=== PATIENT | male | born 1945 | race Caucasian/White ===

== ENCOUNTER 2020-04-17 07:05 | Outpatient (CLI) | payer MEDICARE, SELFPAY ==
--- NOTE | ~2020-04-17 | XR_ITS ---
XR knee RT 3V DATE: 04/17/2020 07:49 INDICATION: Right knee pain for one month. Twisted knee pudding of the facets. TECHNIQUE: 3 views including sunrise COMPARISON: None FINDINGS: There is tricompartment osteoarthritis, most prominent at the medial compartment. There is a large subchondral cyst of the medial aspect of the medial tibial plateau. There is chondrocalcinosis. No fracture or dislocation or significant joint effusion is evident. No periosteal reaction or bone d estruction. IMPRESSION: Tricompartment osteoarthritis Chondrocalcinosis Reviewed, dictated and finalized at location A.
[2020-04-17 07:36] LABS: Basophils Percent Auto 0.4 % (0.2-1.2); Eosinophils Absolute Auto 0.5 K/mm3 (0-0.3); Eosinophils Percent Auto 6.8 % (0-4.4); Hematocrit 39.9 % (42.0-52.0); Hemoglobin 13.5 g/dL (14.0-18.0); Immature Granulocyte Absolute 0.02 K/mm3 (0.00-0.031); Immature Granulocyte Percent A 0.3 % (0-0.5); Lymphocytes Percent Auto 27.4 % (18.3-44.2); Mean Corpuscular HGB Conc 33.8 g/dl (32-36); Mean Corpuscular Volume 97.6 fl (80-100); Mean Platelet Volume 10.7 fl (7.4-10.4); Monocytes Absolute Auto 0.6 K/mm3 (0.1-0.6); Monocytes Percent Auto 7.9 % (2.6-8.5); Neutrophils Percent Auto 57.2 % (45.5-73.1); Platelet Count Result 175 k/mm3 (150-375); Red Blood Count 4.09 M/mm3 (4.6-6.20); Red Cell Distribution Width 12.7 % (11.5-14.5); White Blood Count 6.9 K/mm3 (4.5-10.0)
[2020-04-17 07:50] LABS: Alanine Aminotransferase 27 U/L (4-50); Albumin Level 4.2 g/dL (3.5-5.1); Alkaline Phosphatase 79 U/L (38-126); Anion Gap 7 mmol/L (8-16); Aspartate Amino Transferase 30 U/L (17-59); Bilirubin,Total 0.2 mg/dL (0.2-1.3); Blood Urea Nitrogen 47 mg/dL (9-20); Calcium 9.2 mg/dL (8.4-10.2); Carbon Dioxide 29 mmol/L (22-30); Chloride 109 mmol/L (98-107); Cholesterol 160 mg/dL (0-200); Estimated Glomerular Filt Rate > 60; Glucose 98 mg/dL (75-110); HDL Direct 65 mg/dL; Potassium 4.7 mmol/L (3.4-5.0); Sodium 145 mmol/L (137-145); Triglycerides 62 mg/dL (<150)
[2020-04-17 08:01] LABS: LDL Cholesterol Direct 86 mg/dL
[2020-04-17 08:19] LABS: Prostate Specific Antigen 3.8 ng/mL (< OR = 4.0)
[2020-04-17 08:31] LABS: Free T4 Free Thyroxine 0.82 ng/mL (0.78-2.19)
[2020-04-20 02:07] LABS: Phenytoin Dilantin Free 0.9 mg/L (1.0-2.0)
== END 2020-04-17 07:06 | disposition home or self-care (01) ==
PROVIDERS: PCP Internal Medicine; Visit Provider Internal Medicine
DX: M25.561 Pain in right knee (principal); G89.29 Other chronic pain; I10 Essential (primary) hypertension; E03.9 Hypothyroidism, unspecified; E78.2 Mixed hyperlipidemia; G40.909 Epilepsy, unspecified, not intractable, without status epilepticus; Z12.5 Encounter for screening for malignant neoplasm of prostate
CPT/HCPCS: 36415; 73562; 80053; 80061; 80186; 84153; 84439; 84443; 85025; G0103

== ENCOUNTER 2020-10-02 07:23 | Outpatient (CLI) | payer MEDICARE, SELFPAY ==
[2020-10-02 08:07] LABS: Basophils Percent Auto 0.5 % (0.2-1.2); Eosinophils Absolute Auto 0.6 K/mm3 (0-0.3); Hematocrit 40.6 % (42.0-52.0); Hemoglobin 14.1 g/dL (14.0-18.0); Immature Granulocyte Absolute 0.01 K/mm3 (0.00-0.031); Immature Granulocyte Percent A 0.2 % (0-0.5); Lymphocytes Absolute Auto 1.63 K/mm3 (0.9-3.2); Lymphocytes Percent Auto 29.7 % (18.3-44.2); Mean Corpuscular HGB Conc 34.7 g/dl (32-36); Mean Corpuscular Hemoglobin 32.9 pg (26-34); Mean Corpuscular Volume 94.9 fl (80-100); Mean Platelet Volume 11.8 fl (7.4-10.4); Monocytes Absolute Auto 0.7 K/mm3 (0.1-0.6); Monocytes Percent Auto 12.8 % (2.6-8.5); Neutrophils Absolute Auto 2.6 K/mm3 (1.3-6.7); Neutrophils Percent Auto 46.8 % (45.5-73.1); Platelet Count Result 143 k/mm3 (150-375); Red Blood Count 4.28 M/mm3 (4.6-6.20); Red Cell Distribution Width 12.9 % (11.5-14.5); White Blood Count 5.5 K/mm3 (4.5-10.0)
[2020-10-02 08:22] LABS: Hemoglobin A1C 5.1 % (<5.7)
[2020-10-02 08:23] LABS: Alanine Aminotransferase 17 U/L (4-50); Albumin Level 4.1 g/dL (3.5-5.1); Alkaline Phosphatase 110 U/L (38-126); Anion Gap 10 mmol/L (8-16); Aspartate Amino Transferase 31 U/L (17-59); Bilirubin,Total 0.1 mg/dL (0.2-1.3); Blood Urea Nitrogen 30 mg/dL (9-20); Calcium 8.8 mg/dL (8.4-10.2); Carbon Dioxide 23 mmol/L (22-30); Chloride 108 mmol/L (98-107); Cholesterol 178 mg/dL (0-200); Estimated Glomerular Filt Rate 50; Glucose 114 mg/dL (75-110); HDL Direct 53 mg/dL; Phenytoin Dilantin 6 ug/mL (10-20); Potassium 3.6 mmol/L (3.4-5.0); Sodium 141 mmol/L (137-145); Triglycerides 226 mg/dL (<150)
[2020-10-02 08:32] LABS: LDL Cholesterol Direct 78 mg/dL
[2020-10-02 09:11] LABS: Valproic Acid 62.1 ug/mL (50-120)
[2020-10-02 09:26] LABS: Free T4 Free Thyroxine 1.27 ng/mL (0.78-2.19)
[2020-10-04 18:16] LABS: Homocysteine 13.8 umol/L (<11.4)
[2020-10-07 10:06] LABS: Primidone 2.6
== END 2020-10-02 07:24 | disposition home or self-care (01) ==
PROVIDERS: PCP Internal Medicine; Visit Provider Internal Medicine
DX: G40.909 Epilepsy, unspecified, not intractable, without status epilepticus (principal); Z51.81 Encounter for therapeutic drug level monitoring; Z79.899 Other long term (current) drug therapy; Z83.3 Family history of diabetes mellitus; R79.89 Other specified abnormal findings of blood chemistry; E03.9 Hypothyroidism, unspecified
CPT/HCPCS: 36415; 80048; 80061; 80076; 80164; 80184; 80185; 80188; 83036; 83090; 84439; 84443; 85025

== ENCOUNTER 2020-12-20 07:35 | Outpatient (CLI) | payer MEDICARE, SELFPAY ==
[2020-12-20 09:01] LABS: Free T4 Free Thyroxine 1.16 ng/mL (0.78-2.19)
== END 2020-12-20 07:36 | disposition home or self-care (01) ==
PROVIDERS: PCP Internal Medicine; Visit Provider Internal Medicine
DX: E03.9 Hypothyroidism, unspecified (principal); Z51.81 Encounter for therapeutic drug level monitoring; Z79.899 Other long term (current) drug therapy
CPT/HCPCS: 36415; 84439; 84443

== ENCOUNTER 2021-02-08 06:41 | Outpatient (CLI) | payer MEDICARE, SELFPAY ==
[2021-02-08 07:36] LABS: Basophils Percent Auto 0.5 % (0.2-1.2); Eosinophils Absolute Auto 0.5 K/mm3 (0-0.3); Eosinophils Percent Auto 7.5 % (0-4.4); Hematocrit 40.3 % (42.0-52.0); Hemoglobin 13.3 g/dL (14.0-18.0); Immature Granulocyte Absolute 0.02 K/mm3 (0.00-0.031); Immature Granulocyte Percent A 0.3 % (0-0.5); Immature Platelet Fraction Pct 5.5 % (0.9-11.2); Lymphocytes Percent Auto 36.8 % (18.3-44.2); Mean Corpuscular Hemoglobin 32.8 pg (26-34); Mean Corpuscular Volume 99.3 fl (80-100); Mean Platelet Volume 10.7 fl (7.4-10.4); Monocytes Absolute Auto 0.6 K/mm3 (0.1-0.6); Monocytes Percent Auto 8.7 % (2.6-8.5); Neutrophils Percent Auto 46.2 % (45.5-73.1); Platelet Count Result 152 k/mm3 (150-375); Red Blood Count 4.06 M/mm3 (4.6-6.20); White Blood Count 6.5 K/mm3 (4.5-10.0)
[2021-02-08 07:44] LABS: Hemoglobin A1C 5.2 % (<5.7)
[2021-02-08 08:19] LABS: Phenytoin Dilantin 9 ug/mL (10-20)
[2021-02-08 08:38] LABS: LDL Cholesterol Direct 66 mg/dL
[2021-02-08 08:50] LABS: Free T4 Free Thyroxine 0.92 ng/mL (0.78-2.19)
[2021-02-08 10:02] LABS: Alanine Aminotransferase 23 U/L (4-50); Albumin Level 4.1 g/dL (3.5-5.1); Alkaline Phosphatase 81 U/L (38-126); Anion Gap 8 mmol/L (8-16); Aspartate Amino Transferase 23 U/L (17-59); Bilirubin,Total 0.4 mg/dL (0.2-1.3); Blood Urea Nitrogen 19 mg/dL (9-20); Calcium 9.5 mg/dL (8.4-10.2); Carbon Dioxide 26 mmol/L (22-30); Chloride 105 mmol/L (98-107); Cholesterol 158 mg/dL (0-200); Estimated Glomerular Filt Rate > 60; Glucose 92 mg/dL (65-110); HDL Direct 58 mg/dL; Potassium 4.5 mmol/L (3.4-5.0); Sodium 139 mmol/L (137-145); Triglycerides 149 mg/dL (<150)
[2021-02-10 21:00] LABS: Homocysteine 9.6 umol/L (<11.4)
== END 2021-02-08 06:42 | disposition home or self-care (01) ==
LOC: ANHLAB 06:48
PROVIDERS: PCP Internal Medicine; Visit Provider Internal Medicine
DX: Z51.81 Encounter for therapeutic drug level monitoring (principal); Z79.899 Other long term (current) drug therapy; G40.909 Epilepsy, unspecified, not intractable, without status epilepticus; E03.9 Hypothyroidism, unspecified; I10 Essential (primary) hypertension; E78.2 Mixed hyperlipidemia; R79.89 Other specified abnormal findings of blood chemistry
CPT/HCPCS: 36415; 80053; 80061; 80184; 80185; 80188; 83036; 83090; 84439; 84443; 85025; 85055

== ENCOUNTER 2021-03-29 09:47 | Outpatient (CLI) | payer MEDICARE, SELFPAY ==
--- NOTE | 2021-03-29 11:30 | NEURO_ITS ---
Impression: # Complains of numbness of hands. # Bilateral Carpal Tunnel Syndrome. # Right ulnar neuropathy across the elbow. # Needle/EMG exam not requested. Nerve Conduction Studies Anti Sensory Summary Table Stim Site NR Peak (ms) P-T Amp (?V) Site1 Site2 Delta-P (ms) Dist (cm) Cipriano (m/s) Left Median Anti Sensory (2-3nd Digit) Wrist 5.6 14.9 Wrist 2-3nd Digit 5.6 14.0 25 Wrist 5.6 12.4 Wrist 2-3nd Digit 5.6 14.0 25 Right Median Anti Sensory (2-3nd Digit) Wrist 5.7 9.4 Wrist 2-3nd Digit 5.7 14.0 25 Wrist 5.3 16.0 Wrist 2-3nd Digit 5.7 14.0 25 Left Radial Anti Sensory (Base 1st Digit) Wrist 2.6 19.9 Wrist Base 1st Digit 2.6 0.0 Right Radial Anti Sensory (Base 1st Digit) Wrist 3.0 12.1 Wrist Base 1st Digit 3.0 0.0 Left Ulnar Anti Sensory (5th Digit) Wrist 3.0 16.8 Wrist 5th Digit 3.0 14.0 47 Right Ulnar Anti Sensory (5th Digit) Wrist 3.2 24.2 Wrist 5th Digit 3.2 14.0 44 Motor Summary Table Stim Site NR Onset (ms) O-P Amp (mV) Site1 Site2 Delta-0 (ms) Dist (cm) Cipriano (m/s) Left Median Motor (Abd Poll Brev) Wrist 5.7 1.4 Elbow Wrist 5.9 33.0 56 Elbow 11.6 0.8 Right Median Motor (Abd Poll Brev) Wrist 5.3 4.0 Elbow Wrist 6.3 33.0 52 Elbow 11.6 3.5 Left Ulnar Motor (Abd Dig Minimi) Wrist 2.8 3.0 A Elbow Wrist 5.9 33.0 56 A Elbow 8.7 1.4 Right Ulnar Motor (Abd Dig Minimi) Wrist 3.4 3.3 A Elbow Wrist 7.1 32.0 45 A Elbow 10.5 1.9 B Elbow Wrist 5.1 24.0 47 B Elbow 8.5 1.8 F Wave Studies NR F-Lat (ms) L-R F-Lat (ms) Left Median (Mrkrs) (Abd Poll Brev) 33.74 0.99 Right Median (Mrkrs) (Abd Poll Brev) 32.75 0.99 Left Ulnar (Mrkrs) (Abd Dig Min) 29.77 0.23 Right Ulnar (Mrkrs) (Abd Dig Min) 29.54 0.23 MTDD
== END 2021-03-29 09:48 | disposition home or self-care (01) ==
LOC: ANHNEURO 09:49
PROVIDERS: PCP Internal Medicine; Visit Provider Plastic Surgery
DX: G56.00 Carpal tunnel syndrome, unspecified upper limb (principal); G64 Other disorders of peripheral nervous system; G56.03 Carpal tunnel syndrome, bilateral upper limbs; G56.21 Lesion of ulnar nerve, right upper limb
CPT/HCPCS: 95911

== ENCOUNTER 2021-04-02 09:20 | Outpatient (CLI) | payer MEDICARE, SELFPAY ==
[2021-04-02 10:22] LABS: Basophils Percent Auto 0.4 % (0.2-1.2); Eosinophils Absolute Auto 0.5 K/mm3 (0-0.3); Eosinophils Percent Auto 10.5 % (0-4.4); Hematocrit 38.8 % (42.0-52.0); Hemoglobin 12.6 g/dL (14.0-18.0); Immature Granulocyte Absolute 0.01 K/mm3 (0.00-0.031); Immature Granulocyte Percent A 0.2 % (0-0.5); Lymphocytes Absolute Auto 1.88 K/mm3 (0.9-3.2); Lymphocytes Percent Auto 36.7 % (18.3-44.2); Mean Corpuscular HGB Conc 32.5 g/dl (32-36); Mean Corpuscular Hemoglobin 33.4 pg (26-34); Mean Corpuscular Volume 102.9 fl (80-100); Mean Platelet Volume 12.1 fl (7.4-10.4); Monocytes Absolute Auto 0.4 K/mm3 (0.1-0.6); Monocytes Percent Auto 8.6 % (2.6-8.5); Neutrophils Absolute Auto 2.2 K/mm3 (1.3-6.7); Neutrophils Percent Auto 43.6 % (45.5-73.1); Platelet Count Result 120 k/mm3 (150-375); Red Blood Count 3.77 M/mm3 (4.6-6.20); White Blood Count 5.1 K/mm3 (4.5-10.0)
[2021-04-02 10:37] LABS: Anion Gap 9 mmol/L (8-16); Blood Urea Nitrogen 38 mg/dL (9-20); Calcium 8.8 mg/dL (8.4-10.2); Carbon Dioxide 25 mmol/L (22-30); Chloride 108 mmol/L (98-107); Estimated Glomerular Filt Rate > 60; Glucose 95 mg/dL (65-110); Phenytoin Dilantin 10 ug/mL (10-20); Potassium 4.6 mmol/L (3.4-5.0); Sodium 142 mmol/L (137-145)
[2021-04-02 11:48] LABS: Valproic Acid 64.7 ug/mL (50-120)
[2021-04-05 08:49] LABS: Primidone 4.3
== END 2021-04-02 09:21 | disposition home or self-care (01) ==
PROVIDERS: PCP Internal Medicine; Visit Provider Internal Medicine
DX: R27.0 Ataxia, unspecified (principal); G40.909 Epilepsy, unspecified, not intractable, without status epilepticus
CPT/HCPCS: 36415; 80048; 80164; 80184; 80185; 80188; 85025

== ENCOUNTER 2021-04-26 00:29 | Day surgery (SDC) | payer MEDICARE, SELFPAY ==
[2021-04-11 09:23] VITALS: BMI 27.1
[2021-04-26 06:15] VITALS: BP 145/84; PULSE 76; RESP 16; TEMP 36.3; O2SAT 99
--- NOTE | 2021-04-26 06:38 | WPDHPUPDATE1 ---
History and Physical Update Update Date/Time: 04/26/21 06:38 History and Physical has been reviewed, including an updated exam of the patient. There are NO changes in the patient's condition. Risks, benefits, and alternatives have been discussed and questions answered. Patient agrees to proceed with procedure.
[2021-04-26] MEDS: LACTATED RINGERS 1,000 ML 30 ML IV CONT (06:46)
--- NOTE | 2021-04-26 07:04 | WPDANESEPPF ---
Anes - Initial Pre Proc Eval Procedure: Operation Date: 04/26/21 07:30 Proposed Procedures p Right Open Carpal Tunnel Release, Right Ulnar Neuroplasty at Elbow - Lisandro Conrad MD Date/Time: 04/26/21 07:04 Surgeon: Lisandro Conrad MD Pre Op Diagnosis: right carpal and cubital tunnel syndrome Patient Data Age: 76 Gender: M Height: 1.83 m Weight: 98.9 kg Last Vital Signs Temp 97.4 F L 04/26/21 06:15 Pulse 76 04/26/21 06:15 Resp 16 04/26/21 06:15 BP 145/84 H 04/26/21 06:15 Pulse Ox 99 04/26/21 06:15 Allergies Allergy/AdvReac Type Severity Reaction Status Date / Time No Known Allergies Allergy Unknown Verified 04/26/21 06:07 Home Medications Medication Instructions Recorded Confirmed Type folic acid 1 mg tablet 1 mg PO DAILY 04/13/20 04/26/21 History mecobalamin (vitamin B12) 1,000 1,000 mcg SUBLINGUAL DAILY 04/13/20 04/26/21 History mcg disintegrating tablet,sublingual lorazepam 0.5 mg tablet 0.5 mg PO TID PRN #30 tablet 08/02/20 04/26/21 Rx levothyroxine 200 mcg tablet 200 mcg PO DAILY #90 tablet 02/14/21 04/26/21 Rx atorvastatin 20 mg tablet 20 mg PO DAILY #90 tablet 02/26/21 04/26/21 Rx divalproex 500 mg tablet,delayed 500 mg PO QID #360 tablet 02/26/21 04/26/21 Rx release sucralfate 1 gram tablet 2 g PO BID #360 tablet 02/26/21 04/26/21 Rx candesartan-hydrochlorothiazid 1 tablet PO QAM 04/11/21 04/26/21 History gabapentin 300 mg PO DIRECTED 04/11/21 04/26/21 History naproxen sodium [Aleve] 220 mg PO BID PRN 04/11/21 04/11/21 History phenytoin sodium extended 200 mg PO HS 04/11/21 04/26/21 History phenytoin sodium extended 300 mg PO QAM 04/11/21 04/26/21 History primidone 250 mg PO BID 04/11/21 04/26/21 History Patient hx anesthesia problems: none Family hx anesthesia problems: none Results Review: All pre-operative results and documents have been reviewed as part of the pre-operative evaluation. [facility] Past Medical History Medical History (Updated 03/29/21 @ 16:47 by Diana Killian LPN) Benign essential hypertension BMI 30.0-30.9,adult Carpal tunnel syndrome Colon cancer screening Elevated homocysteine Elevated serum creatinine Encounter for routine adult health examination without abnormal findings FHx: type 2 diabetes mellitus GERD (gastroesophageal reflux disease) Hx of colonic polyps Hyperlipidemia Hypothyroidism (acquired) On intermediate drug therapy Prostate cancer screening Seizure disorder Vitamin B12 deficiency Social History Social History Smoking status: Never smoker Alcohol intake: never Substance use: never Living arrangements: alone Spiritual care concerns: No Anes - Eval Final PreProcedure Day of Procedure 04/26/21 07:04 Patient weight: overweight Heart: regular rate and rhythm Lungs: clear to auscultation Airway: Mallampati scale class II Neurological: alert and oriented Last oral intake: >/= 8 hours ASA classification: III Emergent: no Anesthetic plan: proceed Anesthesia type and monitoring: general GIVS and standard monitoring Results Review: All pre-operative results and documents have been reviewed as part of the pre-operative evaluation. Informed Consent: The patient's anesthetic plan and its attendant risks and benefits were discussed with the patient/family/POA. Questions were solicited and answers provided to the satisfaction of the patient/family/POA.
[2021-04-26] MEDS: LIDO 1%/EPINEPHRINE 1:100,000 50 ML VIAL 10 ML INFILTRATE (07:48)
[2021-04-26 08:47] VITALS: BP 131/80; PULSE 78; RESP 18; O2SAT 96
--- NOTE | 2021-04-26 08:49 | P.OP_ITS ---
Procedure Note - Detailed Date of Procedure 04/26/21 Pre-op Diagnosis right carpal and cubital tunnel syndrome Post-op Diagnosis same Procedure Performed RIGHT OPEN CARPAL TUNNEL RELEASE AND RIGHT ULNAR NEUROPLASTY AT THE ELBOW Surgeon Lisandro Conrad MD Project Manager/Team Coach [facility] Description of Procedure The 2 sites were marked on the patient in the holding area. The patient was taken to the operating room and placed supine on the operating table. A time- out was held and confirmed. He was given IV sedation and the right upper extremity was prepped and draped in usual fashion. The markings were remade and the sites locally infiltrated with 1% lidocaine with epinephrine. The tourniquet was inflated to 250 mmHg after exsanguination with an Geovanny wrap. The surgery was begun on the right hand where the incision was made as marked and dissection was carried bluntly through the subcutaneous tissue to the palmar aponeurosis. This and the transverse carpal ligament were incised a 15. Blade. Under 3 point retraction the ligament was divided distally and proximally for co mplete release. Site looks this so it might have been previously operated. No other unusual anatomy was noted. The skin was closed with interrupted 4-0 nylon suture. Attention was turned to the left elbow which was supported on folded towels the elbow was flexed and the arm was externally rotated. The incision was made as marked. This side had evidence of an old scar and the location of the nerve was not readily evident. We dissected through the subcutaneous tissue and it appeared that the nerve did not lie directly in front of the triceps. I explored distally and proximally and finally located the nerve coming past the intermuscular septum and entering the area of the canal behind the medial epicondyle. At that point it remained quite superficial traversing over the medial epicondyle through scar. It then curved ulnar word into the flexor muscle fascia which required opening. This area was scarred. The nerve was surrounded but not tightly encased in scar. The dissection went easily from that point. The entire 3 in or so of scar tissue was removed from the nerve. The nerve appeared to have adequate vascular supply it appeared to be compressed in a couple of areas. The decision was made not to transpose this for fear of devascularizing and. The did rise to the surface of the medial epicondyle with the elbow tighten flex. Of the that it laid tucked behind the medial epicondyle. The skin was closed with intradermal 3-0 Monocryl sutures various sites and then the skin was closed with a running 3-0 Monocryl. Both sites were bandaged the tourniquet was released prior that. Another before we exited the operating room the palmar bandage was noted to be soaked through and this was re-dressed. The wound compression for about 4 minutes. He is being discharged home with instructions in wound care and follow-up and a prescription for hydrocodone 10.
[2021-04-26 09:10] VITALS: BP 134/83; PULSE 64; RESP 16; O2SAT 95
[2021-04-26 09:30] VITALS: BP 134/83; PULSE 55; RESP 16
== END 2021-04-26 09:45 | disposition home or self-care (01) ==
PROVIDERS: PCP Internal Medicine; Visit Provider Plastic Surgery
PROC: (CPT 64721; principal; 2021-04-26 07:30)
DX: G56.01 Carpal tunnel syndrome, right upper limb (principal); G56.21 Lesion of ulnar nerve, right upper limb; I10 Essential (primary) hypertension; K21.9 Gastro-esophageal reflux disease without esophagitis; E78.5 Hyperlipidemia, unspecified; E03.9 Hypothyroidism, unspecified; G40.909 Epilepsy, unspecified, not intractable, without status epilepticus; E53.8 Deficiency of other specified B group vitamins
CPT/HCPCS: 64721; 64718; A9270; J2704; J3010; J7120

== ENCOUNTER 2021-05-09 19:45 | Inpatient (IN) | payer MEDICARE, MEDICAID, SELFPAY ==
[2021-05-09] VITALS (20 sets, daily range): BP systolic 150–205; BP diastolic 90–101; PULSE 67–75; RESP 7–18; TEMP 36.1; O2SAT 97–100
--- NOTE | ~2021-05-09 | CT_ITS ---
EXAMINATION: CT brain wo con DATE: 05/09/2021 20:16 INDICATION: CVA. TECHNIQUE: Computed tomography (CT) of the head was performed without intravenous contrast. The dose- length product was 605.33 mGy-cm. Automated exposure control and iterative reconstruction technique w ere employed. COMPARISON: CT dated 11/24/2015 FINDINGS: There are surgical changes of left sided craniectomy. There is encephalomalacia of the left temporal lobe. There is significant streak artifact limiting evaluation of the left hemisphere. No v entriculomegaly or midline shift. Basilar cisterns are patent. No acute intracranial hemorrhage, infa rction, mass or mass effect is identified. IMPRESSION: 1. No acute intracranial abnormality. No significant interval change. Reviewed, dictated and finalized at location A.
--- NOTE | ~2021-05-09 | XR_ITS ---
EXAMINATION: XR chest 1V 05/09/2021 20:21 INDICATION: Suspected CVA PROCEDURE: AP view of the chest COMPARISON: Comparison to multiple prior studies sequentially, with oldest reviewed study dated 11/23. FINDINGS: The lungs are clear. The cardiomediastinal silhouette is within normal limits. There are no pleural effusions. There is no pneumothorax suspected. IMPRESSION: 1: NO ACUTE CARDIOPULMONARY DISEASE. Reviewed, dictated and finalized at location A.
--- NOTE | 2021-05-09 20:02 | ECG_ITS ---
Measurements Intervals [place] Rate: 68 P: 19 VT: 228 QRS: -28 QRSD: 88 T: -3 QT: 373 QTc: 398 Interpretive Statements SINUS RHYTHM WITH FIRST DEGREE AV BLOCK DELAYED PRECORDIAL R/S TRANSITION INFERIOR INFARCT, AGE INDETERMINATE BASELINE ARTIFACT- I, II, III, AVR, AVL, AVF, V2-V6 ABNORMAL ECG Electronically Signed On 05-10-2021 5:34:12 CDT by Fausto Curran D.O.
[2021-05-09 20:26] LABS: INR 1.1; Prothrombin Time 13.9 Seconds (11.1-14.7)
[2021-05-09 20:27] LABS: Partial Thromboplastin Time 37.2 SECONDS (22.3-36.8)
[2021-05-09 20:40] LABS: Anion Gap 14 mmol/L (8-16); Blood Urea Nitrogen 20 mg/dL (9-20); Calcium 9.7 mg/dL (8.4-10.2); Carbon Dioxide 23 mmol/L (22-30); Chloride 106 mmol/L (98-107); Estimated CRCL calculation 62 ml/min; Estimated Glomerular Filt Rate > 60; Glucose 113 mg/dL (65-110); Sodium 143 mmol/L (137-145)
[2021-05-09 20:41] LABS: Basophils Percent Auto 0.5 % (0.2-1.2); Eosinophils Absolute Auto 0.4 K/mm3 (0-0.3); Eosinophils Percent Auto 6.4 % (0-4.4); Hematocrit 38.6 % (42.0-52.0); Immature Granulocyte Absolute 0.08 K/mm3 (0.00-0.031); Immature Granulocyte Percent A 1.3 % (0-0.5); Lymphocytes Absolute Auto 1.49 K/mm3 (0.9-3.2); Lymphocytes Percent Auto 23.3 % (18.3-44.2); Mean Corpuscular HGB Conc 33.7 g/dl (32-36); Mean Corpuscular Hemoglobin 33.5 pg (26-34); Mean Corpuscular Volume 99.5 fl (80-100); Mean Platelet Volume 10.1 fl (7.4-10.4); Monocytes Absolute Auto 0.5 K/mm3 (0.1-0.6); Monocytes Percent Auto 7.2 % (2.6-8.5); Neutrophils Absolute Auto 3.9 K/mm3 (1.3-6.7); Neutrophils Percent Auto 61.3 % (45.5-73.1); Platelet Count Result 271 k/mm3 (150-375); Red Blood Count 3.88 M/mm3 (4.6-6.20); Red Cell Distribution Width 12.7 % (11.5-14.5); White Blood Count 6.4 K/mm3 (4.5-10.0)
--- NOTE | 2021-05-09 20:42 | PC.NURSE ---
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 Lives independently. Recent carpal tunnel surgery to [facility] two weeks ago. Sister saw patient around 1300 today, states normal but just quieter than usual . Sister states pt's phone off the hook, she went over to his house at 18:30, and pt was still sitting in same spot and found to be altered, unsure what a remote was or how to change channel, had expressive aphasia and repetitive speech. Sister brought pt to ED. Pt currently having expressive aphasia, primarily difficult naming objects/recalling times. Equal strength bilaterally, no facial droop. Denies headache.
[2021-05-09 20:52] LABS: Troponin I < 0.012 ng/mL (0.000-0.034)
--- NOTE | 2021-05-09 21:50 | ED.NEUROSD ---
HPI - Neuro Symptoms/Deficit General Chief Complaint: Suspected CVA Stated Complaint: aphagia, confusion Time Seen by Provider: 05/09/21 20:06 Source: patient and family Mode of arrival: wheelchair Limitations: clinical condition History of Present Illness HPI Narrative: 76-year-old with a history of hypertension, hyperlipidemia, seizure disorder s/p left frontal craniotomy secondary to scar tissue was brought in by sister with complaints of unable to identify objects and confusion since this evening. Patient sister mentions that she was stated to visit him around 1:00 he was doing fine. Went to check on him this evening he was extremely confused was unable to identify a phone, remote control. Patient had recent carpal tunnel surgery on the right. Patient denies any headache or chest pain or seizure activity. Patient does have expressive aphasia which is ongoing. Onset (ago): hour(s) (6) Last Observed Normal: 13:00 Timing confirmed by: family member (sister is a Retired Nurse ) Location: dysarthria History of same: Yes Severity: moderate Context: sudden onset On Anticoagulants: No Associated symptoms: denies other symptoms Related Data Home Medications Medication Instructions Recorded Confirmed folic acid 1 mg tablet 1 mg PO DAILY 04/13/20 04/26/21 mecobalamin (vitamin B12) 1,000 1,000 mcg SUBLINGUAL DAILY 04/13/20 04/26/21 mcg disintegrating tablet,sublingual candesartan-hydrochlorothiazid 1 tablet PO QAM 04/11/21 04/26/21 gabapentin 300 mg PO DIRECTED 04/11/21 04/26/21 naproxen sodium [Aleve] 220 mg PO BID PRN 04/11/21 04/11/21 phenytoin sodium extended 200 mg PO HS 04/11/21 04/26/21 phenytoin sodium extended 300 mg PO QAM 04/11/21 04/26/21 primidone 250 mg PO BID 04/11/21 04/26/21 Allergies Allergy/AdvReac Type Severity Reaction Status Date / Time No Known Allergies Allergy Unknown Verified 04/26/21 09:20 Review of Systems Review of Systems: All systems reviewed & are unremarkable except as noted in HPI and below Constitutional: Constitutional: Reports no additional constitutional complaints Eyes: Eyes: Reports no additional eye complaints ENT: Reports system reviewed and no additional complaints, except as documented Cardiovascular: Cardiovascular: Reports no additional cardiovascular complaints Respiratory: Respiratory: Reports no additional respiratory complaints Gastrointestinal: Gastrointestinal: Reports no additional gastrointestinal complaints Musculoskeletal: Musculoskeletal: Reports no additional musculoskeletal complaints Neurologic: Reports as per [facility] Past Medical History Medical History Benign essential hypertension BMI 30.0-30.9,adult Carpal tunnel syndrome Colon cancer screening Elevated homocysteine Elevated serum creatinine Encounter for routine adult health examination without abnormal findings FHx: type 2 diabetes mellitus GERD (gastroesophageal reflux disease) Hx of colonic polyps Hyperlipidemia Hypothyroidism (acquired) On terminal clerk drug therapy Prostate cancer screening Right ankle pain Right foot pain Seizure disorder Vitamin B12 deficiency Social History Social History Smoking status: Never smoker Alcohol intake: never Substance use: never Spiritual care concerns: No Exam Narrative: GENERAL: Well-appearing, well-nourished, and in no acute distress. HEAD: Normocephalic, atraumatic. EYES: PERRLA and EOMI. ENT: Nares clear, no rhinorrhea or epistaxis. Mucous membranes moist.no facial droop NECK: Supple. CHEST: Clear to auscultation. No respiratory distress. HEART: Regular rate and rhythm. No murmur heard. Normal peripheral pulses. ABDOMEN: Soft, nontender, nondistended, normal active bowel sounds. EXTREMITIES: Normal range of motion. No edema. has surgical scar on the right palm SKIN: Warm, dry, no rash. NEURO: No focal deficits. A
--- NOTE | 2021-05-09 21:52 | PM.IMHP ---
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 Patient was brought to emergency room due to altered mental status sister is at bedside patient states that he does not remember why his in the emergency room he knows that he is in [facility] Emergency Room though, sister checks in with him every day according to sister he lives on his own and he is able to do all his ADLs however today when she went to visit she noticed in the afternoon on her 2nd visit that his gait was different and he was confused. Prior to today patient has been his usual state of health he has been his usual self he has good appetite, denies any pain at the time of my visit denied any discomfort, no nausea no vomiting no abdominal pain no diarrhea no headaches no changes of his vision no focal sensorimotor deficit no syncope or near syncope no speech disturbance. Preliminary workup was significant for a systolic blood pressure in the 200s a CBC and a BMP were unrevealing a chest x-ray was clear and CT of the head was with no acute intracranial abnormality patient has been placed in observation for further evaluation and treatment. Review of Systems Review of Systems: Altered mental status ROS unobtainable: Yes other (Patient can not tell why he is in the emergency room history taking from ) [facility] Past Medical History Medical History Benign essential hypertension BMI 30.0-30.9,adult Carpal tunnel syndrome Colon cancer screening Elevated homocysteine Elevated serum creatinine Encounter for routine adult health examination without abnormal findings FHx: type 2 diabetes mellitus GERD (gastroesophageal reflux disease) Hx of colonic polyps Hyperlipidemia Hypothyroidism (acquired) On lobsterman drug therapy Prostate cancer screening Right ankle pain Right foot pain Seizure disorder Vitamin B12 deficiency Social History Social History Smoking status: Never smoker Alcohol intake: never Substance use: never Spiritual care concerns: No Meds Home Medications and Allergies Home Medications Medication Instructions Recorded Confirmed Type folic acid 1 mg tablet 1 mg PO DAILY 04/13/20 05/10/21 History mecobalamin (vitamin B12) 1,000 1,000 mcg SUBLINGUAL DAILY 04/13/20 05/10/21 History mcg disintegrating tablet,sublingual lorazepam 0.5 mg tablet 0.5 mg PO TID PRN #30 tablet 08/02/20 05/10/21 Rx levothyroxine 200 mcg tablet 200 mcg PO DAILY #90 tablet 02/14/21 05/10/21 Rx atorvastatin 20 mg tablet 20 mg PO DAILY #90 tablet 02/26/21 05/10/21 Rx divalproex 500 mg tablet,delayed 500 mg PO QID #360 tablet 02/26/21 05/10/21 Rx release sucralfate 1 gram tablet 2 g PO BID #360 tablet 02/26/21 05/10/21 Rx candesartan-hydrochlorothiazid 1 tablet PO QAM 04/11/21 05/10/21 History gabapentin 300 mg PO DIRECTED 04/11/21 05/10/21 History naproxen sodium [Aleve] 220 mg PO BID PRN 04/11/21 05/10/21 History phenytoin sodium extended 200 mg PO HS 04/11/21 05/10/21 History phenytoin sodium extended 300 mg PO QAM 04/11/21 05/10/21 History primidone 250 mg PO BID 04/11/21 05/10/21 History hydrocodone-acetaminophen 1 tablet PO Q6H PRN #10 tablet MDD 04/26/21 05/10/21 Rx 6 Allergies Allergy/AdvReac Type Severity Reaction Status Date / Time No Known Allergies Allergy Unknown Verified 04/26/21 09:20 Vital Signs Vital Signs - 24 hr 05/09/21 19:49 05/09/21 19:59 05/09/21 20:54 Temperature 97.0 F L Pulse Rate 70 68 Respiratory Rate 18 13 Blood Pressure 205/92 H 180/90 H 164/101 H Pulse Oximetry 100 98 05/09/21 20:59 Temperature Pulse Rate Respiratory Rate Blood Pressure 167/101 H Pul
[2021-05-09 22:42] LABS: Phenytoin Dilantin 6 ug/mL (10-20)
[2021-05-10] VITALS (7 sets, daily range): BP systolic 122–163; BP diastolic 72–92; PULSE 54–68; RESP 16–18; TEMP 36.1–36.8; O2SAT 96–100; BMI 27.0
--- NOTE | 2021-05-10 01:59 | ADMGEN ---
This patient, Memo Tamez, was admitted to 3 [facility] Surg Room 305-01 at 0005. Patient/family oriented to hospital policies and general routines including ID bracelet, bed and alarms, visiting hours, pain management, procedures, bathroom and other care routines, personal items, smoking policy, room service/diet, and visiting hours. Information on how to activate the Rapid Response Team has been discussed. Patient/Family are encouraged to report perceived risks to care and to ask questions if they do not understand what they are told or what they should do.
[2021-05-10] MEDS: LEVOTHYROXINE SODIUM 100 MCG TABLET 200 MCG PO (06:16)
[2021-05-10] MEDS: GABAPENTIN 300 MG CAPSULE PO ×5 (06:16→21:15)
[2021-05-10 07:43] LABS: Glucose Point of Care 90 mg/dl (65-105)
[2021-05-10] MEDS: CANDESARTAN CILEXETIL 16 MG TABLET 32 MG PO (08:12)
[2021-05-10] MEDS: DIVALPROEX SODIUM DR 250 MG TABEC 500 MG PO ×4 (08:12→21:13)
[2021-05-10] MEDS: ATORVASTATIN 20 MG TABLET PO (08:12)
[2021-05-10] MEDS: SUCRALFATE 1 GM TABLET 2 GM PO ×2 (08:12→17:44)
[2021-05-10] MEDS: PHENYTOIN SODIUM 100 MG EXTENDED RELEASE CAP 300 MG PO (08:12)
[2021-05-10] MEDS: hydroCHLOROthiazide 12.5 MG CAPSULE PO (08:12)
[2021-05-10] MEDS: FOLIC ACID 1 MG TABLET PO (08:13)
[2021-05-10] MEDS: ASPIRIN 81 MG CHEWABLE TABLET PO (08:13)
[2021-05-10] MEDS: CYANOCOBALAMIN 1,000 MCG TABLET 1000 MCG PO (08:13)
[2021-05-10] MEDS: PRIMIDONE 250 MG TABLET PO ×2 (08:13→17:44)
[2021-05-10 11:50] LABS: Glucose Point of Care 115 mg/dl (65-105)
--- NOTE | 2021-05-10 12:07 | WPDNEURCNPN ---
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 Patient has had the history of significant uncontrolled epilepsy for which he has undergone left frontal craniectomy with history of underlying sent loose equine meningoencephalitic was brought to the ER this time for the complaint of change in the mental status though himself he did not know why he was in the hospital he lives on his own and is able to do all his ADLs however on the day of admission when she sister went to check on him he was noted leak confused and his gait was different he was noted to have hypertension in the emergency room chest x-ray was clear and the CT scan of the head revealed no acute change, for the sake of documentation they significant encephalomalacia of the left temporal lobe with significant streak artifact without evidence of ventriculomegaly or midline shift basilar cisterns are patent. As per the information available from the sister he has had temporal lobectomy by Dr. evgeny herman in [place] for the intractable epilepsy and his medications include divalproex 500 mg q.i.d. gabapentin 300 mg p.r.n. lorazepam 0.5 mg t.i.d. p.r.n. Dilantin 200 mg at night and 300 mg every morning, primidone 250 mg b.i.d. Review of Systems Review of Systems: All systems reviewed & are unremarkable except as noted in HPI and below PMFSH Past Medical History Medical History Benign essential hypertension BMI 30.0-30.9,adult Carpal tunnel syndrome Colon cancer screening Elevated homocysteine Elevated serum creatinine Encounter for routine adult health examination without abnormal findings FHx: type 2 diabetes mellitus GERD (gastroesophageal reflux disease) Hx of colonic polyps Hyperlipidemia Hypothyroidism (acquired) On superintendent terminal drug therapy Prostate cancer screening Right ankle pain Right foot pain Seizure disorder Vitamin B12 deficiency Social History Social History Smoking status: Never smoker Alcohol intake: never Substance use: never Spiritual care concerns: No Meds Home Medications and Allergies Home Medications Medication Instructions Recorded Confirmed Type folic acid 1 mg tablet 1 mg PO DAILY 04/13/20 05/10/21 History mecobalamin (vitamin B12) 1,000 1,000 mcg SUBLINGUAL DAILY 04/13/20 05/10/21 History mcg disintegrating tablet,sublingual lorazepam 0.5 mg tablet 0.5 mg PO TID PRN #30 tablet 08/02/20 05/10/21 Rx levothyroxine 200 mcg tablet 200 mcg PO DAILY #90 tablet 02/14/21 05/10/21 Rx atorvastatin 20 mg tablet 20 mg PO DAILY #90 tablet 02/26/21 05/10/21 Rx divalproex 500 mg tablet,delayed 500 mg PO QID #360 tablet 02/26/21 05/10/21 Rx release sucralfate 1 gram tablet 2 g PO BID #360 tablet 02/26/21 05/10/21 Rx candesartan-hydrochlorothiazid 1 tablet PO QAM 04/11/21 05/10/21 History gabapentin 300 mg PO DIRECTED 04/11/21 05/10/21 History naproxen sodium [Aleve] 220 mg PO BID PRN 04/11/21 05/10/21 History phenytoin sodium extended 200 mg PO HS 04/11/21 05/10/21 History phenytoin sodium extended 300 mg PO QAM 04/11/21 05/10/21 History primidone 250 mg PO BID 04/11/21 05/10/21 History hydrocodone-acetaminophen 1 tablet PO Q6H PRN #10 tablet MDD 04/26/21 05/10/21 Rx 6 Allergies Allergy/AdvReac Type Severity Reaction Status Date / Time No Known Allergies Allergy Unknown Verified 04/26/21 09:20 Vital Signs Vital Signs - 24 hr 05/09/21 19:49 05/09/21 19:59 05/09/21 20:33 Temperature 36.1 C L Pulse Rate
--- NOTE | 2021-05-10 14:59 | PM.IMPN ---
Progress Note: A&P Assessment and Plan (1) Hypertensive emergency: Code(s): I16.1 - Hypertensive emergency Status: Acute Assessment and Plan: Place in observation Cautious normalization of blood pressure Resume home meds Continue to monitor Supportive care (2) Altered mental status: Qualifiers: Altered mental status type: unspecified Qualified Code(s): R41.82 - Altered mental status, unspecified Code(s): R41.82 - Altered mental status, unspecified Status: Acute Assessment and Plan: Resolved 05/10/2021 interval history unfortunately patient is unable provide detail review of symptoms CT scan of the head is negative and patient cannot have MRI, patient seen by neurologist recommending EEG to further evaluate, and also he patient continue to have any seizure medication will be adjusted, will have a PT OT evaluate the and further recommendation to follow. (3) Brain TIA: Code(s): G45.9 - Transient cerebral ischemic attack, unspecified Status: Acute Assessment and Plan: Likely secondary to hypertension CT of the head reviewed (4) GERD (gastroesophageal reflux disease): Qualifiers: Esophagitis presence: esophagitis presence not specified Qualified Code(s): K21.9 - Gastro-esophageal reflux disease without esophagitis Code(s): K21.9 - Gastro-esophageal reflux disease without esophagitis Status: Acute Assessment and Plan: PPI as needed (5) Seizure disorder: Code(s): G40.909 - Epilepsy, unspecified, not intractable, without status epilepticus Status: Acute Assessment and Plan: Resume home meds Continue to monitor Subjective Date/time seen: 05/10/21 14:59 Chief Complaint: Altered mental status Narrative: This is a 76-year-old male with past medical history significant for epilepsy, 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 Patient was brought to emergency room due to altered mental status sister is at bedside patient states that he does not remember why his in the emergency room he knows that he is in [facility] though, sister checks in with him every day according to sister he lives on his own and he is able to do all his ADLs however today when she went to visit she noticed in the afternoon on her 2nd visit that his gait was different and he was confused. Prior to today patient has been his usual state of health he has been his usual self he has good appetite, denies any pain at the time of my visit denied any discomfort, no nausea no vomiting no abdominal pain no diarrhea no headaches no changes of his vision no focal sensorimotor deficit no syncope or near syncope no speech disturbance. Preliminary workup was significant for a systolic blood pressure in the 200s a CBC and a BMP were unrevealing a chest x-ray was clear and CT of the head was with no acute intracranial abnormality patient has been placed in observation for further evaluation and treatment. 05/10/2021 interval history unfortunately patient is unable provide detail review of symptoms CT scan of the head is negative and patient cannot have MRI, patient seen by neurologist recommending EEG to further evaluate, and also he patient continue to have any seizure medication will be adjusted, will have a PT OT evaluate the and further recommendation to follow. Review of Systems Review of Systems: ROS unobtainable: Yes unobtainable due to medical condition Exam Narrative: Patient is comfortable, NAD HEENT: eyes are clear and none icteric LUNGS:CTA HEART: RR S1S2 ABD: not distant Lower extremities: no edema SKIN: nonjaundiced Neuro: grossly intact somewhat confused. Objective Data Vital Signs Vital Signs: Vital Signs - 24 hr 05/09/21 19:49 05/09/21 19:59 05/09/21 20:33 Temperature 97.0 F L Pulse Rate 70 68 Respiratory Rate 18 13 Blood Pressure 205/92
[2021-05-10] MEDS: SODIUM CHLORIDE 0.9% IV 1,000 ML 75 ML IV CONT ×2 (17:48→21:12)
[2021-05-10] MEDS: PHENYTOIN SODIUM 100 MG EXTENDED RELEASE CAP 200 MG PO ×2 (21:14)
[2021-05-11] VITALS (11 sets, daily range): BP systolic 112–169; BP diastolic 62–96; PULSE 58–72; RESP 14–20; TEMP 36.1–36.8; O2SAT 94–98
[2021-05-11] MEDS: LEVOTHYROXINE SODIUM 100 MCG TABLET 200 MCG PO (06:31)
[2021-05-11] MEDS: GABAPENTIN 300 MG CAPSULE PO ×5 (06:31→22:08)
[2021-05-11 06:44] LABS: Anion Gap 9 mmol/L (8-16); Blood Urea Nitrogen 18 mg/dL (9-20); Carbon Dioxide 24 mmol/L (22-30); Chloride 108 mmol/L (98-107); Estimated CRCL calculation 76 ml/min; Estimated Glomerular Filt Rate > 60; Glucose 89 mg/dL (65-110); Magnesium 1.8 mg/dL (1.6-2.3); Potassium 3.7 mmol/L (3.4-5.0); Sodium 141 mmol/L (137-145)
[2021-05-11] MEDS: hydroCHLOROthiazide 12.5 MG CAPSULE PO (08:27)
[2021-05-11] MEDS: CANDESARTAN CILEXETIL 16 MG TABLET 32 MG PO (08:27)
[2021-05-11] MEDS: CYANOCOBALAMIN 1,000 MCG TABLET 1000 MCG PO (09:24)
[2021-05-11] MEDS: DIVALPROEX SODIUM DR 250 MG TABEC 500 MG PO ×4 (09:24→22:04)
[2021-05-11] MEDS: ATORVASTATIN 20 MG TABLET PO (09:24)
[2021-05-11] MEDS: FOLIC ACID 1 MG TABLET PO (09:24)
[2021-05-11] MEDS: ASPIRIN 81 MG CHEWABLE TABLET PO (09:24)
[2021-05-11] MEDS: PHENYTOIN SODIUM 100 MG EXTENDED RELEASE CAP 300 MG PO (09:25)
[2021-05-11] MEDS: PRIMIDONE 250 MG TABLET PO ×2 (09:25→17:16)
[2021-05-11] MEDS: SUCRALFATE 1 GM TABLET 2 GM PO ×2 (09:25→17:16)
--- NOTE | 2021-05-11 11:50 | WPDNEUROLOGY ---
Neurology EEG Report General Information Date of Study: 05/10/21 TEST eeg DIAGNOSIS dysphasia, TIA CONDITION OF RECORDING awake drowsy and sleep EEG NUMBER [id number] CLINICAL HISTORY patient unable to give any history EEG DESCRIPTION background rhythm consists of medium voltage 2 to 3 hertz per 2nd delta activity bilaterally super imposed by very low-voltage beta activity. Intermittent delta activity is more prominent over the left hemisphere. Hyperventilation not done. Photic stimulation not done. Non paroxysmal. Nonfocal. Nonlateralizing. IMPRESSION Abnormal record due to the presence of bihemispheric delta activity throughout the tracing with somewhat more prominent over the left hemispheric linkages. These abnormalities are consistent with the diagnosis of organic or metabolic encephalopathy or else focal structural lesion more likely over the left hemisphere
--- NOTE | 2021-05-11 12:41 | WPDNEUROPN ---
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 and ongoing anticonvulsant therapy, EEG was reviewed it revealed bilateral diffuse slow activity with no evidence of active seizures definitely the slow activity is more pronounced on the left as compared to the right, 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 Review of Systems Review of Systems: All systems reviewed & are unremarkable except as noted in HPI and below Exam Narrative: examination revealed him to be awake alert cooperative in no obvious acute distress continues to follow the verbal commands appropriately with good eye contact, and obvious craniotomy defect of the skull pupils round regular feels the vision were questionable on the right side extraocular movements were full face symmetrical tongue midline and motor examination revealed him to no obvious drift reflexes hyper on the right as compared to the left Objective Data Vital Signs Vital Signs: Vital Signs - 24 hr 05/10/21 16:00 05/10/21 20:00 05/11/21 00:00 Temperature 36.2 C L 36.8 C 36.8 C Pulse Rate 66 63 58 L Respiratory Rate 18 16 20 Blood Pressure 157/90 H 162/88 H 169/95 H Pulse Oximetry 100 96 98 05/11/21 04:00 05/11/21 08:00 05/11/21 09:39 Temperature 36.6 C 36.6 C Pulse Rate 59 L 59 L Respiratory Rate 18 16 Blood Pressure 166/88 H 160/96 H 158/88 H Pulse Oximetry 96 95 05/11/21 10:48 05/11/21 11:55 Temperature 36.6 C Pulse Rate 62 Respiratory Rate 16 Blood Pressure 135/75 Pulse Oximetry 96 97 Intake/Output Intake/Output: Intake & Output 05/08/21 05/09/21 05/10/21 05/11/21 23:59 23:59 23:59 23:59 Intake Total 1590 859 Output Total 750 700 Balance 840 159 Meds/Results Medications: Active Medications Generic Name Dose Route Start Last Admin Trade Name Freq PRN Reason Stop Dose Admin Acetaminophen 650 mg 05/09/21 22:01 Acetaminophen 325 Mg Tablet PO Q4H PRN Mild Pain (1-3) or Fever Hydrocodone Bitart/Acetaminophen 1 tab 05/10/21 02:25 Hydrocodone/Acetaminophen (*Crx) 5-325 Mg Tablet PO Q6H PRN Pain Rated 4-6 Aspirin 81 mg 05/10/21 08:00 05/11/21 09:24 Aspirin 81 Mg Chewable Tablet PO 81 mg DAILY@0800 LAMBERT Administration Atorvastatin Calcium 20 mg 05/10/21 09:00 05/11/21 09:24 Atorvastatin 20 Mg Tablet PO 20 mg DAILY LAMBERT Administration Candesartan Cilexetil 32 mg 05/10/21 09:00 05/11/21 08:27 Candesartan Cilexetil 16 Mg Tablet PO 32 mg QAM LAMBERT Administration Cyanocobalamin 1,000 mcg 05/10/21 09:00 05/11/21 09:24 Cyanocobalamin 1,000 Mcg Tablet PO 06/09/21 08:59 1,000 mcg DAILY LAMBERT Administration Divalproex Sodium 500 mg 05/10/21 08:00 05/11/21 09:[address] 250 Mg Tabec PO 500 mg WMHS LAMBERT Administration Folic Acid 1 mg 05/10/21 09:00 05/11/21 09:24 Folic Acid 1 Mg Tablet PO 1 mg DAILY LAMBERT Administration Gabapentin 300 mg 05/10/21 06:00 05/11/21 09:25 Gabapentin 300 Mg Capsule PO 300 mg 5 X DAILY LAMBERT Administration Hydrochlorothiazide 12.5 mg 05/10/21 09:00 05/11/21 08:27 Hydrochlorothiazide 12.5 Mg Capsule PO 12.5 mg QAM LAMBERT Administration Levothyroxine Sodium 200 mcg 05/10/21 06:30 05/11/21 06:31 Levothyroxine Sodium 100 Mcg Tablet PO 200 mcg DAILY@0630 LAMBERT Administration Lorazepam 0.5 mg 05/10/21 02:25 Lorazepam (*Crx) 0.5 Mg Tablet PO TID PRN anxiety Ondansetron HCl 4 mg 05/09/21 22:01 Ondansetron Inj 4 Mg/2 Ml Vial IV PUSH Q4H PRN Nausea Phenytoin Sodium 200 mg 05/10/21 21:00
--- NOTE | 2021-05-11 13:18 | PM.IMPN ---
Progress Note: A&P Assessment and Plan (1) Hypertensive emergency: Code(s): I16.1 - Hypertensive emergency Status: Acute Assessment and Plan: Place in observation Cautious normalization of blood pressure Resume home meds Continue to monitor Supportive care (2) Altered mental status: Qualifiers: Altered mental status type: unspecified Qualified Code(s): R41.82 - Altered mental status, unspecified Code(s): R41.82 - Altered mental status, unspecified Status: Acute Assessment and Plan: Resolved 05/11/21 13:18 05/10/2021 interval history unfortunately patient is unable provide detail review of symptoms CT scan of the head is negative and patient cannot have MRI, patient seen by neurologist recommending EEG to further evaluate, and also he patient continue to have any seizure medication will be adjusted, will have a PT OT evaluate the and further recommendation to follow. 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 (3) Brain TIA: Code(s): G45.9 - Transient cerebral ischemic attack, unspecified Status: Acute Assessment and Plan: Likely secondary to hypertension CT of the head reviewed (4) GERD (gastroesophageal reflux disease): Qualifiers: Esophagitis presence: esophagitis presence not specified Qualified Code(s): K21.9 - Gastro-esophageal reflux disease without esophagitis Code(s): K21.9 - Gastro-esophageal reflux disease without esophagitis Status: Acute Assessment and Plan: PPI as needed (5) Seizure disorder: Code(s): G40.909 - Epilepsy, unspecified, not intractable, without status epilepticus Status: Acute Assessment and Plan: Resume home meds Continue to monitor Subjective Date/time seen: 05/11/21 13:18 05/10/2021 interval history unfortunately patient is unable provide detail review of symptoms CT scan of the head is negative and patient cannot have MRI, patient seen by neurologist recommending EEG to further evaluate, and also he patient continue to have any seizure medication will be adjusted, will have a PT OT evaluate the and further recommendation to follow. 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 Review of Systems Review of Systems: ROS unobtainable: Yes unobtainable due to medical condition and other (Patient can not tell why he is in the emergency room history taking from si) Exam Narrative: Patient is comfortable, NAD HEENT: eyes are clear and none icteric LUNGS:CTA HEART: RR S1S2 ABD: not distant Lower extremities: no edema SKIN: nonjaundiced Neuro: grossly intact somewhat confused. Objective Data Vital Signs Vital Signs: Vital Signs - 24 hr 05/10/21 16:00 05/10/21 20:00 05/11/21 00:00 Temperature 97.2 F L 98.2 F 98.2 F Pulse Rate 66 63 58 L Respiratory Rate 18 16 20 Blood Pressure 157/90 H 162/88 H 169/95 H Pulse Oximetry 100 96 98 05/11/21 04:00 05/11/21 08:00 05/11/21 09:39 Temperature 97.9 F 97.8 F Pulse Rate 59 L 59 L Respiratory Rate 18 16 Blo
[2021-05-11] MEDS: PHENYTOIN SODIUM 100 MG EXTENDED RELEASE CAP 200 MG PO ×2 (22:05→22:08)
[2021-05-12 04:00] VITALS: BP 114/70; PULSE 57; RESP 18; TEMP 36.2; O2SAT 99
[2021-05-12] MEDS: GABAPENTIN 300 MG CAPSULE PO ×5 (06:22→21:09)
[2021-05-12] MEDS: LEVOTHYROXINE SODIUM 100 MCG TABLET 200 MCG PO (06:22)
[2021-05-12 07:30] LABS: Anion Gap 10 mmol/L (8-16); Blood Urea Nitrogen 23 mg/dL (9-20); Calcium 9.2 mg/dL (8.4-10.2); Carbon Dioxide 24 mmol/L (22-30); Chloride 106 mmol/L (98-107); Estimated CRCL calculation 62 ml/min; Estimated Glomerular Filt Rate > 60; Glucose 86 mg/dL (65-110); Magnesium 1.9 mg/dL (1.6-2.3); Potassium 3.9 mmol/L (3.4-5.0); Sodium 140 mmol/L (137-145)
[2021-05-12 08:00] VITALS: BP 118/72; PULSE 58; RESP 16; TEMP 35.8; O2SAT 97
[2021-05-12] MEDS: PRIMIDONE 250 MG TABLET PO ×2 (08:50→17:52)
[2021-05-12] MEDS: hydroCHLOROthiazide 12.5 MG CAPSULE PO (08:50)
[2021-05-12] MEDS: CANDESARTAN CILEXETIL 16 MG TABLET 32 MG PO (08:50)
[2021-05-12] MEDS: DIVALPROEX SODIUM DR 250 MG TABEC 500 MG PO ×4 (08:50→21:09)
[2021-05-12] MEDS: ATORVASTATIN 20 MG TABLET PO (08:50)
[2021-05-12] MEDS: CYANOCOBALAMIN 1,000 MCG TABLET 1000 MCG PO (08:50)
[2021-05-12] MEDS: FOLIC ACID 1 MG TABLET PO (08:50)
[2021-05-12] MEDS: ASPIRIN 81 MG CHEWABLE TABLET PO (08:51)
[2021-05-12] MEDS: SUCRALFATE 1 GM TABLET 2 GM PO ×2 (08:51→17:52)
[2021-05-12] MEDS: PHENYTOIN SODIUM 100 MG EXTENDED RELEASE CAP 300 MG PO (08:51)
--- NOTE | 2021-05-12 09:41 | PM.IMPN ---
Progress Note: A&P Assessment and Plan (1) Hypertensive emergency: Code(s): I16.1 - Hypertensive emergency Status: Acute Assessment and Plan: Place in observation Cautious normalization of blood pressure Resume home meds Continue to monitor Supportive care (2) Altered mental status: Qualifiers: Altered mental status type: unspecified Qualified Code(s): R41.82 - Altered mental status, unspecified Code(s): R41.82 - Altered mental status, unspecified Status: Acute Assessment and Plan: Resolved 05/12/21 09:41 05/10/2021 interval history unfortunately patient is unable provide detail review of symptoms CT scan of the head is negative and patient cannot have MRI, patient seen by neurologist recommending EEG to further evaluate, and also he patient continue to have any seizure medication will be adjusted, will have a PT OT evaluate the and further recommendation to follow. 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 05/12/2021 interval history today patient do remains more interactive eating his breakfast patient dropped his butter knife complaint is right hand has difficulty maneuvering, otherwise patient has no new complaint no seizure while in the hospital, patient remains clinically stable, will continue to monitor, plan is to discharge the patient to rehab on Friday. (3) Brain TIA: Code(s): G45.9 - Transient cerebral ischemic attack, unspecified Status: Acute Assessment and Plan: Likely secondary to hypertension CT of the head reviewed (4) GERD (gastroesophageal reflux disease): Qualifiers: Esophagitis presence: esophagitis presence not specified Qualified Code(s): K21.9 - Gastro-esophageal reflux disease without esophagitis Code(s): K21.9 - Gastro-esophageal reflux disease without esophagitis Status: Acute Assessment and Plan: PPI as needed (5) Seizure disorder: Code(s): G40.909 - Epilepsy, unspecified, not intractable, without status epilepticus Status: Acute Assessment and Plan: Resume home meds Continue to monitor Subjective Date/time seen: 05/12/21 09:41 05/10/2021 interval history unfortunately patient is unable provide detail review of symptoms CT scan of the head is negative and patient cannot have MRI, patient seen by neurologist recommending EEG to further evaluate, and also he patient continue to have any seizure medication will be adjusted, will have a PT OT evaluate the and further recommendation to follow. 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 05/12/2021 interval history today patient do remains more interactive eating his breakfast patient dropped his butter knife complaint is right hand has difficulty maneuvering, otherwise patient has no new complaint no seizure while in the hospital, patient remains clinically stable, will continue to monitor, plan is to discharge the patient to rehab on Friday. Review of Systems Review of Systems: All systems reviewed & are unremarkable e
[2021-05-12 12:00] VITALS: BP 132/78; PULSE 59; RESP 14; TEMP 36; O2SAT 99
[2021-05-12 13:41] LABS: Phenytoin Dilantin 7 ug/mL (10-20)
[2021-05-12 16:00] VITALS: BP 120/67; PULSE 66; RESP 18; TEMP 35.9; O2SAT 99
[2021-05-12 20:00] VITALS: BP 145/79; PULSE 68; RESP 16; TEMP 35.9; O2SAT 99
[2021-05-12] MEDS: DOCUSATE SODIUM 100 MG CAPSULE PO (21:09)
[2021-05-12] MEDS: PHENYTOIN SODIUM 100 MG EXTENDED RELEASE CAP 200 MG PO (21:09)
[2021-05-12 22:00] VITALS: BP 145/79; PULSE 68; RESP 16; TEMP 35.9; O2SAT 99
[2021-05-13 04:00] VITALS: BP 124/77; PULSE 61; RESP 16; TEMP 35.9; O2SAT 99
[2021-05-13] MEDS: LEVOTHYROXINE SODIUM 100 MCG TABLET 200 MCG PO (05:55)
[2021-05-13] MEDS: GABAPENTIN 300 MG CAPSULE PO ×5 (05:56→20:25)
[2021-05-13 06:52] LABS: Anion Gap 10 mmol/L (8-16); Blood Urea Nitrogen 26 mg/dL (9-20); Calcium 8.9 mg/dL (8.4-10.2); Carbon Dioxide 24 mmol/L (22-30); Chloride 104 mmol/L (98-107); Estimated CRCL calculation 62 ml/min; Estimated Glomerular Filt Rate > 60; Glucose 79 mg/dL (65-110); Magnesium 1.9 mg/dL (1.6-2.3); Potassium 4.5 mmol/L (3.4-5.0); Sodium 138 mmol/L (137-145)
[2021-05-13 08:00] VITALS: BP 139/69; PULSE 59; RESP 20; TEMP 35.7; O2SAT 98
[2021-05-13] MEDS: CANDESARTAN CILEXETIL 16 MG TABLET 32 MG PO (08:53)
[2021-05-13] MEDS: ATORVASTATIN 20 MG TABLET PO (08:53)
[2021-05-13] MEDS: CYANOCOBALAMIN 1,000 MCG TABLET 1000 MCG PO (08:53)
[2021-05-13] MEDS: DOCUSATE SODIUM 100 MG CAPSULE PO ×2 (08:53→20:25)
[2021-05-13] MEDS: ASPIRIN 81 MG CHEWABLE TABLET PO (08:53)
[2021-05-13] MEDS: DIVALPROEX SODIUM DR 250 MG TABEC 500 MG PO ×4 (08:53→20:25)
[2021-05-13] MEDS: PHENYTOIN SODIUM 100 MG EXTENDED RELEASE CAP 300 MG PO (08:54)
[2021-05-13] MEDS: hydroCHLOROthiazide 12.5 MG CAPSULE PO (08:54)
[2021-05-13] MEDS: SUCRALFATE 1 GM TABLET 2 GM PO ×2 (08:54→17:04)
[2021-05-13] MEDS: PRIMIDONE 250 MG TABLET PO ×2 (08:54→17:04)
[2021-05-13] MEDS: FOLIC ACID 1 MG TABLET PO (08:54)
--- NOTE | 2021-05-13 09:58 | PM.IMPN ---
Progress Note: A&P Assessment and Plan (1) Hypertensive emergency: Code(s): I16.1 - Hypertensive emergency Status: Acute Assessment and Plan: Place in observation Cautious normalization of blood pressure Resume home meds Continue to monitor Supportive care (2) Altered mental status: Qualifiers: Altered mental status type: unspecified Qualified Code(s): R41.82 - Altered mental status, unspecified Code(s): R41.82 - Altered mental status, unspecified Status: Acute Assessment and Plan: Resolved 05/13/21 09:58 05/10/2021 interval history unfortunately patient is unable provide detail review of symptoms CT scan of the head is negative and patient cannot have MRI, patient seen by neurologist recommending EEG to further evaluate, and also he patient continue to have any seizure medication will be adjusted, will have a PT OT evaluate the and further recommendation to follow. 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 05/12/2021 interval history today patient do remains more interactive eating his breakfast patient dropped his butter knife complaint is right hand has difficulty maneuvering, otherwise patient has no new complaint no seizure while in the hospital, patient remains clinically stable, will continue to monitor, plan is to discharge the patient to rehab on Friday. 05/13/2021 interval history: patient remains clinically stable and has no new complaints and no seizure while in the hospital, patient was receiving extra dose of phenytoin 200 mg at the bedtime, phenytoin levels are still low since patient has not had any seizures will continue to monitor and recheck phenytoin level tomorrow, will continue PT OT and patient will benefit going to acute rehab, further recommendation to follow (3) Brain TIA: Code(s): G45.9 - Transient cerebral ischemic attack, unspecified Status: Acute Assessment and Plan: Likely secondary to hypertension CT of the head reviewed (4) GERD (gastroesophageal reflux disease): Qualifiers: Esophagitis presence: esophagitis presence not specified Qualified Code(s): K21.9 - Gastro-esophageal reflux disease without esophagitis Code(s): K21.9 - Gastro-esophageal reflux disease without esophagitis Status: Acute Assessment and Plan: PPI as needed (5) Seizure disorder: Code(s): G40.909 - Epilepsy, unspecified, not intractable, without status epilepticus Status: Acute Assessment and Plan: Resume home meds Continue to monitor Subjective Date/time seen: 05/13/21 09:58 05/10/2021 interval history unfortunately patient is unable provide detail review of symptoms CT scan of the head is negative and patient cannot have MRI, patient seen by neurologist recommending EEG to further evaluate, and also he patient continue to have any seizure medication will be adjusted, will have a PT OT evaluate the and further recommendation to follow. 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 05/12/2021 interval
--- NOTE | 2021-05-13 11:24 | WPDPN ---
Progress Note: A&P Assessment and Plan (1) Carpal tunnel syndrome: Qualifiers: Laterality: unspecified laterality Qualified Code(s): G56.00 - Carpal tunnel syndrome, unspecified upper limb Code(s): G56.00 - Carpal tunnel syndrome, unspecified upper limb Status: Acute Assessment and Plan: The complete recent surgical history should include R cubital tunnel release. No acute problem with these surgical sites. Will ask RN to remove remaining suture form the right hand. He does not need to follow-up with Dr Conrad for these issues. Subjective Date/time seen: 05/13/21 11:24 I have come for a courtesy visit to check on the surgical sites of recent carpal tunnel and cubital tunnel release. Mr Tamez is 16 days status post right carpal tunnel and cubital release. He missed his scheduled follow up visit for wound check and suture removal. Had no immediate post operative problems. Says he was doing well early on. His sister who is present today confirms that the pt actually experienced marked improvement after the surgery with improved use of his right hand for ADLs. 4 days ago he was noted by his sister to have confusion and increased difficulty choosing words.. 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 He normally cares for himself with frequent look-ins by his sister. On this admission he seems to have some new symptoms including weakness of the right hand and he is finding it particularly hard to find words. He is in good spirits and tries to express himself. His right hand reveals a healing wound without significant tenderness. He has one remaining suture in the hand. The cubital tunnel wound is healing well. He has no pain or tenderness at that site. Says all fingers seem to have equal quality of sensation. Has strong superintendent colliery but has had some difficulty using utensils. Objective Data Vital Signs Vital Signs: Vital Signs - 24 hr 05/12/21 12:00 05/12/21 16:00 05/12/21 20:00 Temperature 96.8 F L 96.6 F L 96.7 F L Pulse Rate 59 L 66 68 Respiratory Rate 14 18 16 Blood Pressure 132/78 120/67 145/79 H Pulse Oximetry 99 99 99 05/12/21 22:00 05/13/21 04:00 05/13/21 08:00 Temperature 96.7 F L 96.7 F L 96.2 F L Pulse Rate 68 61 59 L Respiratory Rate 16 16 20 Blood Pressure 145/79 H 124/77 139/69 Pulse Oximetry 99 99 98 Intake/Output Intake/Output: Intake & Output 05/10/21 05/11/21 05/12/21 05/13/21 23:59 23:59 23:59 23:59 Intake Total 1590 1449 1570 790 Output Total 750 700 Balance 892 866 [id number] Meds/Results Medications: Active Medications Generic Name Dose Route Start Last Admin Trade Name Freq PRN Reason Stop Dose Admin Acetaminophen 650 mg 05/09/21 22:01 Acetaminophen 325 Mg Tablet PO Q4H PRN Mild Pain (1-3) or Fever Hydrocodone Bitart/Acetaminophen 1 tab 05/10/21 02:25 Hydrocodone/Acetaminophen (*Crx) 5-325 Mg Tablet PO Q6H PRN Pain Rated 4-6 Aspirin 81 mg 05/10/21 08:00 05/13/21 08:53 Aspirin 81 Mg Chewable Tablet PO 81 mg DAILY@0800 LAMBERT Administration Atorvastatin Calcium 20 mg 05/10/21 09:00 05/13/21 08:53 Atorvastatin 20 Mg Tablet PO 20 mg DAILY LAMBERT Administration Candesartan Cilexetil 32 mg 05/10/21 09:00 05/13/21 08:53 Candesartan Cilexetil 16 Mg Tablet PO 32 mg QAM LAMBERT Administration Cyanocobalamin 1,000 mcg 05/10/21 09:00 05/13/21 08:53 Cyanocobalamin 1,000 Mcg Tablet PO 06/09/21 08:59 1,000 mcg DAILY LAMBERT Administration Divalproex Sodium 500 mg 05/10/21 08:00 05/13/21 08:[address] 250 Mg Tabec PO 500 mg WMHS LAMBERT Administration Docusate Sodium 100 mg 05/12/21 21:00 05/13/21 08:53 Docusate Sodium 100 Mg Capsule PO 100 mg Q12HR LAMBERT Administration Folic Acid 1 mg 05/10/21 09:00 05/13/21 08:54 Folic Acid 1 Mg Tablet PO 1 mg DAILY LAMBERT Administration Miesha
[2021-05-13 12:00] VITALS: BP 108/61; PULSE 69; RESP 18; TEMP 35.8; O2SAT 95
--- NOTE | 2021-05-13 14:14 | PC.NURSE ---
unable to give 1400 gabapentin on time. waiting for pharmacy to send, pharmacy notified
[2021-05-13 16:00] VITALS: BP 146/73; PULSE 64; RESP 20; TEMP 35.7; O2SAT 94
[2021-05-13 20:00] VITALS: BP 122/74; PULSE 60; RESP 18; TEMP 36.1; O2SAT 96
[2021-05-13] MEDS: PHENYTOIN SODIUM 100 MG EXTENDED RELEASE CAP 200 MG PO (20:25)
[2021-05-13 20:32] VITALS: PULSE 64; RESP 20; O2SAT 94
[2021-05-14] VITALS: BP 120/69; PULSE 65; RESP 18; TEMP 36.1; O2SAT 96
[2021-05-14 04:00] VITALS: BP 140/80; PULSE 63; RESP 18; TEMP 36.1; O2SAT 98
[2021-05-14 06:08] LABS: Anion Gap 13 mmol/L (8-16); Blood Urea Nitrogen 24 mg/dL (9-20); Calcium 9.3 mg/dL (8.4-10.2); Carbon Dioxide 23 mmol/L (22-30); Chloride 103 mmol/L (98-107); Estimated CRCL calculation 68 ml/min; Estimated Glomerular Filt Rate > 60; Glucose 86 mg/dL (65-110); Potassium 4.1 mmol/L (3.4-5.0); Sodium 139 mmol/L (137-145)
[2021-05-14] MEDS: GABAPENTIN 300 MG CAPSULE PO ×2 (06:12→09:03)
[2021-05-14] MEDS: LEVOTHYROXINE SODIUM 100 MCG TABLET 200 MCG PO (06:12)
[2021-05-14 08:51] VITALS: BP 118/78; PULSE 66; RESP 18; TEMP 36.3; O2SAT 98
[2021-05-14] MEDS: PHENYTOIN SODIUM 100 MG EXTENDED RELEASE CAP 300 MG PO (09:02)
[2021-05-14] MEDS: SUCRALFATE 1 GM TABLET 2 GM PO (09:02)
[2021-05-14] MEDS: CANDESARTAN CILEXETIL 16 MG TABLET 32 MG PO (09:02)
[2021-05-14] MEDS: ATORVASTATIN 20 MG TABLET PO (09:03)
[2021-05-14] MEDS: FOLIC ACID 1 MG TABLET PO (09:03)
[2021-05-14] MEDS: hydroCHLOROthiazide 12.5 MG CAPSULE PO (09:03)
[2021-05-14] MEDS: ASPIRIN 81 MG CHEWABLE TABLET PO (09:03)
[2021-05-14] MEDS: DIVALPROEX SODIUM DR 250 MG TABEC 500 MG PO (09:03)
[2021-05-14] MEDS: PRIMIDONE 250 MG TABLET PO (09:03)
[2021-05-14] MEDS: DOCUSATE SODIUM 100 MG CAPSULE PO (09:03)
[2021-05-14] MEDS: CYANOCOBALAMIN 1,000 MCG TABLET 1000 MCG PO (09:03)
[2021-05-14 12:30] VITALS: BP 123/70; PULSE 71; RESP 18; TEMP 36.4; O2SAT 94
--- NOTE | 2021-05-14 12:54 | PC.NURSE ---
pt's sister/POA was present and asked for pt to be evaluated and receive OT particularly for feeding himself. pt's sister has concerns about pt's inability to effectively use his hands for ADL's, IADL'S, et al. After observing pt attempting to eat his lunch (turkey breast and green beans), it is my opinion that pt could benefit from additional OT particularly in areas of dexterity are required such as self feeding are concerned. Hospitalist, John Ordoñez, was contacted and made aware of pt's sister's concern.
--- NOTE | 2021-05-14 13:37 | PM.DS ---
DS: Admitting Diagnosis Discharge Date Date of Service 05/14/21 1300 Admitting Diagnosis TIA, AMS, HTN urgency DS: Discharge Diagnosis Discharge Diagnosis (1) Hypertensive emergency: Code(s): I16.1 - Hypertensive emergency Status: Acute Assessment and Plan: Place in observation Cautious normalization of blood pressure Resume home meds Continue to monitor Supportive care (2) Altered mental status: Qualifiers: Altered mental status type: unspecified Qualified Code(s): R41.82 - Altered mental status, unspecified Code(s): R41.82 - Altered mental status, unspecified Status: Acute Assessment and Plan: Resolved 05/13/21 09:58 05/10/2021 interval history unfortunately patient is unable provide detail review of symptoms CT scan of the head is negative and patient cannot have MRI, patient seen by neurologist recommending EEG to further evaluate, and also he patient continue to have any seizure medication will be adjusted, will have a PT OT evaluate the and further recommendation to follow. 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 05/12/2021 interval history today patient do remains more interactive eating his breakfast patient dropped his butter knife complaint is right hand has difficulty maneuvering, otherwise patient has no new complaint no seizure while in the hospital, patient remains clinically stable, will continue to monitor, plan is to discharge the patient to rehab on Friday. 05/13/2021 interval history: patient remains clinically stable and has no new complaints and no seizure while in the hospital, patient was receiving extra dose of phenytoin 200 mg at the bedtime, phenytoin levels are still low since patient has not had any seizures will continue to monitor and recheck phenytoin level tomorrow, will continue PT OT and patient will benefit going to acute rehab, further recommendation to follow (3) Brain TIA: Code(s): G45.9 - Transient cerebral ischemic attack, unspecified Status: Acute Assessment and Plan: Likely secondary to hypertension CT of the head reviewed (4) GERD (gastroesophageal reflux disease): Qualifiers: Esophagitis presence: esophagitis presence not specified Qualified Code(s): K21.9 - Gastro-esophageal reflux disease without esophagitis Code(s): K21.9 - Gastro-esophageal reflux disease without esophagitis Status: Acute Assessment and Plan: PPI as needed (5) Seizure disorder: Code(s): G40.909 - Epilepsy, unspecified, not intractable, without status epilepticus Status: Acute Assessment and Plan: Resume home meds Continue to monitor DS: Summary Hospital Course Hospital Course: Patient is a 76-year-old male with past medical history of epilepsy, left frontal craniotomy, hypertension who presented the ED for altered mental status. At admission patient was noted to be in hypertensive urgency with a BP of 205/92. Which has been trending down throughout the admission. Current BP is 123/70. He was also evaluated for altered mental status. Neurology was consulted and an EEG was performed. No seizures were found on the EEG. He has been very active throughout the admission walking up and down in the halls. Phenytoin levels have also been monitored and managed. Neurology was consulted and adjust medications appropriate. Patient does experience expressive aphasia which his sister stated is not a new finding. Patient has also been taking PT
[2021-05-14 16:04] VITALS: BP 117/62; PULSE 78; RESP 18; TEMP 37.2; O2SAT 100
== END 2021-05-14 17:17 | DRG 69 ==
LOC: ANHED 22:31 → ANH3MEDSUR 23:45
PROVIDERS: Family Medicine; Admitting Provider Internal Medicine; Emergency Provider Family Medicine; PCP Internal Medicine; Visit Provider Internal Medicine
DX: G45.9 Transient cerebral ischemic attack, unspecified (principal); I16.1 Hypertensive emergency; K21.9 Gastro-esophageal reflux disease without esophagitis; G40.909 Epilepsy, unspecified, not intractable, without status epilepticus; E78.5 Hyperlipidemia, unspecified; E53.8 Deficiency of other specified B group vitamins; Z98.890 Other specified postprocedural states
CPT/HCPCS: 36415; 70450; 71045; 80048; 80185; 82948; 83735; 84484; 85025; 85610; 85730; 92507; 92523; 93005; 95816; 96360; 96361; 97110; 97116; 97161; 97166; 97530; 97535; 99285; A9270; G0378; J7030

== ENCOUNTER 2021-05-28 12:12 | Outpatient (RCR) | payer MEDICARE, MEDICAID, SELFPAY ==
[2021-05-28] MEDS: ACETAMINOPHEN 325 MG TABLET 650 MG PO (13:08)
[2021-05-28] MEDS: FAMOTIDINE 20 MG TABLET PO (13:08)
[2021-05-28] MEDS: diphenhydrAMINE HCl CAP 25 MG CAPSULE PO (13:09)
[2021-05-28 13:16] VITALS: BP 132/78; PULSE 72; RESP 20; TEMP 35.9; O2SAT 98
[2021-05-28 14:37] VITALS: BP 120/70
--- NOTE | 2021-05-29 14:50 | PC.NURSE ---
Called patient to follow-up regarding COVID antibody infusion. I spoke with patient's who states he is feeling well today.
== END 2021-05-29 10:04 ==
LOC: AMCINF 12:12
PROVIDERS: Referring Provider Internal Medicine; Visit Provider Internal Medicine Hematology & Oncology
DX: Z23 Encounter for immunization (principal); U07.1 COVID-19; I10 Essential (primary) hypertension
CPT/HCPCS: A9270; M0245; Q0245

== ENCOUNTER 2021-06-15 21:07 | Inpatient (IN) | payer MEDICARE, MEDICAID, SELFPAY ==
[2021-06-15] VITALS (11 sets, daily range): BP systolic 143–160; BP diastolic 83–97; PULSE 71–87; RESP 13–18; TEMP 36.4; O2SAT 97–100
--- NOTE | ~2021-06-15 | XR_ITS ---
EXAMINATION: XR knee RT 3V EXAM DATE: 06/18/2021 17:36 INDICATION: Generalized bilateral knee pain. TECHNIQUE: Three projections of the right knee. Comparison is made to prior examination from 0. FINDINGS: No evidence osteochondral defect or joint body in the right knee joint. There is moderate medial tibiofemoral compartment, otherwise mild to moderate primary osteoarthritis. Meniscal calcifi cation, chondrocalcinosis. Chondrocalcinosis can be an age related finding, but with other possible e tiologies including CPPD, parathyroid disorders, hemochromatosis, gout. There is moderate to large amount of nonspecific joint fluid. This is most commonly sterile effusion . Possible underlying etiologies include reactive from arthritis, overuse, or trauma. Would be unusua l to have bilateral hip arthrosis or septic effusion. Compared to prior study, the effusion has developed. The arthritis is unchanged. IMPRESSION: 1. Moderate to large right knee joint effusion. 2. Moderate osteoarthritis. 3. Chondrocalcinosis. Reviewed, dictated and finalized at location A. TRICAL DESIGNER
--- NOTE | ~2021-06-15 | XR_ITS ---
EXAMINATION: XR knee LT 3V EXAM DATE: 06/18/2021 17:36 INDICATION: Generalized bilateral knee pain. TECHNIQUE: Three projections of the left knee. Correlation is made to contralateral knee same date. FINDINGS: No evidence osteochondral defect or joint body in the left knee joint. Meniscal calcific ation, chondrocalcinosis. Chondrocalcinosis can be an age related finding, but with other possible et iologies including CPPD, parathyroid disorders, hemochromatosis, gout. There is mild to moderate tric ompartmental primary osteoarthritis. There is moderate knee amount of nonspecific joint fluid, probably smaller than contralateral side ef fusion. This is most commonly sterile effusion. Possible underlying etiologies include reactive from arthritis, overuse, or trauma. Would be unusual to have bilateral hemarthrosis or septic effusion. Probably mild swelling in the subcutaneous fat surrounding the knee. IMPRESSION: 1. Moderate left knee joint effusion. 2. Mild to moderate osteoarthritis. 3. Chondrocalcinosis. Reviewed, dictated and finalized at location A. L SETTER
--- NOTE | ~2021-06-15 | XR_ITS ---
EXAMINATION: XR chest 1V portable EXAM DATE: 06/19/2021 21:20 INDICATION: Fever. TECHNIQUE: Portable AP frontal chest x-ray was obtained. Comparison is made to prior examination from 05/09/2021. FINDINGS: Small amount of linear left basilar atelectasis or pneumonia. The lungs are otherwise clear . There are no pleural effusions. The cardiomediastinal silhouette is within normal limits. There is no pneumothorax suspected. The bones and soft tissues are unremarkable. IMPRESSION: Small amount of left basilar atelectasis or pneumonia. Reviewed, dictated and finalized at location G. ENT LIFE COORDINATOR
--- NOTE | ~2021-06-15 | CT_ITS ---
EXAMINATION: CT brain wo con DATE: 06/15/2021 22:07 INDICATION: Confusion. TECHNIQUE: Computed tomography (CT) of the head was performed without intravenous contrast. The mA wa s adjusted according to patient size. Iterative reconstruction technique was employed. The dose-lengt h product was 605.33 mGy-cm. COMPARISON: Head CT 05/09/2021 FINDINGS: There are changes of left-sided craniectomy. There is chronic encephalomalacia in left fron totemporal region. There is no intracranial hemorrhage, acute infarction, or abnormal intracranial ma ss lesion. The ventricles are normal in size. There is mild mucosal thickening in the paranasal sinu ses. There are likely changes of ocular lens replacement surgeries. There is a trace left mastoid eff usion. IMPRESSION: 1. Chronic encephalomalacia in left frontotemporal region. Reviewed, dictated and finalized at location A. TAL MARKETING STRATEGIST
--- NOTE | ~2021-06-15 | CT_ITS ---
EXAMINATION: CTA BRAIN/CAROTID DATE: 06/16/2021 01:13 INDICATION: Mental status changes. TECHNIQUE: Computed tomographic angiography (CTA) of the head and neck was performed with 100 mL Omni paque-350 intravenous contrast. Multiplanar reconstructions and maximum intensity projection 3D-recon structions of the carotid arteries and of the intracranial arteries were created by the technologist on a separate workstation. Automated exposure control and iterative reconstruction technique were emp loyed.The dose-length product was 1268.31 mGy-cm. COMPARISON: None. FINDINGS: Carotid arteries: Atherosclerotic calcifications with 0% stenosis of the left and right carotid bulbs relative to itzel l distal artery lumen diameter (NASCET criteria). Normal caliber thoracic aorta and great vessels donovan sing from the arch with small amount of scattered atherosclerotic calcification without significant s tenosis. Visualized cervical soft tissues are unremarkable. Mosaic attenuation in the dependent aspec t of the visualized upper lungs likely related to expiratory phase of imaging with subsegmental air t rapping related to small airway disease. Moderate cervical spondylosis. Intracranial arteries Small amount of scattered atherosclerotic plaque without no abnormally enhancing brain lesions. Hemod ynamically significant stenosis in the vertebral, basilar and internal carotid arteries. Vertebral ar teries are codominant. There are no aneurysms identified. Both A1 and P1 segments are patent. Cereb ral arterial arborization appears symmetric. Postoperative change of left-sided craniectomy with softball umpire trini encephalomalacia in the left frontotemporal region. No abnormally enhancing brain lesions. Change s of bilateral intraocular lens replacement. IMPRESSION: 1. Atherosclerotic plaque with 0% stenosis of the left and right carotid bulbs relative to normal dis ekta artery lumen diameter (NASCET criteria). 2. Small amount of atherosclerotic plaque in the, basilar and bilateral vertebral and internal caroti d arteries without significant stenosis. Otherwise unremarkable cerebral CT angiogram. Reviewed, dictated and finalized at location A. RTING DEVELOPER IMPRESSION: 1. Atherosclerotic plaque with 0% stenosis of the left and right carotid bulbs relative to normal distal artery lumen diameter (NASCET criteria). 2. Small amount of atherosclerotic plaque in the, basilar and bilateral vertebr al and internal carotid arteries without significant stenosis. Otherwise unrema rkable cerebral CT angiogram.
--- NOTE | ~2021-06-15 | US_ITS ---
EXAMINATION: US venous doppler LE EXAM DATE: 06/18/2021 17:22 INDICATION: TECHNIQUE: Multiple grayscale, color flow and Doppler images of the lower extremity deep venous syste ms bilaterally were obtained and reviewed. There is no prior study for comparison. FINDINGS: Right side: The right common femoral, femoral and profunda veins demonstrate normal color flow, respi ratory variation, augmentation and compressibility. Compressibility, color flow confirmed within the right popliteal, posterior tibial, peroneal, and greater saphenous veins. Left side: The left common femoral, femoral and profunda veins demonstrate normal color flow, respira tory variation, augmentation and compressibility. Compressibility, color flow confirmed within the l eft popliteal, posterior tibial, peroneal, and greater saphenous veins. IMPRESSION: 1. No lower extremity deep venous thrombosis bilaterally. Reviewed, dictated and finalized at location A. ITALIST MEDICAL DIRECTOR
--- NOTE | 2021-06-15 21:45 | ECG_ITS ---
Measurements Intervals [place] Rate: 75 P: 24 CA: 227 QRS: -26 QRSD: 102 T: -6 QT: 369 QTc: 414 Interpretive Statements SINUS RHYTHM WITH FIRST DEGREE AV BLOCK BORDERLINE R WAVE PROGRESSION, ANTERIOR LEADS INFERIOR INFARCT, AGE INDETERMINATE BASELINE ARTIFACT- II, V1-V6 ABNORMAL ECG Electronically Signed On 06-16-2021 7:00:01 LAST PICKER by Fausto Curran D.O.
--- NOTE | 2021-06-15 21:49 | ED.AMS ---
HPI - Altered Mental Status General Chief Complaint: Altered Mental Status Stated Complaint: blood pressure Time Seen by Provider: 06/15/21 21:38 Source: patient and family History of Present Illness HPI narrative: Patient brought in for altered mental status. Patient was admitted possibly 2 months ago for TIA hypertensive emergency. Reports his symptoms recovered. Tonight his sister called him he seemed more confused and had difficulty with word finding again. She went over to evaluate him notice his blood pressure was 210 systolic him additional dose of his blood pressure medication doctor his primary care doctor and then was referred to the ER for evaluation. And reports his word finding difficulties resolved after his prior admission and now returned. Last time he seen normal was yesterday. Denies any trauma he was in his usual state of health yesterday denies any changes in p.o. intake denies any recent fevers, cough, congestion. Patient did get his Covid booster yesterday. Related Data Home Medications Medication Instructions Recorded Confirmed folic acid 1 mg tablet 1 mg PO DAILY 04/13/20 06/13/21 mecobalamin (vitamin B12) 1,000 1,000 mcg SUBLINGUAL DAILY 04/13/20 06/13/21 mcg disintegrating tablet,sublingual gabapentin 300 mg PO DIRECTED 04/11/21 06/13/21 naproxen sodium [Aleve] 220 mg PO BID PRN 04/11/21 06/13/21 primidone 250 mg PO BID 04/11/21 06/13/21 ascorbic acid (vitamin C) 1 g PO DAILY 05/28/21 06/13/21 candesartan-hydrochlorothiazid 1 tablet PO DAILY 05/28/21 06/13/21 cholecalciferol (vitamin D3) 25 mcg PO DAILY 05/28/21 06/13/21 [Vitamin D3] Allergies Allergy/AdvReac Type Severity Reaction Status Date / Time No Known Allergies Allergy Unknown Verified 06/12/21 11:42 Review of Systems Review of Systems: CONSTITUTIONAL: Denies fever, chills, or sweats. EYES: Denies visual changes, redness, or discharge. ENT: Denies rhinorrhea, congestion, sore throat, or otalgia. CARDIOVASCULAR: Denies chest pain, palpitations, or edema. RESPIRATORY: Denies cough or dyspnea. GASTROINTESTINAL: Denies abdominal pain, nausea, vomiting, or diarrhea. GENITOURINARY: Denies dysuria or hematuria. SKIN: Denies rash or itching. MUSCULOSKELETAL: Denies back pain, joint pain, or myalgia. NEUROLOGIC: Denies headache, numbness, dizziness, or weakness. PSYCHIATRIC: Denies anxiety or depression. All systems reviewed & are unremarkable except as noted in HPI and below PMFSH Past Medical History Medical History Benign essential hypertension BMI 30.0-30.9,adult BMI 31.0-31.9,adult Carpal tunnel syndrome Colon cancer screening Elevated homocysteine Elevated serum creatinine Encounter for routine adult health examination without abnormal findings FHx: type 2 diabetes mellitus GERD (gastroesophageal reflux disease) Hx of colonic polyps Hyperlipidemia Hypothyroidism (acquired) On long term care social worker drug therapy Prostate cancer screening Right ankle pain Right foot pain Seizure disorder Vitamin B12 deficiency Social History Social History Smoking status: Never smoker Alcohol intake: never Substance use: never Spiritual care concerns: No Exam Narrative: GENERAL: Well-appearing, well-nourished, and in no acute distress. HEAD: Normocephalic, atraumatic. EYES: PERRLA and EOMI. ENT: Nares clear, no rhinorrhea or epistaxis. Mucous membranes moist. NECK: Supple. No masses. No JVD CHEST: Clear to auscultation. No respiratory distress. No wheezes rales or rhonchi HEART: Regular rate and rhythm. No murmur heard. Normal peripheral pulses. ABDOMEN: Soft, nontender, nondistended, normal active bowel sounds. EXTREMITIES: Normal range of motion. No edema. SKIN: Warm, dry, no rash. NEURO: Cranial nerves II through XII are intact patient has 5 out of 5 strength in all extremities sensation intact to light touch in all
[2021-06-15] MEDS: SODIUM CHLORIDE 0.9% IV 500 ML 999 ML IV CONT (23:01)
[2021-06-15 23:05] LABS: Ammonia 54 umol/L (9-30)
[2021-06-15 23:22] LABS: Basophils Percent Auto 0.2 % (0.2-1.2); Eosinophils Absolute Auto 0.2 K/mm3 (0-0.3); Eosinophils Percent Auto 3.2 % (0-4.4); Hematocrit 37.4 % (42.0-52.0); Hemoglobin 12.7 g/dL (14.0-18.0); Immature Granulocyte Absolute 0.02 K/mm3 (0.00-0.031); Immature Granulocyte Percent A 0.3 % (0-0.5); Lymphocytes Absolute Auto 1.21 K/mm3 (0.9-3.2); Lymphocytes Percent Auto 19.5 % (18.3-44.2); Mean Corpuscular Hemoglobin 33.1 pg (26-34); Mean Corpuscular Volume 97.4 fl (80-100); Monocytes Absolute Auto 0.6 K/mm3 (0.1-0.6); Neutrophils Absolute Auto 4.2 K/mm3 (1.3-6.7); Neutrophils Percent Auto 66.8 % (45.5-73.1); Platelet Count Result 161 k/mm3 (150-375); Red Blood Count 3.84 M/mm3 (4.6-6.20); Red Cell Distribution Width 14.3 % (11.5-14.5); White Blood Count 6.2 K/mm3 (4.5-10.0)
[2021-06-15 23:46] LABS: Alanine Aminotransferase 20 U/L (4-50); Albumin Level 4.5 g/dL (3.5-5.1); Alkaline Phosphatase 131 U/L (38-126); Anion Gap 12 mmol/L (8-16); Aspartate Amino Transferase 28 U/L (17-59); Bilirubin,Total 0.7 mg/dL (0.2-1.3); Blood Urea Nitrogen 17 mg/dL (9-20); Calcium 9.5 mg/dL (8.4-10.2); Carbon Dioxide 22 mmol/L (22-30); Chloride 106 mmol/L (98-107); Estimated Glomerular Filt Rate > 60; Glucose 95 mg/dL (65-110); Phenytoin Dilantin 6 ug/mL (10-20); Potassium 3.6 mmol/L (3.4-5.0); Sodium 140 mmol/L (137-145)
[2021-06-15 23:52] LABS: Prothrombin Time 13.1 Seconds (11.1-14.7)
[2021-06-15 23:53] LABS: Partial Thromboplastin Time 37.4 SECONDS (22.3-36.8)
[2021-06-16] VITALS (19 sets, daily range): BP systolic 133–160; BP diastolic 78–94; PULSE 61–72; RESP 13–18; TEMP 35.9–36.5; O2SAT 95–100
[2021-06-16 01:03] LABS: Add Urine Microscopic? YES; Appearance Urine Clear (Clear); Bilirubin Urine Negative (Negative); Blood Urine 1+ (Negative); Color Urine Yellow (Yellow); Glucose Urine UA Negative (Negative); Ketones Urine Trace mg/dL (Negative); Leukocyte Esterase Ur Negative LEU/UL (Negative); Mucus Urine Rare /lpf; Nitrate Urine Negative (Negative); Protein Urine Negative (Negative); Specific Grav Ur 1.019 (1.001-1.035); Urobilinogen Urine Negative mg/dL (<2.0); WBC Urine 0-3 /hpf
[2021-06-16] MEDS: SODIUM CHLORIDE 0.9% IV 1,000 ML 125 ML IV CONT ×3 (04:08→16:59)
--- NOTE | 2021-06-16 04:54 | ADMGEN ---
This patient, Memo Tamez, was admitted to [facility] Surg Room 306-02. Patient/family oriented to hospital policies and general routines including ID bracelet, bed and alarms, visiting hours, pain management, procedures, bathroom and other care routines, personal items, smoking policy, room service/diet, and visiting hours. Information on how to activate the Rapid Response Team has been discussed. Patient/Family are encouraged to report perceived risks to care and to ask questions if they do not understand what they are told or what they should do.
--- NOTE | 2021-06-16 11:59 | WPDNEURCNPN ---
Assessment and Plan Additional Plan status post craniotomy on the left side with documented skull defect also language difficulties and intermittent focal seizures with speech dysfunction along with possibility of TIA, Dilantin levels are subtherapeutic he needs to be on anticonvulsants on a regular basis control the focal seizure with secondary generalization Consult date: 06/16/21 HPI: Memo Tamez is a 76 year old male admitted to the hospital for the complaints of increasing confusion and difficulties in finding the right word to communicate in addition he was found to have increased systolic blood pressure most recently he was hospitalized with diagnosis of TIA versus the focal seizure medications included primidone 250 mg b.i.d. as an outpatient in addition evaluation documented serum ammonia level of 54 and phenytoin levels only [address] scan of the head showing chronic encephalomalacia in the left fronto temporal region and CTA without any significant stenosis except in the neck is stenosis of the takeoff of the right vertebral artery 2nd to calcific atheromatous disease Review of Systems Review of Systems: All systems reviewed & are unremarkable except as noted in HPI and below PMFSH Past Medical History Medical History Benign essential hypertension BMI 30.0-30.9,adult BMI 31.0-31.9,adult Carpal tunnel syndrome Colon cancer screening Elevated homocysteine Elevated serum creatinine Encounter for routine adult health examination without abnormal findings FHx: type 2 diabetes mellitus GERD (gastroesophageal reflux disease) Hx of colonic polyps Hyperlipidemia Hypothyroidism (acquired) On jail drug therapy Prostate cancer screening Right ankle pain Right foot pain Seizure disorder Vitamin B12 deficiency Social History Social History Smoking status: Never smoker Alcohol intake: never Substance use: never Spiritual care concerns: No Meds Home Medications and Allergies Home Medications Medication Instructions Recorded Confirmed Type folic acid 1 mg tablet 1 mg PO DAILY 04/13/20 06/16/21 History mecobalamin (vitamin B12) 1,000 1,000 mcg SUBLINGUAL DAILY 04/13/20 06/16/21 History mcg disintegrating tablet,sublingual lorazepam 0.5 mg tablet 0.5 mg PO TID PRN #30 tablet 08/02/20 06/16/21 Rx levothyroxine 200 mcg tablet 200 mcg PO DAILY #90 tablet 02/14/21 06/16/21 Rx atorvastatin 20 mg tablet 20 mg PO DAILY #90 tablet 02/26/21 06/16/21 Rx divalproex 500 mg tablet,delayed 500 mg PO QID #360 tablet 02/26/21 06/16/21 Rx release sucralfate 1 gram tablet 2 g PO BID #360 tablet 02/26/21 06/16/21 Rx gabapentin 300 mg PO DIRECTED 04/11/21 06/16/21 History naproxen sodium [Aleve] 220 mg PO BID PRN 04/11/21 06/16/21 History primidone 250 mg PO BID 04/11/21 06/16/21 History hydrocodone-acetaminophen 1 tablet PO Q6H PRN #10 tablet MDD 04/26/21 06/16/21 Rx 6 ascorbic acid (vitamin C) 1 g PO DAILY 05/28/21 06/16/21 History candesartan-hydrochlorothiazid 1 tablet PO DAILY 05/28/21 06/16/21 History cholecalciferol (vitamin D3) 25 mcg PO DAILY 05/28/21 06/16/21 History [Vitamin D3] phenytoin sodium extended 100 mg See Rx Instructions .ROUTE 06/12/21 06/16/21 Rx capsule .COMPLEX #300 capsule Allergies Allergy/AdvReac Type Severity Reaction Status Date / Time No Known Allergies Allergy Unknown Verified 06/12/21 11:42 Vital Signs Vital Signs - 24 hr 06/15/21 21:20 06/15/21 22:35 06/15/21 22:45 Temperature 36.4 C L Pulse Rate 87 75 77 Respiratory Rate 18 15 15 Blood Pressure 143/83 H Pulse Oximetry 97 100 100 06/15/21 23:00 06/15/21 23:05 06/15/21 23:06 Temperature Pulse Rate 76 73 74 Respiratory Rate 17 16 18 Blood Pressure 156/97 H 160/87 H Pulse Oximetry 97 98 100 06/15/21 23:17 06/15/21 23:33 06/15/21 23:45 Temperature Pulse Rate 74 73 72 Respiratory
--- NOTE | 2021-06-16 12:13 | PM.IMHP ---
H&P: HPI History of Present Illness Date/Time: 06/16/21 12:13 Chief Complaint: Altered mental status Narrative: The patient is brought in to the ER last night with altered mental status and high blood pressure that he had noticed. Sister is at bedside who provided most of the history. 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 He had similar episode a month ago with hypertensive emergency and TIA. MRI has could not be done because of a mess from his craniotomy in the past. He is back to his normal self per his sister and doing well. He also takes his seizure medication religiously and has not missed any doses. His noted to have low phenytoin level here and also noted the same in the past as well. Review of Systems Review of Systems: - CONSTITUTIONAL: Denies weight loss, fever and chills. - HEENT: Denies changes in vision and hearing - RESPIRATORY: Denies SOB and cough. - CV: Denies palpitations and CP. - GI: Denies abdominal pain, nausea, vomiting and diarrhea. - : Denies dysuria and urinary frequency. - MSK: Denies myalgia and joint pain. - SKIN: Denies rash and pruritus. - NEUROLOGICAL: Denies headache and syncope. - PSYCHIATRIC: Denies recent changes in mood. Denies anxiety and depression. All systems reviewed & are unremarkable except as noted in HPI and below Constitutional: Constitutional: Reports fatigue and Reports weakness Neurologic: Reports weakness Endocrine: Endocrine: Reports fatigue [facility] Past Medical History Medical History Benign essential hypertension BMI 30.0-30.9,adult BMI 31.0-31.9,adult Carpal tunnel syndrome Colon cancer screening Elevated homocysteine Elevated serum creatinine Encounter for routine adult health examination without abnormal findings FHx: type 2 diabetes mellitus GERD (gastroesophageal reflux disease) Hx of colonic polyps Hyperlipidemia Hypothyroidism (acquired) 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 Prostate cancer screening Right ankle pain Right foot pain Seizure disorder Vitamin B12 deficiency Social History Social History Smoking status: Never smoker Alcohol intake: never Substance use: never Spiritual care concerns: No Meds Home Medications and Allergies Home Medications Medication Instructions Recorded Confirmed Type folic acid 1 mg tablet 1 mg PO DAILY 04/13/20 06/16/21 History mecobalamin (vitamin B12) 1,000 1,000 mcg SUBLINGUAL DAILY 04/13/20 06/16/21 History mcg disintegrating tablet,sublingual lorazepam 0.5 mg tablet 0.5 mg PO TID PRN #30 tablet 08/02/20 06/16/21 Rx levothyroxine 200 mcg tablet 200 mcg PO DAILY #90 tablet 02/14/21 06/16/21 Rx atorvastatin 20 mg tablet 20 mg PO DAILY #90 tablet 02/26/21 06/16/21 Rx divalproex 500 mg tablet,delayed 500 mg PO QID #360 tablet 02/26/21 06/16/21 Rx release sucralfate 1 gram tablet 2 g PO BID #360 tablet 02/26/21 06/16/21 Rx gabapentin 300 mg PO DIRECTED 04/11/21 06/16/21 History naproxen sodium [Aleve] 220 mg PO BID PRN 04/11/21 06/16/21 History primidone 250 mg PO BID 04/11/21 06/16/21 History hydrocodone-acetaminophen 1 tablet PO Q6H PRN #10 tablet MDD 04/26/21 06/16/21 Rx 6 ascorbic acid (vitamin C) 1 g PO DAILY 05/28/21 06/16/21 History candesartan-hydrochlorothiazid 1 tablet PO DAILY 05/28/21 06/16/21 History cholecalciferol (vitamin D3) 25 mcg PO DAILY 05/28/21 06/16/21 History [Vitamin D3] phenytoin sodium extended 100 mg See Rx Instructions .ROUTE 06/12/21 06/16/21 Rx capsule .COMPLEX #300 capsule Allergies Allergy/AdvReac Type Severity Reaction Status Date / Time No Known Allergies Allergy Unknown Verified 06/12/21 11:42 Vital Signs Vital Signs - 24 hr 06/15/21 21:20 06/15/21 22:35 06/15/21 22:45 Temperature 97.5 F L Pulse Rate 87 75 77 Respiratory Rate 18 15 15
[2021-06-16] MEDS: DIVALPROEX SODIUM DR 250 MG TABEC 500 MG PO ×3 (14:11→20:31)
[2021-06-16] MEDS: GABAPENTIN 300 MG CAPSULE PO ×3 (15:58→20:32)
[2021-06-16] MEDS: SUCRALFATE 1 GM TABLET 2 GM PO (17:01)
[2021-06-16] MEDS: PRIMIDONE 250 MG TABLET PO (17:01)
[2021-06-16] MEDS: PHENYTOIN SODIUM 100 MG EXTENDED RELEASE CAP 200 MG BY MOUTH (20:32)
[2021-06-17] VITALS (7 sets, daily range): BP systolic 141–150; BP diastolic 66–96; PULSE 7–76; RESP 16–20; TEMP 36.1–36.3; O2SAT 95–100
[2021-06-17] MEDS: SODIUM CHLORIDE 0.9% IV 1,000 ML 125 ML IV CONT ×2 (00:58→08:08)
[2021-06-17] MEDS: LEVOTHYROXINE SODIUM 100 MCG TABLET 200 MCG PO (05:59)
[2021-06-17] MEDS: SUCRALFATE 1 GM TABLET 2 GM PO ×2 (06:00→17:14)
[2021-06-17] MEDS: GABAPENTIN 300 MG CAPSULE PO ×5 (06:00→20:26)
[2021-06-17 06:23] LABS: Basophils Percent Auto 0.4 % (0.2-1.2); Eosinophils Absolute Auto 0.4 K/mm3 (0-0.3); Eosinophils Percent Auto 6.5 % (0-4.4); Hematocrit 34.7 % (42.0-52.0); Hemoglobin 11.9 g/dL (14.0-18.0); Immature Granulocyte Absolute 0.01 K/mm3 (0.00-0.031); Immature Granulocyte Percent A 0.2 % (0-0.5); Lymphocytes Absolute Auto 1.47 K/mm3 (0.9-3.2); Lymphocytes Percent Auto 26.7 % (18.3-44.2); Mean Corpuscular HGB Conc 34.3 g/dl (32-36); Mean Corpuscular Hemoglobin 33.5 pg (26-34); Mean Corpuscular Volume 97.7 fl (80-100); Mean Platelet Volume 10.9 fl (7.4-10.4); Monocytes Absolute Auto 0.8 K/mm3 (0.1-0.6); Monocytes Percent Auto 14.2 % (2.6-8.5); Neutrophils Absolute Auto 2.9 K/mm3 (1.3-6.7); Platelet Count Result 132 k/mm3 (150-375); Red Blood Count 3.55 M/mm3 (4.6-6.20); Red Cell Distribution Width 13.7 % (11.5-14.5); White Blood Count 5.5 K/mm3 (4.5-10.0)
[2021-06-17 06:29] LABS: Alanine Aminotransferase 16 U/L (4-50); Albumin Level 3.7 g/dL (3.5-5.1); Alkaline Phosphatase 111 U/L (38-126); Anion Gap 9 mmol/L (8-16); Aspartate Amino Transferase 24 U/L (17-59); Bilirubin,Total 0.4 mg/dL (0.2-1.3); Blood Urea Nitrogen 16 mg/dL (9-20); Calcium 8.6 mg/dL (8.4-10.2); Carbon Dioxide 23 mmol/L (22-30); Chloride 105 mmol/L (98-107); Estimated Glomerular Filt Rate > 60; Glucose 87 mg/dL (65-110); Potassium 3.5 mmol/L (3.4-5.0); Sodium 137 mmol/L (137-145)
[2021-06-17] MEDS: hydroCHLOROthiazide 12.5 MG CAPSULE PO (08:04)
[2021-06-17] MEDS: CYANOCOBALAMIN 1,000 MCG TABLET 1000 MCG PO (08:04)
[2021-06-17] MEDS: PHENYTOIN SODIUM 100 MG EXTENDED RELEASE CAP 300 MG BY MOUTH (08:04)
[2021-06-17] MEDS: ASCORBIC ACID 500 MG TABLET 1000 MG PO (08:04)
[2021-06-17] MEDS: FOLIC ACID 1 MG TABLET PO (08:04)
[2021-06-17] MEDS: PRIMIDONE 250 MG TABLET PO ×2 (08:04→17:14)
[2021-06-17] MEDS: CHOLECALCIFEROL 1,000 UNITS TABLET 1000 UNITS PO (08:05)
[2021-06-17] MEDS: CANDESARTAN CILEXETIL 16 MG TABLET PO (08:05)
[2021-06-17] MEDS: DIVALPROEX SODIUM DR 250 MG TABEC 500 MG PO ×4 (08:05→20:26)
[2021-06-17] MEDS: ATORVASTATIN 20 MG TABLET PO (08:05)
--- NOTE | 2021-06-17 12:50 | PM.IMPN ---
Progress Note: A&P Assessment and Plan (1) Altered mental status: Qualifiers: Altered mental status type: unspecified Qualified Code(s): R41.82 - Altered mental status, unspecified Code(s): R41.82 - Altered mental status, unspecified Status: Acute (2) Subtherapeutic phenytoin level: Code(s): Z51.81 - Encounter for therapeutic drug level monitoring Status: Acute (3) Hyperlipidemia: Qualifiers: Hyperlipidemia type: mixed hyperlipidemia Qualified Code(s): E78.2 - Mixed hyperlipidemia Code(s): E78.5 - Hyperlipidemia, unspecified Status: Acute (4) Hypothyroidism (acquired): Code(s): E03.9 - Hypothyroidism, unspecified Status: Acute (5) Benign essential hypertension: Code(s): I10 - Essential (primary) hypertension Status: Acute (6) GERD (gastroesophageal reflux disease): Qualifiers: Esophagitis presence: esophagitis presence not specified Qualified Code(s): K21.9 - Gastro-esophageal reflux disease without esophagitis Code(s): K21.9 - Gastro-esophageal reflux disease without esophagitis Status: Acute Additional Plan # acute encephalopathy started yesterday expressive aphasia with mild pronator drift on right. 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 CTA head and neck mild stenosis of the bilateral V4 segment secondary to calcific atheromatous disease. Calcified see Marcia atheromatous disease of the glenoid and supraclinoid ICAs without significant stenosis. No occlusion or aneurysm. CTA neck showed stenosis of the takeoff of the right vertebral artery secondary to calcific atheromatous disease calcific atheromatous disease of the carotid bulb and proximal ICAs without significant stenosis or occlusion. 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 # hyperammonemia: Likely from Depakote plan will be to, after adequate dosing of Keppra, to slowly taper off Depakote which will be done as an outpatient basis # status post craniotomy on the left side # Benign essential hypertension blood pressure mildly elevated today will resume his usual home medication and monitor # hypothyroidism # history of seizure disorder # left frontal craniotomy # hypertension # DVT prophylaxis # code status: Full code # disposition: PT OT see today will check off telemetry and IV fluid Likely discharge in the morning if remains seizure-free and tolerates Keppra Subjective Date/time seen: 06/17/21 12:50 Interval history: No overnight events. Has no work with therapy at. Sister at bedside. He has been back to normal self today. Review of Systems Review of Systems: All systems reviewed & are unremarkable except as noted in HPI and below Exam Narrative: GENERAL: Well-appearing, well-nourished, and in no acute distress. HEAD: Normocephalic, atraumatic. EYES: PERRLA and EOMI. ENT: Nares clear, no rhinorrhea or epistaxis. Mucous membranes moist. NECK: Supple. No masses. No JVD CHEST: Clear to auscultation. No respiratory distress. No wheezes rales or rhonchi HEART: Regular rate and rhythm. No murmur heard. Normal peripheral pulses. ABDOMEN: Soft, nontender, nondistended, normal active bowel sounds. EXTREMITIES: Normal range of motion. No edema. SKIN: Warm, dry, no rash. NEURO: Cranial nerves II through XII are intact patient has 5 out of 5 strength in all extremities sensation intact to light touch in all extremities. Alert and oriented x3. PSYCH: Normal mood and affect. Objective Data Vital Signs Vital Signs: Vital Signs - 24 hr 06/16/21 16:00 06/16/21 17:41 06/16/21 20:00 Temperature 96.7 F L 96.8 F L Pulse Rate 65 64 63 Respirator
[2021-06-17] MEDS: levETIRAcetam 500 MG TABLET PO (20:25)
[2021-06-17] MEDS: PHENYTOIN SODIUM 100 MG EXTENDED RELEASE CAP 200 MG BY MOUTH (20:25)
[2021-06-18] VITALS (9 sets, daily range): BP systolic 101–150; BP diastolic 53–83; PULSE 67–83; RESP 18; TEMP 35.9–37.7; O2SAT 93–98
[2021-06-18] MEDS: LORazepam (*CRX) 0.5 MG TABLET PO (00:46)
[2021-06-18] MEDS: SUCRALFATE 1 GM TABLET 2 GM PO ×2 (05:57→16:48)
[2021-06-18] MEDS: LEVOTHYROXINE SODIUM 100 MCG TABLET 200 MCG PO (05:58)
[2021-06-18] MEDS: GABAPENTIN 300 MG CAPSULE PO ×5 (05:58→21:08)
[2021-06-18] MEDS: hydroCHLOROthiazide 12.5 MG CAPSULE PO (08:27)
[2021-06-18] MEDS: PRIMIDONE 250 MG TABLET PO ×2 (08:27→16:48)
[2021-06-18] MEDS: levETIRAcetam 500 MG TABLET PO (08:27)
[2021-06-18] MEDS: DIVALPROEX SODIUM DR 250 MG TABEC 500 MG PO ×4 (08:27→20:34)
[2021-06-18] MEDS: CYANOCOBALAMIN 1,000 MCG TABLET 1000 MCG PO (08:27)
[2021-06-18] MEDS: FOLIC ACID 1 MG TABLET PO (08:28)
[2021-06-18] MEDS: CHOLECALCIFEROL 1,000 UNITS TABLET 1000 UNITS PO (08:28)
[2021-06-18] MEDS: CANDESARTAN CILEXETIL 16 MG TABLET PO (08:28)
[2021-06-18] MEDS: ASCORBIC ACID 500 MG TABLET 1000 MG PO (08:29)
[2021-06-18] MEDS: PHENYTOIN SODIUM 100 MG EXTENDED RELEASE CAP 300 MG BY MOUTH (08:29)
[2021-06-18] MEDS: ATORVASTATIN 20 MG TABLET PO (10:43)
--- NOTE | 2021-06-18 11:12 | WPDNEUROPN ---
Progress Note: A&P Additional Plan new anticonvulsant that is Keppra has been added with intention to follow up in the office and see if we can improve his intermittent left hemispheric related dysphagia with the intention of controlling focal seizures Time Spent With Patient Time with patient: less than 15 minutes Subjective Date/time seen: 06/18/21 11:12 is status post left-sided craniotomy with residual skull defect and intermittent focal and generalized seizures with speech dysfunction Review of Systems Review of Systems: All systems reviewed & are unremarkable except as noted in HPI and below Exam Const: General: cooperative, comfortable, no acute distress, alert and awake Nutritional Appearance: average body habitus Orientation/consciousness: oriented to person and oriented to place Limitations: language barrier and physical limitations HENMT: Head: normal to inspection and other ( left-sided skull defect) Ears: hearing grossly normal bilaterally General nose exam: Normal external nose present Face and sinus: normal facial exam Mouth: Yes Normal oral and palatal mucosa present Eyes: General: appearance normal, both eyes and all related structures Alignment and Position: alignment normal Periorbital: periorbital findings normal Eyelids: eyelids normal Conjunctivae: conjunctivae normal Sclera: sclerae normal Cornea: corneas normal Pupils: Equal, round and reactive pupils present EOM: EOMs intact bilaterally Neck: Neck: full ROM Resp: Effort & Inspection: normal respiratory effort and able to speak in complete sentences Auscultation: clear to auscultation bilaterally Neuro: General: oriented to person and oriented to place Cranial nerves: Yes CN's II-XII intact bilaterally Speech: Abnormal speech present ( slow with intermittent dysphagia) Gait exam (Neuro): Unable to assess gait Plantar Reflex Responses: downgoing: right and upgoing (positive Babinski): left Psych: Appearance: well kempt Mental Status: mental status grossly normal Speech and movement: Slowed speech present (Psych) Affect: normal affect Thought process: Impoverished thought process present Thought content: Yes other Insight: Fair insight present (Psych) Judgement: Fair judgement present (Psych) Objective Data Vital Signs Vital Signs: Vital Signs - 24 hr 06/17/21 12:00 06/17/21 16:00 06/17/21 20:00 Temperature 36.1 C L 36.3 C L 36.3 C L Pulse Rate 69 69 70 Respiratory Rate 20 20 18 Blood Pressure 150/96 H 145/87 H 146/84 H Pulse Oximetry 98 95 97 06/18/21 00:00 06/18/21 04:00 06/18/21 08:00 Temperature 36.6 C 36.2 C L 36.1 C L Pulse Rate 77 70 71 Respiratory Rate 18 18 18 Blood Pressure 150/80 H 134/82 147/83 H Pulse Oximetry 98 96 97 Intake/Output Intake/Output: Intake & Output 06/15/21 06/16/21 06/17/21 06/18/21 23:59 23:59 23:59 23:59 Intake Total 3765 3990 420 Output Total 350 3700 600 Balance 3415 290 -180 Meds/Results Medications: Active Medications Generic Name Dose Route Start Last Admin Trade Name Freq PRN Reason Stop Dose Admin Hydrocodone Bitart/Acetaminophen 1 tab 06/16/21 12:18 Hydrocodone/Acetaminophen (*Crx) 5-325 Mg Tablet PO Q6H PRN pain Ascorbic Acid 1,000 mg 06/17/21 09:00 06/18/21 08:29 Ascorbic Acid 500 Mg Tablet PO 1,000 mg DAILY LAMBERT Administration Atorvastatin Calcium 20 mg 06/17/21 09:00 06/18/21 10:43 Atorvastatin 20 Mg Tablet PO 20 mg DAILY LAMBERT Administration Candesartan Cilexetil 16 mg 06/17/21 09:00 06/18/21 08:28 Candesartan Cilexetil 16 Mg Tablet PO 16 mg QAM LAMBERT Administration Cyanocobalamin 1,000 mcg 06/17/21 09:00 06/18/21 08:27 Cyanocobalamin 1,000 Mcg Tablet PO 1,000 mcg DAILY LAMBERT Administration Divalproex Sodium 500 mg 06/16/21 13:00 06/18/21 08:[address] 250 Mg Tabec PO 500 mg QID LAMBERT Administration Folic Acid 1 mg 06/17/21 09:00 06/18/21 08:28 Folic Acid 1 Mg Tablet PO
--- NOTE | 2021-06-18 16:36 | PM.IMPN ---
Progress Note: A&P Assessment and Plan (1) Altered mental status: Qualifiers: Altered mental status type: unspecified Qualified Code(s): R41.82 - Altered mental status, unspecified Code(s): R41.82 - Altered mental status, unspecified Status: Acute (2) Subtherapeutic phenytoin level: Code(s): Z51.81 - Encounter for therapeutic drug level monitoring Status: Acute (3) Hyperlipidemia: Qualifiers: Hyperlipidemia type: mixed hyperlipidemia Qualified Code(s): E78.2 - Mixed hyperlipidemia Code(s): E78.5 - Hyperlipidemia, unspecified Status: Acute (4) Hypothyroidism (acquired): Code(s): E03.9 - Hypothyroidism, unspecified Status: Acute (5) Benign essential hypertension: Code(s): I10 - Essential (primary) hypertension Status: Acute (6) GERD (gastroesophageal reflux disease): Qualifiers: Esophagitis presence: esophagitis presence not specified Qualified Code(s): K21.9 - Gastro-esophageal reflux disease without esophagitis Code(s): K21.9 - Gastro-esophageal reflux disease without esophagitis Status: Acute Additional Plan # acute encephalopathy started yesterday expressive aphasia with mild pronator drift on right. 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 CTA head and neck mild stenosis of the bilateral V4 segment secondary to calcific atheromatous disease. Calcified see Marcia atheromatous disease of the glenoid and supraclinoid ICAs without significant stenosis. No occlusion or aneurysm. CTA neck showed stenosis of the takeoff of the right vertebral artery secondary to calcific atheromatous disease calcific atheromatous disease of the carotid bulb and proximal ICAs without significant stenosis or occlusion. 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 06/18/2021 Since the addition of Keppra up patient with increased confusion could be due to Keppra will hold the Keppra dose and re-evaluate in the morning # hyperammonemia: Likely from Depakote plan will be to, after adequate dosing of Keppra, to slowly taper off Depakote which will be done as an outpatient basis # status post craniotomy on the left side # Benign essential hypertension blood pressure mildly elevated today will resume his usual home medication and monitor # hypothyroidism # history of seizure disorder # left frontal craniotomy # hypertension # DVT prophylaxis # code status: Full code # disposition: PT OT saw difficulty ambulation due to his bilateral knee pains # bilateral knee pain will check x-ray knee give a dose of ibuprofen and order ibuprofen p.r.n. Will also check venous duplex duplex to rule out DVT Monitor for any new symptoms and re-evaluate in am Subjective Date/time seen: 06/18/21 16:36 Interval history: Patient not doing well today. More confused. He also complains of bilateral lower extremity pain points to his bilateral knees he has had intermittent similar pain in the past due to her is arthritis. Discussed with the sister who is at bedside. Suspected Keppra induced confusion Review of Systems Review of Systems: All systems reviewed & are unremarkable except as noted in HPI and below Exam Narrative: GENERAL: Well-appearing, well-nourished, and in [id number] distress due to pain HEAD: Normocephalic, atraumatic. EYES: PERRLA and EOMI. ENT: Nares clear, no rhinorrhea or epistaxis. Mucous membranes moist. NECK: Supple. No masses. No JVD CHEST: Clear to auscultation. No respiratory distress. No wheezes rales or rhonchi HEART: Regular rate and rhythm. No murmur heard. Normal peripheral pulses. ABDOMEN: Soft, nontender, nondistended, n
[2021-06-18] MEDS: IBUPROFEN 600 MG TABLET PO ×2 (16:52→20:45)
[2021-06-18 18:06] LABS: Basophils Percent Auto 0.1 % (0.2-1.2); Eosinophils Absolute Auto 0.1 K/mm3 (0-0.3); Hematocrit 36.4 % (42.0-52.0); Hemoglobin 12.6 g/dL (14.0-18.0); Immature Granulocyte Absolute 0.02 K/mm3 (0.00-0.031); Immature Granulocyte Percent A 0.3 % (0-0.5); Lymphocytes Percent Auto 16.9 % (18.3-44.2); Mean Corpuscular HGB Conc 34.6 g/dl (32-36); Mean Corpuscular Hemoglobin 33.6 pg (26-34); Mean Corpuscular Volume 97.1 fl (80-100); Mean Platelet Volume 10.4 fl (7.4-10.4); Monocytes Absolute Auto 1.5 K/mm3 (0.1-0.6); Neutrophils Absolute Auto 4.3 K/mm3 (1.3-6.7); Neutrophils Percent Auto 60.7 % (45.5-73.1); Platelet Count Result 135 k/mm3 (150-375); Red Blood Count 3.75 M/mm3 (4.6-6.20); Red Cell Distribution Width 13.9 % (11.5-14.5); White Blood Count 7.1 K/mm3 (4.5-10.0)
[2021-06-18 18:18] LABS: Alanine Aminotransferase 19 U/L (4-50); Albumin Level 3.8 g/dL (3.5-5.1); Alkaline Phosphatase 117 U/L (38-126); Anion Gap 9 mmol/L (8-16); Aspartate Amino Transferase 31 U/L (17-59); Bilirubin,Total 0.5 mg/dL (0.2-1.3); Blood Urea Nitrogen 14 mg/dL (9-20); CRP 7.7 mg/dL (<1.0); Calcium 8.7 mg/dL (8.4-10.2); Carbon Dioxide 25 mmol/L (22-30); Chloride 100 mmol/L (98-107); Estimated Glomerular Filt Rate > 60; Glucose 138 mg/dL (65-110); Magnesium 1.7 mg/dL (1.6-2.3); Potassium 3.4 mmol/L (3.4-5.0); Sodium 134 mmol/L (137-145); Uric Acid 5.7 mg/dL (3.5-8.5)
[2021-06-18 18:35] LABS: Erythrocyte Sedimentation Rate 24 mm/hr (0-20)
[2021-06-18] MEDS: PHENYTOIN SODIUM 100 MG EXTENDED RELEASE CAP 200 MG BY MOUTH (20:33)
[2021-06-19] VITALS (9 sets, daily range): BP systolic 94–152; BP diastolic 55–79; PULSE 60–80; RESP 17–18; TEMP 35.8–38.4; O2SAT 90–98
[2021-06-19] MEDS: GABAPENTIN 300 MG CAPSULE PO ×4 (05:09→22:30)
[2021-06-19] MEDS: SUCRALFATE 1 GM TABLET 2 GM PO ×2 (05:09→16:28)
[2021-06-19] MEDS: LEVOTHYROXINE SODIUM 100 MCG TABLET 200 MCG PO (05:10)
[2021-06-19] MEDS: CANDESARTAN CILEXETIL 16 MG TABLET PO (09:14)
[2021-06-19] MEDS: DIVALPROEX SODIUM DR 250 MG TABEC 500 MG PO ×4 (09:14→22:28)
[2021-06-19] MEDS: PRIMIDONE 250 MG TABLET PO ×2 (09:14→16:27)
[2021-06-19] MEDS: PHENYTOIN SODIUM 100 MG EXTENDED RELEASE CAP 300 MG BY MOUTH (09:14)
[2021-06-19] MEDS: FOLIC ACID 1 MG TABLET PO (09:14)
[2021-06-19] MEDS: ASCORBIC ACID 500 MG TABLET 1000 MG PO (09:15)
[2021-06-19] MEDS: CYANOCOBALAMIN 1,000 MCG TABLET 1000 MCG PO (09:15)
[2021-06-19] MEDS: CHOLECALCIFEROL 1,000 UNITS TABLET 1000 UNITS PO (09:15)
[2021-06-19] MEDS: ATORVASTATIN 20 MG TABLET PO (09:15)
[2021-06-19] MEDS: hydroCHLOROthiazide 12.5 MG CAPSULE PO (09:15)
--- NOTE | 2021-06-19 11:47 | PM.IMPN ---
Progress Note: A&P Assessment and Plan (1) Altered mental status: Qualifiers: Altered mental status type: unspecified Qualified Code(s): R41.82 - Altered mental status, unspecified Code(s): R41.82 - Altered mental status, unspecified Status: Acute Assessment and Plan: Acute encephalopathy started [employer] Presented with expressive aphasia with mild pronator drift on right UA is negative History of TIA 2 months ago Ammonia level mildly elevated at 54 phenytoin level a little low-->14.8 CT head with chronic in encephalomalacia in left frontoparietal region CTA head and neck--> mild stenosis of the bilateral V4 segment secondary to calcific atheromatous disease. Calcified see Marcia atheromatous disease of the glenoid and supraclinoid ICAs without significant stenosis. No occlusion or aneurysm. CTA neck showed stenosis of the takeoff of the right vertebral artery secondary to calcific atheromatous disease calcific atheromatous disease of the carotid bulb and proximal ICAs without significant stenosis or occlusion. 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 06/18/2021 Since the addition of Keppra up patient with increased confusion could be due to Keppra will hold the Keppra dose and re-evaluate in the morning MS back to baseline (2) Subtherapeutic phenytoin level: Code(s): Z51.81 - Encounter for therapeutic drug level monitoring Status: Acute Assessment and Plan: Mild (3) Hyperlipidemia: Qualifiers: Hyperlipidemia type: mixed hyperlipidemia Qualified Code(s): E78.2 - Mixed hyperlipidemia Code(s): E78.5 - Hyperlipidemia, unspecified Status: Acute Assessment and Plan: Continue statin (4) Hypothyroidism (acquired): Code(s): E03.9 - Hypothyroidism, unspecified Status: Acute Assessment and Plan: Continue levothyroxine (5) Benign essential hypertension: Code(s): I10 - Essential (primary) hypertension Status: Acute Assessment and Plan: Blood pressure mildly elevated yesterday, usual home medication resumed BP soft today Monitor closely and adjust if necessary (6) GERD (gastroesophageal reflux disease): Qualifiers: Esophagitis presence: esophagitis presence not specified Qualified Code(s): K21.9 - Gastro-esophageal reflux disease without esophagitis Code(s): K21.9 - Gastro-esophageal reflux disease without esophagitis Status: Acute Assessment and Plan: Continue Carafate (7) Bilateral knee effusions: Code(s): M25.461 - Effusion, right knee; M25.462 - Effusion, left knee Status: Acute Assessment and Plan: PT OT saw difficulty ambulation due to his bilateral knee pain x-ray knee of both knees showed-->1. Moderate to large right knee joint effusion. 2. Moderate osteoarthritis. 3. Chondrocalcinosis. Venous duplex duplex-->no DVT Continue with order ibuprofen p.r.n. Consult to ortho Additional Plan # hyperammonemia: Likely from Depakote plan will be to, after adequate dosing of Keppra, to slowly taper off Depakote which will be done as an outpatient basis # status post craniotomy on the left side # history of seizure disorder # left frontal craniotomy # DVT prophylaxis # code status: Full code # disposition: pending recovery Subjective Date/time seen: 06/19/21 11:47 Interval history: 06/18 Patient not doing well today. More confused. He also complains of bilateral lower extremity pain points to his bilateral knees he has had intermittent similar pain in the past due to her is arthritis. Discussed with the sister who is at bedside. Suspected Keppra induced confusion 06/19 Pt seen this a.m.; sister at
--- NOTE | 2021-06-19 12:29 | WPDNEUROPN ---
Progress Note: A&P Additional Plan 1 status post craniotomy 2. 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 Dysphasia 4. Focal seizure with secondary generalization and plan is to continue treatment as such Time Spent With Patient Time with patient: less than 15 minutes Subjective Date/time seen: 06/19/21 12:29 1. Focal seizure 2. Chronic encephalomalacia of left frontal temporal region 3. Initial admission with subtherapeutic Dilantin level. Patient received divalproex 5th 500 mg q.i.d., phenytoin 500 mg per day, primidone 250 mg b.i.d. considering the possibility of focal seizure Keppra has been added and further adjustment min the anticonvulsant will be made acc Review of Systems Review of Systems: All systems reviewed & are unremarkable except as noted in HPI and below Exam Const: General: cooperative, comfortable, no acute distress, alert and awake Nutritional Appearance: average body habitus and well nourished Orientation/consciousness: oriented to person and oriented to place Limitations: language barrier and physical limitations HENMT: Head: other Ears: hearing grossly normal bilaterally General nose exam: Normal external nose present Face and sinus: normal facial exam Mouth: Yes Normal oral and palatal mucosa present Eyes: General: appearance normal, both eyes and all related structures Neck: Neck: full ROM Resp: Effort & Inspection: normal respiratory effort and able to speak in complete sentences Auscultation: clear to auscultation bilaterally Cardio: Rhythm: regular rhythm Neuro: General: oriented to person and oriented to place Cranial nerves: Yes Equal, round and reactive pupils present, Yes Bilaterally intact EOM present, Yes Nystagmus not present, Yes Normal facial strength present, Yes facial symmetry and Yes Symmetric palate elevation present Cognition (Neuro): abnormal cognition Speech: Abnormal speech present Gait exam (Neuro): Unable to assess gait Sensory Exam: normal sensation Objective Data Vital Signs Vital Signs: Vital Signs - 24 hr 06/18/21 15:59 06/18/21 20:00 06/18/21 21:57 Temperature 35.9 C L 36.1 C L 37.4 C Pulse Rate 83 70 69 Respiratory Rate 18 18 18 Blood Pressure 120/60 108/53 L 108/53 L Pulse Oximetry 97 93 94 06/18/21 23:57 06/19/21 04:00 06/19/21 06:00 Temperature 37.7 C H 36.7 C 36.7 C Pulse Rate 70 65 65 Respiratory Rate 18 18 18 Blood Pressure 101/55 L 94/57 L 94/57 L Pulse Oximetry 93 90 92 06/19/21 08:00 06/19/21 11:37 Temperature 35.8 C L 36.2 C L Pulse Rate 60 77 Respiratory Rate 17 18 Blood Pressure 101/57 L 99/55 L Pulse Oximetry 96 98 Intake/Output Intake/Output: Intake & Output 06/16/21 06/17/21 06/18/21 06/19/21 23:59 23:59 23:59 23:59 Intake Total 3765 3990 520 868 Output Total 350 3700 1400 Balance 3415 290 -880 868 Meds/Results Medications: Active Medications Generic Name Dose Route Start Last Admin Trade Name Freq PRN Reason Stop Dose Admin Hydrocodone Bitart/Acetaminophen 1 tab 06/16/21 12:18 Hydrocodone/Acetaminophen (*Crx) 5-325 Mg Tablet PO Q6H PRN PAIN 6-10 Ascorbic Acid 1,000 mg 06/17/21 09:00 06/19/21 09:15 Ascorbic Acid 500 Mg Tablet PO 1,000 mg DAILY LAMBERT Administration Atorvastatin Calcium 20 mg 06/17/21 09:00 06/19/21 09:15 Atorvastatin 20 Mg Tablet PO 20 mg DAILY LAMBERT Administration Candesartan Cilexetil 16 mg 06/17/21 09:00 06/19/21 09:14 Candesartan Cilexetil 16 Mg Tablet PO 16 mg QAM LAMBERT Administration Cyanocobalamin 1,000 mcg 06/17/21 09:00 06/19/21 09:15 Cyanocobalamin 1,000 Mcg Tablet PO 1,000 mcg DAILY LAMBERT Administration Divalproex Sodium 500 mg 06/16/21 13:00 06/19/21 09:[address] 250 Mg Tabec PO 500 mg QID LAMEBRT Administration Folic Acid 1 mg 06/17/21 09:00 06/19/21 09:14 Folic Acid 1 Mg Tablet PO 1 mg DAILY LAMBERT Administration Gabapentin 300 mg 06/16/21 14:00 06/19/21 09:15 Ga
--- NOTE | 2021-06-19 13:06 | PC.NURSE ---
On 06/19/21, the student, [Russell Ventura ], provided care and completed [facility] documentation on this patient. I have reviewed the student's documentation and agree with the findings.
[2021-06-19] MEDS: PHENYTOIN SODIUM 100 MG EXTENDED RELEASE CAP 200 MG BY MOUTH (22:28)
[2021-06-19] MEDS: ACETAMINOPHEN 325 MG TABLET 650 MG PO (22:28)
[2021-06-20] VITALS (11 sets, daily range): BP systolic 115–154; BP diastolic 67–82; PULSE 73–85; RESP 16–18; TEMP 36.3–38.3; O2SAT 95–99; BMI 10.0
[2021-06-20] MEDS: GABAPENTIN 300 MG CAPSULE PO ×5 (06:02→22:00)
[2021-06-20] MEDS: LEVOTHYROXINE SODIUM 100 MCG TABLET 200 MCG PO (06:02)
[2021-06-20] MEDS: SUCRALFATE 1 GM TABLET 2 GM PO ×2 (06:03→17:34)
[2021-06-20] MEDS: HYDROcodone/acetaminophen (*CRX) 5-325 MG TABLET 1 TAB PO ×2 (06:11→21:18)
[2021-06-20 06:34] LABS: Phenytoin Dilantin Free 0.9 mg/L (1.0-2.0)
[2021-06-20] MEDS: PHENYTOIN SODIUM 100 MG EXTENDED RELEASE CAP 300 MG BY MOUTH (09:53)
[2021-06-20] MEDS: PRIMIDONE 250 MG TABLET PO ×2 (09:53→17:34)
[2021-06-20] MEDS: DIVALPROEX SODIUM DR 250 MG TABEC 500 MG PO ×4 (09:53→20:29)
[2021-06-20] MEDS: hydroCHLOROthiazide 12.5 MG CAPSULE PO (09:53)
[2021-06-20] MEDS: ATORVASTATIN 20 MG TABLET PO (09:54)
[2021-06-20] MEDS: CANDESARTAN CILEXETIL 16 MG TABLET PO (09:54)
[2021-06-20] MEDS: CYANOCOBALAMIN 1,000 MCG TABLET 1000 MCG PO (09:54)
[2021-06-20] MEDS: CHOLECALCIFEROL 1,000 UNITS TABLET 1000 UNITS PO (09:54)
[2021-06-20] MEDS: ASCORBIC ACID 500 MG TABLET 1000 MG PO (09:54)
[2021-06-20] MEDS: FOLIC ACID 1 MG TABLET PO (09:54)
--- NOTE | 2021-06-20 10:24 | PC.NURSE ---
On 06/20/21, the student, Janae Bravo, provided care and completed [facility] documentation on this patient. I have reviewed the student's documentation and agree with the findings.
[2021-06-20 11:49] LABS: Hematocrit 36.3 % (42.0-52.0); Hemoglobin 12.4 g/dL (14.0-18.0); Mean Corpuscular HGB Conc 34.2 g/dl (32-36); Mean Corpuscular Volume 96.5 fl (80-100); Mean Platelet Volume 10.7 fl (7.4-10.4); Platelet Count Result 145 k/mm3 (150-375); Red Blood Count 3.76 M/mm3 (4.6-6.20); Red Cell Distribution Width 13.7 % (11.5-14.5); White Blood Count 7.2 K/mm3 (4.5-10.0)
--- NOTE | 2021-06-20 11:52 | WPDNEUROPN ---
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 Arthritis regularly left knee ortho consultation requested Time Spent With Patient Time with patient: less than 15 minutes Subjective Date/time seen: 06/20/21 11:52 neurology follow-up for the left hemispheric dysfunction with intermittent dysphasia, complaining of severe pain and discomfort in the left knee which is warm and swollen Review of Systems Review of Systems: All systems reviewed & are unremarkable except as noted in HPI and below Exam HENMT: Head: other ( left craniotomy defect) Ears: hearing grossly normal bilaterally General nose exam: Normal external nose present Face and sinus: normal facial exam Mouth: Yes Normal oral and palatal mucosa present Eyes: General: appearance normal, both eyes and all related structures Visual Staton: normal visual staton by confrontation Alignment and Position: alignment normal Periorbital: periorbital findings normal Eyelids: eyelids normal Conjunctivae: conjunctivae normal Sclera: sclerae normal Cornea: corneas normal Pupils: Equal, round and reactive pupils present EOM: EOMs intact bilaterally Direct Ophthalmoscopy: normal light reflex Neck: Neck: normal visual inspection, full ROM and no lymphadenopathy Resp: Effort & Inspection: normal respiratory effort and able to speak in complete sentences Auscultation: clear to auscultation bilaterally Cardio: Rate: regular rate Rhythm: regular rhythm Extrem: Left lower extremity: knee ( swallow warm complaining of pain) Psych: Appearance: well kempt Speech and movement: Clear speech present and Slowed speech present (Psych) Affect: Labile affect present Attitude: cooperative Thought process: Circumstantial thought process present Thought content: Yes Normal thought content present Insight: Fair insight present (Psych) Judgement: Fair judgement present (Psych) Objective Data Vital Signs Vital Signs: Vital Signs - 24 hr 06/19/21 16:00 06/19/21 20:00 06/19/21 21:43 Temperature 36.8 C 38.4 C H 38.3 C H Pulse Rate 80 80 80 Respiratory Rate 18 18 18 Blood Pressure 152/79 H 132/74 132/74 Pulse Oximetry 95 98 98 06/19/21 22:28 06/19/21 23:28 06/20/21 00:00 Temperature 38.3 C H 38.3 C H 38.3 C H Pulse Rate 76 Respiratory Rate 18 Blood Pressure 130/70 Pulse Oximetry 95 06/20/21 00:06 06/20/21 04:00 06/20/21 08:00 Temperature 36.9 C 36.5 C Pulse Rate 85 74 Respiratory Rate 18 16 Blood Pressure 154/82 H 130/76 Pulse Oximetry 96 97 99 06/20/21 08:26 06/20/21 08:31 06/20/21 09:25 Temperature 36.5 C 36.3 C L Pulse Rate 74 74 73 Respiratory Rate 16 16 17 Blood Pressure 130/76 127/82 Pulse Oximetry 99 99 99 Intake/Output Intake/Output: Intake & Output 06/17/21 06/18/21 06/19/21 06/20/21 23:59 23:59 23:59 23:59 Intake Total 3990 520 1128 1070 Output Total 3700 1400 300 250 Balance 290 -880 828 820 Meds/Results Medications: Active Medications Generic Name Dose Route Start Last Admin Trade Name Freq PRN Reason Stop Dose Admin Acetaminophen 650 mg 06/19/21 20:49 06/19/21 22:28 Acetaminophen 325 Mg Tablet PO 650 mg Q4H PRN Administration Headache Hydrocodone Bitart/Acetaminophen 1 tab 06/16/21 12:18 06/20/21 06:11 Hydrocodone/Acetaminophen (*Crx) 5-325 Mg Tablet PO 1 tab Q6H PRN Administration PAIN 6-10 Ascorbic Acid 1,000 mg 06/17/21 09:00 06/20/21 09:54 Ascorbic Acid 500 Mg Tablet PO 1,000 mg DAILY LAMBERT Administration Atorvastatin Calcium 20 mg 06/17/21 09:00 06/20/21 09:54 Atorvastatin 20 Mg Tablet PO 20 mg DAILY LAMBERT Administration Candesartan Cilexetil 16 mg 06/17/21 09:00 06/20/21 09:54 Candesartan Cilexetil 16 Mg Tablet PO 16 mg QAM LAMBERT Administration Cyanocobalamin 1,000 mcg 06/17/21 09:00 06/20/21 09:54 Cyanocobalamin 1,000 Mcg Tablet PO 1,000 mcg DAILY
[2021-06-20 11:59] LABS: Anion Gap 15 mmol/L (8-16); Blood Urea Nitrogen 16 mg/dL (9-20); Calcium 8.9 mg/dL (8.4-10.2); Carbon Dioxide 24 mmol/L (22-30); Chloride 98 mmol/L (98-107); Estimated Glomerular Filt Rate > 60; Glucose 115 mg/dL (65-110); Potassium 3.4 mmol/L (3.4-5.0); Sodium 137 mmol/L (137-145)
--- NOTE | 2021-06-20 13:27 | PM.CNOR ---
Assessment and Plan Assessment and plan (1) Bilateral knee effusions: Code(s): M25.461 - Effusion, right knee; M25.462 - Effusion, left knee <PATRICIA Alexander - Last Filed: 06/21/21 11:49> Status: Acute <PATRICIA Alexander - Last Filed: 06/21/21 11:49> Assessment and Plan: Patient has bilateral knee large effusions. Likely gout or pseudogout. Moderate arthritis and chondrocalcinosis seen on xray. Drained both knees today and given bilateral Depo Medrol 80mg injections today. 60 cc inflammatory fluid drained on the left. 70 cc inflammatory fluid drained on the right. Fluid sent for cultures, crystals, and cbc. If no infection, patient is okay for discharge and can follow up as needed as an outpatient. <PATRICIA Alexander - Last Filed: 06/21/21 11:49> Additional Plan Patient seen and examined. Agree with above documentation. Large effusions consistent with inflammatory arthritis such as pseudogout or gout. Extensor chondrocalcinosis and arthritis noted radiographically. Aspiration performed bilateral. Inflammatory fluid without purulence. Will send for routine evaluation including crystals cell count and cultures. Will inject a steroid today as well. <Waqas Marrero MD - Last Filed: 06/20/21 18:43> History of Present Illness HPI Consult date: 06/21/21 <PATRICIA Alexander - Last Filed: 06/21/21 11:49> 06/20/21 <Waqas Marrero MD - Last Filed: 06/20/21 18:43> Consult reason: joint pain <PATRICIA Alexander - Last Filed: 06/21/21 11:49> Chief complaint: Confusion <PATRICIA Alexander - Last Filed: 06/21/21 11:49> Narrative: Patient presents with bilateral knee effusions in the last few days. He is a poor historian. States he has never had knee trouble prior. Complains of pain in both knees. <PATRICIA Alexander - Last Filed: 06/21/21 11:49> Review of Systems Review of Systems: All systems reviewed & are unremarkable except as noted in HPI and below <PATRICIA Alexander - Last Filed: 06/21/21 11:49> [facility] Past Medical History Medical History: Medical History Benign essential hypertension BMI 30.0-30.9,adult BMI 31.0-31.9,adult Carpal tunnel syndrome Colon cancer screening Elevated homocysteine Elevated serum creatinine Encounter for routine adult health examination without abnormal findings FHx: type 2 diabetes mellitus GERD (gastroesophageal reflux disease) Hx of colonic polyps Hyperlipidemia Hypothyroidism (acquired) On custodial drug therapy Prostate cancer screening Right ankle pain Right foot pain Seizure disorder Vitamin B12 deficiency <PATRICIA Alexander - Last Filed: 06/21/21 11:49> Social History Social History: Social History Smoking status: Never smoker Alcohol intake: never Substance use: never Spiritual care concerns: No <PATRICIA Alexander - Last Filed: 06/21/21 11:49> Meds Home Medications and Allergies Home medications: Home Medications Medication Instructions Recorded Confirmed Type folic acid 1 mg tablet 1 mg PO DAILY 04/13/20 06/16/21 History mecobalamin (vitamin B12) 1,000 1,000 mcg SUBLINGUAL DAILY 04/13/20 06/16/21 History mcg disintegrating tablet,sublingual lorazepam 0.5 mg tablet 0.5 mg PO TID PRN #30 tablet 08/02/20 06/16/21 Rx levothyroxine 200 mcg tablet 200 mcg PO DAILY #90 tablet 02/14/21 06/16/21 Rx atorvastatin 20 mg tablet 20 mg PO DAILY #90 tablet 02/26/21 06/16/21 Rx divalproex 500 mg tablet,delayed 500 mg PO QID #360 tablet 02/26/21 06/16/21 Rx release sucralfate 1 gram tablet 2 g PO BID #360 tablet 02/26/21 06/16/21 Rx gabapentin 300 mg PO DIRECTED 04/11/21 06/16/21 History naproxen sodium [Aleve] 220 mg PO BID PRN 04/11/21 06/16/21 History primidone 250 mg PO BID 04/11/21
--- NOTE | 2021-06-20 13:33 | PM.IMPN ---
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 Calcified see Marcia atheromatous disease of the glenoid and supraclinoid ICAs without significant stenosis. No occlusion or aneurysm. CTA neck showed stenosis of the takeoff of the right vertebral artery secondary to calcific atheromatous disease calcific atheromatous disease of the carotid bulb and proximal ICAs without significant stenosis or occlusion. 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 06/18/2021 Since the addition of Keppra up patient with increased confusion could be due to Keppra will hold the Keppra dose and re-evaluate in the morning MS back to baseline (2) Subtherapeutic phenytoin level: Code(s): Z51.81 - Encounter for therapeutic drug level monitoring Status: Acute Assessment and Plan: Mild (3) Hyperlipidemia: Qualifiers: Hyperlipidemia type: mixed hyperlipidemia Qualified Code(s): E78.2 - Mixed hyperlipidemia Code(s): E78.5 - Hyperlipidemia, unspecified Status: Acute Assessment and Plan: Continue statin (4) Hypothyroidism (acquired): Code(s): E03.9 - Hypothyroidism, unspecified Status: Acute Assessment and Plan: Continue levothyroxine (5) Benign essential hypertension: Code(s): I10 - Essential (primary) hypertension Status: Acute Assessment and Plan: Blood pressure mildly elevated yesterday, usual home medication resumed BP soft yesterday; stable today Monitor closely and adjust if necessary (6) GERD (gastroesophageal reflux disease): Qualifiers: Esophagitis presence: esophagitis presence not specified Qualified Code(s): K21.9 - Gastro-esophageal reflux disease without esophagitis Code(s): K21.9 - Gastro-esophageal reflux disease without esophagitis Status: Acute Assessment and Plan: Continue Carafate (7) Bilateral knee effusions: Code(s): M25.461 - Effusion, right knee; M25.462 - Effusion, left knee Status: Acute Assessment and Plan: PT OT saw difficulty ambulation due to his bilateral knee pain x-ray knee of both knees showed-->1. Moderate to large right knee joint effusion. 2. Moderate osteoarthritis. 3. Chondrocalcinosis. Venous duplex duplex-->no DVT Continue with order ibuprofen p.r.n. Consult to ortho Additional Plan # hyperammonemia: Likely from Depakote plan will be to, after adequate dosing of Keppra, to slowly taper off Depakote which will be done as an outpatient basis # status post craniotomy on the left side # history of seizure disorder # left frontal craniotomy # DVT prophylaxis # code status: Full code # disposition: [facility] when medially stable Subjective Date/time seen: 06/20/21 13:33 Interval history: 06/18 Patient not doing well today. More confused. He also complains of bilateral lower extremity pain points to his bilateral knees he has had intermittent similar pain in the past due to her is arthritis. Discussed with the sister who is at bedside. Suspected Keppra induced confusion 06/19 Pt seen
[2021-06-20 14:44] LABS: Appearance Synovial Fluid Cloudy (Clear); Color Synovial Fluid Yellow (Colorless); Source Synovial Fluid Synovial fluid
[2021-06-20 14:45] LABS: Color Synovial Fluid Other (Colorless); Source Synovial Fluid Synovial fluid
[2021-06-20 14:46] LABS: Appearance Synovial Fluid Cloudy (Clear)
--- NOTE | 2021-06-20 15:15 | PCOTNOTE ---
On 06/20/21, the student, Whitley Joseph, provided care and completed [facility] documentation on [facility] patient. I have reviewed the student's documentation and agree with the findings.
[2021-06-20 16:04] LABS: Crystals Synovial Fluid None Seen (None Seen)
[2021-06-20 16:04] LABS: Crystals Synovial Fluid None Seen (None Seen)
--- NOTE | 2021-06-20 16:50 | PM.OP ---
Procedure Note - Brief Procedure Note - Brief Date of procedure: 06/21/21 Pre-op diagnosis: Confusion Surgeon: PATRICIA Alexander Joint Aspiration/Injection Left: Pre-procedure care: Consent was obtained, Procedures/risks were explained, Questions were answered, Correct patient identified and Correct side and site confirmed Position: Laying Site Prepped: chlorhexidine and povidone-iodine Injection Details right arthrocentesis major joint Knee joint Manual palpation Fluid: Serous Fluid Withdrawn (mL): 60 Injection: Depo-Medrol 80 mg Sterile Dressing: [place] and Adhesive Post Procedure: Patient tolerated the procedure well Joint Aspiration/Injection Right: Pre-procedure care: Consent was obtained, Procedures/risks were explained, Questions were answered, Correct patient identified and Correct side and site confirmed Position: Laying Site Prepped: chlorhexidine and povidone-iodine Injection Details right arthrocentesis major joint Knee joint Manual palpation Fluid: Serous Fluid Withdrawn (mL): 70 Injection: Depo-Medrol 80 mg Sterile Dressing: Halima and Adhesive Post Procedure: Patient tolerated the procedure well
[2021-06-20 18:49] LABS: Monocytes Synovial Fluid 21 %; Neutrophils Synovial Fluid 73 % (0-25)
[2021-06-20 18:50] LABS: Lymphocytes Synovial Fluid 6 %
[2021-06-20 18:54] LABS: Lymphocytes Synovial Fluid 1 %; Macrophages Synovial Fluid 3 %; Monocytes Synovial Fluid 16 %; Neutrophils Synovial Fluid 80 % (0-25)
[2021-06-20] MEDS: PHENYTOIN SODIUM 100 MG EXTENDED RELEASE CAP 200 MG BY MOUTH (20:30)
[2021-06-20 23:14] LABS: Glucose Point of Care 117 mg/dl (65-105)
[2021-06-21] VITALS: BP 152/77; PULSE 73; RESP 18; TEMP 36.6; O2SAT 95
[2021-06-21 05:53] VITALS: BP 141/71; PULSE 65; RESP 18; TEMP 36.1; O2SAT 93
[2021-06-21] MEDS: GABAPENTIN 300 MG CAPSULE PO ×4 (06:15→21:25)
[2021-06-21] MEDS: SUCRALFATE 1 GM TABLET 2 GM PO ×2 (06:15→17:15)
[2021-06-21] MEDS: LEVOTHYROXINE SODIUM 100 MCG TABLET 200 MCG PO (06:15)
[2021-06-21] MEDS: DIVALPROEX SODIUM DR 250 MG TABEC 500 MG PO ×4 (09:07→21:25)
[2021-06-21] MEDS: ASCORBIC ACID 500 MG TABLET 1000 MG PO (09:07)
[2021-06-21] MEDS: FOLIC ACID 1 MG TABLET PO (09:07)
[2021-06-21] MEDS: hydroCHLOROthiazide 12.5 MG CAPSULE PO (09:07)
[2021-06-21] MEDS: CHOLECALCIFEROL 1,000 UNITS TABLET 1000 UNITS PO (09:07)
[2021-06-21] MEDS: ATORVASTATIN 20 MG TABLET PO (09:08)
[2021-06-21] MEDS: CYANOCOBALAMIN 1,000 MCG TABLET 1000 MCG PO (09:08)
[2021-06-21] MEDS: PRIMIDONE 250 MG TABLET PO ×2 (09:08→17:15)
[2021-06-21] MEDS: CANDESARTAN CILEXETIL 16 MG TABLET PO (09:08)
[2021-06-21] MEDS: HYDROcodone/acetaminophen (*CRX) 5-325 MG TABLET 1 TAB PO (09:09)
[2021-06-21 09:58] LABS: Hematocrit 35.4 % (42.0-52.0); Hemoglobin 12.3 g/dL (14.0-18.0); Mean Corpuscular HGB Conc 34.7 g/dl (32-36); Mean Corpuscular Hemoglobin 33.1 pg (26-34); Mean Corpuscular Volume 95.2 fl (80-100); Mean Platelet Volume 10.8 fl (7.4-10.4); Platelet Count Result 171 k/mm3 (150-375); Red Blood Count 3.72 M/mm3 (4.6-6.20); Red Cell Distribution Width 13.4 % (11.5-14.5); White Blood Count 7.1 K/mm3 (4.5-10.0)
[2021-06-21 10:06] LABS: Anion Gap 12 mmol/L (8-16); Blood Urea Nitrogen 22 mg/dL (9-20); Calcium 8.9 mg/dL (8.4-10.2); Carbon Dioxide 24 mmol/L (22-30); Chloride 98 mmol/L (98-107); Estimated Glomerular Filt Rate > 60; Glucose 137 mg/dL (65-110); Potassium 3.6 mmol/L (3.4-5.0); Sodium 134 mmol/L (137-145)
--- NOTE | 2021-06-21 11:50 | PM.PNORT ---
Progress Note: A&P Assessment and Plan (1) Bilateral knee effusions: Code(s): M25.461 - Effusion, right knee; M25.462 - Effusion, left knee Status: Acute Assessment and Plan: Patient doing much better today. No pain in his knee. Mild effusion today. No fever. Awaiting cultures. No crystals seen however still consistent with inflammatory arthritis such as pseudogout or gout. Extensor chondrocalcinosis and arthritis noted radiographically. Discharge planing in progress. Subjective Subjective Date/Time Seen: 06/21/21 11:50 Patient states his knees are feeling much better. No pain. No complaints. He is a poor historian. Spoke with patient's nurse who stated he did better with PT. No fever. Review of Systems Review of Systems: All systems reviewed & are unremarkable except as noted in HPI and below Exam Narrative: Confused 76 y/o male. No acute distress. No obvious pain. Bilateral knees with Mild effusion. No warmth. No erythema. No ecchymosis. ROM improved. Distal pulses palpable. Light touch sensation intact. Good capillary refill. Objective Data Vital Signs Vital Signs: Vital Signs - 24 hr 06/20/21 12:00 06/20/21 16:00 06/20/21 20:00 Temperature 97.8 F 98.5 F Pulse Rate 81 81 73 Respiratory Rate 17 18 18 Blood Pressure 135/79 115/67 Pulse Oximetry 99 97 95 06/20/21 21:12 06/21/21 00:00 06/21/21 05:53 Temperature 97.8 F 98 F 97 F L Pulse Rate 78 73 65 Respiratory Rate 18 18 18 Blood Pressure 132/70 152/77 H 141/71 H Pulse Oximetry 95 95 93 Intake/Output Intake/Output: Intake & Output 06/18/21 06/19/21 06/20/21 06/21/21 23:59 23:59 23:59 23:59 Intake Total 520 1128 1270 150 Output Total 1400 300 250 200 Balance -217 791 9347 -50 Meds/Results Medications: Active Medications Generic Name Dose Route Start Last Admin Trade Name Freq PRN Reason Stop Dose Admin Acetaminophen 650 mg 06/19/21 20:49 06/19/21 22:28 Acetaminophen 325 Mg Tablet PO 650 mg Q4H PRN Administration Headache Hydrocodone Bitart/Acetaminophen 1 tab 06/16/21 12:18 06/21/21 09:09 Hydrocodone/Acetaminophen (*Crx) 5-325 Mg Tablet PO 1 tab Q6H PRN Administration PAIN 6-10 Ascorbic Acid 1,000 mg 06/17/21 09:00 06/21/21 09:07 Ascorbic Acid 500 Mg Tablet PO 1,000 mg DAILY LAMBERT Administration Atorvastatin Calcium 20 mg 06/17/21 09:00 06/21/21 09:08 Atorvastatin 20 Mg Tablet PO 20 mg DAILY LAMBERT Administration Candesartan Cilexetil 16 mg 06/17/21 09:00 06/21/21 09:08 Candesartan Cilexetil 16 Mg Tablet PO 16 mg QAM LAMBERT Administration Cyanocobalamin 1,000 mcg 06/17/21 09:00 06/21/21 09:08 Cyanocobalamin 1,000 Mcg Tablet PO 1,000 mcg DAILY LAMBERT Administration Divalproex Sodium 500 mg 06/16/21 13:00 06/21/21 09:[address] 250 Mg Tabec PO 500 mg QID LAMBERT Administration Folic Acid 1 mg 06/17/21 09:00 06/21/21 09:07 Folic Acid 1 Mg Tablet PO 1 mg DAILY LAMBERT Administration Gabapentin 300 mg 06/16/21 14:00 06/21/21 09:07 Gabapentin 300 Mg Capsule PO 300 mg 5 X DAILY LAMBERT Administration Hydrochlorothiazide 12.5 mg 06/17/21 09:00 06/21/21 09:07 Hydrochlorothiazide 12.5 Mg Capsule PO 12.5 mg QAM LAMBERT Administration Ibuprofen 600 mg 06/18/21 16:35 06/18/21 20:45 Ibuprofen 600 Mg Tablet PO 600 mg Q6H PRN Administration Pain Rated 1-3 Levothyroxine Sodium 200 mcg 06/17/21 06:30 06/21/21 06:15 Levothyroxine Sodium 100 Mcg Tablet PO 200 mcg DAILY@0630 LAMBERT Administration Lorazepam 0.5 mg 06/16/21 12:18 06/18/21 00:46 Lorazepam (*Crx) 0.5 Mg Tablet PO 0.5 mg TID PRN Administration anxiety Naproxen 220 mg 06/16/21 12:18 Naproxen Sodium 220 Mg Tablet PO BID PRN PAIN 1-5 Phenytoin Sodium 300 mg 06/17/21 09:00 06/20/21 09:53 Phenytoin Sodium 100 Mg Extended Release Cap BY MOUTH 300 mg QAM LAMBERT Administration Phenytoin
[2021-06-21 12:00] VITALS: BP 133/71; PULSE 71; RESP 18; TEMP 35.9; O2SAT 94
--- NOTE | 2021-06-21 12:08 | WPDNEUROPN ---
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 and intermittent dysphagia, complained of severe pain in his left knee x-rays documented moderate osteoarthritis with chondrocalcinosis enlarged right knee joint effusion also moderate left knee joint effusion and mild to moderate osteoarthritis with chondrocalcinosis, patient had been started on Keppra and had been handling the medicine fairly well Review of Systems Review of Systems: All systems reviewed & are unremarkable except as noted in HPI and below Exam Const: General: cooperative, comfortable, no acute distress, alert and awake Nutritional Appearance: well nourished Orientation/consciousness: oriented to person and oriented to place Limitations: language barrier and physical limitations HENMT: Head: other ( abnormal with craniotomy defect) Ears: hearing grossly normal bilaterally General nose exam: Normal external nose present Face and sinus: normal facial exam Mouth: Yes Normal oral and palatal mucosa present Eyes: General: appearance normal, both eyes and all related structures Visual Staton: normal visual staton by confrontation Alignment and Position: alignment normal Periorbital: periorbital findings normal Eyelids: eyelids normal Conjunctivae: conjunctivae normal Sclera: sclerae normal Cornea: corneas normal Pupils: Equal, round and reactive pupils present EOM: EOMs intact bilaterally Neck: Neck: full ROM and no lymphadenopathy Carotids: normal carotid upstroke Resp: Effort & Inspection: normal respiratory effort and able to speak in complete sentences Auscultation: clear to auscultation bilaterally Cardio: Rate: regular rate Rhythm: regular rhythm Neuro: General: oriented to person and oriented to place Cranial nerves: Yes CN's II-XII intact bilaterally Speech: Abnormal speech present ( hesitancy with dysphagia) Gait exam (Neuro): Unable to assess gait Psych: Appearance: disheveled Speech and movement: Slowed speech present (Psych) Affect: Sad affect present Attitude: cooperative Thought content: Yes Normal thought content present Insight: Fair insight present (Psych) Judgement: Fair judgement present (Psych) Other: feeling better Objective Data Vital Signs Vital Signs: Vital Signs - 24 hr 06/20/21 16:00 06/20/21 20:00 06/20/21 21:12 Temperature 36.9 C 36.6 C Pulse Rate 81 73 78 Respiratory Rate 18 18 18 Blood Pressure 115/67 132/70 Pulse Oximetry 97 95 95 06/21/21 00:00 06/21/21 05:53 06/21/21 12:00 Temperature 36.6 C 36.1 C L 35.9 C L Pulse Rate 73 65 71 Respiratory Rate 18 18 18 Blood Pressure 152/77 H 141/71 H 133/71 Pulse Oximetry 95 93 94 Intake/Output Intake/Output: Intake & Output 06/18/21 06/19/21 06/20/21 06/21/21 23:59 23:59 23:59 23:59 Intake Total 520 1128 1270 150 Output Total 1400 300 250 200 Balance -275 572 8097 -50 Meds/Results Medications: Active Medications Generic Name Dose Route Start Last Admin Trade Name Freq PRN Reason Stop Dose Admin Acetaminophen 650 mg 06/19/21 20:49 06/19/21 22:28 Acetaminophen 325 Mg Tablet PO 650 mg Q4H PRN Administration Headache Hydrocodone Bitart/Acetaminophen 1 tab 06/16/21 12:18 06/21/21 09:09 Hydrocodone/Acetaminophen (*Crx) 5-325 Mg Tablet PO 1 tab Q6H PRN Administration PAIN 6-10 Ascorbic Acid 1,000 mg 06/17/21 09:00 06/21/21 09:07 Ascorbic Acid 500 Mg Tablet PO 1,000 mg DAILY LAMBERT Administration Atorvastatin Calcium 20 mg 06/17/21 09:00 06/21/21 09:08 Atorvastatin 20 Mg Tablet PO 20 mg DAILY LAMBERT Administration Candesartan Cilexetil 16 mg 06/17/21 09:00 06/21/21 09:08 Candesartan Cilexetil 16 Mg Tablet PO 16 mg QAM LAMBERT Administration Cyanocobalamin 1,000 mcg 12
[2021-06-21] MEDS: PHENYTOIN SODIUM 100 MG EXTENDED RELEASE CAP 300 MG BY MOUTH (12:36)
--- NOTE | 2021-06-21 13:25 | PM.IMPN ---
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 Calcified see Marcia atheromatous disease of the glenoid and supraclinoid ICAs without significant stenosis. No occlusion or aneurysm. CTA neck showed stenosis of the takeoff of the right vertebral artery secondary to calcific atheromatous disease calcific atheromatous disease of the carotid bulb and proximal ICAs without significant stenosis or occlusion. 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 06/18/2021 Since the addition of Keppra up patient with increased confusion could be due to Keppra will hold the Keppra dose and re-evaluate in the morning MS back to baseline PT/OT (2) Subtherapeutic phenytoin level: Code(s): Z51.81 - Encounter for therapeutic drug level monitoring Status: Acute Assessment and Plan: Mild (3) Hyperlipidemia: Qualifiers: Hyperlipidemia type: mixed hyperlipidemia Qualified Code(s): E78.2 - Mixed hyperlipidemia Code(s): E78.5 - Hyperlipidemia, unspecified Status: Acute Assessment and Plan: Continue statin (4) Hypothyroidism (acquired): Code(s): E03.9 - Hypothyroidism, unspecified Status: Acute Assessment and Plan: Continue levothyroxine (5) Benign essential hypertension: Code(s): I10 - Essential (primary) hypertension Status: Acute Assessment and Plan: Stable Monitor closely and adjust if necessary (6) GERD (gastroesophageal reflux disease): Qualifiers: Esophagitis presence: esophagitis presence not specified Qualified Code(s): K21.9 - Gastro-esophageal reflux disease without esophagitis Code(s): K21.9 - Gastro-esophageal reflux disease without esophagitis Status: Acute Assessment and Plan: Continue Carafate (7) Bilateral knee effusions: Code(s): M25.461 - Effusion, right knee; M25.462 - Effusion, left knee Status: Acute Assessment and Plan: PT OT saw difficulty ambulation due to his bilateral knee pain x-ray knee of both knees showed-->1. Moderate to large right knee joint effusion. 2. Moderate osteoarthritis. 3. Chondrocalcinosis. Venous duplex duplex-->no DVT Continue with order ibuprofen p.r.n. Ortho following, recommendations appreciated S/p bilateral joint aspiration and dep-medrol 80 mg PT/OT Additional Plan # hyperammonemia: likely from Depakote plan will be to, after adequate dosing of Keppra, to slowly taper off Depakote which will be done as an outpatient basis # status post craniotomy on the left side # history of seizure disorder # left frontal craniotomy # DVT prophylaxis # code status: Full code # disposition: Plan for acute rehab at d/c Subjective Date/time seen: 06/21/21 13:25 Interval history: 06/18 Patient not doing well today. More confused. He also complains of bilateral lower extremity pain points to his bilateral knees he has had intermittent similar pain in the past due to her is arthritis. Discussed with the sister who is at bedside. Suspected Keppra induced confusion 06/19 Pt seen thi
[2021-06-21 16:00] VITALS: BP 136/67; PULSE 80; RESP 16; TEMP 36.4; O2SAT 98
[2021-06-21] MEDS: PHENYTOIN SODIUM 100 MG EXTENDED RELEASE CAP 200 MG BY MOUTH (21:26)
[2021-06-21 22:00] VITALS: BP 125/70; PULSE 80; RESP 18; TEMP 37; O2SAT 95
[2021-06-22] VITALS (7 sets, daily range): BP systolic 98–148; BP diastolic 59–85; PULSE 65–81; RESP 18–22; TEMP 36.2–36.8; O2SAT 93–100
[2021-06-22] MEDS: LEVOTHYROXINE SODIUM 100 MCG TABLET 200 MCG PO (05:29)
[2021-06-22] MEDS: GABAPENTIN 300 MG CAPSULE PO ×5 (05:29→22:04)
[2021-06-22] MEDS: SUCRALFATE 1 GM TABLET 2 GM PO ×2 (05:29→18:01)
[2021-06-22] MEDS: IBUPROFEN 600 MG TABLET PO (08:39)
[2021-06-22] MEDS: HYDROcodone/acetaminophen (*CRX) 5-325 MG TABLET 1 TAB PO ×2 (08:39→22:05)
[2021-06-22] MEDS: hydroCHLOROthiazide 12.5 MG CAPSULE PO (08:40)
[2021-06-22] MEDS: FOLIC ACID 1 MG TABLET PO (08:40)
[2021-06-22] MEDS: ATORVASTATIN 20 MG TABLET PO (08:40)
[2021-06-22] MEDS: PRIMIDONE 250 MG TABLET PO ×2 (08:40→18:01)
[2021-06-22] MEDS: DIVALPROEX SODIUM DR 250 MG TABEC 500 MG PO ×4 (08:41→22:05)
[2021-06-22] MEDS: PHENYTOIN SODIUM 100 MG EXTENDED RELEASE CAP 300 MG BY MOUTH (08:41)
[2021-06-22] MEDS: CANDESARTAN CILEXETIL 16 MG TABLET PO (08:41)
[2021-06-22] MEDS: ASCORBIC ACID 500 MG TABLET 1000 MG PO (08:41)
[2021-06-22] MEDS: CHOLECALCIFEROL 1,000 UNITS TABLET 1000 UNITS PO (08:41)
[2021-06-22] MEDS: CYANOCOBALAMIN 1,000 MCG TABLET 1000 MCG PO (08:41)
[2021-06-22 11:32] LABS: Anion Gap 10 mmol/L (8-16); Blood Urea Nitrogen 32 mg/dL (9-20); Calcium 8.7 mg/dL (8.4-10.2); Carbon Dioxide 25 mmol/L (22-30); Chloride 96 mmol/L (98-107); Estimated Glomerular Filt Rate > 60; Glucose 122 mg/dL (65-110); Magnesium 2.3 mg/dL (1.6-2.3); Sodium 131 mmol/L (137-145)
[2021-06-22 11:33] LABS: Hematocrit 34.1 % (42.0-52.0); Hemoglobin 11.7 g/dL (14.0-18.0); Mean Corpuscular HGB Conc 34.3 g/dl (32-36); Mean Corpuscular Hemoglobin 33.2 pg (26-34); Mean Corpuscular Volume 96.9 fl (80-100); Mean Platelet Volume 10.6 fl (7.4-10.4); Platelet Count Result 187 k/mm3 (150-375); Red Blood Count 3.52 M/mm3 (4.6-6.20); Red Cell Distribution Width 13.7 % (11.5-14.5); White Blood Count 7.5 K/mm3 (4.5-10.0)
--- NOTE | 2021-06-22 16:22 | PCOTNOTE ---
On 06/22/21, Whitley CONROY, provided care and completed [employer] documentation on this patient. I have reviewed the student's documentation and agree with the findings.
--- NOTE | 2021-06-22 16:59 | PM.IMPN ---
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 Calcified see Marcia atheromatous disease of the glenoid and supraclinoid ICAs without significant stenosis. No occlusion or aneurysm. CTA neck showed stenosis of the takeoff of the right vertebral artery secondary to calcific atheromatous disease calcific atheromatous disease of the carotid bulb and proximal ICAs without significant stenosis or occlusion. 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 Rosales, neurologist. patient is sitting in the chair just finished his lunch with metal forger's assistant of his , he has no new complaints he has not had any seizure while in the hospital, will have a PT OT evaluate the patient, will continue to monitor (2) Subtherapeutic phenytoin level: Code(s): Z51.81 - Encounter for therapeutic drug level monitoring Status: Acute Assessment and Plan: Mild (3) Hyperlipidemia: Qualifiers: Hyperlipidemia type: mixed hyperlipidemia Qualified Code(s): E78.2 - Mixed hyperlipidemia Code(s): E78.5 - Hyperlipidemia, unspecified Status: Acute Assessment and Plan: Continue statin (4) Hypothyroidism (acquired): Code(s): E03.9 - Hypothyroidism, unspecified Status: Acute Assessment and Plan: Continue levothyroxine (5) Benign essential hypertension: Code(s): I10 - Essential (primary) hypertension Status: Acute Assessment and Plan: Stable Monitor closely and adjust if necessary (6) GERD (gastroesophageal reflux disease): Qualifiers: Esophagitis presence: esophagitis presence not specified Qualified Code(s): K21.9 - Gastro-esophageal reflux disease without esophagitis Code(s): K21.9 - Gastro-esophageal reflux disease without esophagitis Status: Acute Assessment and Plan: Continue Carafate (7) Bilateral knee effusions: Code(s): M25.461 - Effusion, right knee; M25.462 - Effusion, left knee Status: Acute Assessment and Plan: PT OT saw difficulty ambulation due to his bilateral knee pain x-ray knee of both knees showed-->1. Moderate to large right knee joint effusion. 2. Moderate osteoarthritis. 3. Chondrocalcinosis. Venous duplex duplex-->no DVT Continue with order ibuprofen p.r.n. Ortho following, recommendations appreciated S/p bilateral joint aspiration and dep-medrol 80 mg PT/OT Subjective Date/time seen: 06/22/21 16:59 Interval history: 06/18 Patient not doing well today. More confused. He also complains of bilateral lower extremity pain points to his bilateral knees he
[2021-06-22] MEDS: PHENYTOIN SODIUM 100 MG EXTENDED RELEASE CAP 200 MG BY MOUTH (22:05)
[2021-06-23 05:44] VITALS: BP 138/72; PULSE 65; RESP 18; TEMP 36.9; O2SAT 100
[2021-06-23] MEDS: SUCRALFATE 1 GM TABLET 2 GM PO ×2 (06:00→17:14)
[2021-06-23] MEDS: LEVOTHYROXINE SODIUM 100 MCG TABLET 200 MCG PO (06:00)
[2021-06-23] MEDS: GABAPENTIN 300 MG CAPSULE PO ×5 (06:01→21:04)
[2021-06-23 06:58] LABS: Hematocrit 35.8 % (42.0-52.0); Hemoglobin 12.1 g/dL (14.0-18.0); Mean Corpuscular HGB Conc 33.8 g/dl (32-36); Mean Corpuscular Hemoglobin 33.2 pg (26-34); Mean Corpuscular Volume 98.1 fl (80-100); Mean Platelet Volume 10.6 fl (7.4-10.4); Platelet Count Result 205 k/mm3 (150-375); Red Blood Count 3.65 M/mm3 (4.6-6.20); Red Cell Distribution Width 13.6 % (11.5-14.5); White Blood Count 6.5 K/mm3 (4.5-10.0)
[2021-06-23 07:20] LABS: Anion Gap 12 mmol/L (8-16); Blood Urea Nitrogen 43 mg/dL (9-20); Calcium 8.9 mg/dL (8.4-10.2); Carbon Dioxide 24 mmol/L (22-30); Chloride 99 mmol/L (98-107); Estimated Glomerular Filt Rate > 60; Glucose 98 mg/dL (65-110); Potassium 3.8 mmol/L (3.4-5.0); Sodium 135 mmol/L (137-145)
[2021-06-23] MEDS: CHOLECALCIFEROL 1,000 UNITS TABLET 1000 UNITS PO (09:18)
[2021-06-23] MEDS: PHENYTOIN SODIUM 100 MG EXTENDED RELEASE CAP 300 MG BY MOUTH (09:18)
[2021-06-23] MEDS: DIVALPROEX SODIUM DR 250 MG TABEC 500 MG PO ×4 (09:18→21:04)
[2021-06-23] MEDS: CYANOCOBALAMIN 1,000 MCG TABLET 1000 MCG PO (09:18)
[2021-06-23] MEDS: FOLIC ACID 1 MG TABLET PO (09:19)
[2021-06-23] MEDS: PRIMIDONE 250 MG TABLET PO ×2 (09:19→17:14)
[2021-06-23] MEDS: CANDESARTAN CILEXETIL 16 MG TABLET PO (09:19)
[2021-06-23] MEDS: ATORVASTATIN 20 MG TABLET PO (09:19)
[2021-06-23] MEDS: hydroCHLOROthiazide 12.5 MG CAPSULE PO (09:19)
[2021-06-23] MEDS: ASCORBIC ACID 500 MG TABLET 1000 MG PO (09:19)
--- NOTE | 2021-06-23 13:10 | PM.IMPN ---
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 Calcified see Marcia atheromatous disease of the glenoid and supraclinoid ICAs without significant stenosis. No occlusion or aneurysm. CTA neck showed stenosis of the takeoff of the right vertebral artery secondary to calcific atheromatous disease calcific atheromatous disease of the carotid bulb and proximal ICAs without significant stenosis or occlusion. 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 Rosales, neurologist. 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 Rosales, neurologist. patient is sitting in the chair, he has no new complaints he has not had any seizure while in the hospital, will have a PT OT evaluate the patient, will continue to monitor (2) Subtherapeutic phenytoin level: Code(s): Z51.81 - Encounter for therapeutic drug level monitoring Status: Acute Assessment and Plan: Mild (3) Hyperlipidemia: Qualifiers: Hyperlipidemia type: mixed hyperlipidemia Qualified Code(s): E78.2 - Mixed hyperlipidemia Code(s): E78.5 - Hyperlipidemia, unspecified Status: Acute Assessment and Plan: Continue statin (4) Hypothyroidism (acquired): Code(s): E03.9 - Hypothyroidism, unspecified Status: Acute Assessment and Plan: Continue levothyroxine (5) Benign essential hypertension: Code(s): I10 - Essential (primary) hypertension Status: Acute Assessment and Plan: Stable Monitor closely and adjust if necessary (6) GERD (gastroesophageal reflux disease): Qualifiers: Esophagitis presence: esophagitis presence not specified Qualified Code(s): K21.9 - Gastro-esophageal reflux disease without esophagitis Code(s): K21.9 - Gastro-esophageal reflux disease without esophagitis Status: Acute Assessment and Plan: Continue Carafate (7) Bilateral knee effusions: Code(s): M25.461 - Effusion, right knee; M25.462 - Effusion, left knee Status: Acute Assessment and Plan: PT OT saw difficulty ambulation due to his bilateral knee pain x-ray knee of both knees showed-->1. Moderate to large right knee joint effusion.
[2021-06-23 15:19] VITALS: BP 106/66; PULSE 79; RESP 18; TEMP 36.2; O2SAT 98
[2021-06-23] MEDS: PHENYTOIN SODIUM 100 MG EXTENDED RELEASE CAP 200 MG BY MOUTH (21:04)
[2021-06-23 22:00] VITALS: BP 113/67; PULSE 68; RESP 18; TEMP 37.1; O2SAT 98
[2021-06-24 05:45] VITALS: BP 119/61; PULSE 67; RESP 17; TEMP 36.9; O2SAT 94
[2021-06-24] MEDS: LEVOTHYROXINE SODIUM 100 MCG TABLET 200 MCG PO (06:08)
[2021-06-24] MEDS: GABAPENTIN 300 MG CAPSULE PO ×5 (06:08→21:16)
[2021-06-24] MEDS: SUCRALFATE 1 GM TABLET 2 GM PO ×2 (06:08→18:07)
[2021-06-24 06:17] LABS: Hematocrit 32.8 % (42.0-52.0); Hemoglobin 11.1 g/dL (14.0-18.0); Mean Corpuscular HGB Conc 33.8 g/dl (32-36); Mean Corpuscular Hemoglobin 32.5 pg (26-34); Mean Corpuscular Volume 95.9 fl (80-100); Mean Platelet Volume 10.3 fl (7.4-10.4); Platelet Count Result 225 k/mm3 (150-375); Red Blood Count 3.42 M/mm3 (4.6-6.20); Red Cell Distribution Width 13.8 % (11.5-14.5); White Blood Count 6.4 K/mm3 (4.5-10.0)
[2021-06-24 06:31] LABS: Anion Gap 10 mmol/L (8-16); Blood Urea Nitrogen 41 mg/dL (9-20); Calcium 8.5 mg/dL (8.4-10.2); Carbon Dioxide 26 mmol/L (22-30); Chloride 98 mmol/L (98-107); Estimated Glomerular Filt Rate > 60; Glucose 102 mg/dL (65-110); Potassium 3.9 mmol/L (3.4-5.0); Sodium 134 mmol/L (137-145)
[2021-06-24 08:00] VITALS: PULSE 67; RESP 17; O2SAT 94
[2021-06-24] MEDS: DIVALPROEX SODIUM DR 250 MG TABEC 500 MG PO ×4 (10:19→21:15)
[2021-06-24] MEDS: PRIMIDONE 250 MG TABLET PO ×2 (10:20→18:08)
[2021-06-24] MEDS: PHENYTOIN SODIUM 100 MG EXTENDED RELEASE CAP 300 MG BY MOUTH (10:20)
[2021-06-24] MEDS: ATORVASTATIN 20 MG TABLET PO (10:21)
[2021-06-24] MEDS: ASCORBIC ACID 500 MG TABLET 1000 MG PO (10:21)
[2021-06-24] MEDS: hydroCHLOROthiazide 12.5 MG CAPSULE PO (10:21)
[2021-06-24] MEDS: FOLIC ACID 1 MG TABLET PO (10:21)
[2021-06-24] MEDS: CANDESARTAN CILEXETIL 16 MG TABLET PO (10:21)
[2021-06-24] MEDS: CHOLECALCIFEROL 1,000 UNITS TABLET 1000 UNITS PO (10:22)
[2021-06-24] MEDS: CYANOCOBALAMIN 1,000 MCG TABLET 1000 MCG PO (10:22)
--- NOTE | 2021-06-24 10:28 | PM.IMPN ---
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 Calcified see Marcia atheromatous disease of the glenoid and supraclinoid ICAs without significant stenosis. No occlusion or aneurysm. CTA neck showed stenosis of the takeoff of the right vertebral artery secondary to calcific atheromatous disease calcific atheromatous disease of the carotid bulb and proximal ICAs without significant stenosis or occlusion. 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 Rosales, neurologist. 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 Rosales, neurologist. 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 Rosales, neurologist. patient is sitting in the chair, he has no new complaints he has not had any seizure while in the hospital, will have a PT OT evaluate the patient, will continue to monitor, tomorrow patient be seen by Neurology and possibly discharge. (2) Subtherapeutic phenytoin level: Code(s): Z51.81 - Encounter for therapeutic drug level monitoring Status: Acute Assessment and Plan: Mild (3) Hyperlipidemia: Qualifiers: Hyperlipidemia type: mixed hyperlipidemia Qualified Code(s): E78.2 - Mixed hyperlipidemia Code(s): E78.5 - Hyperlipidemia, unspecified Status: Acute Assessment and Plan: Continue statin (4) Hypothyroidism (acquired): Code(s): E03.9 - Hypothyroidism, unspecified Status: Acute Assessment and Plan: Continue levothyroxine (5) Benign essential hypertension: Code(s): I10 - Essential (primary) hypertension Status: Acute Assessment and Plan: Stable Monitor closely and adjust if necessary (6) GERD (gastroesophageal reflux disease): Qualifiers: Esophagitis presence: esophagitis pre
[2021-06-24 14:00] VITALS: BP 124/71; PULSE 73; RESP 12; TEMP 36.2; O2SAT 100
[2021-06-24] MEDS: PHENYTOIN SODIUM 100 MG EXTENDED RELEASE CAP 200 MG BY MOUTH (21:16)
[2021-06-24 22:00] VITALS: BP 112/66; PULSE 75; RESP 18; TEMP 36.7; O2SAT 95
[2021-06-25 06:00] VITALS: BP 121/73; PULSE 71; RESP 18; TEMP 36.7; O2SAT 95
[2021-06-25] MEDS: LEVOTHYROXINE SODIUM 100 MCG TABLET 200 MCG PO (06:10)
[2021-06-25] MEDS: SUCRALFATE 1 GM TABLET 2 GM PO (06:10)
[2021-06-25] MEDS: GABAPENTIN 300 MG CAPSULE PO ×3 (06:10→13:14)
[2021-06-25 07:51] LABS: Hematocrit 33.3 % (42.0-52.0); Hemoglobin 11.1 g/dL (14.0-18.0); Mean Corpuscular HGB Conc 33.3 g/dl (32-36); Mean Corpuscular Hemoglobin 32.2 pg (26-34); Mean Corpuscular Volume 96.5 fl (80-100); Mean Platelet Volume 10.2 fl (7.4-10.4); Platelet Count Result 275 k/mm3 (150-375); Red Blood Count 3.45 M/mm3 (4.6-6.20); Red Cell Distribution Width 13.7 % (11.5-14.5); White Blood Count 7.9 K/mm3 (4.5-10.0)
[2021-06-25 08:00] LABS: Anion Gap 8 mmol/L (8-16); Blood Urea Nitrogen 31 mg/dL (9-20); Carbon Dioxide 26 mmol/L (22-30); Chloride 98 mmol/L (98-107); Estimated Glomerular Filt Rate > 60; Glucose 103 mg/dL (65-110); Potassium 4.2 mmol/L (3.4-5.0); Sodium 132 mmol/L (137-145)
--- NOTE | 2021-06-25 09:05 | PCNWS ---
Weekly nutritional screen. Patient is tolerating current diet with adequate intake. No weight loss reported. No nutritional needs at this time.
[2021-06-25] MEDS: CANDESARTAN CILEXETIL 16 MG TABLET PO (09:55)
[2021-06-25] MEDS: CYANOCOBALAMIN 1,000 MCG TABLET 1000 MCG PO (09:55)
[2021-06-25] MEDS: PHENYTOIN SODIUM 100 MG EXTENDED RELEASE CAP 300 MG BY MOUTH (09:55)
[2021-06-25] MEDS: CHOLECALCIFEROL 1,000 UNITS TABLET 1000 UNITS PO (09:56)
[2021-06-25] MEDS: DIVALPROEX SODIUM DR 250 MG TABEC 500 MG PO ×2 (09:56→13:14)
[2021-06-25] MEDS: FOLIC ACID 1 MG TABLET PO (09:56)
[2021-06-25] MEDS: hydroCHLOROthiazide 12.5 MG CAPSULE PO (09:56)
[2021-06-25] MEDS: ASCORBIC ACID 500 MG TABLET 1000 MG PO (09:56)
[2021-06-25] MEDS: ATORVASTATIN 20 MG TABLET PO (09:56)
[2021-06-25] MEDS: PRIMIDONE 250 MG TABLET PO (09:57)
--- NOTE | 2021-06-25 11:09 | WPDNEUROPN ---
Progress Note: A&P Additional Plan intractable epilepsy at this stage seizures are under control his speech has significantly improved will benefit from the ongoing therapy Time Spent With Patient Time with patient: less than 15 minutes Subjective Date/time seen: 06/25/21 11:09 is status post left hemispheric dysfunction with dysphasia ever since the craniotomy for intractable epilepsy with the diagnosis of Eubanks encephalitis was recently started on other anticonvulsants and tolerating the medication very well Review of Systems Review of Systems: All systems reviewed & are unremarkable except as noted in HPI and below Exam Const: General: cooperative, healthy appearing, comfortable and no acute distress Nutritional Appearance: average body habitus and well nourished Orientation/consciousness: oriented to person and oriented to place Limitations: physical limitations HENMT: Head: other ( status post left-sided craniotomy with skull defect) Ears: hearing grossly normal bilaterally General nose exam: Normal external nose present Face and sinus: normal facial exam Mouth: Yes Normal oral and palatal mucosa present Eyes: General: appearance normal, both eyes and all related structures Visual Staton: normal visual staton by confrontation Alignment and Position: alignment normal Periorbital: periorbital findings normal Eyelids: eyelids normal Conjunctivae: conjunctivae normal Sclera: sclerae normal Cornea: corneas normal Pupils: Equal, round and reactive pupils present EOM: EOMs intact bilaterally Resp: Effort & Inspection: normal respiratory effort and able to speak in complete sentences Cardio: Jugular venous distension: no JVD Rate: regular rate Rhythm: regular rhythm Neuro: General: oriented to person and oriented to place Cranial nerves: Yes CN's II-XII intact bilaterally Cognition (Neuro): normal cognition Speech: normal speech Sensory Exam: normal sensation Deep tendon reflexes (DTR's): Right triceps reflex intensity grade: 1+, Left triceps reflex intensity grade: 2+, Rt Biceps (C5, C6): 1+, Left biceps reflex intensity grade: 2+, Right brachioradialis reflex intensity grade: 1+, Left brachioradialis reflex intensity grade: 2+, Right patellar reflex intensity grade: 1+, Left patellar reflex intensity grade: 2+, Right ankle reflex intensity grade: 1+ and Left ankle reflex intensity grade: 2+ Plantar Reflex Responses: downgoing: right and upgoing (positive Babinski): left Psych: Appearance: well kempt Speech and movement: Normal speech and movement present Affect: normal affect Attitude: cooperative Thought process: Impoverished thought process present Thought content: Yes Normal thought content present Insight: Fair insight present (Psych) Judgement: Fair judgement present (Psych) Objective Data Vital Signs Vital Signs: Vital Signs - 24 hr 06/24/21 14:00 06/24/21 22:00 06/25/21 06:00 Temperature 36.2 C L 36.7 C 36.7 C Pulse Rate 73 75 71 Respiratory Rate 12 18 18 Blood Pressure 124/71 112/66 121/73 Pulse Oximetry 100 95 95 Intake/Output Intake/Output: Intake & Output 06/22/21 06/23/21 06/24/21 06/25/21 23:59 23:59 23:59 23:59 Intake Total 820 1197 1200 300 Output Total 650 0 Balance 807 714 8222 300 Meds/Results Medications: Active Medications Generic Name Dose Route Start Last Admin Trade Name Freq PRN Reason Stop Dose Admin Acetaminophen 650 mg 06/19/21 20:49 06/19/21 22:28 Acetaminophen 325 Mg Tablet PO 650 mg Q4H PRN Administration Headache Hydrocodone Bitart/Acetaminophen 1 tab 06/16/21 12:18 06/22/21 22:05 Hydrocodone/Acetaminophen (*Crx) 5-325 Mg Tablet PO 1 tab Q6H PRN Administration PAIN 6-10 Ascorbic Acid 1,000 mg 06/17/21 09:00 06/25/21 09:56 Ascorbic Acid 500 Mg Tablet PO 1,000 mg DAILY LAMBERT Administration Atorvastatin Calcium 20 mg 06/17/21 09:00 06/25/21 09:56 Atorvastatin 20 Mg Tablet PO 20 mg DAILY LAMBERT Adm
--- NOTE | 2021-06-25 11:49 | PM.DS ---
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 Calcified see Marcia atheromatous disease of the glenoid and supraclinoid ICAs without significant stenosis. No occlusion or aneurysm. CTA neck showed stenosis of the takeoff of the right vertebral artery secondary to calcific atheromatous disease calcific atheromatous disease of the carotid bulb and proximal ICAs without significant stenosis or occlusion. 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 Rosales, neurologist. 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 Rosales, neurologist. 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 Rosales, neurologist. patient is sitting in the chair, he has no new complaints he has not had any seizure while in the hospital, will have a PT OT evaluate the patient, will continue to monitor, tomorrow patient be seen by Neurology and possibly discharge. (2) Subtherapeutic phenytoin level: Code(s): Z51.81 - Encounter for therapeutic drug level monitoring Status: Acute Assessment and Plan: Mild (3) Hyperlipidemia: Qualifiers: Hyperlipidemia type: mixed hyperlipidemia Qualified Code(s): E78.2 - Mixed hyperlipidemia Code(s): E78.5 - Hyperlipidemia, unspecified Status: Acute Assessment and Plan: Continue statin (4) Hypothyroidism (acquired): Code(s): E03.9 - Hypothyroidism, unspecified Status: Acute Assessment and Plan: Continue levothyroxine (5) Benign essential hypertension: Code(s): I10 - Essential (primary) hypertension Status: Acute Assessment and Plan: Stable Monitor closely and adjust if necessary (6) GERD (gastroesopha
[2021-06-25 12:11] LABS: EDCOVIDSCREEN Negative (Negative)
[2021-06-25 14:00] VITALS: BP 115/66; PULSE 79; RESP 16; TEMP 36.1; O2SAT 95
--- NOTE | 2021-06-25 14:13 | PCNSR ---
On 06/25/21, the student, Nora Degroot, provided care and completed [facility] documentation on this patient. I have reviewed the student's documentation and agree with the findings.
--- NOTE | 2021-06-25 15:39 | PCOTNOTE ---
On 06/25/21, the student, Whitley ELLIOTT, provided care and completed [facility] documentation on this patient. I have reviewed the student's documentation and agree with the findings.
== END 2021-06-25 16:15 | DRG 101 ==
LOC: ANHED 06-16 02:24 → ANH3MEDSUR 06-16 03:53
PROVIDERS: Internal Medicine; Nurse Practitioner Adult Health; Physician Assistant Surgical; Admitting Provider Internal Medicine; Emergency Provider Emergency Medicine; PCP Internal Medicine; Visit Provider Family Medicine
DX: G40.119 Localization-related (focal) (partial) symptomatic epilepsy and epileptic syndromes with simple partial seizures, intractable, without status epilepticus (principal); R47.01 Aphasia; E72.20 Disorder of urea cycle metabolism, unspecified; G93.89 Other specified disorders of brain; R13.10 Dysphagia, unspecified; Z20.822 Contact with and (suspected) exposure to COVID-19; I10 Essential (primary) hypertension; K21.9 Gastro-esophageal reflux disease without esophagitis; E78.5 Hyperlipidemia, unspecified; E03.9 Hypothyroidism, unspecified; E53.8 Deficiency of other specified B group vitamins; M17.0 Bilateral primary osteoarthritis of knee; Z86.73 Personal history of transient ischemic attack (TIA), and cerebral infarction without residual deficits
CPT/HCPCS: 36415; 70450; 70496; 70498; 71045; 73562; 80048; 80053; 80164; 80165; 80185; 80186; 81001; 82140; 82948; 83735; 84550; 85025; 85027; 85610; 85652; 85730; 86140; 87040; 87070; 87075; 87205; 87426; 89051; 89060; 93005; 93970; 96360; 96361; 97110; 97161; 97165; 97530; 97535; 99285; A9270; C9803; G0378; J7030; J7040; Q9967

== ENCOUNTER 2021-08-28 10:10 | Outpatient (CLI) | payer MEDICARE, MEDICAID, SELFPAY ==
[2021-08-28 10:50] LABS: Alanine Aminotransferase 25 U/L (4-50); Albumin Level 4.3 g/dL (3.5-5.1); Alkaline Phosphatase 99 U/L (38-126); Anion Gap 9 mmol/L (8-16); Aspartate Amino Transferase 28 U/L (17-59); Bilirubin,Total 0.2 mg/dL (0.2-1.3); Blood Urea Nitrogen 29 mg/dL (9-20); Calcium 9.2 mg/dL (8.4-10.2); Carbon Dioxide 22 mmol/L (22-30); Chloride 111 mmol/L (98-107); Cholesterol 162 mg/dL (0-200); Estimated Glomerular Filt Rate > 60; Glucose 96 mg/dL (65-110); HDL Direct 55 mg/dL; Potassium 4.4 mmol/L (3.4-5.0); Sodium 142 mmol/L (137-145); Triglycerides 72 mg/dL (<150)
[2021-08-28 11:01] LABS: LDL Cholesterol Direct 82 mg/dL
[2021-08-28 11:07] LABS: Free T4 Free Thyroxine 0.91 ng/mL (0.78-2.19)
[2021-08-30 11:49] LABS: Phenytoin Dilantin Free 1.1 mg/L (1.0-2.0)
== END 2021-08-28 10:11 | disposition home or self-care (01) ==
PROVIDERS: PCP Internal Medicine; Visit Provider Internal Medicine
DX: E78.2 Mixed hyperlipidemia (principal); I10 Essential (primary) hypertension; E03.9 Hypothyroidism, unspecified; G40.909 Epilepsy, unspecified, not intractable, without status epilepticus; Z79.899 Other long term (current) drug therapy; Z83.3 Family history of diabetes mellitus
CPT/HCPCS: 36415; 80053; 80061; 80186; 83036; 84439; 84443

== ENCOUNTER 2021-10-05 10:02 | Emergency (ER) | payer MEDICARE, SELFPAY ==
--- NOTE | ~2021-10-05 | XR_ITS ---
XR chest 2V DATE: 10/05/2021 11:02 INDICATION: Left arm pain and numbness since this morning TECHNIQUE: PA and lateral views COMPARISON: 06/19/2021 AP chest FINDINGS: There is minimal infiltrate and/atelectasis in the right mid and both lower lung zones. Heart size is within normal range. Is aortic calcification and unfolding. No hilar or mediastinal enlargement is evident. No pleural effusion or pulmonary vascular congestion or pneumothorax. Osteopenia. IMPRESSION: Minimal infiltrate or atelectasis in the right mid and both lower lung zones Reviewed, dictated and finalized at location A. IMPRESSION: Minimal infiltrate or atelectasis in the right mid and both lower l michael zones
--- NOTE | ~2021-10-05 | CT_ITS ---
EXAMINATION: CT cervical spine wo con DATE: 10/05/2021 10:54 INDICATION: Left arm tingling TECHNIQUE: Computed tomography (CT) of the cervical spine was performed without intravenous contrast. The dose-length product (DLP) was 498.89 mGy-cm. Automated exposure control and iterative reconstruc tion technique were employed. COMPARISON: None FINDINGS: There is no fracture. There is 1 mm of anterolisthesis of C5 on C6 and 1 mm of retrolisthes is of C6 on C7. The vertebral body heights are maintained. There is severe loss of intervertebral dis c space height from C4-5 through C6-7. The odontoid is intact. The prevertebral soft tissues are norm al. There is severe multilevel facet and uncovertebral joint osteoarthritis. There are changes of lef t temporoparietal craniotomy. IMPRESSION: 1. Severe cervical spondylosis without acute findings. Reviewed, dictated and finalized at location B.
[2021-10-05 10:08] VITALS: BP 172/111; PULSE 67; RESP 12; TEMP 36.6; O2SAT 97
--- NOTE | 2021-10-05 10:08 | ECG_ITS ---
Measurements Intervals [place] Rate: 69 P: 7 VT: 238 QRS: -26 QRSD: 106 T: 11 QT: 374 QTc: 402 Interpretive Statements SINUS RHYTHM WITH FIRST DEGREE AV BLOCK BORDERLINE LEFT AXIS DEVIATION [QRS AXIS < -20] POOR R-WAVE PROGRESSION CANNOT RULE OUT INFERIOR INFARCTION, AGE INDETERMINATE ABNORMAL ECG COMPARED TO ECG 06/15/2021 22:08:49 NO SIGNIFICANT CHANGES Electronically Signed On 10-05-2021 16:24:35 CDT by Gregory Dawn M.D.
[2021-10-05 10:32] VITALS: BP 161/95; PULSE 68; RESP 12; O2SAT 96
--- NOTE | 2021-10-05 10:34 | ED.UPPEXIN ---
HPI - Extremity Injury (Upper) General Chief Complaint: Extremity Problem,Nontraumatic Stated Complaint: left arm pain, htn Time Seen by Provider: 10/05/21 10:07 Source: patient Mode of arrival: ambulatory Limitations: no limitations History of Present Illness HPI narrative: 76-year-old male presents today with complaints of left arm tingling that occurred this morning. Patient currently without any complaints. Patient sister came and visited him and had concerned so they came here. Patient with history of high blood pressure, high cholestero, hypothyroidism, seizures, and encephalopathy. Patient denies any shortness of breath, chest pain, cough, fevers, sick contacts, neck injuries, or recent trauma. Patient history of multiple surgeries to the left arm/chest/shoulder. Related Data Home Medications Medication Instructions Recorded Confirmed folic acid 1 mg tablet 1 mg PO DAILY 04/13/20 08/28/21 mecobalamin (vitamin B12) 1,000 1,000 mcg SUBLINGUAL DAILY 04/13/20 08/28/21 mcg disintegrating tablet,sublingual gabapentin 300 mg PO DIRECTED 04/11/21 08/28/21 naproxen sodium [Aleve] 220 mg PO BID PRN 04/11/21 08/28/21 primidone 250 mg PO BID 04/11/21 08/28/21 ascorbic acid (vitamin C) 1 g PO DAILY 05/28/21 08/28/21 candesartan-hydrochlorothiazid 1 tablet PO DAILY 05/28/21 08/28/21 cholecalciferol (vitamin D3) 25 mcg PO DAILY 05/28/21 08/28/21 [Vitamin D3] Allergies Allergy/AdvReac Type Severity Reaction Status Date / Time No Known Allergies Allergy Unknown Verified 10/05/21 10:18 Review of Systems Review of Systems: CONSTITUTIONAL: Denies fever, chills, or sweats. EYES: Denies visual changes, redness, or discharge. ENT: Denies rhinorrhea, congestion, sore throat, or otalgia. CARDIOVASCULAR: Denies chest pain, palpitations, or edema. RESPIRATORY: Denies cough or dyspnea. GASTROINTESTINAL: Denies abdominal pain, nausea, vomiting, or diarrhea. GENITOURINARY: Denies dysuria or hematuria. SKIN: Denies rash or itching. MUSCULOSKELETAL: Denies back pain, joint pain, or myalgia. NEUROLOGIC: Left arm tingling feels like [id number] this morning. Denies headache, numbness, dizziness, or weakness. PSYCHIATRIC: Denies anxiety or depression. [facility] Past Medical History Medical History Benign essential hypertension BMI 30.0-30.9,adult BMI 31.0-31.9,adult Carpal tunnel syndrome Colon cancer screening DJD (degenerative joint disease), multiple sites Edema Elevated homocysteine Elevated serum creatinine Encephalopathy Encounter for routine adult health examination without abnormal findings FHx: type 2 diabetes mellitus GERD (gastroesophageal reflux disease) Hx of colonic polyps Hyperlipidemia Hypothyroidism (acquired) On retirement drug therapy Prostate cancer screening Right ankle pain Right foot pain Seizure disorder Vitamin B12 deficiency Social History Social History Smoking status: Never smoker Alcohol intake: never Substance use: never Spiritual care concerns: No Exam Narrative: GENERAL: Well-appearing, well-nourished, and in no acute distress. HEAD: Normocephalic, atraumatic. EYES: PERRLA and EOMI. ENT: Nares clear, no rhinorrhea or epistaxis. Mucous membranes moist. Oropharynx without tonsillar hypertrophy exudate or other lesions. Bilateral TMs pearly merritt nonbulging NECK: Supple. No adenopathy or masses. No carotid bruits or JVD CHEST: Clear to auscultation. No respiratory distress. No wheezes rales or rhonchi HEART: Regular rate and rhythm. No murmur heard. Normal peripheral pulses. ABDOMEN: Soft, nontender, nondistended, normal active bowel sounds. EXTREMITIES: Normal range of motion. No edema. SKIN: Warm, dry, no rash. NEURO: No focal deficits. Alert and oriented x3. PSYCH: Normal mood and affect. Course Course Emergency Course: Patient without pain during course of s
[2021-10-05 10:40] LABS: Basophils Percent Auto 0.5 % (0.2-1.2); Eosinophils Absolute Auto 0.6 K/mm3 (0-0.3); Eosinophils Percent Auto 8.3 % (0-4.4); Hematocrit 39.3 % (42.0-52.0); Hemoglobin 13.5 g/dL (14.0-18.0); Immature Granulocyte Absolute 0.02 K/mm3 (0.00-0.031); Immature Granulocyte Percent A 0.3 % (0-0.5); Lymphocytes Absolute Auto 2.13 K/mm3 (0.9-3.2); Lymphocytes Percent Auto 32.2 % (18.3-44.2); Mean Corpuscular HGB Conc 34.4 g/dl (32-36); Mean Corpuscular Hemoglobin 33.1 pg (26-34); Mean Corpuscular Volume 96.3 fl (80-100); Monocytes Absolute Auto 0.5 K/mm3 (0.1-0.6); Neutrophils Absolute Auto 3.4 K/mm3 (1.3-6.7); Neutrophils Percent Auto 50.7 % (45.5-73.1); Platelet Count Result 155 k/mm3 (150-375); Red Blood Count 4.08 M/mm3 (4.6-6.20); White Blood Count 6.6 K/mm3 (4.5-10.0)
[2021-10-05 10:49] LABS: INR 1.1; Lipase 79 U/L (23-300); Prothrombin Time 13.4 Seconds (11.1-14.7)
[2021-10-05 10:50] LABS: Partial Thromboplastin Time 31.1 SECONDS (22.3-36.8)
[2021-10-05] MEDS: ASPIRIN 81 MG CHEWABLE TABLET 324 MG PO (11:08)
[2021-10-05 11:10] LABS: Troponin I < 0.012 ng/mL (0.000-0.034)
[2021-10-05 11:20] LABS: Alanine Aminotransferase 30 U/L (4-50); Albumin Level 4.4 g/dL (3.5-5.1); Alkaline Phosphatase 89 U/L (38-126); Anion Gap 9 mmol/L (8-16); Aspartate Amino Transferase 38 U/L (17-59); Bilirubin,Total 0.3 mg/dL (0.2-1.3); Blood Urea Nitrogen 30 mg/dL (9-20); Carbon Dioxide 23 mmol/L (22-30); Chloride 108 mmol/L (98-107); Estimated CRCL calculation 62 ml/min; Estimated Glomerular Filt Rate > 60; Glucose 93 mg/dL (65-110); Potassium 3.9 mmol/L (3.4-5.0); Sodium 140 mmol/L (137-145)
[2021-10-05 12:47] VITALS: BP 156/91; PULSE 60; RESP 19; O2SAT 97
[2021-10-05 13:45] LABS: Troponin I < 0.012 ng/mL (0.000-0.034)
[2021-10-05 14:49] VITALS: BP 155/81; PULSE 60; RESP 17; O2SAT 98
[2021-10-05 16:12] VITALS: BP 150/91; PULSE 61; RESP 18; O2SAT 98
[2021-10-05 16:21] VITALS: BP 150/91; PULSE 62; RESP 13; O2SAT 96
== END 2021-10-05 16:24 | disposition home or self-care (01) ==
PROVIDERS: Emergency Provider Nurse Practitioner Family; PCP Internal Medicine
DX: M79.602 Pain in left arm (principal); I10 Essential (primary) hypertension; E78.5 Hyperlipidemia, unspecified; E03.9 Hypothyroidism, unspecified; G93.40 Encephalopathy, unspecified; K21.9 Gastro-esophageal reflux disease without esophagitis; G40.909 Epilepsy, unspecified, not intractable, without status epilepticus; E55.9 Vitamin D deficiency, unspecified; Z86.010 Personal history of colon polyps
CPT/HCPCS: 36415; 71046; 72125; 80053; 83690; 84484; 85025; 85610; 85730; 93005; 99284; A9270

== ENCOUNTER 2022-07-27 08:00 | Outpatient (CLI) | payer MEDICARE, MEDICAID, SELFPAY ==
[2022-07-27 09:28] LABS: Anion Gap 7 mmol/L (8-16); Blood Urea Nitrogen 36 mg/dL (9-20); Calcium 8.5 mg/dL (8.4-10.2); Carbon Dioxide 25 mmol/L (22-30); Chloride 109 mmol/L (98-107); Cholesterol 145 mg/dL (0-200); Estimated Glomerular Filt Rate > 60; Glucose 100 mg/dL (65-110); HDL Direct 53 mg/dL; Potassium 3.8 mmol/L (3.4-5.0); Sodium 141 mmol/L (137-145); Triglycerides 88 mg/dL (<150)
[2022-07-27 09:39] LABS: LDL Cholesterol Direct 61 mg/dL
[2022-07-27 09:41] LABS: Hemoglobin A1C 5.5 % (<5.7)
[2022-07-27 09:52] LABS: Valproic Acid 98.3 ug/mL (50-120)
[2022-07-27 10:05] LABS: Free T4 Free Thyroxine 1.08 ng/mL (0.78-2.19)
[2022-07-30 20:30] LABS: Phenytoin Dilantin Free 0.9 mg/L (1.0-2.0)
== END 2022-07-27 08:01 | disposition home or self-care (01) ==
PROVIDERS: PCP Internal Medicine; Visit Provider Internal Medicine
DX: Z13.1 Encounter for screening for diabetes mellitus (principal); Z79.899 Other long term (current) drug therapy; Z83.3 Family history of diabetes mellitus; E03.9 Hypothyroidism, unspecified; E78.2 Mixed hyperlipidemia; G40.909 Epilepsy, unspecified, not intractable, without status epilepticus; I10 Essential (primary) hypertension
CPT/HCPCS: 36415; 80048; 80061; 80164; 80186; 83036; 84439; 84443

== ENCOUNTER 2022-08-14 07:21 | Outpatient (CLI) | payer MEDICARE, MEDICAID, SELFPAY ==
--- NOTE | ~2022-08-14 | XR_ITS ---
EXAMINATION: XR ribs BI 3V w CXR 2V DATE: 08/14/2022 12:38 INDICATION: Right lower rib pain. Fall. TECHNIQUE: Frontal and lateral views of the chest, 2 views of the right ribs, and 2 views of the left ribs on a total of 10 radiographs were obtained. COMPARISON: Chest 2 views 10/05/2021, CT abdomen and pelvis 11/24/2015 FINDINGS: CHEST TWO VIEWS: There is mild atelectasis in the lower lung zones. No pleural effusion or pneumothor ax. The heart size is normal. There are suture anchors in left scapula. There are chronic compression fractures of L1 on L2. BILATERAL RIBS: There are acute fractures of right ninth and 10th ribs. IMPRESSION: 1. Acute fractures of right ninth and 10th ribs. Reviewed, dictated and finalized at location A. INER
--- NOTE | ~2022-08-14 | XR_ITS ---
EXAMINATION: XR thoracic spine 3V DATE: 08/14/2022 12:38 INDICATION: Falls. Lateral and posterior back pain. TECHNIQUE: 3 views of thoracic spine on 4 radiographs were obtained. COMPARISON: Chest 2 views 10/05/2021 FINDINGS: There is 3 degrees dextrocurvature of thoracic spine. There are chronic compression fractur es of L1 and L2 with 1/5 loss of height. There are endplate osteophytes at most levels. There is mild ly decreased disc height at multiple levels in thoracic and lumbar spine. IMPRESSION: 1. Mild thoracic spondylosis. Reviewed, dictated and finalized at location A. MEDIC
== END 2022-08-14 07:22 | disposition home or self-care (01) ==
PROVIDERS: PCP Internal Medicine; Visit Provider Internal Medicine
DX: S22.41XA Multiple fractures of ribs, right side, initial encounter for closed fracture (principal); R07.81 Pleurodynia; W19.XXXA Unspecified fall, initial encounter; R29.6 Repeated falls; M47.814 Spondylosis without myelopathy or radiculopathy, thoracic region
CPT/HCPCS: 71046; 71110; 72072

== ENCOUNTER 2022-09-18 08:11 | Outpatient (CLI) | payer MEDICARE, MEDICAID, SELFPAY ==
--- NOTE | 2022-10-14 11:33 | WPDSLEEPSTUD ---
Sleep Study Date of Study: 09/18/22 Ordering Provider: Monroe Jeffries MD Interpreting Physician: Yesy Peña MD Sleep Study Type: Split Polysomnogram Height: 1.83 m Weight: 95.254 kg Body Mass Index: 28.5 Neck Circumference (inches): 17.5 [place]: 15 Reason for Sleep Study Hypersomnolence Sleep History Memo Tamez is a 77-year-old man with complaints of being tired in the day and falling asleep easily. He does not awaken from sleep feeling short of breath. He rarely wakes at night with heartburn, belching or coughing. He is not sure if he snores. He occasionally has trouble sleeping with a cold. He does not wake up gasping for breath at night. He rarely sweats excessively at night. He rarely notices his heart pounding or beating irregularly at night. He constantly falls asleep during the day frequently involuntarily and for this reason, he does not drive. he does not have loss of muscle tone with strong emotion. He does not have daytime difficulties due to excessive sleepiness. He does not feel paralyzed on waking or falling asleep. Does not have vivid dreamlike scenes on waking or falling asleep. He does not feel afraid to go to sleep. He rarely has nightmares. He rarely remembers his dreams. He does not have racing thoughts. He occasionally feels sad, depressed and anxious. He rarely has muscular tension. He does not notice parts of his body jerking. He does not kick at night. He does not have crawling aching feelings in his legs or any kind of leg pain at night. He does not have morning jaw pain. He does not grind his teeth during sleep. He occasionally is bothered by pain during the day. He occasionally is awakened by pain at night he. He rarely wakes up feeling stiff in the morning with sore achy muscles or pain in the neck and spine. He has fatigue, memory problems and headaches. He has had no change in weight in the last year. Normal bedtime is about 1:00 a.m.. He is not sure how long it takes him to fall asleep. He wakes at least twice at night. While awake he may watch television. It may take him a while to return to sleep. He wakes the morning between 7 and 8:00 a.m.. He has the same schedule on weekends. He takes naps in the afternoon or evening. He does not indicate if naps are refreshing. Habits: No tobacco. No caffeine, alcohol or recreational substances. [facility] Past Medical History Medical History Benign essential hypertension BMI 30.0-30.9,adult BMI 31.0-31.9,adult Carpal tunnel syndrome Colon cancer screening Constipation DJD (degenerative joint disease), multiple sites Edema Elevated homocysteine Elevated serum creatinine Encephalopathy Encounter for routine adult health examination with abnormal findings Encounter for routine adult health examination without abnormal findings Fall Fatigue FHx: type 2 diabetes mellitus GERD (gastroesophageal reflux disease) Hx of colonic polyps Hyperlipidemia Hypersomnolence Hypersomnolence Hypothyroidism (acquired) Low back pain On [facility] drug therapy Prostate cancer screening Restless legs Right ankle pain Right foot pain Seizure disorder Stiff neck Vision changes Vitamin B12 deficiency Social History Social History Smoking status: Never smoker Alcohol intake: never Substance use: never Substance use type: does not use Lack of Transportation: No Lack of Food: Never True Current Housing: I Have Housing Concerned About Future Housing: No Difficulty Paying Gas/Electric Bills: No Difficulty Paying for Meds: No Currently Unemployed: No Education: High School Diploma/GED Difficulty w/ Childcare or Family Care: No Living arrangements: alone Gender identity (if verbalized by the patient): Male Spiritual care concerns: No Medications Home Medications Medication Instructions Rec
[2022-10-14 18:24] VITALS: BMI 28.5
== END 2022-09-19 09:09 | disposition home or self-care (01) ==
LOC: ANHCSM 08:12
PROVIDERS: PCP Internal Medicine; Visit Provider Internal Medicine
DX: G47.10 Hypersomnia, unspecified (principal); G47.33 Obstructive sleep apnea (adult) (pediatric); G47.39 Other sleep apnea; F45.8 Other somatoform disorders
CPT/HCPCS: 95811

== ENCOUNTER 2022-10-08 09:24 | Outpatient (CLI) | payer MEDICARE, MEDICAID, SELFPAY ==
--- NOTE | ~2022-10-08 | XR_ITS ---
XR knee RT min 4V DATE: 10/08/2022 10:04 INDICATION: Fall 2 weeks ago. Pain at knee and proximal tibia fibula TECHNIQUE: 4 views COMPARISON: None FINDINGS: There is tricompartment osteoarthritis, most prominent at the medial compartment. There is prominent chondrocalcinosis of the medial and lateral compartments. No fracture or dislocation or joint effusion is evident. No periosteal reaction or bone destruction. IMPRESSION: Tricompartment osteoarthritis and chondrocalcinosis No fracture or dislocation or joint effusion Reviewed, dictated and finalized at location L.
--- NOTE | ~2022-10-08 | XR_ITS ---
AP and lateral views of the right tibia/fibula Clinical History: pain Findings: No acute fracture or dislocation is seen. Osseous alignment is anatomic. Mild tricompartmen ekta degenerative change noted at the. Soft tissues are unremarkable. Impression: No fracture or dislocation. Mild degenerative change of the knee. Reviewed, dictated and finalized at location . Impression: No fracture or dislocation. Mild degenerative change of the knee.
== END 2022-10-08 09:25 | disposition home or self-care (01) ==
LOC: ANHIMG 09:32
PROVIDERS: PCP Internal Medicine; Visit Provider Internal Medicine
DX: M79.661 Pain in right lower leg (principal); M17.11 Unilateral primary osteoarthritis, right knee
CPT/HCPCS: 73564; 73590

== ENCOUNTER 2023-02-11 10:51 | Outpatient (RCR) | payer MEDICARE, MEDICAID, SELFPAY | END 2023-05-23 10:48 | disposition home or self-care (01) | LOC: ANHCPREHAB 10:51 | PROVIDERS: PCP Internal Medicine; Visit Provider Internal Medicine | DX: J44.9 Chronic obstructive pulmonary disease, unspecified (principal); R06.02 Shortness of breath; R06.00 Dyspnea, unspecified | CPT/HCPCS: 94625 ==

== ENCOUNTER 2023-02-18 09:26 | Outpatient (CLI) | payer MEDICARE, MEDICAID, SELFPAY ==
--- NOTE | ~2023-02-18 | XR_ITS ---
EXAMINATION: XR chest 2V DATE: 02/18/2023 09:55 INDICATION: Shortness of breath. TECHNIQUE: Frontal and lateral views of the chest were obtained. COMPARISON: Chest 2 views 08/14/2022 FINDINGS: A calcified right lung nodule is consistent with old granulomatous disease. No pleural effu alexsander or pneumothorax. The heart size is normal. There is chronic anterior wedging of multiple vertebr al bodies. There are old healed right rib fractures. IMPRESSION: 1. No acute cardiopulmonary disease. Reviewed, dictated and finalized at location A.
--- NOTE | ~2023-02-18 | XR_ITS ---
EXAMINATION: XR hand RT min 3V, XR wrist RT min 3V DATE: 02/18/2023 09:55 INDICATION: Right hand and wrist swelling post injury TECHNIQUE: 1. Posteroanterior, ulnar deviation, oblique, and lateral views of the right wrist were obtained. 2. Dorsal palmar, oblique and lateral views of the right hand were obtained. COMPARISON: None. FINDINGS: Comminuted and mildly impacted intra-articular fracture of the distal right radius. There is 4 mm ant erior displacement of a fragment comprising the volar half of the articular surface with correspondin g 3-4 mm lucent fracture gap best evident on the lateral projection. There is approximately 2-[address] ep-off along the fracture plane at the lunate fossa on the dorsal palmar view of the hand. Minimal di straction of an avulsion fracture of the ulnar styloid process. Chondrocalcinosis at the triangular fibrocartilage complex. Polyarticular osteoarthritis, severe at t he first carpal metacarpal joint, moderate severity at the midcarpal, triscaphe, third and fourth met acarpophalangeal and multiple interphalangeal joints with distal predominance. Additional mild osteoa rthritis at the distal radioulnar, radiocarpal and remaining metacarpophalangeal and interphalangeal joints. No fractures or traumatic malalignment in the right hand. Soft tissue swelling about the wris t and carpus. IMPRESSION: 1. Comminuted and impacted intra-articular fracture at the distal right radius with mild displacement is detailed above. 2. Minimal distraction of the ulnar styloid avulsion fracture. 3. Moderate to severe polyarticular osteoarthritis at the right hand and wrist. Reviewed, dictated and finalized at location L. IMPRESSION: 1. Comminuted and impacted intra-articular fracture at the distal right radius with mild displacement is detailed above. 2. Minimal distraction of the ulnar styloid avulsion fracture. 3. Moderate to severe polyarticular osteoarthritis at the right hand and wrist.
== END 2023-02-18 09:27 | disposition home or self-care (01) ==
PROVIDERS: PCP Internal Medicine; Visit Provider Internal Medicine
DX: R06.02 Shortness of breath (principal); S52.571A Other intraarticular fracture of lower end of right radius, initial encounter for closed fracture; X58.XXXA Exposure to other specified factors, initial encounter; M19.041 Primary osteoarthritis, right hand; M19.031 Primary osteoarthritis, right wrist
CPT/HCPCS: 71046; 73110; 73130

== ENCOUNTER 2023-02-26 08:23 | Outpatient (CLI) | payer MEDICARE, MEDICAID, SELFPAY ==
--- NOTE | ~2023-02-26 | CT_ITS ---
EXAMINATION: CT facial bones wo con DATE: 02/26/2023 08:49 INDICATION: Unspecified fall, initial encounter. TECHNIQUE: Computed tomography (CT) of the facial bones and maxillofacial region was performed withou t intravenous contrast. Automated exposure control and iterative reconstruction technique were employ ed. The dose-length product was 329.94 mGy-cm. COMPARISON: CTA head and neck 06/16/2021 FINDINGS: There are likely changes of ocular lens replacement surgeries. There are radiopaque foreign bodies in left frontotemporal region with chronic left temporal lobe encephalomalacia. There are tani nges of left-sided craniotomy. There is mild mucosal thickening in the paranasal sinuses. There is ri ghtward deviation of the nasal septum. The mastoid air cells are normal. There is severe cervical spo ndylosis. IMPRESSION: 1. No acute fracture. 2. Chronic radiopaque foreign bodies in left frontotemporal region with chronic left temporal lobe en cephalomalacia. Reviewed, dictated and finalized at location A. IMPRESSION: 1. No acute fracture. 2. Chronic radiopaque foreign bodies in left frontotemporal region with chronic left temporal lobe encephalomalacia.
== END 2023-02-26 08:24 | disposition home or self-care (01) ==
PROVIDERS: PCP Internal Medicine; Visit Provider Internal Medicine
DX: T14.90XA Injury, unspecified, initial encounter (principal); W19.XXXA Unspecified fall, initial encounter; R51.9 Headache, unspecified; G93.89 Other specified disorders of brain
CPT/HCPCS: 70486

== ENCOUNTER 2023-03-05 07:21 | Outpatient (CLI) | payer MEDICARE, MEDICAID, SELFPAY ==
--- NOTE | 2023-03-05 13:40 | WPDPFTINT ---
PFT Procedure Performed PFT Procedure Performed Spirometry with Pre/Post Bronchodilator Plethysmography (Lung Vol) Diffusing Cap (DLCO) Flow Vol Loop PFT Interpretation This is a pulmonary function test with pre and post-bronchodilator spirometry, plethysmography and diffusing capacity. The test was performed and results interpreted in accordance with the 2019 and 2005 ATS/ERS Task Force guidelines respectively using the Global Lung Function Initiative-2012 reference equations. Patient demonstrated good effort and cooperation. Reproducibility criteria were met. The quality of the pre bronchodilator spirometry maneuver was Grade A and post bronchodilator spirometry maneuver was Grade A. Of note, patient has struggle with comprehending requirements of testing. Findings: Spirometry: The contour the inspiratory and expiratory flow tracing are normal. The pre bronchodilator FVC is 3.60 L, 88% predicted. The pre bronchodilator FEV1 is 3.25 L, 107% predicted. The pre bronchodilator FEV1: FVC ratio is 90%. The post bronchodilator FVC is 4.14 L, representing a 15% increase. The post bronchodilator FEV1 is 3.37 L, representing a 4% increase. The post bronchodilator FEV1: FVC ratio is 81%. Plethysmography: The total lung capacity is 5.92 L, 82% predicted. The functional residual capacity is 2.15 L, 55% predicted. The residual volume is 2.04 L, 77% predicted. Diffusing capacity: The diffusing capacity unadjusted for hemoglobin and carboxyhemoglobin is 19.9, 80% predicted. The diffusing capacity adjusted for alveolar volume is 3.38, 92% predicted. Impression: The spirometry is normal without evidence of an obstructive abnormality. There is no significant improvement after inhaling a single dose of albuterol. The total lung capacity and residual volume are normal with a decreased functional residual capacity. This is an abnormal but nonspecific lung volume pattern. The diffusing capacity is normal. There are no prior studies for comparison
== END 2023-03-05 07:22 | disposition home or self-care (01) ==
LOC: ANHPFT 07:22
PROVIDERS: PCP Internal Medicine; Visit Provider Internal Medicine
DX: R06.02 Shortness of breath (principal)
CPT/HCPCS: 94060; 94726; 94729

== ENCOUNTER 2023-04-05 07:22 | Outpatient (CLI) | payer MEDICARE, MEDICAID, SELFPAY ==
[2023-04-05 08:47] LABS: Phenytoin Dilantin 10 ug/mL (10-20)
== END 2023-04-05 07:23 | disposition home or self-care (01) ==
PROVIDERS: PCP Internal Medicine; Visit Provider Internal Medicine
DX: G40.909 Epilepsy, unspecified, not intractable, without status epilepticus (principal)
CPT/HCPCS: 36415; 80185; 80186

== ENCOUNTER 2023-04-26 18:15 | Observation (INO) | payer MEDICARE, MEDICAID, SELFPAY ==
[2023-04-26] VITALS (10 sets, daily range): BP systolic 132–165; BP diastolic 80–93; PULSE 70–88; RESP 16–20; TEMP 36.2–37.3; O2SAT 95–100
--- NOTE | ~2023-04-26 | CT_ITS ---
EXAMINATION: CTA BRAIN/CAROTID DATE: 04/26/2023 20:28 INDICATION: Stroke with increased confusion and weakness TECHNIQUE: Computed tomographic angiography (CTA) of the head and neck was performed with 100 mL Omni paque-350 intravenous contrast. Multiplanar reconstructions and maximum intensity projection 3D-recon structions of the carotid arteries and of the intracranial arteries were created by the technologist on a separate workstation. Automated exposure control and iterative reconstruction technique were emp loyed.The dose-length product was 1190.01 mGy-cm. COMPARISON: None. FINDINGS: Carotid arteries: Visualized portion of the thoracic aorta and great vessels arising from the arch are normal in calibe r with small amount nonhemodynamically significant atherosclerotic plaque and no dissection. Atherosc lerotic calcific a cyst was 0% stenosis of the right and left carotid bulbs relative to normal distal artery lumen diameter (NASCET criteria). Likely benign subcentimeter nodules in the left and right t hyroid lobes. Cervical soft tissues are otherwise unremarkable. Visualized portions of the upper lung s are clear. Moderate cervical spondylosis. Intracranial arteries Small amount scattered atherosclerotic plaque without hemodynamically since and stenosis at the bilat eral carotid siphons, the bilateral intracranial portions of the vertebral arteries and the basilar a rtery. There is no hemodynamically significant stenosis in the vertebral, basilar and internal caroti d arteries. Vertebral arteries are codominant. There are no aneurysms identified. Both A1 and P1 seg ments are patent. Cerebral arterial arborization appears symmetric. Postoperative change of left-meng ed craniectomy with chronic encephalomalacia in the left frontotemporal region. No abnormally enhanci ng brain lesions. IMPRESSION: 1. Atherosclerotic plaque with 0% stenosis of the right and left carotid bulbs relative to normal dis ekta artery lumen diameter (NASCET criteria). 2. Small amount of atherosclerotic plaque in the basilar and bilateral vertebral arteries as well as at the bilateral carotid siphons without hemodynamically significant stenosis. Otherwise unremarkable cerebral CT angiogram. Reviewed, dictated and finalized at location A. IMPRESSION: 1. Atherosclerotic plaque with 0% stenosis of the right and left carotid bulbs relative to normal distal artery lumen diameter (NASCET criteria). 2. Small amount of atherosclerotic plaque in the basilar and bilateral vertebra l arteries as well as at the bilateral carotid siphons without hemodynamically significant stenosis. Otherwise unremarkable cerebral CT angiogram.
--- NOTE | ~2023-04-26 | CT_ITS ---
EXAMINATION: CT brain wo con DATE: 04/26/2023 20:27 INDICATION: Altered mental status TECHNIQUE: Computed tomography (CT) of the head was performed without intravenous contrast. Sagittal and coronal reconstructions were performed. Automated exposure control and iterative reconstruction t echnique were employed. The dose-length product was 681.00 mGy-cm. COMPARISON: head CT dated 06/15/2021 FINDINGS: And seen are changes of a prior left sided craniectomy with underlying chronic encephalomalacia in th e left frontotemporal region. No acute intracranial hemorrhage, acute infarction or abnormal intracra nial mass lesion. There is mild scattered white matter hypoattenuation consistent with chronic small vessel ischemic disease. Ventricles are normal and symmetric. Changes of bilateral intraocular lens replacement. The orbits and mastoid air cells are normal. Mild mucosal thickening in the left maxilla ry and bilateral ethmoid sinuses. IMPRESSION: 1. Stable appearance of chronic encephalomalacia in the left frontotemporal region with overlying aircraft refueller niectomy. No acute intracranial process. Reviewed, dictated and finalized at location A. IMPRESSION: 1. Stable appearance of chronic encephalomalacia in the left frontotemporal reg ion with overlying craniectomy. No acute intracranial process.
--- NOTE | ~2023-04-26 | XR_ITS ---
EXAMINATION: XR chest 1V portable DATE: 04/26/2023 19:38 INDICATION: Weakness TECHNIQUE: frontal view of the chest was obtained. COMPARISON: Chest radiograph dated 02/18/2023 FINDINGS: Persistent opacity at the lateral left lung base which partially obscures the apex of the heart and t he lateral left hemidiaphragm most likely related to a prominent left paracardial fat pad and sagitta l short lingular atelectasis. No other airspace opacities, pulmonary edema, pleural effusion or pneum othorax. Heart size is normal. Visualized bones and soft tissues are unremarkable. IMPRESSION: 1. Persistent opacity lateral left lung base and favor a prominent paracardial fat pad and/or lingula r atelectasis over pneumonia. Reviewed, dictated and finalized at location A. IMPRESSION: 1. Persistent opacity lateral left lung base and favor a prominent paracardial fat pad and/or lingular atelectasis over pneumonia.
--- NOTE | ~2023-04-26 | US_ITS ---
EXAMINATION: US abdomen limited DATE: 04/28/2023 23:07 INDICATION: Cirrhosis of the liver. TECHNIQUE: Multiple grayscale and Doppler ultrasound images of the abdomen were obtained. COMPARISON: CT abdomen and pelvis 11/24/2015 FINDINGS: The visualized portions of the head, body, and tail of the pancreas are normal. The liver i s normal without focal lesion. No liver surface nodularity. There is normal flow in main portal vein. The gallbladder is contracted. No gallstones or sonographic Ventura sign. The common duct is normal a nd measures 2 mm. IMPRESSION: 1. Normal right upper quadrant ultrasound. Reviewed, dictated and finalized at location E.
--- NOTE | 2023-04-26 18:20 | ECG_ITS ---
Measurements Intervals [place] Rate: 88 P: 0 UT: 204 QRS: -30 QRSD: 87 T: -24 QT: 260 QTc: 316 Interpretive Statements SINUS RHYTHM ANTEROSEPTAL MYOCARDIAL INFARCTION , OF INDETERMINATE AGE Electronically Signed On 04-27-2023 12:56:56 CDT by Paul Long M.D.
--- NOTE | 2023-04-26 19:16 | PC.NURSE ---
Assumed care of pt from GERTRUDIS uGpta at this time.
[2023-04-26 19:18] LABS: Basophils Percent Auto 0.2 % (0.2-1.2); Eosinophils Absolute Auto 0.1 K/mm3 (0-0.3); Eosinophils Percent Auto 1.2 % (0-4.4); Hematocrit 40.5 % (42.0-52.0); Hemoglobin 13.6 g/dL (14.0-18.0); Immature Granulocyte Absolute 0.02 K/mm3 (0.00-0.031); Immature Granulocyte Percent A 0.3 % (0-0.5); Lymphocytes Absolute Auto 1.06 K/mm3 (0.9-3.2); Lymphocytes Percent Auto 16.1 % (18.3-44.2); Mean Corpuscular HGB Conc 33.6 g/dl (32-36); Mean Corpuscular Hemoglobin 33.3 pg (26-34); Mean Platelet Volume 11.5 fl (7.4-10.4); Monocytes Absolute Auto 0.8 K/mm3 (0.1-0.6); Monocytes Percent Auto 11.4 % (2.6-8.5); Neutrophils Absolute Auto 4.7 K/mm3 (1.3-6.7); Neutrophils Percent Auto 70.8 % (45.5-73.1); Platelet Count Result 159 k/mm3 (150-375); Red Blood Count 4.09 M/mm3 (4.6-6.20); Red Cell Distribution Width 13.2 % (11.5-14.5); White Blood Count 6.6 K/mm3 (4.5-10.0)
[2023-04-26 19:27] LABS: INR 1.1; Prothrombin Time 14.2 Seconds (11.1-14.7)
[2023-04-26 19:54] LABS: Alanine Aminotransferase 18 U/L (6-50); Albumin Level 4.3 g/dL (3.5-5.1); Alkaline Phosphatase 95 U/L (38-126); Anion Gap 10 mmol/L (8-16); Aspartate Amino Transferase 25 U/L (17-59); Bilirubin,Total 0.7 mg/dL (0.2-1.3); Blood Urea Nitrogen 20 mg/dL (9-20); Calcium 9.1 mg/dL (8.4-10.2); Carbon Dioxide 22 mmol/L (22-30); Chloride 107 mmol/L (98-107); Estimated Glomerular Filt Rate > 60; Glucose 100 mg/dL (65-110); Potassium 3.9 mmol/L (3.4-5.0); Sodium 139 mmol/L (137-145)
[2023-04-26 19:55] LABS: Magnesium 1.7 mg/dL (1.6-2.3); Phenytoin Dilantin 6 ug/mL (10-20)
[2023-04-26 20:02] LABS: Troponin I < 0.012 ng/mL (0.000-0.034)
[2023-04-26 20:15] LABS: Lactic Acid Reflex 1.6 mmol/L (0.7-2.0)
[2023-04-26 20:32] LABS: Procalcitonin 0.1 ng/mL
[2023-04-26] MEDS: MAGNESIUM SULF 2 GM/WATER 50ML 2 GM/50 ML BAG IVPB (20:38)
--- NOTE | 2023-04-26 20:45 | ED.GENADULT ---
HPI - General Adult General Chief complaint: Altered Mental Status Stated complaint: confusion, unsteady gait Time Seen by Provider: 04/26/23 19:08 History of Present Illness HPI narrative: Patient 78-year-old gentleman who presents the emergency department with chief complaint of altered mental status. Per the patient's sister the patient has history of aphasia but has had increased confusion over the last 2 days noticed that he had difficulty finding specific words that he normally can find having difficulty answering some questions. Today the patient was unable to name the phone furnace checker back on the cradle correctly patient denies fever denies shortness of breath denies chest pain last known well was yesterday Related Data Home Medications Medication Instructions Recorded Confirmed folic acid 1 mg tablet 1 mg PO DAILY 04/13/20 03/14/23 mecobalamin (vitamin B12) 1,000 1,000 mcg sublingual DAILY 04/13/20 03/14/23 mcg disintegrating tablet,sublingual naproxen sodium 220 mg capsule 220 mg PO BID PRN Pain 04/11/21 03/14/23 (Aleve) ascorbic acid (vitamin C) 1,000 mg 1 g PO DAILY 05/28/21 03/14/23 tablet cholecalciferol (vitamin D3) 25 25 mcg PO DAILY 05/28/21 03/14/23 mcg (1,000 unit) capsule (Vitamin D3) fluticasone fur. 100 mcg-umeclid 1 inh inhalation DAILY 03/14/23 03/14/23 62.5 mcg-vilant 25 mcg inhalat.powder (Trelegy Ellipta) Allergies Allergy/AdvReac Type Severity Reaction Status Date / Time No Known Allergies Allergy Unknown Verified 03/14/23 07:37 Review of Systems Review of Systems: A 10 system review of systems was completed on the patient and is negative except for what is stated in the HPI. Nursing and ancillary documentation was reviewed. [facility] Past Medical History Medical History Benign essential hypertension BMI 29.0-29.9,adult BMI 30.0-30.9,adult BMI 31.0-31.9,adult Carpal tunnel syndrome Colon cancer screening Constipation DJD (degenerative joint disease), multiple sites Edema Elevated homocysteine Elevated serum creatinine Encephalopathy Encounter for routine adult health examination with abnormal findings Encounter for routine adult health examination without abnormal findings Fall Fatigue FHx: type 2 diabetes mellitus GERD (gastroesophageal reflux disease) Hx of colonic polyps Hyperlipidemia Hypersomnolence Hypersomnolence Hypothyroidism (acquired) Low back pain On [facility] drug therapy Prostate cancer screening Restless legs Right ankle pain Right foot pain Seizure disorder Stiff neck Vision changes Vitamin B12 deficiency Family History Family History Father HLD (hyperlipidemia) Chronic obstructive pulmonary disease Father No problems noted. Mother HLD (hyperlipidemia) Multiple myeloma Sibling Hypertension Social History Social History Smoking status: Never smoker Alcohol intake: never Substance use: never Substance use type: does not use Lack of Transportation: No Lack of Food: Never True Current Housing: I Have Housing Concerned About Future Housing: No Difficulty Paying Gas/Electric Bills: No Difficulty Paying for Meds: No Currently Unemployed: No Education: High School Diploma/GED Difficulty w/ Childcare or Family Care: No Living arrangements: alone Gender identity (if verbalized by the patient): Male Spiritual care concerns: No Exam Narrative: GENERAL: Well-appearing, well-nourished, and in no acute distress. HEAD: Normocephalic, atraumatic. EYES: PERRLA and EOMI. ENT: Nares clear, no rhinorrhea or epistaxis. Mucous membranes moist. NECK: Supple. CHEST: Clear to auscultation. No respiratory distress. HEART: Regular rate and rhythm. No murmur heard. Normal peripheral pulses. ABDOMEN: Soft, nonte
[2023-04-26 20:46] LABS: Appearance Urine Clear (Clear); Bilirubin Urine Negative (Negative); Blood Urine Negative (Negative); Color Urine Yellow (Yellow); Glucose Urine UA Negative (Negative); Ketones Urine Negative (Negative); Leukocyte Esterase Ur Negative LEU/UL (Negative); Nitrate Urine Negative (Negative); Protein Urine Negative (Negative)
[2023-04-26 20:52] LABS: Add Urine Microscopic? NO; Specific Grav Ur 1.057 (1.001-1.035)
--- NOTE | 2023-04-26 21:59 | PM.IMHP ---
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 His symptoms started 2 days ago he was more quiet than usual he has difficulty speaking. He was unable to place the form a assisted living administrator back on the cradle. When seen at bedside he denies chest pain shortness a breath nausea vomiting fever chills sweating urinary bowel symptoms. He also denies focal neurological weakness Review of Systems Review of Systems: All systems reviewed & are unremarkable except as noted in HPI and below Constitutional: Constitutional: Reports as per HPI PMFSH Past Medical History Medical History Benign essential hypertension BMI 29.0-29.9,adult BMI 30.0-30.9,adult BMI 31.0-31.9,adult Carpal tunnel syndrome Colon cancer screening Constipation DJD (degenerative joint disease), multiple sites Edema Elevated homocysteine Elevated serum creatinine Encephalopathy Encounter for routine adult health examination with abnormal findings Encounter for routine adult health examination without abnormal findings Fall Fatigue FHx: type 2 diabetes mellitus GERD (gastroesophageal reflux disease) Hx of colonic polyps Hyperlipidemia Hypersomnolence Hypersomnolence Hypothyroidism (acquired) Low back pain On [facility] drug therapy Prostate cancer screening Restless legs Right ankle pain Right foot pain Seizure disorder Stiff neck Vision changes Vitamin B12 deficiency Family History Family History Father HLD (hyperlipidemia) Chronic obstructive pulmonary disease Father No problems noted. Mother HLD (hyperlipidemia) Multiple myeloma Sibling Hypertension Social History Social History Smoking status: Never smoker Alcohol intake: never Substance use: never Substance use type: does not use Lack of Transportation: No Lack of Food: Never True Current Housing: I Have Housing Concerned About Future Housing: No Difficulty Paying Gas/Electric Bills: No Difficulty Paying for Meds: No Currently Unemployed: No Education: High School Diploma/GED Difficulty w/ Childcare or Family Care: No Living arrangements: alone Gender identity (if verbalized by the patient): Male Spiritual care concerns: No Meds Home Medications and Allergies Home Medications Medication Instructions Recorded Confirmed Type folic acid 1 mg tablet 1 mg PO DAILY 04/13/20 03/14/23 History mecobalamin (vitamin B12) 1,000 1,000 mcg sublingual DAILY 04/13/20 03/14/23 History mcg disintegrating tablet,sublingual naproxen sodium 220 mg capsule 220 mg PO BID PRN Pain 04/11/21 03/14/23 History (Aleve) ascorbic acid (vitamin C) 1,000 mg 1 g PO DAILY 05/28/21 03/14/23 History tablet cholecalciferol (vitamin D3) 25 25 mcg PO DAILY 05/28/21 03/14/23 History mcg (1,000 unit) capsule (Vitamin D3) ibuprofen 600 mg tablet 600 mg PO Q6H PRN Pain Rated 1-3 06/25/21 03/14/23 Rx #20 tabs lorazepam 0.5 mg tablet 0.5 mg PO TID PRN anxiety #12 tabs 06/25/21 03/14/23 Rx candesartan 16 1 tablet PO DAILY #90 tabs 05/22/22 03/14/23 Rx mg-hydrochlorothiazide 12.5 mg tablet sucralfate 1 gram tablet See Rx Instructions .Route 12/17/22 03/14/23 Rx .COMPLEX #360 tabs gabapentin 300 mg capsule See Rx Instructions .Route 12/26/22 03/14/23 Rx .COMPLEX #450 caps atorvastatin 20 mg tablet See Rx Instructions .Route 01/01/23 03/14/23 Rx .COMPLEX #90 tabs levothyroxine 200 mcg tablet See Rx Instructions .Route 01/01/23 03/14/23 Rx .COMPLEX #90 tabs pheny
[2023-04-27] VITALS (10 sets, daily range): BP systolic 116–164; BP diastolic 76–87; PULSE 60–73; RESP 16–18; TEMP 36.2–36.6; O2SAT 96–97; BMI 28.9
--- NOTE | 2023-04-27 00:01 | ADMGEN ---
This patient, Memo Tamez, was admitted to [facility] S[facility] Room 317-02. Patient/family oriented to hospital policies and general routines including ID bracelet, bed and alarms, visiting hours, pain management, procedures, bathroom and other care routines, personal items, smoking policy, room service/diet, and visiting hours. Information on how to activate the Rapid Response Team has been discussed. Patient/Family are encouraged to report perceived risks to care and to ask questions if they do not understand what they are told or what they should do.
--- NOTE | 2023-04-27 00:01 | PCDIET ---
Pt was unsure of what medications he takes at home. Permission from pt to call sister, Tamara Renteria. Tamara Renteria knows his medications but is unsure of the time on his last dose. Tamara Renteria states that all medications on our list should be accurate to the best of her knowledge. All medications entered as confirmed with last dose as unknown.
--- NOTE | 2023-04-27 10:36 | PM.IMPN ---
Progress Note: A&P Assessment and Plan (1) Acute alteration in mental status: Code(s): R41.82 - Altered mental status, unspecified Status: Acute (2) Seizure disorder: Code(s): G40.909 - Epilepsy, unspecified, not intractable, without status epilepticus Status: Acute Plan A 78M w/ PMH craniotomy, aphasia, CKD, HTN, DJD, RLS, seizure disorder, B12 deficiency. Admitted because family reports he was not acting himself. He had more difficulty speaking. on 04/27 patient is back to his baseline, he reports he simply has a hard time finding words sometimes, and that has waxed and waned over the past few months. 1) AMS - resolved. workup essentially unrevealing, aphasia at baseline. Pt is A&Ox3. neurology consulted. awaiting recs. pending MRI brain FEN: regular diet, saline lock IV GI prophylaxis: not indicated DVT prophylaxis: SCD's. consider starting HSC if here another day Lines: pIV Code Status: Full Code Dispo: stable. Subjective Date/time seen: 04/27/23 10:36 Interval history: NAOE. pt is at his baseline. conversing. he reports remembering he could not find words, but that has been happening on and off for the past few months. Review of Systems Review of Systems: All systems reviewed & are unremarkable except as noted in HPI and below Exam Const: General: comfortable Eyes: Pupils: Equal, round and reactive pupils present Resp: Effort & Inspection: normal respiratory effort Auscultation: clear to auscultation bilaterally Cardio: Rate: regular rate Rhythm: regular rhythm Neuro: Other: aphasia, difficulty word finding. A&Ox3 RUE 4/5 strength due to pain, otherwise rest of neuro exam intact Psych: Mental Status: mental status grossly normal Objective Data Vital Signs Vital Signs: Vital Signs - 24 hr 04/26/23 18:17 04/26/23 19:21 04/26/23 18:50 Temperature 97.2 F L Pulse Rate 88 75 79 Respiratory Rate 16 20 18 Blood Pressure 158/93 H 141/86 H 141/86 H Pulse Oximetry 99 97 95 Oxygen Delivery Room Air 04/26/23 19:26 04/26/23 20:01 04/26/23 21:01 Temperature 99.1 F Pulse Rate 78 80 Respiratory Rate 16 18 Blood Pressure 132/80 133/81 Pulse Oximetry 96 100 Oxygen Delivery 04/26/23 21:47 04/26/23 22:01 04/26/23 22:17 Temperature Pulse Rate 70 72 70 Respiratory Rate 18 16 17 Blood Pressure 141/84 H 149/84 H 147/92 H Pulse Oximetry 99 100 98 Oxygen Delivery 04/26/23 23:18 04/27/23 01:45 04/27/23 01:00 Temperature Pulse Rate 70 73 Respiratory Rate 16 Blood Pressure 165/91 H Pulse Oximetry 99 Oxygen Delivery Room Air 04/27/23 04:00 04/27/23 06:00 04/27/23 08:30 Temperature 97.4 F L Pulse Rate 67 60 73 Respiratory Rate 16 Blood Pressure 164/87 H Pulse Oximetry 97 Oxygen Delivery 04/27/23 08:30 04/27/23 10:08 Temperature Pulse Rate Respiratory Rate Blood Pressure Pulse Oximetry 96 Oxygen Delivery Room Air Room Air Intake/Output Intake/Output: Intake & Output 04/24/23 04/25/23 04/26/23 04/27/23 23:59 23:59 23:59 23:59 Intake Total 50 816 Output Total 100 Balance 50 716 Meds/Results Radiology Results: ITS Impressions Chest X-Ray 04/26/23 19:39 IMPRESSION: 1. Persistent opacity lateral left lung base and favor a prominent paracardial fat pad and/or lingular atelectasis over pneumonia. Head CT 04/26/23 20:33 IMPRESSION: 1. Stable appearance of chronic encephalomalacia in the left frontotemporal region with overlying craniectomy. No acute intracranial process. Head/Neck CTA 04/26/23 20:37 IMPRESSION: 1. Atherosclerotic plaque with 0% stenosis of the right and left carotid bulbs relative to normal distal artery lumen diameter (NASCET criteria). 2. Small amount of atherosclerotic plaque in the basilar and bilateral vertebral arteries as well as at the bilateral carotid siphons without hemodynamically significant stenosis. Otherwise unremarkable cerebral C
--- NOTE | 2023-04-27 10:49 | PC.NURSE ---
I spoke with Dr. Junior regarding his physician to nurse communication to complete the med rec. The admitting nurse did not complete the med rec with dosage/admin details. I agreed to attempt to correct the med rec or have pharmacy do so in the event I am unable.
--- NOTE | 2023-04-27 11:16 | WPDNEURCNPN ---
Assessment and Plan Assessment and plan (1) Acute alteration in mental status: Code(s): R41.82 - Altered mental status, unspecified Status: Acute (2) Seizure disorder: Code(s): G40.909 - Epilepsy, unspecified, not intractable, without status epilepticus Status: Acute (3) Vitamin B12 deficiency: Code(s): E53.8 - Deficiency of other specified B group vitamins Status: Acute Plan Memo Tamez is a 78 year old male with a history of HTN, DJD, HLD, vitamin B12 deficiency, epilepsy, RLS, hypothyroidism, DM presenting due to change in mental status. Etiology unclear. He is on a number of sedating medications. Does not seem to be related to breakthrough seizures. No evidence of infection at this point. He does have a history of hyperammonemia previously in 2020. - Check B12, folate, TSH, VPA level, and ammonia - Unfortunaley cannot do MRI due to surgical hardware Consult date: 04/27/23 Reason for consult: Altered mental status HPI: Memo Tamez is a 78 year old male with a history of HTN, DJD, HLD, vitamin B12 deficiency, epilepsy, RLS, hypothyroidism, DM presenting due to change in mental status. At baseline patient has some aphasia, but per family over the past few days, his speech has gotten worse than before. In the ED he had a CT head done which showed chronic encephalomalacia in the left frontotemporal region. CTA brain/carotid showed only a small amount of atherosclerotic plaque in the basilar and bilateral vertebral arteries as well as bilateral carotid siphons. UA was not concerning for infection. Phenytoin level obtained which is 6. I do not see a VPA level. Liver enzymes are normal. B12, folate, and TSH levels are not available for review. He takes a number of medications including VPA 500mg QID, gabapentin 300mg q5hrs, Ativan 0.5mg TID PRN, primidone 250mg BID, and phenytoin 300mg qAM and 200mg qhs. Review of Systems Review of Systems: ROS unobtainable: Yes unobtainable due to medical condition and other (aphasic) [facility] Past Medical History Medical History Benign essential hypertension BMI 29.0-29.9,adult BMI 30.0-30.9,adult BMI 31.0-31.9,adult Carpal tunnel syndrome Colon cancer screening Constipation DJD (degenerative joint disease), multiple sites Edema Elevated homocysteine Elevated serum creatinine Encephalopathy Encounter for routine adult health examination with abnormal findings Encounter for routine adult health examination without abnormal findings Fall Fatigue FHx: type 2 diabetes mellitus GERD (gastroesophageal reflux disease) Hx of colonic polyps Hyperlipidemia Hypersomnolence Hypersomnolence Hypothyroidism (acquired) Low back pain On intermediate drug therapy Prostate cancer screening Restless legs Right ankle pain Right foot pain Seizure disorder Stiff neck Vision changes Vitamin B12 deficiency Family History Family History Father HLD (hyperlipidemia) Chronic obstructive pulmonary disease Father No problems noted. Mother HLD (hyperlipidemia) Multiple myeloma Sibling Hypertension Social History Social History Smoking status: Never smoker Alcohol intake: never Substance use: never Substance use type: does not use Lack of Transportation: No Lack of Food: Never True Current Housing: I Have Housing Concerned About Future Housing: No Difficulty Paying Gas/Electric Bills: No Difficulty Paying for Meds: No Currently Unemployed: No Education: High School Diploma/GED Difficulty w/ Childcare or Family Care: No Living arrangements: alone Gender identity (if verbalized by the patient): Male Spiritual care concerns: Yes (anabaptism) Meds Home Medications and Allergies Home Medications Medication Instructions Recorded Confirmed Type folic acid 1 mg table
[2023-04-27 13:40] LABS: Ammonia 41 umol/L (9-30)
[2023-04-27] MEDS: GABAPENTIN 300 MG CAPSULE PO ×2 (14:01→18:36)
[2023-04-27] MEDS: DIVALPROEX SODIUM DR 250 MG TABEC 500 MG PO ×3 (14:01→20:18)
[2023-04-27 14:29] LABS: Valproic Acid 25.4 ug/mL (50-120)
[2023-04-27 14:39] LABS: Vitamin B12 > 1000.0 pg/mL (239-931)
[2023-04-27 16:09] LABS: Free T4 Free Thyroxine Reflex 0.65 ng/dL (0.78-2.19)
[2023-04-27] MEDS: SUCRALFATE 1 GM TABLET 2 GM PO (16:40)
--- NOTE | 2023-04-27 18:40 | PC.NURSE ---
I spoke with Dr. Junior regarding the two orders for hydrochlorothiazide 12.5mg to confirm that he wants pt to take a total of 25mg daily. Pt is to be administered a total of 25mg of hydrochlorothiazide.
[2023-04-27] MEDS: PRIMIDONE 250 MG TABLET PO (20:15)
[2023-04-27] MEDS: PHENYTOIN SODIUM 100 MG EXTENDED RELEASE CAP 200 MG PO (20:16)
[2023-04-28] VITALS (9 sets, daily range): BP systolic 132–151; BP diastolic 69–87; PULSE 59–75; RESP 13–18; TEMP 36.4–36.8; O2SAT 94–96
[2023-04-28] MEDS: SUCRALFATE 1 GM TABLET 2 GM PO ×2 (09:49→17:06)
[2023-04-28] MEDS: FOLIC ACID 1 MG TABLET PO (09:50)
[2023-04-28] MEDS: CYANOCOBALAMIN 1,000 MCG TABLET 1000 MCG PO (09:50)
[2023-04-28] MEDS: ATORVASTATIN 20 MG TABLET PO (09:50)
[2023-04-28] MEDS: CHOLECALCIFEROL 1,000 UNITS TABLET 1000 UNITS PO (09:50)
[2023-04-28] MEDS: PRIMIDONE 250 MG TABLET PO ×2 (09:50→20:35)
[2023-04-28] MEDS: PHENYTOIN SODIUM 100 MG EXTENDED RELEASE CAP 300 MG PO (09:50)
[2023-04-28] MEDS: DIVALPROEX SODIUM DR 250 MG TABEC 500 MG PO ×4 (09:51→20:35)
[2023-04-28] MEDS: ASCORBIC ACID 500 MG TABLET 1000 MG PO (09:52)
[2023-04-28] MEDS: hydroCHLOROthiazide 12.5 MG CAPSULE PO ×2 (09:52→09:53)
[2023-04-28] MEDS: CANDESARTAN CILEXETIL 16 MG TABLET PO (09:53)
[2023-04-28] MEDS: GABAPENTIN 300 MG CAPSULE PO ×3 (09:56→17:59)
[2023-04-28] MEDS: FLUTICASONE/UMECLIDIN/VILANTER 100-62.5-25 MCG ELLIPTA 1 PUFF INHALATION (10:11)
[2023-04-28] MEDS: LACTULOSE 20 GM/30 ML UDC PO (17:37)
--- NOTE | 2023-04-28 18:17 | PM.IMPN ---
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 - Other somatoform disorders Status: Acute (5) Mixed sleep apnea: Code(s): G47.39 - Other sleep apnea Status: Acute (6) Benign essential hypertension: Code(s): I10 - Essential (primary) hypertension Status: Acute (7) Hyperlipidemia: Qualifiers: Hyperlipidemia type: mixed hyperlipidemia Qualified Code(s): E78.2 - Mixed hyperlipidemia Code(s): E78.5 - Hyperlipidemia, unspecified Status: Acute (8) Hypothyroidism (acquired): Code(s): E03.9 - Hypothyroidism, unspecified Status: Acute (9) Seizure disorder: Code(s): G40.909 - Epilepsy, unspecified, not intractable, without status epilepticus Status: Acute (10) FHx: type 2 diabetes mellitus: Code(s): Z83.3 - Family history of diabetes mellitus Status: Acute (11) 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 Admitted because family reports he was not acting himself. He had more difficulty speaking. on 04/27 patient is back to his baseline, he reports he simply has a hard time finding words sometimes, and that has waxed and waned over the past few months. 1) AMS - resolved - phenytoin, vpa, and tsh all abnl- c/f pt not taking medications. discussed with pt and sister- they swear he is. unfortunately labs indicate otherwise - will let pt ct to assess this outpt with PCP 2. elevated ammonia started lactulose f/u ruq u/s tomorrow dc tomorrow f/u with pcp FEN: regular diet, saline lock IV GI prophylaxis: not indicated DVT prophylaxis: SCD's. consider starting HSC if here another day Lines: pIV Code Status: Full Code Dispo: stable. Subjective Date/time seen: 04/28/23 18:17 Interval history: pt is close to baseline per sister. pt denies any complaints. got up, walked around, felt no issues. Review of Systems Review of Systems: n/a Exam Narrative: Const:?? General: comfortab le Eyes:?? Pupils: Equal, rou nd and reactive pu pils present Resp:?? Effort & Inspectio n: normal respirat ory effort? Auscul tation: clear to a uscultation bilate rally Cardio:?? Rate: regular rate ? Rhythm: regular rhythm Neuro:?? Other: aphasia, d ifficulty word fin ding. A&Ox3 RUE 4 /5 strength due to pain, otherwise r est of neuro exam intact ? Psych:?? Mental Status: men ekta status grossly normal Objective Data Vital Signs Vital Signs: Vital Signs - 24 hr 04/27/23 19:51 04/27/23 20:00 04/28/23 05:53 Temperature 97.9 F 97.9 F Pulse Rate 66 63 Respiratory Rate 16 16 Blood Pressure 120/76 151/87 H Pulse Oximetry 96 96 Oxygen Delivery Room Air 04/27/23 20:00 04/28/23 00:00 04/28/23 04:00 Temperature Pulse Rate 66 65 59 L Respiratory Rate Blood Pressure Pulse Oximetry Oxygen D
[2023-04-28] MEDS: PHENYTOIN SODIUM 100 MG EXTENDED RELEASE CAP 200 MG PO (20:35)
[2023-04-29] MEDS: GABAPENTIN 300 MG CAPSULE PO ×3 (00:04→09:36)
[2023-04-29] MEDS: LEVOTHYROXINE SODIUM 100 MCG TABLET 200 MCG PO (04:58)
[2023-04-29 05:49] VITALS: BP 115/67; PULSE 65; RESP 13; TEMP 36.6; O2SAT 96
--- NOTE | 2023-04-29 08:11 | PM.DS ---
DS: Admitting Diagnosis Discharge Date 04/29/23 Admitting Diagnosis altered mental status DS: Discharge Diagnosis Discharge Diagnosis Plan A 78M w/ PMH craniotomy, aphasia, CKD, HTN, DJD, RLS, seizure disorder, B12 deficiency. Admitted because family reports he was not acting himself. He had more difficulty speaking. on 04/27 patient is back to his baseline, he reports he simply has a hard time finding words sometimes, and that has waxed and waned over the past few months. 1) AMS - resolved - phenytoin, vpa, and tsh all abnl- c/f pt not taking medications. discussed with pt and sister- they swear he is. unfortunately labs indicate otherwise - will let pt ct to assess this outpt with PCP 2. elevated ammonia started lactulose ruq u/s- normal dc tomorrow f/u with pcp FEN: regular diet, saline lock IV GI prophylaxis: not indicated DVT prophylaxis: SCD's. consider starting HSC if here another day Lines: pIV Code Status: Full Code Dispo: stable. CTA BRAiN IMPRESSION: 1. Atherosclerotic plaque with 0% stenosis of the right and left carotid bulbs relative to normal distal artery lumen diameter (NASCET criteria). 2. Small amount of atherosclerotic plaque in the basilar and bilateral vertebral arteries as well as at the bilateral carotid siphons without hemodynamically significant stenosis. Otherwise unremarkable cerebral CT angiogram. Abd u/s IMPRESSION: 1. Normal right upper quadrant ultrasound. CT head IMPRESSION: 1. Stable appearance of chronic encephalomalacia in the left frontotemporal region with overlying craniectomy. No acute intracranial process. DS: Summary Hospital Course Reason for hospitalization: altered mental status- concern pt not taking all of his medicines as well. elevated ammonia. Hospital Course: Memo Tamez is a 78 year old male with a history of HTN, DJD, HLD, vitamin B12 deficiency, epilepsy, RLS, hypothyroidism, DM presenting due to change in mental status. Etiology unclear. He is on a number of sedating medications. Does not seem to be related to breakthrough seizures. No evidence of infection at this point. He does have a history of hyperammonemia previously in 2020. - Check B12, folate, TSH, VPA level, and ammonia - Unfortunaley cannot do MRI due to surgical hardware Consult date: 04/27/23 Reason for consult: Altered mental status HPI: Memo Tamez is a 78 year old male with a history of HTN, DJD, HLD, vitamin B12 deficiency, epilepsy, RLS, hypothyroidism, DM presenting due to change in mental status. At baseline patient has some aphasia, but per family over the past few days, his speech has gotten worse than before. In the ED he had a CT head done which showed chronic encephalomalacia in the left frontotemporal region. CTA brain/carotid showed only a small amount of atherosclerotic plaque in the basilar and bilateral vertebral arteries as well as bilateral carotid siphons. UA was not concerning for infection. Phenytoin level obtained which is 6. I do not see a VPA level. Liver enzymes are normal. B12, folate, and TSH levels are not available for review. He takes a number of medications including VPA 500mg QID, gabapentin 300mg q5hrs, Ativan 0.5mg TID PRN, primidone 250mg BID, and phenytoin 300mg qAM and 200mg qhs. Status at Discharge Cognitive/behavioral status at discharge: baseline Time Spent with Patient Time attestation: Total time spent providing and/or coordinating discharge services: 30 min Exam Narrative: Const:?? General: comfortab le and no acute di stress HENMT:?? Mouth: Yes moist m ucous membranes Eyes:?? Pupils: Equal, rou nd and reactive pu pils present? EOM: EOMs intact bilat erally Resp:?? Effort & Inspectio n: normal respirat ory effort Skin:??
[2023-04-29] MEDS: FLUTICASONE/UMECLIDIN/VILANTER 100-62.5-25 MCG ELLIPTA 1 PUFF INHALATION (09:03)
[2023-04-29 09:04] VITALS: O2SAT 96
[2023-04-29] MEDS: FOLIC ACID 1 MG TABLET PO (09:23)
[2023-04-29] MEDS: CANDESARTAN CILEXETIL 16 MG TABLET PO (09:24)
[2023-04-29] MEDS: ATORVASTATIN 20 MG TABLET PO (09:24)
[2023-04-29] MEDS: DIVALPROEX SODIUM DR 250 MG TABEC 500 MG PO (09:24)
[2023-04-29] MEDS: hydroCHLOROthiazide 12.5 MG CAPSULE PO ×2 (09:25→09:28)
[2023-04-29] MEDS: CHOLECALCIFEROL 1,000 UNITS TABLET 1000 UNITS PO (09:25)
[2023-04-29] MEDS: ASCORBIC ACID 500 MG TABLET 1000 MG PO (09:25)
[2023-04-29] MEDS: PRIMIDONE 250 MG TABLET PO (09:25)
[2023-04-29] MEDS: LACTULOSE 20 GM/30 ML UDC PO (09:28)
[2023-04-29] MEDS: SUCRALFATE 1 GM TABLET 2 GM PO (09:30)
[2023-04-29] MEDS: CYANOCOBALAMIN 1,000 MCG TABLET 1000 MCG PO (09:32)
[2023-04-29] MEDS: PHENYTOIN SODIUM 100 MG EXTENDED RELEASE CAP 300 MG PO (09:36)
== END 2023-04-29 11:35 | disposition home or self-care (01) ==
LOC: ANHED 21:18 → ANH3MEDSUR 23:22
PROVIDERS: Emergency Medicine; General Practice; Admitting Provider Internal Medicine; Emergency Provider Emergency Medicine; PCP Internal Medicine; Visit Provider Internal Medicine
DX: R41.82 Altered mental status, unspecified (principal); R47.01 Aphasia; M15.9 Polyosteoarthritis, unspecified; I10 Essential (primary) hypertension; E72.11 Homocystinuria; K21.9 Gastro-esophageal reflux disease without esophagitis; G40.909 Epilepsy, unspecified, not intractable, without status epilepticus; E03.9 Hypothyroidism, unspecified; F41.9 Anxiety disorder, unspecified; E78.5 Hyperlipidemia, unspecified; E53.8 Deficiency of other specified B group vitamins; G25.81 Restless legs syndrome; M79.673 Pain in unspecified foot; R94.4 Abnormal results of kidney function studies; Z79.1 Long term (current) use of non-steroidal anti-inflammatories (NSAID); Z79.51 Long term (current) use of inhaled steroids; Z79.899 Other long term (current) drug therapy; Z83.42 Family history of familial hypercholesterolemia; Z82.49 Family history of ischemic heart disease and other diseases of the circulatory system
CPT/HCPCS: 36415; 70450; 70496; 70498; 71045; 76705; 80053; 80164; 80185; 81003; 82140; 82607; 82747; 83605; 83735; 84145; 84439; 84443; 84484; 85025; 85610; 85730; 93005; 94640; 96365; 99285; A9270; G0378; J3475; Q9967

== ENCOUNTER 2023-06-17 09:24 | Outpatient (CLI) | payer MEDICARE, MEDICAID, SELFPAY ==
[2023-06-17 10:05] LABS: Ammonia 33 umol/L (9-30)
[2023-06-17 10:26] LABS: Anion Gap 11 mmol/L (8-16); Blood Urea Nitrogen 35 mg/dL (9-20); Carbon Dioxide 28 mmol/L (22-30); Chloride 104 mmol/L (98-107); Estimated Glomerular Filt Rate 45; Glucose 88 mg/dL (65-110); Phenytoin Dilantin 10 ug/mL (10-20); Sodium 143 mmol/L (137-145)
[2023-06-17 10:28] LABS: Valproic Acid 76.2 ug/mL (50-120)
== END 2023-06-17 09:25 | disposition home or self-care (01) ==
LOC: ANHLAB 09:28
PROVIDERS: PCP Internal Medicine; Visit Provider Internal Medicine
DX: Z12.5 Encounter for screening for malignant neoplasm of prostate (principal); G40.909 Epilepsy, unspecified, not intractable, without status epilepticus; I10 Essential (primary) hypertension; E78.5 Hyperlipidemia, unspecified; E03.9 Hypothyroidism, unspecified; E72.20 Disorder of urea cycle metabolism, unspecified; Z79.899 Other long term (current) drug therapy; Z83.3 Family history of diabetes mellitus
CPT/HCPCS: 36415; 80048; 80164; 80185; 82140

== ENCOUNTER 2023-09-10 00:29 | Day surgery (SDC) | payer MEDICARE, SELFPAY ==
[2023-07-22 10:20] VITALS: BMI 29.2
[2023-08-21 12:04] VITALS: BMI 29.2
--- NOTE | 2023-08-26 15:16 | PC.NURSE ---
Previous interview completed. Pt's sister updated on new date/time of re-scheduled procedure.
--- NOTE | 2023-09-09 15:31 | PM.HPGS ---
History of Present Illness History of Present Illness Consent: Risks, benefits, and alternatives have been discussed and questions answered. Patient agrees to proceed with procedure. Chief complaint: History colon polyps Narrative: Memo Tamez is a 78 year old male With multiple chronic medical problems who is here today for colon cancer screening. In 2016 he had 4 polyps removed which were adenomatous. Review of Systems Review of Systems: All systems reviewed & are unremarkable except as noted in HPI and below PMFSH Past Medical History Medical History Benign essential hypertension BMI 29.0-29.9,adult BMI 30.0-30.9,adult BMI 31.0-31.9,adult Carpal tunnel syndrome Colon cancer screening Constipation DJD (degenerative joint disease), multiple sites Edema Elevated homocysteine Elevated serum creatinine Encephalopathy Encounter for routine adult health examination with abnormal findings Encounter for routine adult health examination without abnormal findings Fall Fatigue FHx: type 2 diabetes mellitus GERD (gastroesophageal reflux disease) Hx of colonic polyps Hyperammonemia Hyperlipidemia Hypersomnolence Hypersomnolence Hypothyroidism (acquired) Low back pain On correction drug therapy Prostate cancer screening Restless legs Right ankle pain Right foot pain Seizure disorder Stiff neck Vision changes Vitamin B12 deficiency Family History Family History Father HLD (hyperlipidemia) Chronic obstructive pulmonary disease Father No problems noted. Mother HLD (hyperlipidemia) Multiple myeloma Sibling Hypertension Social History Social History Smoking status: Never smoker Alcohol intake: never Substance use: never Substance use type: does not use Lack of Transportation: No Lack of Food: Never True Current Housing: I Have Housing Concerned About Future Housing: No Difficulty Paying Gas/Electric Bills: No Difficulty Paying for Meds: No Currently Unemployed: No Education: High School Diploma/GED Difficulty w/ Childcare or Family Care: No Living arrangements: alone Additional living arrangements comments: PT LIVES AT HOME ALONE, SISTER IS POA AND CAREGIVER Gender identity (if verbalized by the patient): Male Spiritual care concerns: No Meds Home Medications and Allergies Home Medications Medication Instructions Recorded Confirmed Type folic acid 1 mg tablet 1 mg PO DAILY 04/13/20 09/10/23 History mecobalamin (vitamin B12) 1,000 1,000 mcg sublingual DAILY 04/13/20 08/21/23 History mcg disintegrating tablet,sublingual ascorbic acid (vitamin C) 1,000 mg 1 g PO DAILY 05/28/21 09/10/23 History tablet cholecalciferol (vitamin D3) 25 25 mcg PO DAILY 05/28/21 09/10/23 History mcg (1,000 unit) capsule (Vitamin D3) ibuprofen 600 mg tablet 600 mg PO Q6H PRN Pain Rated 1-3 06/25/21 08/21/23 Rx #20 tabs lorazepam 0.5 mg tablet 0.5 mg PO TID PRN anxiety #12 tabs 06/25/21 08/21/23 Rx fluticasone fur. 100 mcg-umeclid 1 inh inhalation DAILY 03/14/23 09/10/23 History 62.5 mcg-vilant 25 mcg inhalat.powder (Trelegy Ellipta) sucralfate 1 gram tablet See Rx Instructions .Route 06/09/23 08/21/23 Rx .COMPLEX #360 tabs gabapentin 300 mg capsule See Rx Instructions .Route 07/04/23 09/10/23 Rx .COMPLEX #450 caps atorvastatin 20 mg tablet See Rx Instructions .Route 07/15/23 09/10/23 Rx .COMPLEX #90 tabs levothyroxine 200 mcg tablet See Rx Instructions .Route 07/15/23 09/10/23 Rx .COMPLEX #90 tabs primidone 250 mg tablet See Rx Instructions .Route 08/06/23 09/10/23 Rx .COMPLEX #60 tabs losartan 100 1 tablet PO DAILY #90 tabs 09/08/23 09/10/23 Rx mg-hydrochlorothiazide 25 mg tablet divalproex 500 mg tablet,delayed See Rx Instructions .Route 09/09/23 09/10/23 Rx release .CO
[2023-09-10 12:34] VITALS: BP 160/94; PULSE 66; RESP 18; TEMP 36.1; O2SAT 99
--- NOTE | 2023-09-10 12:39 | WPDANESEPPF ---
Anes - Initial Pre Proc Eval Procedure: Operation Date: 09/10/23 13:30 Proposed Procedures p Colonoscopy - Duane Ewing MD Date/Time: 09/10/23 12:39 Surgeon: Duane Ewing MD Pre Op Diagnosis: History colon polyps Patient Data Age: 78 Gender: M Height: 1.83 m Weight: 100 kg Last Vital Signs Temp 36.1 C L 09/10/23 12:34 Pulse 66 09/10/23 12:34 Resp 18 09/10/23 12:34 BP 160/94 H 09/10/23 12:34 Pulse Ox 99 09/10/23 12:34 O2 Del Method Room Air 09/10/23 12:34 Allergies Allergy/AdvReac Type Severity Reaction Status Date / Time No Known Allergies Allergy Unknown Verified 09/10/23 12:29 Home Medications Medication Instructions Recorded Confirmed Type folic acid 1 mg tablet 1 mg PO DAILY 04/13/20 09/10/23 History mecobalamin (vitamin B12) 1,000 1,000 mcg sublingual DAILY 04/13/20 08/21/23 History mcg disintegrating tablet,sublingual ascorbic acid (vitamin C) 1,000 mg 1 g PO DAILY 05/28/21 09/10/23 History tablet cholecalciferol (vitamin D3) 25 25 mcg PO DAILY 05/28/21 09/10/23 History mcg (1,000 unit) capsule (Vitamin D3) ibuprofen 600 mg tablet 600 mg PO Q6H PRN Pain Rated 1-3 06/25/21 08/21/23 Rx #20 tabs lorazepam 0.5 mg tablet 0.5 mg PO TID PRN anxiety #12 tabs 06/25/21 08/21/23 Rx fluticasone fur. 100 mcg-umeclid 1 inh inhalation DAILY 03/14/23 09/10/23 History 62.5 mcg-vilant 25 mcg inhalat.powder (Trelegy Ellipta) sucralfate 1 gram tablet See Rx Instructions .Route 06/09/23 08/21/23 Rx .COMPLEX #360 tabs gabapentin 300 mg capsule See Rx Instructions .Route 07/04/23 09/10/23 Rx .COMPLEX #450 caps atorvastatin 20 mg tablet See Rx Instructions .Route 07/15/23 09/10/23 Rx .COMPLEX #90 tabs levothyroxine 200 mcg tablet See Rx Instructions .Route 07/15/23 09/10/23 Rx .COMPLEX #90 tabs primidone 250 mg tablet See Rx Instructions .Route 08/06/23 09/10/23 Rx .COMPLEX #60 tabs losartan 100 1 tablet PO DAILY #90 tabs 09/08/23 09/10/23 Rx mg-hydrochlorothiazide 25 mg tablet divalproex 500 mg tablet,delayed See Rx Instructions .Route 09/09/23 09/10/23 Rx release .COMPLEX #120 tabs phenytoin sodium extended 100 mg See Rx Instructions .Route 09/09/23 09/10/23 Rx capsule .COMPLEX #150 caps Patient hx anesthesia problems: none Family hx anesthesia problems: none Results Review: All pre-operative results and documents have been reviewed as part of the pre-operative evaluation. [facility] Past Medical History Medical History Benign essential hypertension BMI 29.0-29.9,adult BMI 30.0-30.9,adult BMI 31.0-31.9,adult Carpal tunnel syndrome Colon cancer screening Constipation DJD (degenerative joint disease), multiple sites Edema Elevated homocysteine Elevated serum creatinine Encephalopathy Encounter for routine adult health examination with abnormal findings Encounter for routine adult health examination without abnormal findings Fall Fatigue FHx: type 2 diabetes mellitus GERD (gastroesophageal reflux disease) Hx of colonic polyps Hyperammonemia Hyperlipidemia Hypersomnolence Hypersomnolence Hypothyroidism (acquired) Low back pain On intermediate drug therapy Prostate cancer screening Restless legs Right ankle pain Right foot pain Seizure disorder Stiff neck Vision changes Vitamin B12 deficiency Family History Family History Father HLD (hyperlipidemia) Chronic obstructive pulmonary disease Father No problems noted. Mother HLD (hyperlipidemia) Multiple myeloma Sibling Hypertension Social History Social History Smoking status: Never smoker Alcohol intake: never Substance use: never Substance use type: does not use Lack of Transportation: No Lack of Food: Never True Current Housing: I Have Housing Concerned About Future Housing
[2023-09-10] MEDS: LACTATED RINGERS 1,000 ML 150 ML IV CONT (12:53)
[2023-09-10 13:25] VITALS: BP 108/60; BP 95/45; PULSE 65; PULSE 68; RESP 17; RESP 18; O2SAT 98
[2023-09-10 13:45] VITALS: BP 143/74; PULSE 65; RESP 16; O2SAT 98
== END 2023-09-10 13:54 | disposition home or self-care (01) ==
PROVIDERS: PCP Internal Medicine; Visit Provider Internal Medicine Gastroenterology
PROC: 0DJD8ZZ Inspection of Lower Intestinal Tract, Via Natural or Artificial Opening Endoscopic (ICD-10-PCS; CPT 45378; principal; 2023-09-10 13:30)
DX: Z12.11 Encounter for screening for malignant neoplasm of colon (principal); D12.3 Benign neoplasm of transverse colon; K57.30 Diverticulosis of large intestine without perforation or abscess without bleeding; I10 Essential (primary) hypertension; K21.9 Gastro-esophageal reflux disease without esophagitis; E78.5 Hyperlipidemia, unspecified; E03.9 Hypothyroidism, unspecified; G40.909 Epilepsy, unspecified, not intractable, without status epilepticus; E53.8 Deficiency of other specified B group vitamins; Z79.51 Long term (current) use of inhaled steroids
CPT/HCPCS: 45385; 88305; J2704; J7120

== ENCOUNTER 2023-11-04 08:44 | Outpatient (CLI) | payer MEDICARE, MEDICAID, SELFPAY ==
[2023-11-04 09:53] LABS: Basophils Percent Auto 0.4 % (0.2-1.2); Eosinophils Percent Auto 14.5 % (0-4.4); Hematocrit 42.9 % (42.0-52.0); Hemoglobin 14.5 g/dL (14.0-18.0); Immature Granulocyte Absolute 0.03 K/mm3 (0.00-0.031); Immature Granulocyte Percent A 0.4 % (0-0.5); Lymphocytes Absolute Auto 2.02 K/mm3 (0.9-3.2); Lymphocytes Percent Auto 28.8 % (18.3-44.2); Mean Corpuscular HGB Conc 33.8 g/dl (32-36); Mean Corpuscular Hemoglobin 34.4 pg (26-34); Mean Corpuscular Volume 101.9 fl (80-100); Mean Platelet Volume 11.1 fl (7.4-10.4); Monocytes Absolute Auto 0.6 K/mm3 (0.1-0.6); Neutrophils Absolute Auto 3.3 K/mm3 (1.3-6.7); Neutrophils Percent Auto 46.9 % (45.5-73.1); Platelet Count Result 159 k/mm3 (150-375); Red Blood Count 4.21 M/mm3 (4.6-6.20); Red Cell Distribution Width 13.8 % (11.5-14.5)
[2023-11-04 10:13] LABS: Alanine Aminotransferase 33 U/L (6-50); Albumin Level 4.5 g/dL (3.5-5.1); Alkaline Phosphatase 116 U/L (38-126); Anion Gap 8 mmol/L (4-12); Aspartate Amino Transferase 55 U/L (17-59); Bilirubin,Total 0.3 mg/dL (0.2-1.3); Blood Urea Nitrogen 29 mg/dL (9-20); Calcium 9.3 mg/dL (8.4-10.2); Carbon Dioxide 27 mmol/L (22-30); Chloride 106 mmol/L (98-107); Cholesterol 158 mg/dL (0-200); Estimated Glomerular Filt Rate > 60; Glucose 90 mg/dL (65-110); HDL Direct 67 mg/dL; Sodium 141 mmol/L (137-145); Triglycerides 122 mg/dL (<150)
[2023-11-04 10:24] LABS: LDL Cholesterol Direct 81 mg/dL
[2023-11-04 10:29] LABS: Valproic Acid 66.8 ug/mL (50-120)
[2023-11-04 10:41] LABS: Free T4 Free Thyroxine 0.87 ng/mL (0.78-2.19); Vitamin D 25 Hydroxy 49.2 ng/mL
[2023-11-04 18:19] LABS: Hemoglobin A1C 5.2 % (<5.7)
[2023-11-04 22:12] LABS: Prostate Specific Antigen 3.6 ng/mL (< OR = 4.0)
[2023-11-06 07:14] LABS: Thyroid Peroxidase Antibodies 1 IU/mL (<9)
[2023-11-07 10:27] LABS: Phenytoin Dilantin Free 1.8 mg/L (1.0-2.0)
== END 2023-11-04 08:45 | disposition home or self-care (01) ==
PROVIDERS: PCP Internal Medicine; Visit Provider Internal Medicine
DX: Z12.5 Encounter for screening for malignant neoplasm of prostate (principal); E03.9 Hypothyroidism, unspecified; E78.5 Hyperlipidemia, unspecified; G40.909 Epilepsy, unspecified, not intractable, without status epilepticus; I10 Essential (primary) hypertension; Z79.899 Other long term (current) drug therapy; Z83.3 Family history of diabetes mellitus
CPT/HCPCS: 36415; 80053; 80061; 80164; 80186; 82306; 83036; 84153; 84439; 85025; 86376; G0103

== ENCOUNTER 2023-12-01 11:31 | Inpatient (IN) | payer MEDICARE, MEDICAID, SELFPAY ==
--- NOTE | ~2023-12-01 | CT_ITS ---
EXAMINATION: CT brain wo con DATE: 12/01/2023 12:55 INDICATION: Patient fell 5 days ago. Head injury. TECHNIQUE: Computed tomography (CT) of the head was performed without intravenous contrast. The mA wa s adjusted according to patient size. Iterative reconstruction technique was employed. Exam dose: 68 1.00 mGy-cm total exam DLP. COMPARISON: 04/26/2023 CT brain FINDINGS: Prominent bilateral vertebral artery calcification. There is basilar artery and prominent b ilateral carotid siphon internal carotid artery calcification as well. There is nonspecific diminished attenuation of the cerebral white matter, likely due to chronic small vessel ischemic changes. There is postoperative change from left craniectomy, with underlying left temporal chronic encephalom alacia. There is cerebral and cerebellar atrophy. No intracranial mass lesion or hemorrhage, midline shift or mass effect. No subdural or epidural hematoma is evident. No skull fracture or bone destruction is detected. The paranasal sinuses and mastoid air cells are normally developed and aerated. IMPRESSION: Status post left craniectomy, with probable underlying left temporal encephalomalacia, s table since 04/26/2023 Cerebral atherosclerosis No acute intracranial finding Reviewed, dictated and finalized at [facility]. Reviewed, dictated and finalized at [facility]. IMPRESSION: Status post left craniectomy, with probable underlying left tempor al encephalomalacia, stable since 04/26/2023 Cerebral atherosclerosis No acute intracranial finding
--- NOTE | ~2023-12-01 | XR_ITS ---
XR lumbar spine 2-3V DATE: 12/01/2023 13:09 INDICATION: Fall. Back injury. TECHNIQUE: AP, lateral, cone-down lateral lumbosacral views COMPARISON: None FINDINGS: There is diffuse osteopenia. Mild lumbar levoscoliosis. There is mild loss of height and anterior wedging of L1 and L2 vertebral bodies, likely chronic, poss ibly developmental or due to old compression fractures. There is moderate degenerative disc disease at L1-2, L3-4 and L4-5 and moderately severe degenerative disease at L2-3 and L5-S1 interspaces well preserved. The lumbar pedicles are intact. The sacroiliac joints are intact. IMPRESSION: Multilevel degenerative disc disease Osteopenia Mild loss of height and anterior wedging of L1 and L2, possibly due to old compression fractures or d evelopmental Reviewed, dictated and finalized at [facility]. IMPRESSION: Multilevel degenerative disc disease Osteopenia Mild loss of height and anterior wedging of L1 and L2, possibly due to old comp ression fractures or developmental
[2023-12-01 11:33] VITALS: BP 128/74; PULSE 62; RESP 16; TEMP 36.4; O2SAT 99
[2023-12-01 12:38] LABS: Basophils Percent Auto 0.4 % (0.2-1.2); Eosinophils Absolute Auto 0.4 K/mm3 (0-0.3); Eosinophils Percent Auto 7.7 % (0-4.4); Hematocrit 39.9 % (42.0-52.0); Hemoglobin 13.1 g/dL (14.0-18.0); Immature Granulocyte Absolute 0.01 K/mm3 (0.00-0.031); Immature Granulocyte Percent A 0.2 % (0-0.5); Lymphocytes Absolute Auto 2.07 K/mm3 (0.9-3.2); Mean Corpuscular HGB Conc 32.8 g/dl (32-36); Mean Corpuscular Hemoglobin 33.4 pg (26-34); Mean Corpuscular Volume 101.8 fl (80-100); Mean Platelet Volume 10.5 fl (7.4-10.4); Monocytes Absolute Auto 0.4 K/mm3 (0.1-0.6); Monocytes Percent Auto 7.5 % (2.6-8.5); Neutrophils Absolute Auto 2.4 K/mm3 (1.3-6.7); Neutrophils Percent Auto 45.2 % (45.5-73.1); Platelet Count Result 153 k/mm3 (150-375); Red Blood Count 3.92 M/mm3 (4.6-6.20); Red Cell Distribution Width 13.4 % (11.5-14.5); White Blood Count 5.3 K/mm3 (4.5-10.0)
[2023-12-01 12:48] LABS: Alanine Aminotransferase 20 U/L (6-50); Albumin Level 4.1 g/dL (3.5-5.1); Alkaline Phosphatase 158 U/L (38-126); Anion Gap 10 mmol/L (4-12); Aspartate Amino Transferase 28 U/L (17-59); Bilirubin,Total 0.5 mg/dL (0.2-1.3); Blood Urea Nitrogen 32 mg/dL (9-20); Calcium 8.9 mg/dL (8.4-10.2); Carbon Dioxide 24 mmol/L (22-30); Chloride 107 mmol/L (98-107); Estimated CRCL calculation 68 ml/min; Estimated Glomerular Filt Rate > 60; Glucose 91 mg/dL (65-110); Potassium 3.6 mmol/L (3.4-5.0); Sodium 141 mmol/L (137-145)
[2023-12-01] MEDS: ACETAMINOPHEN 500 MG TABLET 1000 MG PO (13:25)
--- NOTE | 2023-12-01 14:59 | ED.GENADULT ---
HPI - General Adult General Chief complaint: Back Pain/Injury Stated complaint: frequent falls Time Seen by Provider: 12/01/23 12:00 Source: patient and family Mode of arrival: wheelchair Limitations: no limitations History of Present Illness HPI narrative: 78-year-old with a history of craniotomy on the left side at age 19, hypertension was brought in by sister with a complains of frequent falls. Patient states that he tries last fall was 2 days ago now complaining of lower back pain and headache. He denies any loss of consciousness he has states that is unable to manage at home because low back pain. He also states that he spoke to Dr. Jeffries recommended to come to the ER. Onset (ago): day(s) (2) Severity: moderate Quality: aching Pain Consistency: intermittent Relieving factors: none Exacerbating factors: movement Associated symptoms: denies other symptoms Related Data Home Medications Medication Instructions Recorded Confirmed folic acid 1 mg tablet 1 mg PO DAILY 04/13/20 11/04/23 mecobalamin (vitamin B12) 1,000 1,000 mcg sublingual DAILY 04/13/20 11/04/23 mcg disintegrating tablet,sublingual ascorbic acid (vitamin C) 1,000 mg 1 g PO DAILY 05/28/21 11/04/23 tablet cholecalciferol (vitamin D3) 25 25 mcg PO DAILY 05/28/21 11/04/23 mcg (1,000 unit) capsule (Vitamin D3) fluticasone fur. 100 mcg-umeclid 1 inh inhalation DAILY 03/14/23 11/04/23 62.5 mcg-vilant 25 mcg inhalat.powder (Trelegy Ellipta) Allergies Allergy/AdvReac Type Severity Reaction Status Date / Time No Known Allergies Allergy Unknown Verified 11/04/23 07:58 Review of Systems Review of Systems: All systems reviewed & are unremarkable except as noted in HPI and below Constitutional: Constitutional: Reports no additional constitutional complaints Eyes: Eyes: Reports no additional eye complaints ENT: Reports system reviewed and no additional complaints, except as documented Cardiovascular: Cardiovascular: Reports no additional cardiovascular complaints Respiratory: Respiratory: Reports no additional respiratory complaints Gastrointestinal: Gastrointestinal: Reports no additional gastrointestinal complaints Musculoskeletal: Musculoskeletal: Reports as per HPI Neurologic: Reports system reviewed and no additional complaints, except as documented [facility] Past Medical History Medical History Acute confusion Benign essential hypertension BMI 29.0-29.9,adult BMI 30.0-30.9,adult BMI 31.0-31.9,adult Carpal tunnel syndrome Chronic cough Colon cancer screening Constipation DJD (degenerative joint disease), multiple sites Edema Elevated homocysteine Elevated serum creatinine Encephalopathy Encounter for routine adult health examination with abnormal findings Encounter for routine adult health examination without abnormal findings Fall Fatigue FHx: type 2 diabetes mellitus GERD (gastroesophageal reflux disease) Hx of colonic polyps Hyperammonemia Hyperlipidemia Hypersomnolence Hypersomnolence Hypothyroidism (acquired) Low back pain 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 Mother HLD (hyperlipidemia) Multiple myeloma Sibling Hypertension Social History Social History Smoking status: Never smoker Alcohol intake: never Substance use: never Substance use type: does not use Lack of Transportation: No Lack of Food: Never True Current Housing: I Have Housing Concerned About Future Housing: No Difficulty Paying Gas/Electric Bills: No Difficulty Paying for
[2023-12-01 15:20] VITALS: BP 148/99; PULSE 54; RESP 18; O2SAT 100
[2023-12-01] MEDS: IBUPROFEN 600 MG TABLET PO (15:35)
--- NOTE | 2023-12-01 17:33 | ADMGEN ---
This patient, Memo Tamez, was admitted to [facility] Surg Room 305-01. Patient/family oriented to hospital policies and general routines including ID bracelet, bed and alarms, visiting hours, pain management, procedures, bathroom and other care routines, personal items, smoking policy, room service/diet, and visiting hours. Information on how to activate the Rapid Response Team has been discussed. Patient/Family are encouraged to report perceived risks to care and to ask questions if they do not understand what they are told or what they should do.
[2023-12-01 17:34] VITALS: BMI 29.9
--- NOTE | 2023-12-01 18:25 | PCCCNOTE ---
CC was called to the ED regarding placement of pt in a nursing facility/rehab from the ED. Call placed to [facility] for possible placement. [facility] denied due to having no medical reason. Pt lives at home alone and said he is unable to care for himself at this time. His sister was at the bedside, who is also his POA, Tamara Friend. She said there was no one to help him at home and he can't be sent home like he is. I explained to Dr. Peralta that pt was denied at [facility] and he doesn't meet inpatient criteria for the 3 midnight rule. He would need to be observation until placement can be made safely.
[2023-12-01 18:34] VITALS: BP 136/84; PULSE 58; RESP 20; TEMP 36.1; O2SAT 100
[2023-12-01 18:35] VITALS: BMI 30.2
--- NOTE | 2023-12-01 19:29 | PM.IMHP ---
H&P: HPI History of Present Illness Date/Time: 12/01/23 18:45 Chief Complaint: Falls. 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 The patient provides the following history and his sister provides additional information with the patient's permission. The patient lives in his own home and ambulates with a walker. Apparently he has had several falls in the last couple of weeks and with his most recent fall he reports getting tripped up in a rug causing him to fall forward and hit his forehead on the floor. Luckily he has not sustained any significant injuries and he does not think there was any loss of consciousness in these falls. He has complained of mild back pain to his sister and she that it would be best to bring him in for evaluation. At the time my evaluation the patient has no complaints and he is not having any back discomfort. He denies headache, vertigo, visual changes, facial droop, difficulties speaking and swallowing, paresthesias, focal weakness, saddle anesthesia, urinary retention, bowel incontinence, cold and flu symptoms, fever, chills, sweats, chest pain, pleuritic pain, palpitations, shortness of breath, syncope, near syncope, abdominal pain, nausea, vomiting, diarrhea, and dysuria. In the ED: He was afebrile on arrival with stable vital signs. Labs were significant for a WBC count of 5.3, hemoglobin 13.1, MCV 101.8, platelet 153, BUN 32, creatinine 0.90. Head CT showed no acute findings and other stable findings. Lumbar spine x-ray showed multilevel degenerative disc disease, osteopenia, and mild loss of height and anterior wedge of L1 and L2, possibly due to old compression fractures or developmental. He is being admitted in this setting for PT/OT evaluation and probable rehab as sister does not feel comfortable with him going home alone as she is afraid that he will continue to fall. Review of Systems Review of Systems: 12 systems were reviewed and are negative except for as per HPI. [facility] Past Medical History Medical History (Updated 12/01/23 @ 22:25 by Joselyn Kirby PA-C) Anxiety Benign essential hypertension Chronic anemia Chronic cough Colon polyps Constipation Degenerative joint disease Gastroesophageal reflux disease Hyperlipidemia Hypothyroidism Normal cardiac stress test (2022) Restless legs Sandra encephalitis (1963) Seizure disorder Small bowel obstruction (11/2015) Vitamin B12 deficiency Surgical History Surgical History (Updated 12/01/23 @ 22:17 by Joselyn Kirby PA-C) History of arthroscopy of shoulder History of cataract extraction with lens replacement History of colonoscopy with polypectomy History of craniotomy (1963) History of exploratory laparotomy (11/2015) 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 Family History Family History (Updated 12/01/23 @ 22:14 by Joselyn Kirby PA-C) Father HLD (hyperlipidemia) Chronic obstructive pulmonary disease Mother HLD (hyperlipidemia) Multiple myeloma Sibling Hypertension Other Diabetes mellitus Social History Social History (Updated 12/01/23 @ 22:17 by Joselyn Kirby PA-C) Social History: Surrogate medical decision maker: Tamara Friend, sister. Code status: Full code. Smoking status: Never smoker Alcohol intake: never Substance use: never Substance use type: does not use Do You Feel Safe in your Home?: Yes Lack of Transportation: No Lack of Food: Never True Current Housing: I Have Housing Concerned About Future Housing: No Difficulty Paying Gas/Electric Bills: No Difficulty Paying for Meds: No Currently Unemployed: No Education: High School Diploma/GED Difficulty w/ Childcare or Family Care:
[2023-12-01 20:28] VITALS: BP 107/64; PULSE 104; RESP 16; TEMP 36.2; O2SAT 99
[2023-12-01 23:16] LABS: Phenytoin Dilantin 9 ug/mL (10-20)
[2023-12-01] MEDS: DIVALPROEX SODIUM DR 250 MG TABEC 500 MG BY MOUTH (23:19)
[2023-12-01] MEDS: ATORVASTATIN 20 MG TABLET BY MOUTH (23:19)
[2023-12-01] MEDS: SUCRALFATE 1 GM TABLET 2 GM BY MOUTH (23:19)
[2023-12-01] MEDS: PRIMIDONE 250 MG TABLET BY MOUTH (23:19)
[2023-12-01] MEDS: GABAPENTIN 300 MG CAPSULE BY MOUTH (23:19)
[2023-12-01] MEDS: PHENYTOIN SODIUM 100 MG EXTENDED RELEASE CAP 200 MG BY MOUTH (23:20)
[2023-12-01 23:26] LABS: Valproic Acid 51.7 ug/mL (50-120)
[2023-12-02] VITALS (10 sets, daily range): BP systolic 112–152; BP diastolic 73–87; PULSE 52–64; RESP 16–20; TEMP 36–36.7; O2SAT 95–98
[2023-12-02] MEDS: HYDROcodone/acetaminophen (*CRX) 5-325 MG TABLET 1 TAB PO ×3 (05:12→15:03)
[2023-12-02 06:40] LABS: Hematocrit 39.4 % (42.0-52.0); Hemoglobin 12.9 g/dL (14.0-18.0); Mean Corpuscular HGB Conc 32.7 g/dl (32-36); Mean Corpuscular Hemoglobin 33.1 pg (26-34); Mean Platelet Volume 10.9 fl (7.4-10.4); Platelet Count Result 153 k/mm3 (150-375); Red Cell Distribution Width 13.4 % (11.5-14.5); White Blood Count 5.1 K/mm3 (4.5-10.0)
[2023-12-02 06:57] LABS: Anion Gap 5 mmol/L (4-12); Blood Urea Nitrogen 24 mg/dL (9-20); Calcium 8.6 mg/dL (8.4-10.2); Carbon Dioxide 26 mmol/L (22-30); Chloride 106 mmol/L (98-107); Estimated CRCL calculation 74 ml/min; Estimated Glomerular Filt Rate > 60; Glucose 78 mg/dL (65-110); Potassium 3.7 mmol/L (3.4-5.0); Sodium 137 mmol/L (137-145)
[2023-12-02] MEDS: LEVOTHYROXINE SODIUM 100 MCG TABLET 200 MCG BY MOUTH (07:09)
[2023-12-02] MEDS: ASCORBIC ACID 500 MG TABLET 1000 MG PO (08:09)
[2023-12-02] MEDS: hydroCHLOROthiazide 25 MG TABLET PO (08:09)
[2023-12-02] MEDS: SUCRALFATE 1 GM TABLET 2 GM BY MOUTH ×2 (08:09→20:39)
[2023-12-02] MEDS: LOSARTAN POTASSIUM 100 MG TABLET PO (08:10)
[2023-12-02] MEDS: ATORVASTATIN 20 MG TABLET BY MOUTH (08:10)
[2023-12-02] MEDS: CHOLECALCIFEROL 1,000 UNITS TABLET 1000 UNITS PO (08:10)
[2023-12-02] MEDS: PRIMIDONE 250 MG TABLET BY MOUTH ×2 (08:10→20:39)
[2023-12-02] MEDS: CYANOCOBALAMIN 1,000 MCG TABLET 1000 MCG PO (08:10)
[2023-12-02] MEDS: DIVALPROEX SODIUM DR 250 MG TABEC 500 MG BY MOUTH ×4 (08:10→20:39)
[2023-12-02] MEDS: FOLIC ACID 1 MG TABLET PO (08:10)
[2023-12-02] MEDS: GABAPENTIN 300 MG CAPSULE BY MOUTH ×5 (08:10→20:39)
--- NOTE | 2023-12-02 08:10 | PM.IMPN ---
Progress Note: A&P Assessment and Plan (1) Frequent falls: Code(s): R29.6 - Repeated falls Status: Acute Assessment and Plan: Patient lives home alone and has had several falls in the past few weeks. He states that his legs will just give out from under him. He denies hitting his head on the most recent fall, but states he did recently which caused the abrasions above his left brow. - Lumbar spine XR: Multilevel degenerative disc disease, Osteopenia, Mild loss of height and anterior wedging of L1 and L2, possibly due to old compression fractures or developmental - Head CT: Status post left craniectomy, with probable underlying left temporal encephalomalacia, stable since 04/26/2023, Cerebral atherosclerosis, No acute intracranial finding - Orthostatics normal - PT/OT recommending skilled PT/OT, continues to follow - Care coordination following for possible placement (2) Chronic anemia: Code(s): D64.9 - Anemia, unspecified Status: Acute Assessment and Plan: H/H appears to be at baseline. No signs of active bleeding. Continue home medications. - B12 1000 mcg daily - Folic acid 1 mg daily - Monitor with daily labs (3) Benign essential hypertension: Code(s): I10 - Essential (primary) hypertension Status: Acute Assessment and Plan: Chronic. Stable on home medications. - losartan/HCTZ daily (4) Hypothyroidism: Code(s): E03.9 - Hypothyroidism, unspecified Status: Acute Assessment and Plan: Continue home medications. - Levothyroxine 200 mcg daily - TSH 3.880 (5) Seizure disorder: Code(s): G40.909 - Epilepsy, unspecified, not intractable, without status epilepticus Status: Acute Assessment and Plan: Stable on home medications. 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 Patient is lying comfortably in bed with sister/POA at bedside. He states that he has been falling much more often, noting that it feels as though his lower legs give out on him. He denies hitting his head on the most recent fall, however he did hit his head in the past causing abrasions above his left brow. After his falls he is able to assist him self up with difficulties. He denies any pain, shortness of breath, nausea/vomiting, and changes in bowel/bladder. Patient and sister are wanting SNF placement. Care coordination following and PT/OT continue to work with him. Review of Systems Review of Systems: All systems reviewed & are unremarkable except as noted in HPI and below Exam Narrative: AF HR 55 RR 18 SpO2 96 BP 137/87 General: well nourished, well-developed male in no acute respiratory distress who is nontoxic appearing, lying semi recumbent in bed. HEENT: Normocephalic. Abrasion above left brow without tenderness. Craniotomy. Pupils equal round reactive to light. Extraocular movement intact. Sclera clear and anicteric. No facial asymmetry. Chest: Lungs are clear to auscultation bilaterally. No wheezes or crackles. CV: Heart was regular rate and rhythm. S1/S2. No murmurs, gallops, or rubs. Abd: Abdomen was soft. Nontender. Nondistended. Positive bowel sounds. No organomegaly or masses. Ext: No clubbing, cyanosis, or edema. 2+ DP pulses bilaterally. Neuro: Patient is alert and oriented x2 (person, place, thought year was 1973). Strength is 5/5 in both upper and lower extremities. Cranial nerves 2-12 are intact. Speech is clear but slow. Psych: Normal mood and affect. Patient is pleasant and cooperative. Skin: Warm and dry. No rashes n
[2023-12-02 08:48] LABS: Phenytoin Dilantin 11 ug/mL (10-20)
[2023-12-02 08:51] LABS: Valproic Acid 59.4 ug/mL (50-120)
[2023-12-02] MEDS: PHENYTOIN SODIUM 100 MG EXTENDED RELEASE CAP 300 MG BY MOUTH (09:17)
[2023-12-02] MEDS: FLUTICASONE/UMECLIDIN/VILANTER 100-62.5-25 MCG ELLIPTA 1 PUFF INHALATION (10:22)
[2023-12-02] MEDS: PHENYTOIN SODIUM 100 MG EXTENDED RELEASE CAP 200 MG BY MOUTH (20:39)
[2023-12-03] VITALS (7 sets, daily range): BP systolic 106–147; BP diastolic 67–84; PULSE 58–73; RESP 12–20; TEMP 36.1–37.1; O2SAT 96–98
[2023-12-03 06:05] LABS: Basophils Percent Auto 0.5 % (0.2-1.2); Eosinophils Absolute Auto 0.5 K/mm3 (0-0.3); Hemoglobin 13.3 g/dL (14.0-18.0); Immature Granulocyte Absolute 0.02 K/mm3 (0.00-0.031); Immature Granulocyte Percent A 0.3 % (0-0.5); Lymphocytes Absolute Auto 2.29 K/mm3 (0.9-3.2); Lymphocytes Percent Auto 38.2 % (18.3-44.2); Mean Corpuscular HGB Conc 33.3 g/dl (32-36); Mean Corpuscular Hemoglobin 33.5 pg (26-34); Mean Corpuscular Volume 100.8 fl (80-100); Mean Platelet Volume 10.9 fl (7.4-10.4); Monocytes Absolute Auto 0.6 K/mm3 (0.1-0.6); Monocytes Percent Auto 10.7 % (2.6-8.5); Neutrophils Absolute Auto 2.5 K/mm3 (1.3-6.7); Neutrophils Percent Auto 42.3 % (45.5-73.1); Platelet Count Result 156 k/mm3 (150-375); Red Blood Count 3.97 M/mm3 (4.6-6.20); Red Cell Distribution Width 13.3 % (11.5-14.5)
[2023-12-03 06:13] LABS: Alanine Aminotransferase 20 U/L (6-50); Albumin Level 3.7 g/dL (3.5-5.1); Alkaline Phosphatase 150 U/L (38-126); Anion Gap 5 mmol/L (4-12); Aspartate Amino Transferase 27 U/L (17-59); Bilirubin,Total 0.4 mg/dL (0.2-1.3); Blood Urea Nitrogen 25 mg/dL (9-20); Calcium 8.7 mg/dL (8.4-10.2); Carbon Dioxide 26 mmol/L (22-30); Chloride 107 mmol/L (98-107); Estimated CRCL calculation 66 ml/min; Estimated Glomerular Filt Rate > 60; Glucose 82 mg/dL (65-110); Potassium 4.1 mmol/L (3.4-5.0); Sodium 138 mmol/L (137-145)
[2023-12-03] MEDS: LEVOTHYROXINE SODIUM 100 MCG TABLET 200 MCG BY MOUTH (06:16)
[2023-12-03] MEDS: FLUTICASONE/UMECLIDIN/VILANTER 100-62.5-25 MCG ELLIPTA 1 PUFF INHALATION (08:28)
[2023-12-03] MEDS: LOSARTAN POTASSIUM 100 MG TABLET PO (09:27)
[2023-12-03] MEDS: GABAPENTIN 300 MG CAPSULE BY MOUTH ×4 (09:27→21:29)
[2023-12-03] MEDS: CYANOCOBALAMIN 1,000 MCG TABLET 1000 MCG PO (09:28)
[2023-12-03] MEDS: PHENYTOIN SODIUM 100 MG EXTENDED RELEASE CAP 300 MG BY MOUTH (09:28)
[2023-12-03] MEDS: FOLIC ACID 1 MG TABLET PO (09:28)
[2023-12-03] MEDS: DIVALPROEX SODIUM DR 250 MG TABEC 500 MG BY MOUTH ×4 (09:28→21:35)
[2023-12-03] MEDS: ASCORBIC ACID 500 MG TABLET 1000 MG PO (09:28)
[2023-12-03] MEDS: PRIMIDONE 250 MG TABLET BY MOUTH ×2 (09:28→21:29)
[2023-12-03] MEDS: CHOLECALCIFEROL 1,000 UNITS TABLET 1000 UNITS PO (09:28)
[2023-12-03] MEDS: hydroCHLOROthiazide 25 MG TABLET PO (09:28)
[2023-12-03] MEDS: SUCRALFATE 1 GM TABLET 2 GM BY MOUTH ×2 (09:28→21:29)
[2023-12-03] MEDS: ATORVASTATIN 20 MG TABLET BY MOUTH (09:28)
--- NOTE | 2023-12-03 12:33 | PM.IMPN ---
Progress Note: A&P Assessment and Plan (1) Frequent falls: Code(s): R29.6 - Repeated falls Status: Acute Assessment and Plan: Patient lives home alone and has had several falls in the past few weeks. He states that his legs will just give out from under him. He denies hitting his head on the most recent fall, but states he did recently which caused the abrasions above his left brow. 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 - Orthostatics normal - PT/OT recommending skilled PT/OT, continues to follow - Care coordination following for possible placement (2) Chronic anemia: Code(s): D64.9 - Anemia, unspecified Status: Acute Assessment and Plan: H/H appears to be at baseline. No signs of active bleeding. Continue home medications. - B12 1000 mcg daily - Folic acid 1 mg daily - Monitor with daily labs (3) Benign essential hypertension: Code(s): I10 - Essential (primary) hypertension Status: Acute Assessment and Plan: Chronic. Stable on home medications. - losartan/HCTZ daily (4) Hypothyroidism: Code(s): E03.9 - Hypothyroidism, unspecified Status: Acute Assessment and Plan: Continue home medications. - Levothyroxine 200 mcg daily - TSH 3.880 (5) Seizure disorder: Code(s): G40.909 - Epilepsy, unspecified, not intractable, without status epilepticus Status: Acute Assessment and Plan: Stable on home medications. - Phenytoin 100 mg daily - Divalproex 500 mg daily - Both levels WNL Subjective Date/time seen: 12/03/23 12:33 Interval history: Patient doing well today. He is working with PT and OT. He states that he does have some decreased sensation in the bottoms of the feet that has been present for years. Sounds like patient likely has some neuropathy going on causing some overall weakness. Plan for SNF placement. Can discharge once discharge plans are range. Exam Narrative: GENERAL: Comfortable, no acute distress HENMT: moist mucous membranes EYES: EOM intact b/l RESPIRATORY: clear to auscultation, no increased respiratory effort CARDIO: Regular rate and rhythm GI: soft, nontender, bowel sounds present SKIN/EXTREMITIES: no rashes, no edema, no redness or tenderness NEURO: PROM intact, answers questions appropriately, A&O x4 , decreased sensation in bilateral bottoms of the feet Objective Data Vital Signs Vital Signs: Vital Signs - 24 hr 12/02/23 14:00 12/02/23 21:31 12/02/23 20:00 Temperature 97.7 F 98.0 F Pulse Rate 64 60 Respiratory Rate 18 20 Blood Pressure 121/82 112/73 Pulse Oximetry 97 98 Oxygen Delivery Room Air 12/02/23 20:00 12/03/23 05:44 12/02/23 20:05 Temperature 98.0 F Pulse Rate 60 Respiratory Rate 18 Blood Pressure 125/74 125/74 116/86 Pulse Oximetry 96 Oxygen Delivery 12/02/23 20:10 12/03/23 08:29 12/03/23 08:29 Temperature Pulse Rate 60 Respiratory Rate 20 Blood Pressure 126/80 Pulse Oximetry 96 Oxygen Delivery Room Air 12/03/23 08:00 12/03/23 08:00 12/03/23 08:00 Temperature Pulse Rate 60 58 L 73 Respiratory Rate Blood Pressure 146/84 H 147/82 H 133/79 Pulse Oximetry Oxygen Delivery 12/03/23 08:00 Temperature Pulse Rate Respiratory Rate Blood Pressure Pulse Oximetry Oxygen Delivery Room Air Intake/Output Intake/Output: Intake & Output 11/30/23 12/01/23 12/02/23 12/03/23 23:59 23:59 23:59 23:59 Intake Total 598 530 Output Total 1540 Balance 598 -4414
[2023-12-03] MEDS: PHENYTOIN SODIUM 100 MG EXTENDED RELEASE CAP 200 MG BY MOUTH (21:29)
[2023-12-04 05:57] VITALS: BP 141/90; PULSE 60; RESP 12; TEMP 36.3; O2SAT 97
[2023-12-04 06:26] LABS: Alanine Aminotransferase 19 U/L (6-50); Alkaline Phosphatase 163 U/L (38-126); Anion Gap 10 mmol/L (4-12); Aspartate Amino Transferase 29 U/L (17-59); Bilirubin,Total 0.5 mg/dL (0.2-1.3); Blood Urea Nitrogen 25 mg/dL (9-20); Calcium 8.9 mg/dL (8.4-10.2); Carbon Dioxide 21 mmol/L (22-30); Chloride 106 mmol/L (98-107); Estimated CRCL calculation 66 ml/min; Estimated Glomerular Filt Rate > 60; Glucose 82 mg/dL (65-110); Potassium 4.2 mmol/L (3.4-5.0); Sodium 137 mmol/L (137-145)
[2023-12-04] MEDS: LEVOTHYROXINE SODIUM 100 MCG TABLET 200 MCG BY MOUTH (06:51)
[2023-12-04 07:25] VITALS: PULSE 60; RESP 18; O2SAT 95
[2023-12-04] MEDS: FLUTICASONE/UMECLIDIN/VILANTER 100-62.5-25 MCG ELLIPTA 1 PUFF INHALATION (07:25)
[2023-12-04 07:39] LABS: Basophils Percent Auto 0.4 % (0.2-1.2); Eosinophils Absolute Auto 0.6 K/mm3 (0-0.3); Eosinophils Percent Auto 8.1 % (0-4.4); Hematocrit 44.1 % (42.0-52.0); Hemoglobin 14.7 g/dL (14.0-18.0); Immature Granulocyte Absolute 0.01 K/mm3 (0.00-0.031); Immature Granulocyte Percent A 0.1 % (0-0.5); Lymphocytes Percent Auto 35.3 % (18.3-44.2); Mean Corpuscular HGB Conc 33.3 g/dl (32-36); Mean Corpuscular Hemoglobin 34.3 pg (26-34); Mean Corpuscular Volume 102.8 fl (80-100); Mean Platelet Volume 11.1 fl (7.4-10.4); Monocytes Absolute Auto 0.6 K/mm3 (0.1-0.6); Monocytes Percent Auto 9.4 % (2.6-8.5); Neutrophils Absolute Auto 3.2 K/mm3 (1.3-6.7); Neutrophils Percent Auto 46.7 % (45.5-73.1); Platelet Count Result 152 k/mm3 (150-375); Red Blood Count 4.29 M/mm3 (4.6-6.20); Red Cell Distribution Width 13.4 % (11.5-14.5); White Blood Count 6.8 K/mm3 (4.5-10.0)
[2023-12-04] MEDS: SUCRALFATE 1 GM TABLET 2 GM BY MOUTH (08:46)
[2023-12-04] MEDS: CYANOCOBALAMIN 1,000 MCG TABLET 1000 MCG PO (08:47)
[2023-12-04] MEDS: ATORVASTATIN 20 MG TABLET BY MOUTH (08:47)
[2023-12-04] MEDS: ASCORBIC ACID 500 MG TABLET 1000 MG PO (08:47)
[2023-12-04] MEDS: LOSARTAN POTASSIUM 100 MG TABLET PO (08:47)
[2023-12-04] MEDS: PRIMIDONE 250 MG TABLET BY MOUTH (08:47)
[2023-12-04] MEDS: CHOLECALCIFEROL 1,000 UNITS TABLET 1000 UNITS PO (08:47)
[2023-12-04] MEDS: GABAPENTIN 300 MG CAPSULE BY MOUTH ×2 (08:47→12:27)
[2023-12-04] MEDS: FOLIC ACID 1 MG TABLET PO (08:47)
[2023-12-04] MEDS: hydroCHLOROthiazide 25 MG TABLET PO (08:47)
[2023-12-04] MEDS: DIVALPROEX SODIUM DR 250 MG TABEC 500 MG BY MOUTH ×2 (08:56→12:26)
[2023-12-04] MEDS: PHENYTOIN SODIUM 100 MG EXTENDED RELEASE CAP 300 MG BY MOUTH (08:57)
--- NOTE | 2023-12-04 13:47 | PM.DS ---
DS: Admitting Diagnosis Discharge Date 12/04/23 Admitting Diagnosis progressive weakness DS: Discharge Diagnosis Discharge Diagnosis (1) Frequent falls: Code(s): R29.6 - Repeated falls Status: Acute (2) Chronic anemia: Code(s): D64.9 - Anemia, unspecified Status: Acute (3) Benign essential hypertension: Code(s): I10 - Essential (primary) hypertension Status: Acute (4) Hypothyroidism: Code(s): E03.9 - Hypothyroidism, unspecified Status: Acute (5) Seizure disorder: Code(s): G40.909 - Epilepsy, unspecified, not intractable, without status epilepticus Status: Acute DS: Summary Hospital Course Hospital Course: This is a very pleasant 78-year-old male with 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 The patient lives in his own home and ambulates with a walker. Apparently he has had several falls in the last couple of weeks and with his most recent fall he reports getting tripped up in a rug causing him to fall forward and hit his forehead on the floor. Luckily he has not sustained any significant injuries and he does not think there was any loss of consciousness in these falls. In the ED He was afebrile on arrival with stable vital signs. Labs were significant for a WBC count of 5.3, hemoglobin 13.1, MCV 101.8, platelet 153, BUN 32, creatinine 0.90. Head CT showed no acute findings and other stable findings.? Lumbar spine x-ray showed multilevel degenerative disc disease, osteopenia, and mild loss of height and anterior wedge of L1 and L2, possibly due to old compression fractures or developmental. PT and OT evaluation and possible placement. Patient worked with PT and OT and they recommended acute rehab. Patient was accepted. Time Spent with Patient Time attestation: Total time spent providing and/or coordinating discharge services: Exam Narrative: GENERAL: Comfortable, no acute distress HENMT: moist mucous membranes EYES: EOM intact b/l RESPIRATORY: clear to auscultation, no increased respiratory effort CARDIO: Regular rate and rhythm GI: soft, nontender, bowel sounds present SKIN/EXTREMITIES: no rashes, no edema, no redness or tenderness NEURO: PROM intact, answers questions appropriately, A&O x4 , decreased sensation in bilateral bottoms of the feet DS: Data Data Completed and Pending Labs on day of discharge: Labs from last 24 hours 12/04/23 12/04/23 07:33 05:25 WBC 6.8 RBC 4.29 L Hgb 14.7 Hct 44.1 MCV 102.8 H MCH 34.3 H MCHC 33.3 RDW 13.4 Plt Count 152 MPV 11.1 H Immature Gran % (Auto) 0.1 Neut % (Auto) 46.7 Lymph % (Auto) 35.3 [place] % (Auto) 9.4 H Eos % (Auto) 8.1 H Baso % (Auto) 0.4 Lymph # (Auto) 2.40 [place] # (Auto) 0.6 Eos # (Auto) 0.6 H Baso # (Auto) 0.0 Abs Immat Gran (auto) 0.01 Absolute Neuts (auto) 3.2 Absolute Nucleated RBC 0.000 Nucleated RBC % 0.0 Sodium 137 Potassium 4.2 Chloride 106 Carbon Dioxide 21 L Anion Gap 10 BUN 25 H Creatinine 0.90 Estim Creat Clear Calc 66 Estimated GFR > 60 Glucose 82 Calcium 8.9 Total Bilirubin 0.5 AST 29 ALT 19 Alkaline Phosphatase 163 H Total Protein 7.0 Albumin 4.0 Discharge Plan Discharge Discharging Clinician: Renetta Raymond Patient Disposition: Home, Self-Care Activity: no preference Diet: regular Discharge Instructions: Discharge disposition: Take medications as prescribed Monitor blood pressures Avoid social areas, you wear a mask when in social settings Encouraged to continue with yearly vaccinations Return to the emergency department if he developed sudden shortness of breath, chest pain, nausea, vomiting, upset stomach or intractable diarrhea Return to the emergency department if you develop
[2023-12-04 14:00] VITALS: BP 100/68; PULSE 72; RESP 18; TEMP 36.1; O2SAT 98
== END 2023-12-04 15:45 | DRG 93 ==
LOC: ANHED 15:08 → ANH3MEDSUR 18:39
PROVIDERS: Physician Assistant; Student in an Organized Health Care Education/Training Program; Admitting Provider Internal Medicine; Emergency Provider Family Medicine; PCP Internal Medicine; Visit Provider Internal Medicine
DX: R26.89 Other abnormalities of gait and mobility (principal); R29.6 Repeated falls; D64.9 Anemia, unspecified; I10 Essential (primary) hypertension; E03.9 Hypothyroidism, unspecified; G40.909 Epilepsy, unspecified, not intractable, without status epilepticus; M51.36 Other intervertebral disc degeneration, lumbar region
CPT/HCPCS: 36415; 70450; 72100; 80048; 80053; 80164; 80185; 83735; 84443; 85025; 85027; 94640; 97110; 97116; 97161; 97165; 97530; 97535; 99285; A9270; G0378

== ENCOUNTER 2024-03-29 08:59 | Outpatient (CLI) | payer MEDICARE, MEDICAID, SELFPAY ==
[2024-03-29 10:09] LABS: Alanine Aminotransferase 28 U/L (6-50); Albumin Level 4.1 g/dL (3.5-5.1); Alkaline Phosphatase 98 U/L (38-126); Anion Gap 6 mmol/L (4-12); Aspartate Amino Transferase 32 U/L (17-59); Bilirubin,Total 0.3 mg/dL (0.2-1.3); Blood Urea Nitrogen 29 mg/dL (9-20); Calcium 9.2 mg/dL (8.4-10.2); Carbon Dioxide 25 mmol/L (22-30); Chloride 106 mmol/L (98-107); Cholesterol 159 mg/dL (0-200); Estimated Glomerular Filt Rate > 60; Glucose 85 mg/dL (65-110); HDL Direct 66 mg/dL; Sodium 137 mmol/L (137-145); Triglycerides 83 mg/dL (<150)
[2024-03-29 10:20] LABS: LDL Cholesterol Direct 65 mg/dL
[2024-03-29 10:22] LABS: Valproic Acid 76.2 ug/mL (50-120)
[2024-03-29 10:34] LABS: Vitamin D 25 Hydroxy 50.1 ng/mL
[2024-03-29 10:48] LABS: Hemoglobin A1C 5.4 % (<5.7)
[2024-03-29 11:12] LABS: Folic Acid 18.2 ng/mL (2.76->20)
[2024-04-01 21:58] LABS: Phenytoin Dilantin Free 1.3 mg/L (1.0-2.0)
== END 2024-03-29 09:00 | disposition home or self-care (01) ==
LOC: ANHLAB 09:05
PROVIDERS: PCP Internal Medicine; Visit Provider Internal Medicine
DX: E03.9 Hypothyroidism, unspecified (principal); E78.5 Hyperlipidemia, unspecified; G40.909 Epilepsy, unspecified, not intractable, without status epilepticus; I10 Essential (primary) hypertension; R53.83 Other fatigue; R79.89 Other specified abnormal findings of blood chemistry; Z00.00 Encounter for general adult medical examination without abnormal findings; Z83.3 Family history of diabetes mellitus; Z79.899 Other long term (current) drug therapy; Z13.1 Encounter for screening for diabetes mellitus; E53.8 Deficiency of other specified B group vitamins; E78.2 Mixed hyperlipidemia
CPT/HCPCS: 36415; 80053; 80061; 80164; 80186; 82306; 82607; 82746; 83036; 84439

== ENCOUNTER 2024-05-06 02:52 | Inpatient (IN) | payer MEDICARE, MEDICAID, SELFPAY ==
[2024-05-06] VITALS (22 sets, daily range): BP systolic 107–142; BP diastolic 64–98; PULSE 50–71; RESP 8–18; TEMP 36–36.2; O2SAT 92–100
--- NOTE | ~2024-05-06 | CT_ITS ---
EXAMINATION: CT brain wo con DATE: 05/06/2024 05:12 INDICATION: Head injury. TECHNIQUE: Computed tomography (CT) of the head was performed without intravenous contrast. The mA wa s adjusted according to patient size. Iterative reconstruction technique was employed. The dose-lengt h product was 756.67 mGy-cm. COMPARISON: Head CT 12/01/2023 FINDINGS: There is chronic encephalomalacia in left temporal lobe and left frontoparietal region. The re are scattered areas of low attenuation in the cerebral white matter, which is within normal limits for the patient's age. There is no intracranial hemorrhage, acute infarction, or abnormal intracrani al mass lesion. There is ex vacuo dilatation of left lateral ventricle. There is mild mucosal thicken ing in the paranasal sinuses. There are likely changes of ocular lens replacement surgeries. The mast oid air cells are normal. There are changes of left-sided craniotomy. IMPRESSION: 1. 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 Reviewed, dictated and finalized at location A. IMPRESSION: 1. Chronic encephalomalacia in left temporal lobe and left frontoparietal regio n.
--- NOTE | ~2024-05-06 | XR_ITS ---
EXAMINATION: XR chest 1V portable DATE: 05/06/2024 04:09 INDICATION: Weakness. TECHNIQUE: A single frontal view of the chest was obtained. COMPARISON: Chest single view 04/26/2023 FINDINGS: There are airspace opacities at the lung bases, likely atelectasis. No pleural effusion or pneumothorax. The heart size is normal. There are suture anchors in left glenoid. IMPRESSION: 1. Airspace opacities at the lung bases, likely atelectasis. Reviewed, dictated and finalized at location A.
--- NOTE | 2024-05-06 04:53 | PC.NURSE ---
Addendum entered by Liya Peters RN 05/06/24 04:59: Pt states he did not fall today but has had an increased number of falls in the last week Original Note: Pt and pts sister came to ED tonight stating that for the last 2 weeks pt has been more unsteady on his feet than usual. Pts sister states the pts pcp was notified and pt was supposed to start coming to the pts house again next week, but the pt was so unsteady tonight that they brought him to the ED. Pt states he does not feel dizzy when he walks but says it is like I don't have control of my lower legs when I stand up and walk . Pt states he normally uses a walker or a cane at home, but this evening he was so unsteady he had to use a wheelchair
[2024-05-06 05:04] LABS: Basophils Percent Auto 0.3 % (0.2-1.2); Eosinophils Absolute Auto 0.6 K/mm3 (0-0.3); Eosinophils Percent Auto 9.1 % (0-4.4); Hematocrit 41.7 % (42.0-52.0); Hemoglobin 13.9 g/dL (14.0-18.0); Immature Granulocyte Absolute 0.02 K/mm3 (0.00-0.031); Immature Granulocyte Percent A 0.3 % (0-0.5); Lymphocytes Absolute Auto 2.39 K/mm3 (0.9-3.2); Lymphocytes Percent Auto 35.6 % (18.3-44.2); Mean Corpuscular HGB Conc 33.3 g/dl (32-36); Mean Corpuscular Hemoglobin 33.5 pg (26-34); Mean Corpuscular Volume 100.5 fl (80-100); Monocytes Absolute Auto 0.7 K/mm3 (0.1-0.6); Monocytes Percent Auto 10.6 % (2.6-8.5); Neutrophils Percent Auto 44.1 % (45.5-73.1); Platelet Count Result 174 k/mm3 (150-375); Red Blood Count 4.15 M/mm3 (4.6-6.20); White Blood Count 6.7 K/mm3 (4.5-10.0)
[2024-05-06 05:13] LABS: Magnesium 2.2 mg/dL (1.6-2.3)
[2024-05-06 05:22] LABS: Alanine Aminotransferase 29 U/L (6-50); Albumin Level 4.2 g/dL (3.5-5.1); Alkaline Phosphatase 102 U/L (38-126); Anion Gap 8 mmol/L (4-12); Aspartate Amino Transferase 32 U/L (17-59); Bilirubin,Total 0.2 mg/dL (0.2-1.3); Blood Urea Nitrogen 31 mg/dL (9-20); Calcium 9.4 mg/dL (8.4-10.2); Carbon Dioxide 29 mmol/L (22-30); Chloride 103 mmol/L (98-107); Estimated CRCL calculation 61 ml/min; Estimated Glomerular Filt Rate > 60; Glucose 89 mg/dL (65-110); Potassium 4.5 mmol/L (3.4-5.0); Sodium 140 mmol/L (137-145)
[2024-05-06] MEDS: SODIUM CHLORIDE 0.9% IV 1,000 ML 999 ML IV CONT (05:22)
[2024-05-06 05:31] LABS: Add Urine Microscopic? NO; Appearance Urine Clear (Clear); Bilirubin Urine Negative (Negative); Blood Urine Negative (Negative); Color Urine Yellow (Yellow); Glucose Urine UA Negative (Negative); Ketones Urine Trace mg/dL (Negative); Leukocyte Esterase Ur Negative LEU/UL (Negative); Nitrate Urine Negative (Negative); Protein Urine Negative (Negative); Specific Grav Ur 1.028 (1.001-1.035); Urobilinogen Urine 0.2 mg/dL (<2.0); pH Urine 5.5 (5.0-9.0)
--- NOTE | 2024-05-06 05:36 | ED.EXTPRO ---
HPI - Extremity Problem General Chief complaint: Extremity Problem,Nontraumatic Stated complaint: These legs don't work right Time Seen by Provider: 05/06/24 03:33 History of Present Illness HPI Narrative: Patient is a 79-year-old male who presents to the emergency department this morning due to generalized weakness. Patient's sister is with him at bedside and she states that earlier today he called her as he got so frustrated that he kept on falling as a his legs feel very weak. Sister states that patient was seen at our facility approximately around the same time last year for similar symptoms and at that time he was admitted for PT OT and then discharged into a rehab facility which patient greatly benefited from. Patient then continued doing physical therapy up until 3 weeks ago when physical therapy stopped as he was informed that he is doing really well. Sister states that throughout the past 3 weeks he has been gradually getting more weaker and patient has falling more frequently. Patient states he has fallen 4 times in the past 1-2 days. Patient is currently denying any symptoms and denies any pain anywhere his only complaint is that he feels generally weak and he keeps falling. Related Data Home Medications Medication Instructions Recorded Confirmed folic acid 1 mg tablet 1 mg PO DAILY 04/13/20 03/29/24 mecobalamin (vitamin B12) 1,000 1,000 mcg sublingual DAILY 04/13/20 03/29/24 mcg disintegrating tablet,sublingual ascorbic acid (vitamin C) 1,000 mg 1 g PO DAILY 05/28/21 03/29/24 tablet cholecalciferol (vitamin D3) 25 25 mcg PO DAILY 05/28/21 03/29/24 mcg (1,000 unit) capsule (Vitamin D3) Allergies Allergy/AdvReac Type Severity Reaction Status Date / Time No Known Allergies Allergy Unknown Verified 03/29/24 10:49 Review of Systems Review of Systems: All systems are reviewed and are negative unless stated otherwise in the HPI. [facility] Past Medical History Medical History Anxiety Benign essential hypertension Chronic anemia Chronic cough Colon polyps Constipation Degenerative joint disease Gastroesophageal reflux disease Hyperlipidemia Hypothyroidism Normal cardiac stress test (2022) Restless legs Sandra encephalitis (1963) Seizure disorder Small bowel obstruction (11/2015) Vitamin B12 deficiency Surgical History Surgical History History of arthroscopy of shoulder History of cataract extraction with lens replacement History of colonoscopy with polypectomy History of craniotomy (1963) History of exploratory laparotomy (11/2015) 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 Family History Family History Father HLD (hyperlipidemia) Chronic obstructive pulmonary disease Mother HLD (hyperlipidemia) Multiple myeloma Sibling Hypertension Other Diabetes mellitus Social History Social History Social History: Surrogate medical decision maker: Tamara Friend, sister. Code status: Full code. Smoking status: Never smoker Alcohol intake: never Substance use: never Substance use type: does not use Do You Feel Safe in your Home?: Yes Lack of Transportation: No Lack of Food: Never True Current Housing: I Have Housing Concerned About Future Housing: No Difficulty Paying Gas/Electric Bills: No Difficulty Paying for Meds: No Currently Unemployed: No Education: High School Diploma/GED Difficulty w/ Childcare or Family Care: No Living arrangements: alone Additional living arrangements comments: Patient lives alone. Sister Tamara Renteria is his [id number] and caregiver. Spiritual care concerns: No Exam Narrative: General: Alert, awake, afebrile, in no acute distress. HEENT: PERRL, no rhinorrhea, no post nasal drip, oropharynx clear. Cardiovascular: Regular rate and rhythm, no murmurs, rubs or gallops, no peripheral edema. Respiratory: Clear to auscultation bilaterally, no tachypnea, no wheezing, no rhonchi, no rubs, no respiratory distress. Abdomen: Soft, nontender, nondistended, no rebound, no guarding, no peritoneal signs. Musculoskeletal: No joint swelling or deformity, normal muscle tone, intact bilateral hip flexions any extensions. Skin: No rashes or petechia, no signs of infection. Neurological: Alert and oriented to person, place, and time. Follows all commands. No focal deficits, speech is clear and fluent. Course Vital Signs Vital signs: Vital Signs Temperature 97.2 F L 05/06/24 03:01 Pulse Rate 67 05/06/24 03:01 Respiratory Rate 14 05/06/24 03:01 Blood Pressure 126/73 05/06/24 03:01 Pulse Oximetry 100 05/06/24 03:01 Temperature 97.2 F L 05/06/24 03:01 Pulse Rate 57 L 05/06/24 04:31 Respiratory Rate 18 05/06/24 04:51 Blood Pressure 116/81 05/06/24 04:31 Pulse Oximetry 94 05/06/24 04:51 MDM - Extremity (Nontraumatic) MDM Narrative Medical decision making narrative: The patient was evaluated by myself in the emergency department. History is obtained from patient who is an independent historian and physical exam was performed. External medical records were reviewed at this time. IV was established and pertinent tests were ordered. Patient was administered 1 L IV fluid bolus with normal saline. Laboratory results obtained revealing no acute process. Urinalysis unremarkable. Imaging studies obtained included CT brain without IV contrast which was independently interpreted by me revealing no acute process, chronic encephalomalacia in left temporal lobe and left frontoparietal region, which is pending final radiology interpretation. CXR was also obtained and independently interpreted by me revealing no acute process, chest x-ray is currently pending official radiology read. Patient and his sister were updated regarding blood work and imaging results. Differential diagnosis considerations include dehydration, electrolyte derangements, infection such as UTI/pneumonia. Comorbidities impacting this visit include none. I have evaluated and discussed social determinants of health with the patient that could potentially impact subsequent diagnosis and treatment plans. On repeat assessment of the patient, reevaluation revealed that the patient is doing well and is in no acute distress. Patient symptoms have remained stable since he arrived to our emergency department. Repeat vital signs were all reviewed and noted to be stable. Differential diagnosis and treatment plan were discussed with the patient at bedside. Patient agrees with discussion and after shared medical decision making agrees with admission. All questions were answered to the patient's satisfaction. Case was discussed with the on-call hospitalist Dr. Barrientos at 0555 and she accepted admission. PT/OT consultations were placed. Lab Data 05/06/24 04:56 05/06/24 04:56 Labs: Lab Results 05/06/24 05/06/24 Range/Units 04:56 05:22 WBC 6.7 (4.5-10.0) K/mm3 RBC 4.15 L (4.6-6.20) M/mm3 Hgb 13.9 L (14.0-18.0) g/dL Hct 41.7 L (42.0-52.0) % MCV 100.5 H (80-100) fl MCH 33.5 (26-34) pg MCHC 33.3 (32-36) g/dl RDW 14.0 (11.5-14.5) % Plt Count 174 (150-375) k/mm3 MPV 11.0 H (7.4-10.4) fl Immature Gran % (Auto) 0.3 (0-0.5) % Neut % (Auto) 44.1 L (45.5-73.1) % Lymph % (Auto) 35.6 (18.3-44.2) % [place] % (Auto) 10.6 H (2.6-8.5) % Eos % (Auto) 9.1 H (0-4.4) % Baso % (Auto) 0.3 (0.2-1.2) % Lymph # (Auto) 2.39 (0.9-3.2) K/mm3 [place] # (Auto) 0.7 H (0.1-0.6) K/mm3 Eos # (Auto) 0.6 H (0-0.3) K/mm3 Baso # (Auto) 0.0 (0.0-0.1) K/mm3 Abs Immat Gran (auto) 0.02 (0.00-0.031) K/mm3 Absolute Neuts (auto) 3.0 (1.3-6.7) K/mm3 Absolute Nucleated RBC 0.000 (0.0-0.012) K/mm3 Nucleated RBC % 0.0 (0.0-0.2) % Sodium 140 (137-145) mmol/L Potassium 4.5 (3.4-5.0) mmol/L Chloride 103 (98-107) mmol/L Carbon Dioxide 29 (22-30) mmol/L Anion Gap 8 (4-12) mmol/L BUN 31 H (9-20) mg/dL Creatinine 1.00 (0.7-1.3) mg/dL Estim Creat Clear Calc 61 ml/min Estimated GFR > 60 (59 - ) Glucose 89 (65-110) mg/dL Calcium 9.4 (8.4-10.2) mg/dL Magnesium 2.2 (1.6-2.3) mg/dL Total Bilirubin 0.2 (0.2-1.3) mg/dL AST 32 (17-59) U/L ALT 29 (6-50) U/L Alkaline Phosphatase 102 (38-126) U/L Total Protein 7.0 (6.3-8.2) g/dL Albumin 4.2 (3.5-5.1) g/dL Urine Color Yellow (Yellow) Urine Appearance Clear (Clear) Urine pH 5.5 (5.0-9.0) Ur Specific Lilly 1.028 (1.001-1.035) Urine Protein Negative (Negative) mg/dL Urine Glucose (UA) Negative (Negative) mg/dL Urine Ketones Trace H (Negative) mg/dL Ur Blood (Man) Negative (Negative) Urine Nitrate Negative (Negative) Urine Bilirubin Negative (Negative) Urine Urobilinogen 0.2 (<2.0) mg/dL Leukocyte Esterase Rfl Negative (Negative) KELLE/UL Influenza A (RT-PCR) Negative (Negative) Influenza B (RT-PCR) Negative (Negative) SARS-CoV-2 RNA (RT-PCR) Negative (Negative) Discharge Plan Discharge Clinical Impression: Adult failure to thrive, Generalized weakness Patient Disposition: Still a Patient Condition: Stable Prescriptions: No Action ascorbic acid (vitamin C) 1,000 mg Tablet 1 g PO DAILY cholecalciferol (vitamin D3) [Vitamin D3] 25 mcg (1,000 unit) Capsule 25 mcg PO DAILY folic acid 1 mg tablet 1 mg PO DAILY mecobalamin (vitamin B12) 1,000 mcg tablet,disintegrating 1,000 mcg SUBLINGUAL DAILY Rx Instructions: place tablet under tongue and allow to dissolve for at least30 secs before swallowing lorazepam 0.5 mg Tablet 0.5 mg PO TID PRN (Reason: anxiety) Qty: 12 0RF ibuprofen 600 mg Tablet 600 mg PO Q6H PRN (Reason: Pain Rated 1-3) Qty: 20 0RF losartan-hydrochlorothiazide 100-25 mg tablet 1 tablet PO DAILY Qty: 90 0RF atorvastatin 20 mg tablet See Rx Instructions .ROUTE .COMPLEX Qty: 90 1RF Dose Instruction: Take 1 tablet by mouth once daily Rx Instructions: Take 1 tablet by mouth once daily Trelegy Ellipta 100-62.5-25 mcg blister with device 1 inh inhalation DAILY Qty: 60 1RF gabapentin 300 mg capsule See Rx Instructions .ROUTE .COMPLEX Qty: 450 1RF Rx Instructions: take one capsule po 5 times daily; divalproex 500 mg tablet,delayed release (DR/EC) See Rx Instructions .ROUTE .COMPLEX Qty: 120 0RF Dose Instruction: TAKE 1 TABLET BY MOUTH 4 TIMES DAILY. PT NEEDS BLOOD WORK DONE BEFORE NEXT FILL Rx Instructions: TAKE 1 TABLET BY MOUTH 4 TIMES DAILY. phenytoin sodium extended 100 mg capsule See Rx Instructions .ROUTE .COMPLEX Qty: 150 0RF Dose Instruction: TAKE 3 CAPSULES BY MOUTH IN THE MORNING AND 2 IN THE EVENING Rx Instructions: TAKE 3 CAPSULES BY MOUTH IN THE MORNING AND 2 IN THE EVENING primidone 250 mg tablet See Rx Instructions .ROUTE .COMPLEX Qty: 60 1RF Dose Instruction: Take 1 tablet by mouth twice daily Rx Instructions: Take 1 tablet by mouth twice daily sucralfate 1 gram tablet See Rx Instructions .ROUTE .COMPLEX Qty: 360 0RF Dose Instruction: Take 2 tablets by mouth twice daily Rx Instructions: Take 2 tablets by mouth twice daily levothyroxine 200 mcg tablet See Rx Instructions .ROUTE .COMPLEX Qty: 90 0RF Dose Instruction: Take 1 tablet by mouth once daily Rx Instructions: Take 1 tablet by mouth once daily Follow-up/Referrals: Monroe Jeffries MD [Primary Care Provider] - Time of Disposition: 06:04
[2024-05-06 05:40] LABS: Influenza A QL RT-PCR Negative (Negative); Influenza B QL RT-PCR Negative (Negative); SARS-CoV-2 RNA PCR Negative (Negative)
--- NOTE | 2024-05-06 09:29 | P.HP_ITS ---
H&P: HPI History of Present Illness Date/Time: 05/06/24 09:29 Chief Complaint: Weakness Narrative: Patient is a 79 year old male that presented to the ER with generalized weakness. Patient sister reported to the ER that patient was seen at our facility approximately around the same time last year for similar symptoms and at that time he was admitted for PT OT and then discharged into a rehab facility which patient greatly benefited from. Patient then continued doing physical therapy up until 3 weeks ago when physical therapy stopped as he was informed that he is doing really well. Sister states that throughout the past 3 weeks he has been gradually getting more weaker and patient has falling more frequently. Patient states he has fallen 4 times in the past 1-2 days. Patient denies any pain anywhere his only complaint is that he feels generally weak and he keeps falling. Patient reports that his sister is a nurse and does his medications for him. Patient reports double vision at times, denies at present. Chest X-ray showed- FINDINGS: There are airspace opacities at the lung bases, likely atelectasis. No pleural effusion or pneumothorax. The heart size is normal. There are suture anchors in left glenoid. IMPRESSION: 1. Airspace opacities at the lung bases, likely atelectasis. Head CT showed: FINDINGS: There is chronic encephalomalacia in left temporal lobe and left frontoparietal region. There are scattered areas of low attenuation in the cerebral white matter, which is within normal limits for the patient's age. There is no intracranial hemorrhage, acute infarction, or abnormal intracranial mass lesion. There is ex vacuo dilatation of left lateral ventricle. There is mild mucosal thickening in the paranasal sinuses. There are likely changes of ocular lens replacement surgeries. The mastoid air cells are normal. There are changes of left-sided craniotomy. IMPRESSION: 1. 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 Review of Systems Review of Systems: All systems reviewed & are unremarkable except as noted in HPI and below PMFSH Past Medical History Medical History Anxiety Benign essential hypertension Chronic anemia Chronic cough Colon polyps Constipation Degenerative joint disease Gastroesophageal reflux disease Hyperlipidemia Hypothyroidism Normal cardiac stress test (2022) Restless legs Sandra encephalitis (1963) Seizure disorder Small bowel obstruction (11/2015) Vitamin B12 deficiency Surgical History Surgical History History of arthroscopy of shoulder History of cataract extraction with lens replacement History of colonoscopy with polypectomy History of craniotomy (1963) History of exploratory laparotomy (11/2015) 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 Family History Family History Father HLD (hyperlipidemia) Chronic obstructive pulmonary disease Mother HLD (hyperlipidemia) Multiple myeloma Sibling Hypertension Other Diabetes mellitus Social History Social History Social History: Surrogate medical decision maker: Tamara Friend, sister. Code status: Full code. Smoking status: Never smoker Alcohol intake: never Substance use: never Substance use type: does not use Do You Feel Safe in your Home?: Yes Lack of Transportation: No Lack of Food: Never True Current Housing: I Have Housing Concerned About Future Housing: No Difficulty Paying Gas/Electric Bills: No Difficulty Paying for Meds: No Currently Unemployed: No Education: High School Diploma/GED Difficulty w/ Childcare or Family Care: No Living arrangements: alone Additional living arrangements comments: Patient lives alone. Sister Tamara Renteria is his [id number] and caregiver. Spiritual care concerns: No Meds Home Medications and Allergies Home Medications Medication Instructions Recorded Confirmed Type folic acid 1 mg tablet 1 mg PO DAILY 04/13/20 05/06/24 History mecobalamin (vitamin B12) 1,000 1,000 mcg sublingual DAILY 04/13/20 05/06/24 History mcg disintegrating tablet,sublingual ascorbic acid (vitamin C) 1,000 mg 1 g PO DAILY 05/28/21 05/06/24 History tablet cholecalciferol (vitamin D3) 25 25 mcg PO DAILY 05/28/21 05/06/24 History mcg (1,000 unit) capsule (Vitamin D3) ibuprofen 600 mg tablet 600 mg PO Q6H PRN Pain Rated 1-3 06/25/21 05/06/24 Rx #20 tabs lorazepam 0.5 mg tablet 0.5 mg PO TID PRN anxiety #12 tabs 06/25/21 05/06/24 Rx losartan 100 1 tablet PO DAILY #90 tabs 02/19/24 05/06/24 Rx mg-hydrochlorothiazide 25 mg tablet fluticasone fur. 100 mcg-umeclid 1 inh inhalation DAILY #60 ea 03/12/24 05/06/24 Rx 62.5 mcg-vilant 25 mcg inhalat.powder (Trelegy Ellipta) atorvastatin 20 mg tablet 20 mg PO DAILY 05/06/24 05/06/24 History divalproex 500 mg tablet,delayed 500 mg PO QID 05/06/24 05/06/24 History release gabapentin 300 mg capsule See Rx Instructions .Route .COMPLEX 05/06/24 05/06/24 History levothyroxine 200 mcg tablet 200 mcg PO DAILY 05/06/24 05/06/24 History phenytoin sodium extended 100 mg 200 mg PO QPM 05/06/24 05/06/24 History capsule phenytoin sodium extended 100 mg See Rx Instructions .Route .COMPLEX 05/06/24 05/06/24 History capsule primidone 250 mg tablet 250 mg PO DAILY 05/06/24 05/06/24 History sucralfate 1 gram tablet 2 g PO BID 05/06/24 05/06/24 History Allergies Allergy/AdvReac Type Severity Reaction Status Date / Time No Known Allergies Allergy Unknown Verified 05/06/24 10:19 Vital Signs Vital Signs - 24 hr 05/06/24 03:01 05/06/24 04:51 05/06/24 03:32 Temperature 97.2 F L Pulse Rate 67 58 L Respiratory Rate 14 18 Blood Pressure 126/73 142/82 H Pulse Oximetry 100 94 98 Oxygen Delivery 05/06/24 04:31 05/06/24 06:49 05/06/24 05:01 Temperature Pulse Rate 57 L 56 L 70 Respiratory Rate 9 L 12 12 Blood Pressure 116/81 132/74 137/98 H Pulse Oximetry 98 Oxygen Delivery 05/06/24 05:31 05/06/24 05:46 05/06/24 06:00 Temperature Pulse Rate 55 L 55 L 52 L Respiratory Rate 10 L 12 8 L Blood Pressure 138/78 123/73 Pulse Oximetry 100 100 100 Oxygen Delivery 05/06/24 06:01 05/06/24 06:15 05/06/24 06:16 Temperature Pulse Rate 50 L 55 L 56 L Respiratory Rate 11 L 11 L 11 L Blood Pressure 142/82 H Pulse Oximetry 100 97 96 Oxygen Delivery 05/06/24 06:30 05/06/24 06:31 05/06/24 06:45 Temperature Pulse Rate 58 L 58 L 58 L Respiratory Rate 11 L 10 L 10 L Blood Pressure 131/84 132/74 Pulse Oximetry 98 98 98 Oxygen Delivery 05/06/24 06:46 05/06/24 07:46 Temperature Pulse Rate 54 L Respiratory Rate 10 L Blood Pressure Pulse Oximetry 98 92 Oxygen Delivery Room Air Exam Const: General: comfortable and no acute distress Eyes: Sclera: sclerae normal Pupils: Equal, round and reactive pupils present Neck: Neck: supple Resp: Effort & Inspection: normal respiratory effort Auscultation: clear to auscultation bilaterally Cardio: Rate: bradycardic Other: EKG sinus isabel 56 with first degree AV block. GI: GI Palp: Yes Soft to palpation Auscultation: normal bowel sounds Skin: Other: Scab area about inch on right side of scalp, 2 small bruises right forearm. Scab to left hand. Extrem: General: pedal edema bilaterally (Trace edema. ) Psych: Affect: normal affect Other: Alert and oriented to person, place, and month. H&P: Results Labs Labs: Short CBC 05/06/24 Range/Units 04:56 WBC 6.7 (4.5-10.0) K/mm3 Hgb 13.9 L (14.0-18.0) g/dL Hct 41.7 L (42.0-52.0) % Plt Count 174 (150-375) k/mm3 BMP 05/06/24 04:56 Sodium 140 Potassium 4.5 Chloride 103 Carbon Dioxide 29 BUN 31 H Creatinine 1.00 Glucose 89 Calcium 9.4 Liver Function 05/06/24 Range/Units 04:56 Total Bilirubin 0.2 (0.2-1.3) mg/dL AST 32 (17-59) U/L ALT 29 (6-50) U/L Alkaline Phosphatase 102 (38-126) U/L Albumin 4.2 (3.5-5.1) g/dL Urine 05/06/24 Range/Units 05:22 Urine Color Yellow (Yellow) Urine Appearance Clear (Clear) Urine pH 5.5 (5.0-9.0) Ur Specific [place] 1.028 (1.001-1.035) Urine Protein Negative (Negative) mg/dL Urine Glucose (UA) Negative (Negative) mg/dL Assessment and Plan Assessment and plan (1) Generalized weakness: Code(s): R53.1 - Weakness Status: Acute Assessment and Plan: * PT/OT * Up with assistance. * Monitor labs. * EKG showed Sinus bradycardia 56 with 1st degree AV block. * Encourage PO intake. * Orthostatic vital signs every shift. (2) Frequent falls: Code(s): R29.6 - Repeated falls Status: Acute Assessment and Plan: * PT/OT * Up with assistance. (3) Bradycardia: Code(s): R00.1 - Bradycardia, unspecified Status: Acute Assessment and Plan: * EKG showed Sinus bradycardia 56 with 1st degree AV block. (4) Seizure disorder: Code(s): G40.909 - Epilepsy, unspecified, not intractable, without status epilepticus Status: Acute Assessment and Plan: * Continue Divalproex Sodium 500 mg PO qid, Phenytoin 300 mg qam, and Phenytoin 200 mg PO qpm. (5) Benign essential hypertension: Code(s): I10 - Essential (primary) hypertension Status: Acute Assessment and Plan: * HCTZ 25 mg PO daily. * Losartan 100 mg PO daily. (6) Hypothyroidism (acquired): Code(s): E03.9 - Hypothyroidism, unspecified Status: Acute Assessment and Plan: * Levothyroxine 200 mcg PO daily. Quality VTE Prophylaxis VTE prophylaxis: mechanical ordered Hospitalist MIPS Advance Care Plan I have confirmed that the patient's Advanced Care Plan is present, code status is documented, or surrogate decision maker is listed in patient medical record.: Yes Medication Reconciliation I have utilized all available resources to obtain, update and review the patients current medications (includes all prescriptions, OTC, herbals, cannabis, and nutritional supplements).: Yes
--- NOTE | 2024-05-06 09:31 | ECG_ITS ---
Test Date: 2024-05-06 10:11:30 Measurements Intervals [place] Rate: 56 P: 15 LA: 265 QRS: -35 QRSD: 109 T: 6 QT: 417 QTc: 405 Interpretive Statements SINUS BRADYCARDIA WITH FIRST DEGREE AV BLOCK LEFT AXIS DEVIATION [QRS AXIS < -30] POSSIBLE ANTERIOR MYOCARDIAL INFARCTION , PROBABLY OLD [30 ms Q WAVE IN V3/V4, OR R < 0.2 mV IN V4] NONSPECIFC ST AND T WAVE ABNORMALITY No previous ECG available for comparison Electronically Signed On 05-06-2024 15:25:23 CDT by Mary Paul M.D.
--- NOTE | 2024-05-06 10:07 | ADMGEN ---
This patient, Memo Tamez, was admitted to [facility] Surg Room 305-02. Patient/family oriented to hospital policies and general routines including ID bracelet, bed and alarms, visiting hours, pain management, procedures, bathroom and other care routines, personal items, smoking policy, room service/diet, and visiting hours. Information on how to activate the Rapid Response Team has been discussed. Patient/Family are encouraged to report perceived risks to care and to ask questions if they do not understand what they are told or what they should do.
[2024-05-06] MEDS: ATORVASTATIN 20 MG TABLET PO (11:30)
[2024-05-06] MEDS: LOSARTAN POTASSIUM 100 MG TABLET PO (11:30)
[2024-05-06] MEDS: DIVALPROEX SODIUM DR 250 MG TABEC 500 MG PO ×4 (11:30→20:47)
[2024-05-06] MEDS: FOLIC ACID 1 MG TABLET PO (11:30)
[2024-05-06] MEDS: CYANOCOBALAMIN 1,000 MCG TABLET 1000 MCG PO (11:30)
[2024-05-06] MEDS: hydroCHLOROthiazide 25 MG TABLET PO (11:30)
[2024-05-06] MEDS: GABAPENTIN 300 MG CAPSULE PO ×5 (11:30→20:47)
[2024-05-06] MEDS: CHOLECALCIFEROL 1,000 UNITS TABLET 1000 UNITS PO (11:30)
[2024-05-06] MEDS: SUCRALFATE 1 GM TABLET 2 GM PO ×2 (11:30→17:14)
[2024-05-06] MEDS: PHENYTOIN SODIUM 100 MG EXTENDED RELEASE CAP 300 MG BY MOUTH (11:31)
[2024-05-06] MEDS: PRIMIDONE 250 MG TABLET PO (11:31)
[2024-05-06] MEDS: ASCORBIC ACID 500 MG TABLET 1000 MG PO (11:31)
[2024-05-06] MEDS: PHENYTOIN SODIUM 100 MG EXTENDED RELEASE CAP 200 MG PO (17:14)
[2024-05-07] VITALS (9 sets, daily range): BP systolic 111–137; BP diastolic 65–86; PULSE 57–68; RESP 16–20; TEMP 36.2–36.5; O2SAT 95–98
[2024-05-07] MEDS: LEVOTHYROXINE SODIUM 100 MCG TABLET 200 MCG PO (05:39)
[2024-05-07] MEDS: FLUTICASONE/UMECLIDIN/VILANTER 100-62.5-25 MCG ELLIPTA 1 PUFF INHALATION (07:16)
[2024-05-07] MEDS: SUCRALFATE 1 GM TABLET 2 GM PO ×2 (08:42→17:17)
[2024-05-07] MEDS: ATORVASTATIN 20 MG TABLET PO (08:43)
[2024-05-07] MEDS: GABAPENTIN 300 MG CAPSULE PO ×5 (08:43→20:21)
[2024-05-07] MEDS: PHENYTOIN SODIUM 100 MG EXTENDED RELEASE CAP 300 MG BY MOUTH (08:43)
[2024-05-07] MEDS: PRIMIDONE 250 MG TABLET PO (08:44)
[2024-05-07] MEDS: LOSARTAN POTASSIUM 100 MG TABLET PO (08:44)
[2024-05-07] MEDS: CHOLECALCIFEROL 1,000 UNITS TABLET 1000 UNITS PO (08:44)
[2024-05-07] MEDS: ASCORBIC ACID 500 MG TABLET 1000 MG PO (08:44)
[2024-05-07] MEDS: hydroCHLOROthiazide 25 MG TABLET PO (08:44)
[2024-05-07] MEDS: CYANOCOBALAMIN 1,000 MCG TABLET 1000 MCG PO (08:44)
[2024-05-07] MEDS: FOLIC ACID 1 MG TABLET PO (08:44)
[2024-05-07] MEDS: DIVALPROEX SODIUM DR 250 MG TABEC 500 MG PO ×4 (08:47→20:21)
[2024-05-07 08:52] LABS: Basophils Percent Auto 0.3 % (0.2-1.2); Eosinophils Absolute Auto 0.5 K/mm3 (0-0.3); Eosinophils Percent Auto 7.4 % (0-4.4); Hematocrit 38.4 % (42.0-52.0); Hemoglobin 12.8 g/dL (14.0-18.0); Immature Granulocyte Absolute 0.01 K/mm3 (0.00-0.031); Immature Granulocyte Percent A 0.2 % (0-0.5); Lymphocytes Absolute Auto 2.37 K/mm3 (0.9-3.2); Lymphocytes Percent Auto 38.2 % (18.3-44.2); Mean Corpuscular HGB Conc 33.3 g/dl (32-36); Mean Corpuscular Hemoglobin 33.6 pg (26-34); Mean Corpuscular Volume 100.8 fl (80-100); Monocytes Absolute Auto 0.6 K/mm3 (0.1-0.6); Neutrophils Absolute Auto 2.8 K/mm3 (1.3-6.7); Neutrophils Percent Auto 44.9 % (45.5-73.1); Platelet Count Result 150 k/mm3 (150-375); Red Blood Count 3.81 M/mm3 (4.6-6.20); White Blood Count 6.2 K/mm3 (4.5-10.0)
[2024-05-07 09:03] LABS: Alanine Aminotransferase 24 U/L (6-50); Albumin Level 3.7 g/dL (3.5-5.1); Alkaline Phosphatase 85 U/L (38-126); Anion Gap 8 mmol/L (4-12); Aspartate Amino Transferase 30 U/L (17-59); Bilirubin,Total 0.3 mg/dL (0.2-1.3); Blood Urea Nitrogen 29 mg/dL (9-20); Calcium 8.6 mg/dL (8.4-10.2); Carbon Dioxide 26 mmol/L (22-30); Chloride 103 mmol/L (98-107); Estimated CRCL calculation 67 ml/min; Estimated Glomerular Filt Rate > 60; Glucose 86 mg/dL (65-110); Potassium 4.2 mmol/L (3.4-5.0); Sodium 137 mmol/L (137-145)
--- NOTE | 2024-05-07 09:03 | PCPTNOTE ---
Attempted to see patient for PT, however patient was eating breakfast.
--- NOTE | 2024-05-07 10:19 | P.PNIM_ITS ---
Progress Note: A&P Assessment and Plan (1) Generalized weakness: Code(s): R53.1 - Weakness Status: Acute Assessment and Plan: * PT/OT * Up with assistance. * Monitor labs. * EKG 05/06/24 showed Sinus bradycardia 56 with 1st degree AV block. * Encourage PO intake. * Orthostatic vital signs every shift: supine BP 119/66 HR 59, sitting BP 122/78 HR 65, and standing BP 122/77 HR 68. (2) Frequent falls: Code(s): R29.6 - Repeated falls Status: Acute Assessment and Plan: * PT/OT * Up with assistance. (3) Bradycardia: Code(s): R00.1 - Bradycardia, unspecified Status: Acute Assessment and Plan: * EKG 05/06/24 showed Sinus bradycardia 56 with 1st degree AV block. * HR improved today to 68. (4) Seizure disorder: Code(s): G40.909 - Epilepsy, unspecified, not intractable, without status epilepticus Status: Acute Assessment and Plan: * Continue Divalproex Sodium 500 mg PO qid, Phenytoin 300 mg qam, and Phenytoin 200 mg PO qpm. (5) Benign essential hypertension: Code(s): I10 - Essential (primary) hypertension Status: Acute Assessment and Plan: * HCTZ 25 mg PO daily. * Losartan 100 mg PO daily. (6) Hypothyroidism (acquired): Code(s): E03.9 - Hypothyroidism, unspecified Status: Acute Assessment and Plan: * Levothyroxine 200 mcg PO daily. Subjective Date/time seen: 05/07/24 10:19 Interval history: Patient denies chest pain, palpitations, shortness of breath, headache, or dizziness. Sister at bedside. She would like patient to go to [facility] for rehab to get stronger before returning home. Patient lives alone at home and sister lives 20 minutes away. Review of Systems Review of Systems: All systems reviewed & are unremarkable except as noted in HPI and below Exam Const: General: comfortable and no acute distress Eyes: Sclera: sclerae normal Resp: Effort & Inspection: normal respiratory effort Auscultation: clear to auscultation bilaterally GI: GI Palp: Yes Soft to palpation Auscultation: normal bowel sounds Other: Last BM 05/06/24. : Other: Voiding without difficulty. Skin: Other: Scab area about 1/2 inch on right side of scalp, 2 small bruises right forearm. Scab to left hand. Extrem: General: no pedal edema Psych: Affect: normal affect Objective Data Vital Signs Vital Signs: Vital Signs - 24 hr 05/06/24 11:48 05/06/24 12:48 05/06/24 14:00 Temperature 97.2 F L Pulse Rate 64 Respiratory Rate 18 Blood Pressure 127/71 Pulse Oximetry 98 Oxygen Delivery Room Air Room Air 05/06/24 16:30 05/06/24 16:32 05/06/24 16:34 Temperature 97.0 F L 97.0 F L 97.0 F L Pulse Rate 58 L 63 71 Respiratory Rate 16 16 16 Blood Pressure 127/72 136/79 131/85 Pulse Oximetry 99 99 99 Oxygen Delivery 05/06/24 20:00 05/06/24 20:15 05/07/24 04:55 Temperature 96.8 F L 97.4 F L Pulse Rate 62 57 L Respiratory Rate 18 16 Blood Pressure 107/64 133/80 Pulse Oximetry 95 95 Oxygen Delivery Room Air 05/07/24 07:15 05/07/24 07:15 05/07/24 08:00 Temperature 97.1 F L Pulse Rate 62 62 59 L Respiratory Rate 18 18 18 Blood Pressure 119/66 Pulse Oximetry 95 96 Oxygen Delivery Room Air 05/07/24 08:30 05/07/24 08:31 Temperature 97.1 F L 97.1 F L Pulse Rate 65 68 Respiratory Rate 16 16 Blood Pressure 122/78 122/77 Pulse Oximetry 96 95 Oxygen Delivery Intake/Output Intake/Output: Intake & Output 05/04/24 05/05/24 05/06/24 05/07/24 23:59 23:59 23:59 23:59 Intake Total 2350 900 Output Total 1000 Balance 2350 -100 Meds/Results Medications: Active Medications Generic Name Dose Route Start Last Admin Trade Name Freq PRN Reason Stop Dose Admin Ascorbic Acid 1,000 mg 05/06/24 10:40 05/07/24 08:44 Ascorbic Acid 500 Mg Tablet PO 1,000 mg DAILY LAMBERT Administration Atorvastatin Calcium 20 mg 05/06/24 10:40 05/07/24 08:43 Atorvastatin 20 Mg Tablet PO 20 mg DAILY LAMBERT Administration Cyanocobalamin 1,000 mcg 05/06/24 10:35 05/07/24 08:44 Cyanocobalamin 1,000 Mcg Tablet PO 1,000 mcg QAM LAMBERT Administration Divalproex Sodium 500 mg 05/06/24 10:35 05/07/24 08:[address] 250 Mg Tabec PO 500 mg QID LAMBERT Administration Fluticasone/Umeclidinium/Vilanterol 1 puff 05/06/24 10:35 05/07/24 07:16 Fluticasone/Umeclidin/Vilanter 100-62.5-25 Mcg Ellipta INHALATION 1 puff DAILYRT LAMBERT Administration Folic Acid 1 mg 05/06/24 10:35 05/07/24 08:44 Folic Acid 1 Mg Tablet PO 1 mg DAILY LAMBERT Administration Gabapentin 300 mg 05/06/24 10:30 05/07/24 08:43 Gabapentin 300 Mg Capsule PO 300 mg 5 TIMES DAILY LAMBERT Administration Hydrochlorothiazide 25 mg 05/06/24 10:45 05/07/24 08:44 Hydrochlorothiazide 25 Mg Tablet PO 25 mg DAILY LAMBERT Administration Ibuprofen 600 mg 05/06/24 10:27 Ibuprofen 600 Mg Tablet PO Q6H PRN Pain Rated 1-3 Levothyroxine Sodium 200 mcg 05/06/24 10:35 05/07/24 05:39 Levothyroxine Sodium 100 Mcg Tablet PO 200 mcg DAILY@0630 LAMBERT Administration Losartan Potassium 100 mg 05/06/24 10:40 05/07/24 08:44 Losartan Potassium 100 Mg Tablet PO 100 mg DAILY LAMBERT Administration Phenytoin Sodium 200 mg 05/06/24 18:00 05/06/24 17:14 Phenytoin Sodium 100 Mg Extended Release Cap PO 200 mg QPM LAMBERT Administration Phenytoin Sodium 300 mg 05/06/24 10:45 05/07/24 08:43 Phenytoin Sodium 100 Mg Extended Release Cap BY MOUTH 300 mg QAM LAMBERT Administration Primidone 250 mg 05/06/24 10:40 05/07/24 08:44 Primidone 250 Mg Tablet PO 250 mg DAILY LAMBERT Administration Sucralfate 2 gm 05/06/24 10:40 05/07/24 08:42 Sucralfate 1 Gm Tablet PO 2 gm BID LAMBERT Administration Vitamin D 1,000 units 05/06/24 10:40 05/07/24 08:44 Cholecalciferol 1,000 Units Tablet PO 1,000 units DAILY LAMBERT Administration Radiology Results: ITS Impressions Head CT 05/06/24 05:54 IMPRESSION: 1. 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 Chest X-Ray 05/06/24 06:06 IMPRESSION: 1. Airspace opacities at the lung bases, likely atelectasis. Labs Labs: Laboratory Results - last 24 hr 05/07/24 08:47 WBC 6.2 RBC 3.81 L Hgb 12.8 L Hct 38.4 L MCV 100.8 H MCH 33.6 MCHC 33.3 RDW 14.0 Plt Count 150 MPV 11.0 H Immature Gran % (Auto) 0.2 Neut % (Auto) 44.9 L Lymph % (Auto) 38.2 [place] % (Auto) 9.0 H Eos % (Auto) 7.4 H Baso % (Auto) 0.3 Lymph # (Auto) 2.37 [place] # (Auto) 0.6 Eos # (Auto) 0.5 H Baso # (Auto) 0.0 Abs Immat Gran (auto) 0.01 Absolute Neuts (auto) 2.8 Absolute Nucleated RBC 0.000 Nucleated RBC % 0.0 Sodium 137 Potassium 4.2 Chloride 103 Carbon Dioxide 26 Anion Gap 8 BUN 29 H Creatinine 0.90 Estim Creat Clear Calc 67 Estimated GFR > 60 Glucose 86 Calcium 8.6 Total Bilirubin 0.3 AST 30 ALT 24 Alkaline Phosphatase 85 Total Protein 7.0 Albumin 3.7 Quality VTE Prophylaxis VTE prophylaxis: mechanical ordered
[2024-05-07] MEDS: PHENYTOIN SODIUM 100 MG EXTENDED RELEASE CAP 200 MG PO (17:17)
[2024-05-08] VITALS (10 sets, daily range): BP systolic 106–135; BP diastolic 60–82; PULSE 58–79; RESP 16–20; TEMP 36.2–36.4; O2SAT 94–99
[2024-05-08] MEDS: LEVOTHYROXINE SODIUM 100 MCG TABLET 200 MCG PO (05:53)
[2024-05-08 06:26] LABS: Basophils Percent Auto 0.5 % (0.2-1.2); Eosinophils Absolute Auto 0.4 K/mm3 (0-0.3); Eosinophils Percent Auto 7.4 % (0-4.4); Hematocrit 38.3 % (42.0-52.0); Hemoglobin 12.8 g/dL (14.0-18.0); Immature Granulocyte Absolute 0.03 K/mm3 (0.00-0.031); Immature Granulocyte Percent A 0.5 % (0-0.5); Lymphocytes Absolute Auto 2.18 K/mm3 (0.9-3.2); Lymphocytes Percent Auto 37.7 % (18.3-44.2); Mean Corpuscular HGB Conc 33.4 g/dl (32-36); Mean Corpuscular Hemoglobin 33.9 pg (26-34); Mean Corpuscular Volume 101.3 fl (80-100); Mean Platelet Volume 11.4 fl (7.4-10.4); Monocytes Absolute Auto 0.6 K/mm3 (0.1-0.6); Monocytes Percent Auto 9.9 % (2.6-8.5); Neutrophils Absolute Auto 2.5 K/mm3 (1.3-6.7); Platelet Count Result 148 k/mm3 (150-375); Red Blood Count 3.78 M/mm3 (4.6-6.20); Red Cell Distribution Width 14.1 % (11.5-14.5); White Blood Count 5.8 K/mm3 (4.5-10.0)
[2024-05-08 06:28] LABS: Alanine Aminotransferase 24 U/L (6-50); Albumin Level 3.6 g/dL (3.5-5.1); Alkaline Phosphatase 88 U/L (38-126); Anion Gap 6 mmol/L (4-12); Aspartate Amino Transferase 26 U/L (17-59); Bilirubin,Total 0.4 mg/dL (0.2-1.3); Blood Urea Nitrogen 29 mg/dL (9-20); Calcium 8.7 mg/dL (8.4-10.2); Carbon Dioxide 28 mmol/L (22-30); Chloride 101 mmol/L (98-107); Estimated CRCL calculation 67 ml/min; Estimated Glomerular Filt Rate > 60; Glucose 84 mg/dL (65-110); Potassium 4.2 mmol/L (3.4-5.0); Sodium 135 mmol/L (137-145)
[2024-05-08] MEDS: FLUTICASONE/UMECLIDIN/VILANTER 100-62.5-25 MCG ELLIPTA 1 PUFF INHALATION (07:37)
[2024-05-08] MEDS: LOSARTAN POTASSIUM 100 MG TABLET PO (07:58)
[2024-05-08] MEDS: ASCORBIC ACID 500 MG TABLET 1000 MG PO (07:58)
[2024-05-08] MEDS: GABAPENTIN 300 MG CAPSULE PO ×4 (07:58→20:36)
[2024-05-08] MEDS: SUCRALFATE 1 GM TABLET 2 GM PO ×2 (07:58→17:24)
[2024-05-08] MEDS: PHENYTOIN SODIUM 100 MG EXTENDED RELEASE CAP 300 MG BY MOUTH (07:59)
[2024-05-08] MEDS: hydroCHLOROthiazide 25 MG TABLET PO (08:00)
[2024-05-08] MEDS: ATORVASTATIN 20 MG TABLET PO (08:00)
[2024-05-08] MEDS: PRIMIDONE 250 MG TABLET PO (08:01)
[2024-05-08] MEDS: CYANOCOBALAMIN 1,000 MCG TABLET 1000 MCG PO (08:01)
[2024-05-08] MEDS: FOLIC ACID 1 MG TABLET PO (08:01)
[2024-05-08] MEDS: DIVALPROEX SODIUM DR 250 MG TABEC 500 MG PO ×4 (08:01→20:36)
[2024-05-08] MEDS: CHOLECALCIFEROL 1,000 UNITS TABLET 1000 UNITS PO (08:01)
--- NOTE | 2024-05-08 10:37 | P.PNIM_ITS ---
Progress Note: A&P Assessment and Plan (1) Generalized weakness: Code(s): R53.1 - Weakness Status: Acute Assessment and Plan: * PT/OT. Plan to send to [facility] for rehab tomorrow. * Up with assistance. * Monitor labs. * EKG 05/06/24 showed Sinus bradycardia 56 with 1st degree AV block. * Encourage PO intake. * Orthostatic vital signs every shift: supine BP 121/60 HR 58, sitting BP 109/66 HR 69, and standing BP 122/78 HR 66. (2) Frequent falls: Code(s): R29.6 - Repeated falls Status: Acute Assessment and Plan: * PT/OT * Up with assistance. (3) Bradycardia: Code(s): R00.1 - Bradycardia, unspecified Status: Acute Assessment and Plan: * EKG 05/06/24 showed Sinus bradycardia 56 with 1st degree AV block. * HR 66 today. (4) Seizure disorder: Code(s): G40.909 - Epilepsy, unspecified, not intractable, without status epilepticus Status: Acute Assessment and Plan: * Continue Divalproex Sodium 500 mg PO qid, Phenytoin 300 mg qam, and Phenytoin 200 mg PO qpm. (5) Benign essential hypertension: Code(s): I10 - Essential (primary) hypertension Status: Acute Assessment and Plan: * HCTZ 25 mg PO daily. * Losartan 100 mg PO daily. (6) Hypothyroidism (acquired): Code(s): E03.9 - Hypothyroidism, unspecified Status: Acute Assessment and Plan: * Levothyroxine 200 mcg PO daily. Subjective Date/time seen: 05/08/24 10:37 Interval history: Patient denies chest pain, palpitations, headache, nausea, or vomiting. Patient reports occasional double vision that is chronic. Patient sitting up in the chair. Review of Systems Review of Systems: All systems reviewed & are unremarkable except as noted in HPI and below Exam Const: General: comfortable and no acute distress Eyes: Sclera: sclerae normal Neck: Neck: supple Resp: Effort & Inspection: normal respiratory effort Auscultation: clear to auscultation bilaterally Cardio: Rate: regular rate Rhythm: regular rhythm GI: GI Palp: Yes Soft to palpation Auscultation: normal bowel sounds Skin: Other: Scab area about 1/2 inch on right side of scalp, 2 small bruises right forearm. Scab to left hand. Extrem: General: no pedal edema Psych: Affect: normal affect Objective Data Vital Signs Vital Signs: Vital Signs - 24 hr 05/07/24 13:56 05/07/24 20:00 05/07/24 20:48 Temperature 97.7 F 97.6 F Pulse Rate 64 67 Respiratory Rate 16 20 Blood Pressure 111/65 117/78 Pulse Oximetry 98 95 Oxygen Delivery Room Air Fraction of Inspired Oxygen 05/07/24 20:53 05/07/24 20:54 05/08/24 05:28 Temperature 97.1 F L Pulse Rate 59 L Respiratory Rate 16 Blood Pressure 127/65 137/86 129/73 Pulse Oximetry 98 Oxygen Delivery Fraction of Inspired Oxygen 05/08/24 07:37 05/08/24 07:37 05/08/24 08:00 Temperature Pulse Rate 58 L 64 Respiratory Rate 20 17 Blood Pressure 135/73 Pulse Oximetry 98 99 Oxygen Delivery Room Air Fraction of Inspired Oxygen 21 05/08/24 08:30 05/08/24 08:30 05/08/24 08:00 Temperature Pulse Rate 66 58 L Respiratory Rate 17 17 Blood Pressure 127/78 121/60 Pulse Oximetry 99 99 Oxygen Delivery Room Air Fraction of Inspired Oxygen Intake/Output Intake/Output: Intake & Output 05/05/24 05/06/24 05/07/24 05/08/24 23:59 23:59 23:59 23:59 Intake Total 2350 1600 340 Output Total 1000 Balance 2350 600 340 Meds/Results Medications: Active Medications Generic Name Dose Route Start Last Admin Trade Name Freq PRN Reason Stop Dose Admin Ascorbic Acid 1,000 mg 05/06/24 10:40 05/08/24 07:58 Ascorbic Acid 500 Mg Tablet PO 1,000 mg DAILY LAMBERT Administration Atorvastatin Calcium 20 mg 05/06/24 10:40 05/08/24 08:00 Atorvastatin 20 Mg Tablet PO 20 mg DAILY LAMBERT Administration Cyanocobalamin 1,000 mcg 05/06/24 10:35 05/08/24 08:01 Cyanocobalamin 1,000 Mcg Tablet PO 1,000 mcg QAM LAMBERT Administration Divalproex Sodium 500 mg 05/06/24 10:35 05/08/24 08:[address] 250 Mg Tabec PO 500 mg QID LAMBERT Administration Fluticasone/Umeclidinium/Vilanterol 1 puff 05/06/24 10:35 05/08/24 07:37 Fluticasone/Umeclidin/Vilanter 100-62.5-25 Mcg Ellipta INHALATION 1 puff DAILYRT LAMBERT Administration Folic Acid 1 mg 05/06/24 10:35 05/08/24 08:01 Folic Acid 1 Mg Tablet PO 1 mg DAILY LAMBERT Administration Gabapentin 300 mg 05/06/24 10:30 05/08/24 07:58 Gabapentin 300 Mg Capsule PO 300 mg 5 TIMES DAILY LAMBERT Administration Hydrochlorothiazide 25 mg 05/06/24 10:45 05/08/24 08:00 Hydrochlorothiazide 25 Mg Tablet PO 25 mg DAILY LAMBERT Administration Ibuprofen 600 mg 05/06/24 10:27 Ibuprofen 600 Mg Tablet PO Q6H PRN Pain Rated 1-3 Levothyroxine Sodium 200 mcg 05/06/24 10:35 05/08/24 05:53 Levothyroxine Sodium 100 Mcg Tablet PO 200 mcg DAILY@0630 LAMBERT Administration Losartan Potassium 100 mg 05/06/24 10:40 05/08/24 07:58 Losartan Potassium 100 Mg Tablet PO 100 mg DAILY LAMBERT Administration Phenytoin Sodium 200 mg 05/06/24 18:00 05/07/24 17:17 Phenytoin Sodium 100 Mg Extended Release Cap PO 200 mg QPM LAMBERT Administration Phenytoin Sodium 300 mg 05/06/24 10:45 05/08/24 07:59 Phenytoin Sodium 100 Mg Extended Release Cap BY MOUTH 300 mg QAM LAMBERT Administration Primidone 250 mg 05/06/24 10:40 05/08/24 08:01 Primidone 250 Mg Tablet PO 250 mg DAILY LAMBERT Administration Sucralfate 2 gm 05/06/24 10:40 05/08/24 07:58 Sucralfate 1 Gm Tablet PO 2 gm BID LAMBERT Administration Vitamin D 1,000 units 05/06/24 10:40 05/08/24 08:01 Cholecalciferol 1,000 Units Tablet PO 1,000 units DAILY LAMBERT Administration Radiology Results: ITS Impressions Head CT 05/06/24 05:54 IMPRESSION: 1. 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 Chest X-Ray 05/06/24 06:06 IMPRESSION: 1. Airspace opacities at the lung bases, likely atelectasis. Labs Labs: Laboratory Results - last 24 hr 05/08/24 05:33 WBC 5.8 RBC 3.78 L Hgb 12.8 L Hct 38.3 L MCV 101.3 H MCH 33.9 MCHC 33.4 RDW 14.1 Plt Count 148 L MPV 11.4 H Immature Gran % (Auto) 0.5 Neut % (Auto) 44.0 L Lymph % (Auto) 37.7 [place] % (Auto) 9.9 H Eos % (Auto) 7.4 H Baso % (Auto) 0.5 Lymph # (Auto) 2.18 [place] # (Auto) 0.6 Eos # (Auto) 0.4 H Baso # (Auto) 0.0 Abs Immat Gran (auto) 0.03 Absolute Neuts (auto) 2.5 Absolute Nucleated RBC 0.000 Nucleated RBC % 0.0 Sodium 135 L Potassium 4.2 Chloride 101 Carbon Dioxide 28 Anion Gap 6 BUN 29 H Creatinine 0.90 Estim Creat Clear Calc 67 Estimated GFR > 60 Glucose 84 Calcium 8.7 Total Bilirubin 0.4 AST 26 ALT 24 Alkaline Phosphatase 88 Total Protein 6.0 L Albumin 3.6 Quality VTE Prophylaxis VTE prophylaxis: mechanical ordered
[2024-05-08] MEDS: PHENYTOIN SODIUM 100 MG EXTENDED RELEASE CAP 200 MG PO (17:25)
[2024-05-09] MEDS: LEVOTHYROXINE SODIUM 100 MCG TABLET 200 MCG PO (05:20)
[2024-05-09 06:00] VITALS: BP 120/71; PULSE 61; RESP 20; TEMP 36.4; O2SAT 99
[2024-05-09 06:46] LABS: Basophils Percent Auto 0.3 % (0.2-1.2); Eosinophils Absolute Auto 0.4 K/mm3 (0-0.3); Eosinophils Percent Auto 5.2 % (0-4.4); Hematocrit 36.6 % (42.0-52.0); Hemoglobin 12.4 g/dL (14.0-18.0); Immature Granulocyte Absolute 0.02 K/mm3 (0.00-0.031); Immature Granulocyte Percent A 0.3 % (0-0.5); Lymphocytes Absolute Auto 2.12 K/mm3 (0.9-3.2); Lymphocytes Percent Auto 31.3 % (18.3-44.2); Mean Corpuscular HGB Conc 33.9 g/dl (32-36); Mean Corpuscular Hemoglobin 34.1 pg (26-34); Mean Corpuscular Volume 100.5 fl (80-100); Mean Platelet Volume 11.2 fl (7.4-10.4); Monocytes Absolute Auto 0.7 K/mm3 (0.1-0.6); Monocytes Percent Auto 10.9 % (2.6-8.5); Neutrophils Absolute Auto 3.5 K/mm3 (1.3-6.7); Platelet Count Result 143 k/mm3 (150-375); Red Blood Count 3.64 M/mm3 (4.6-6.20); White Blood Count 6.8 K/mm3 (4.5-10.0)
[2024-05-09 06:59] LABS: Alanine Aminotransferase 32 U/L (6-50); Albumin Level 3.4 g/dL (3.5-5.1); Alkaline Phosphatase 86 U/L (38-126); Anion Gap 7 mmol/L (4-12); Aspartate Amino Transferase 37 U/L (17-59); Bilirubin,Total 0.3 mg/dL (0.2-1.3); Blood Urea Nitrogen 33 mg/dL (9-20); Calcium 8.4 mg/dL (8.4-10.2); Carbon Dioxide 27 mmol/L (22-30); Chloride 102 mmol/L (98-107); Estimated CRCL calculation 67 ml/min; Estimated Glomerular Filt Rate > 60; Glucose 85 mg/dL (65-110); Sodium 136 mmol/L (137-145)
[2024-05-09] MEDS: FLUTICASONE/UMECLIDIN/VILANTER 100-62.5-25 MCG ELLIPTA 1 PUFF INHALATION (07:05)
[2024-05-09 07:09] VITALS: PULSE 64; RESP 20; O2SAT 93
[2024-05-09] MEDS: CYANOCOBALAMIN 1,000 MCG TABLET 1000 MCG PO (08:12)
[2024-05-09] MEDS: hydroCHLOROthiazide 25 MG TABLET PO (08:12)
[2024-05-09] MEDS: PHENYTOIN SODIUM 100 MG EXTENDED RELEASE CAP 300 MG BY MOUTH (08:12)
[2024-05-09] MEDS: DIVALPROEX SODIUM DR 250 MG TABEC 500 MG PO ×2 (08:12→12:02)
[2024-05-09] MEDS: ATORVASTATIN 20 MG TABLET PO (08:13)
[2024-05-09] MEDS: GABAPENTIN 300 MG CAPSULE PO ×2 (08:13→12:03)
[2024-05-09] MEDS: CHOLECALCIFEROL 1,000 UNITS TABLET 1000 UNITS PO (08:13)
[2024-05-09] MEDS: SUCRALFATE 1 GM TABLET 2 GM PO (08:14)
[2024-05-09] MEDS: PRIMIDONE 250 MG TABLET PO (08:14)
[2024-05-09] MEDS: LOSARTAN POTASSIUM 100 MG TABLET PO (08:14)
[2024-05-09] MEDS: FOLIC ACID 1 MG TABLET PO (08:14)
[2024-05-09] MEDS: ASCORBIC ACID 500 MG TABLET 1000 MG PO (08:17)
--- NOTE | 2024-05-09 10:06 | P.DS_ITS ---
DS: Admitting Diagnosis Discharge Date 05/09/2024 Admitting Diagnosis Weakness DS: Discharge Diagnosis Discharge Diagnosis (1) Generalized weakness: Code(s): R53.1 - Weakness Status: Acute (2) Frequent falls: Code(s): R29.6 - Repeated falls Status: Acute DS: Summary Hospital Course Hospital Course: Patient is a 79-year-old male who presents to the emergency department with generalized weakness. Patient's sister was with him at bedside and she states that earlier on day of admission he called her as he got so frustrated that he kept on falling as a his legs feel very weak. Sister states that patient was seen at our facility approximately around the same time last year for similar symptoms and at that time he was admitted for PT OT and then discharged into a rehab facility which patient greatly benefited from. Patient then continued doing physical therapy up until 3 weeks ago when physical therapy stopped as he was informed that he is doing really well. Sister states that throughout the past 3 weeks he has been gradually getting more weaker and patient has falling more frequently. Patient states he has fallen 4 times in the past 1-2 days prior to admission. 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 Patient improving with PT/OT and will benefit from inpatient rehab prior to going back home. Patient is going to [facility] today. Status at Discharge Functional status at discharge: uses cane/walker Overall status at discharge: patient is not back to baseline Time Spent with Patient Time attestation: Total time spent providing and/or coordinating discharge services: Exam Const: General: comfortable Eyes: Sclera: sclerae normal Neck: Neck: supple Resp: Effort & Inspection: normal respiratory effort Auscultation: clear to auscultation bilaterally Cardio: Rate: regular rate Rhythm: regular rhythm GI: GI Palp: Yes Soft to palpation Auscultation: normal bowel sounds Other: Last BM 05/08/24 Skin: Other: Scab area about 1/2 inch on right side of scalp, 2 small bruises right forearm. Scab to left hand. Extrem: General: no pedal edema Psych: Affect: normal affect DS: Data Data Completed and Pending Labs on day of discharge: Labs from last 24 hours 05/09/24 06:22 WBC 6.8 RBC 3.64 L Hgb 12.4 L Hct 36.6 L MCV 100.5 H MCH 34.1 H MCHC 33.9 RDW 14.0 Plt Count 143 L MPV 11.2 H Immature Gran % (Auto) 0.3 Neut % (Auto) 52.0 Lymph % (Auto) 31.3 [place] % (Auto) 10.9 H Eos % (Auto) 5.2 H Baso % (Auto) 0.3 Lymph # (Auto) 2.12 [place] # (Auto) 0.7 H Eos # (Auto) 0.4 H Baso # (Auto) 0.0 Abs Immat Gran (auto) 0.02 Absolute Neuts (auto) 3.5 Absolute Nucleated RBC 0.000 Nucleated RBC % 0.0 Sodium 136 L Potassium 4.0 Chloride 102 Carbon Dioxide 27 Anion Gap 7 BUN 33 H Creatinine 0.90 Estim Creat Clear Calc 67 Estimated GFR > 60 Glucose 85 Calcium 8.4 Total Bilirubin 0.3 AST 37 ALT 32 Alkaline Phosphatase 86 Total Protein 6.0 L Albumin 3.4 L Discharge Plan Discharge Attending physician on discharge: Tigre Box Discharging Clinician: Nina Dale Anticipated Discharge Date/Time: 05/09/24 11:00 Patient Disposition: SNF Activity: november shower Diet: regular Discharge Instructions: * Ensure compact BID * PT/OT Patient Instructions: Fall Prevention for Older Adults (DC) Stand Alone Forms: General Discharge Information, Alf Discharge Follow-up/Referrals: Monroe Jeffries MD [Primary Care Provider] - 2 Weeks Discharge Medications: Continued ascorbic acid (vitamin C) 1,000 mg Tablet 1 g PO DAILY cholecalciferol (vitamin D3) [Vitamin D3] 25 mcg (1,000 unit) Capsule 25 mcg PO DAILY folic acid 1 mg tablet 1 mg PO DAILY mecobalamin (vitamin B12) 1,000 mcg tablet,disintegrating 1,000 mcg SUBLINGUAL DAILY Rx Instructions: place tablet under tongue and allow to dissolve for at least 30 seconds before swallowing phenytoin sodium extended 100 mg capsule 200 mg PO QPM Rx Instructions: in the evening atorvastatin 20 mg tablet 20 mg PO DAILY sucralfate 1 gram tablet 2 g PO BID phenytoin sodium extended 100 mg capsule See Rx Instructions .ROUTE .COMPLEX Rx Instructions: 300 mg po in the morning divalproex 500 mg tablet,delayed release (DR/EC) 500 mg PO QID primidone 250 mg tablet 250 mg PO DAILY gabapentin 300 mg capsule See Rx Instructions .ROUTE .COMPLEX Rx Instructions: 300 mg po five times per day levothyroxine 200 mcg tablet 200 mcg PO DAILY ibuprofen 600 mg Tablet 600 mg PO Q6H PRN (Reason: Pain Rated 1-3) Qty: 20 0RF losartan-hydrochlorothiazide 100-25 mg tablet 1 tablet PO DAILY Qty: 90 0RF Trelegy Ellipta 100-62.5-25 mcg blister with device 1 inh inhalation DAILY Qty: 60 1RF Discontinued lorazepam 0.5 mg Tablet 0.5 mg PO TID PRN (Reason: anxiety) Qty: 12 0RF Date of admission: 05/06/24 06:00 Primary Care Provider: Monroe Jeffries Admitting Provider: Edith Barrientos V. Attending physician on admission: Edith Barrientos V. Condition: Stable Hospitalist MIPS Heart Failure (Exclusion) Patient has history of Heart Transplant or Left Ventricular Assistive Device?: No IF YES, STOP HERE Heart Failure (Qualifier) Patient has current or prior documentation of LVEF less than or equal to 40%, or mod/servere depressed LVSF?: No IF NO, STOP HERE
== END 2024-05-09 12:45 | DRG 948 ==
LOC: ANHED 06:08 → ANH3MEDSUR 06:52
PROVIDERS: Admitting Provider Internal Medicine; Emergency Provider Emergency Medicine; PCP Internal Medicine; Visit Provider Nurse Practitioner Family
DX: R53.1 Weakness (principal); R62.7 Adult failure to thrive; R00.1 Bradycardia, unspecified; I44.0 Atrioventricular block, first degree; R29.6 Repeated falls; Z20.822 Contact with and (suspected) exposure to COVID-19; I10 Essential (primary) hypertension; F41.9 Anxiety disorder, unspecified; D64.9 Anemia, unspecified; K21.9 Gastro-esophageal reflux disease without esophagitis; E78.5 Hyperlipidemia, unspecified; G25.81 Restless legs syndrome; G40.909 Epilepsy, unspecified, not intractable, without status epilepticus; E03.9 Hypothyroidism, unspecified; Z96.1 Presence of intraocular lens; Z98.49 Cataract extraction status, unspecified eye; Z68.29 Body mass index [BMI] 29.0-29.9, adult
CPT/HCPCS: 36415; 70450; 71045; 80053; 81003; 83735; 85025; 87636; 93005; 94640; 96360; 97110; 97116; 97161; 97165; 97530; 97535; 99285; A9270; J7030

== ENCOUNTER 2024-10-02 08:05 | Outpatient (CLI) | payer MEDICARE, MEDICAID, SELFPAY ==
--- NOTE | ~2024-10-02 | XR_ITS ---
[XR ribs LT 2V ] INDICATION: [Pain TECHNIQUE: Frontal projection of the upper left ribs, frontal projection of the lower left ribs, obli que projection of all the left ribs, frontal inspiratory chest x-ray for interpretation. FINDINGS: There is a mildly displaced left 10th rib fracture.There are surgical anchors in the glenoi d process and left shoulder. There is basilar atelectasis. IMPRESSION: 1: Mildly displaced left 10th rib fracture. Reviewed, dictated and finalized at location B.
--- OUTSIDE RECORDS SUMMARY | 2024-10-02 08:10 | XMS_ITS | Continuity of Care Document ---
Author Name Auto Generated, Auto Generated Organization [facility] Support Name Relationship Address Phone Friend, Tamara Renteria Emergency Contact 1 Unknown Unav ailable Friend, Tamara Renteria Sister Unknown Unavailable Memo Tamez Financial Responsible Republican [address] [place] [address] Memo Tamez Self [address] [facility] [place] [address] Friend, Hao Umaña law Unknown Unavailable Friend, Hao Emergency Contact 2 Unknown Unavaila ble Friend, Marci Niece Unknown Unavailable Friend, Ryan Nephew Unknown Unavailable Friend, Moises Nephew Unknown Unavailable Summary Purpose Consult/Referral Allergies, Adverse Reactions, Alerts Type Description/Agent Code Date Allergy Active Date Allergy Inactivated Date of Last Reaction Adverse Reactions Severity Status Comments Source of Information FDB Speci fic [employer]er gen Group No Known Allergies Active Patient History Medications No Known Medications Conditions/Problems Problem/Diagnosis Awareness of Diagnosis Code (ICD-10) Onset Date (Start Date) Resolution Date (End Date) Status Source Comments PERSONAL HISTORY OF COVID-19 Z86.16 Active MD Braulio Mayer 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 SLIDER 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 (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) DRUG THERAPY Z79.899 Active MD Braulio Mayer OTHER SPECIFIED POSTPROCEDURAL STATES Z98.890 Active MD Braulio Mayer DYSPHAGIA, UNSPECIFIED R13.10 Active MD Braulio Mayer 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, INTRACTABLE, WITHOUT STATUS EPILEPTICUS G40.219 Active MD Braulio Mayer EFFUSION, RIGHT KNEE M25.461 021 Active MD Braulio Mayer EFFUSION, LEFT KNEE M25.462 12/13/2 021 Active MD Braulio Mayer OTHER SPECIFIED DISORDERS OF BRAIN G93.89 Active MD Braulio Mayer UNDERDOSING OF OTHER ANTIEPILEPTIC AND SEDATIVE-HYPNOTIC DRUGS, SUBSEQUENT ENCOUNTER T42.6X6D Active MD Braulio Mayer VITAMIN D DEFICIENCY, UNSPECIFIED E55.9 Active MD Braulio Mayer ENCEPHALOPATHY, UNSPECIFIED G93.40 Active MD Braulio Mayer PERSONAL HISTORY OF COLONIC POLYPS Z86.010 MD Braulio Foote HYPOTHYROIDISM, UNSPECIFIED E03.9 MD Braulio Foote HYPERLIPIDEMIA, UNSPECIFIED E78.5 Active MD Braulio Mayer DEFICIENCY OF OTHER SPECIFIED B GROUP VITAMINS E53.8 MD Braulio Foote 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 K21.9 Active MD Braulio Mayer EPILEPSY, UNSPECIFIED, NOT INTRACTABLE, WITHOUT STATUS EPILEPTICUS G40.909 06/27/2021 Resolved MD Braulio Mayer ESSENTIAL (PRIMARY) HYPERTENSION I10 Active MD Braulio Mayer APHASIA R47.01 Active MD Braulio Mayer PERSONAL HISTORY OF INFECTIONS OF THE CENTRAL NERVOUS SYSTEM Z86.61 Active MD Braulio Mayer 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
--- OUTSIDE RECORDS SUMMARY | 2024-10-02 08:10 | XMS_ITS | Referral Summary ---
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 Gender Identity Not on file Sexual Orientation Not on file Last Filed Vital Signs Vital Sign Reading Time Taken Comments Blood Pressure 170/101 12/26/2022 8:52 AM CDT Pulse 69 11/22/2015 3:31 AM CDT Temperature 36.3 C (97.4 F) 11/22/2015 3:31 AM CDT Respiratory Rate - - Oxygen Saturation 94% 11/22/2015 3:31 AM CDT Inhaled Oxygen Concentration - - Weight 97.1 kg (214 lb) 11/22/2015 3:31 AM CDT Height 185.4 cm (6' 1 ) 11/22/2015 3:31 AM CDT Body Mass Index 28.23 11/22/2015 3:31 AM CDT Plan of Treatment Not on file Insurance MEDICARE [facility] Address: [address] [address] [place] [address] IDPA Care Teams Medical Interpreter Relationship Specialty Start Date End Date Monroe Jeffries MD [address] [facility] [address] [place], [place] [id number] PCP - General Internal Medicine 09/10/22
--- OUTSIDE RECORDS SUMMARY | 2024-10-02 08:10 | XMS_ITS | CONTINUITY OF CARE DOCUMENT ---
Author Name danielito esteves Address Unknown Organization [facility] Address [address] [place] [address] [address] [place] [address] Phone [phone] Care Team Providers Care Facilities Flight Check Pilot Name Role Phone danielito esteves Unavailable Unavailable
--- OUTSIDE RECORDS SUMMARY | 2024-10-02 08:10 | XMS_ITS | Clinical Summary ---
Author Organization 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 Gender Identity Not on file Sexual Orientation Not on file Plan of Treatment Health Maintenance Due Date Last Done Comments Hepatitis C 02[birth year]07/1963 DTaP, Tdap and Td Vaccines ( 1 - Tdap) 1965 Zoster Vaccines (1 of 2) 02/07/1996 Pneumococcal Vaccine: 65+ Years (1 of 1 - PCV) 2011 RSV Immunization or 60+ Years (1 - 1-dose 75+ series) 2021 COVID-19 Vaccine (3 - 2023-2 5 season) 2024 09/29/2020, 09/01/2020 Influenza Adult (#1) 2024 Meningococcal B Vaccine Aged Out No l onger eligible based on patient's age to complete this topic Meningococcal Vaccine Aged Out No missy marita eligible based on patient's age to complete this topic RSV Immunizations Under 20 Months Aged Out No longer eligible b ased on patient's age to complete this topic
--- OUTSIDE RECORDS SUMMARY | 2024-10-02 08:10 | XMS_ITS | Data Portability ---
Author Organization [place] [facility], Main Office Address [address] [place] [address] Care Team Providers Care Chipper Machine Operator Name Role Phone YOANA HOLDEN Primary Care Provider YOANA HOLDEN Referring Provider [phone] Assessment Encounter Date Assessment Date Assessment LastModified by Organization Details LastModified Time 04/02/2023 04/02/2023 HPI: Patient returns. He is here for follow-up of his right distal radius fracture. He is now 42 days out. Regional injury happened on 02/18. He has been in a cast for the last 5 weeks. He has gotten quite swollen in his fingers. They are having home health coming out to the house and doing some exercising with him. He has been keeping the arm in the sling and not moving the hand at all. Physical exam: Patient is absolutely no tenderness over the distal radius to palpation. I questioned him multiple times palpating around the entire distal radius to make sure that he was not trying to hide any of the symptoms in this area. His fingers have moderate swelling and moderate stiffness in all 5 fingers. No numbness tingling in the fingers . Impression: Patient is now 6 weeks out from right distal radius fracture. He does have good callus and has no tenderness to palpation today. I have written orders for physical therapy to start working on his fingers. I have given him a 6 pack exercise as well as the wrist range of motion exercises. We will provide him with a cock-up wrist splint. He is to use it full-time, he may remove it for showers as well as for therapy exercises. He should not weightbear on the arm at this point. We will see him back in approximately 4 weeks with new x-rays the wrist at that time. 20 minutes was spent in treatment of the patient with more than half of this in [id number] conversation Not available 04/02/2023 11:11:51 04/21/2023 04/21/2023 This note is dictated and transcribed by [email or web address]. Slackline Operator variances may occur. Despite proofreading, typographical errors may occur. Not available 05/07/2023 13:38:35 05/16/2023 05/16/2023 HPI: Patient returns. He is here for follow-up of his right distal radius fracture. Original injury happened on 02/18. He missed his last appointment he was in the hospital. He has been using the brace for last several weeks. He has been working on his range of motion of his fingers and wrists. He has been doing outpatient therapy as well. Physical exam: Patient has no tenderness over the distal radius. He has full pronation supination. He has about 60 of volar and dorsiflexion wrist. Fingers are still very stiff especially with extension. He has [id number] swelling in the fingers as well. Impression: Patient's right distal radius fracture looks to be well united on the x-rays. He has good range of motion of the wrist he just needs to continue to work fingers to get full motion and function back in the. He will stop using the brace envelope stuffer. May use the hand for all activities at this point. He will continue with therapy as long as he feels he needs it. We will see him back as needed. 20 minutes was spent in treatment patient more than half of this in [id number] conversation Not available 05/16/2023 10:46:19 02/09/2024 02/09/2024 This note is dictated and transcribed by [email or web address]. Slackline Operator variances may occur. Despite proofreading, typographical errors may occur. Occasional wrong-word or 'sxqec-u-yono' substitutions may have occurred due to the inherent limitations of voice recording. Read the chart carefully and recognize, using context, where substitutions have occurred. Not available 02/09/2024 11:38:55 Plan of Treatment Reminders Order Date Submit Date Provider Last Modified By Organization Details Last Modified Time Details Appointments None recorded. Lab None recorded. Referral None recorded. Procedures None recorded. Surgeries None recorded. Imaging XR, wrist 023 023 [email or web address] [facility] [place], [address], [place], [address], 3 10:50:06 XR, wrist 023 023 [email or web address] [facility] [place], [address], [place], [address], 3 11:28:56 Medication Orders urea 40 % topical cream [address] [facility], [address], [place], [address], 4 11:08:59 Patient TargetsNo targets recorded. Patient InstructionsNo instructions recorded. Reason for Referral None Reported. Results Created Date Observation Date Name Description Value Unit Range Abnormal Flag Note LastModifiedBy Organization Detail LastModifiedTime 04/02/20 23 XR, wrist No observ ation record ed. [facility] [place] [address], [place], [address], 04/02/2023 11:09:29 05/16/20 23 XR, wrist No observ ation record ed. [facility] [place] [address], [place], [address], 05/16/2023 10:44:55 Result Notes None recorded. 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 Active Not Available [facility] 3 13:13:45 Hypertensi ve disorder 12137646 Active Not Available [facility] 3 13:13:45 Ingrowing toenail 400922116 Active 2021 Not Available [facility] 3 13:13:45 Carpal tunnel syndrome 27258913 Active Not Available [facility] 3 13:13:45 Dystrophia unguium 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 Active 2022 Skip Dinh DPM [address], [address], [place], [address] , [facility] [employer] [facility] 3 14:39:01 Unable to cut own toenails 354878425 Active 2022 Skip Dinh DPM [address], [address], [place], [address] , [facility] [employer] [facility] 3 10:09:32 Pain in right hand 6928878381928 09 Active 2022 ASHLEY Lopez, [facility] [employer] [facility] 3 10:27:54 Osteopenia 648601660 Active 2022 Cadence oden, [facility] [employer] [facility] 3 11:29:50 Closed fracture of distal end of radius 06258822 Active 2022 ASHLEY Lopez, [facility] [employer] [facility] 3 10:31:27 Callus of heel 502820285 Active 2023 Skip Dinh DPM [address], [address], [place], [address] , [facility] [employer] [facility] 4 11:06:55 Pain in both feet 2097799059905 9102 Active 2023 Skip Dinh DPM [address], [address], [place], [address] , [facility] [employer] [facility] 4 11:08:00 Problem Notes None recorded. Procedures Surgical History Date Name Laterality Status Provider Name and Address Organization Details Recorded Time 4 Nail Debridement completed Skip Dinh DPM [address], [address], [place], [address], [facility] [employer] [facility] 02/09/2024 11:09:07 4 Nail Debridement completed Skip Dinh DPM [address], [address], [place], [address], [facility] [employer] [facility] 09/01/2023 14:31:58 3 Nail Debridement completed Skip Dinh DPM [address], [address], [place], [address], [facility] [employer] [facility] 04/21/2023 11:55:25 3 Nail Debridement completed Skip Dinh DPM [address], [address], [place], [address], [facility] [employer] [facility] 01/20/2023 10:09:11 3 Nail Debridement completed Skip Dinh DPM [address], [address], [place], [address], [facility] [employer] [facility] 10/14/2022 14:38:45 Carpal tunnel surgery completed Priyanka De Souza [facility] [employer] [facility] 02/20/2023 10:26:45 procedure on brain completed Priyanka De Souza [facility] [employer] [facility] 02/20/2023 10:26:56 Hand completed Priyanka De Souza [facility] [employer] [facility] 02/20/2023 10:27:04 Imaging Results Imaging Date Name Status LastModified by Organiz ation Details LastModified Time 04/02/2023 XR, wrist completed [facility] [place] [address], [place], [address], 04/02/2023 11:09:29 05/16/2023 XR, wrist completed [facility] [place] [address], [place], [address], 05/16/2023 10:44:55 Procedure Notes None recorded. Medical Equipment None Reported. Allergies No known drug allergies Medications Name Sig Start Date Stop Date Status Note LastModified by Organization Details LastModified Time cyclobenzap rine 10 mg tablet TK 1 T PO TID PRN 04/20 completed Not Available Not Available Not Available levothyroxi ne 137 mcg tablet 10/14 completed Not Available Not Available Not Available candesartan 32 mg-hydrochl orothiazide 12.5 mg tablet TAKE 1 TABLET BY MOUTH ONCE DAILY (PANDA BERNAL LOSARTAN) 02/20 completed Not Available Not Available Not Available atorvastati n 20 mg tablet TAKE 1 TABLET BY MOUTH ONCE DAILY active Not Available Not Available No t Available tizanidine 2 mg tablet TAKE 1 TABLET BY MOUTH THREE TIMES DAILY NEEDED FOR MUSCLE SPASM 02/20 completed Not Available Not Available Not Available azithromyci n 250 mg tablet TAKE 2 TABLETS BY MOUTH ON DAY 1, AND THEN TAKE 1 TABLET BY MOUTH ONCE A DAY ON DAY 2 THROUGH DAY 5 10/14 completed Not Available Not Available Not Available hydrocodone 5 mg-acetamin ophen 325 mg tablet TAKE 1 TABLET BY MOUTH EVERY DAY AT BEDTIME NEEDED FOR PAIN active Not Available Not Available No t Available urea 40 % topical cream APPLY TO THE AFFECTED AREA(S) heels BY TOPICAL ROUTE 2 TIMES PER DAY 2023 active Not Available Not Available Not Avai lable sucralfate 1 gram tablet TAKE 2 TABLETS BY MOUTH TWICE DAILY active Not Available Not Available No t Available gabapentin 400 mg capsule TAKE 1 CAPSULE BY MOUTH TWICE A DAY active Not Available Not Available No t Available phenytoin sodium extended 100 mg capsule TAKE 3 CAPSULES BY MOUTH IN THE MORNING AND 2 IN THE EVENING active Not Available Not Available No t Available phenytoin 50 mg chewable tablet 04/20 completed Not Available Not Available Not Available divalproex 500 mg tablet,yosi yed release TAKE 1 TABLET BY MOUTH 4 TIMES DAILY active Not Available Not Available No t Available losartan 100 mg-hydrochl orothiazide 25 mg tablet TAKE 1 TABLET BY MOUTH ONCE DAILY active Not Available Not Available No t Available primidone 250 mg tablet TAKE 1 TABLET BY MOUTH TWICE DAILY active Not Available Not Available No t Available lorazepam 0.5 mg tablet 02/20 completed Not Available Not Available Not Available candesartan 16 mg-hydrochl orothiazide 12.5 mg tablet TAKE 1 TABLET BY MOUTH ONCE DAILY active Not Available Not Available No t Available cephalexin 500 mg capsule TK 1 C PO Q 6 H FOR 4 DOSES 04/20 completed Not Available Not Available Not Available simvastatin 20 mg tablet TK 1 T PO QPM 04/20 completed Not Available Not Available Not Available levothyroxi ne 150 mcg tablet 05/03 completed Not Available Not Available Not Available gabapentin 300 mg capsule TAKE 1 CAPSULE BY MOUTH FIVE TIMES DAILY active Not Available Not Available No t Available levothyroxi ne 200 mcg tablet TAKE 1 TABLET BY MOUTH ONCE DAILY active Not Available Not Available No t Available methylpredn isolone 4 mg tablets in a dose pack TAKE BY MOUTH DIRECTED ON INSIDE OF PACKAGE 10/14 completed Not Available Not Available Not Available levothyroxi ne 112 mcg tablet TK 1 T PO QD 04/20 completed Not Available Not Available Not Available lactulose 10 gram/15 mL oral solution 02/08 completed Not Available Not Available Not Available hydrochloro thiazide 12.5 mg tablet TAKE 1 TABLET BY MOUTH ONCE DAILY active Not Available Not Available No t Available Trelegy Ellipta 100 mcg-62.5 mcg-25 mcg powder for inhalation INHALE 1 PUFF BY MOUTH ONCE DAILY active Not Available Not Available No t Available Vitals Date Recorded Body height Provider Name an d Address Organization Details Last Updated DateTime 04/02/2023 172.72 cm Priyanka Ap Sarath [facility] [employer] [facility] 04/02/2023 09:44:40 Date Recorded Body height Body mass index (BMI) Body weight Heart rate Respiratory rate Oxygen saturation Oxygen saturation in Arterial blood by Pulse oximetry Provider Name and Address Organization Details Last Updated DateTime 3 172.72 cm 32.5 kg/m2 18567.7 7 g 86 /min 16 /min 98 % 98 % Claudia Corbett [facility] [employer] By Search [facility] 3 11:12:24 Date Recorded Body height Provider Name an d Address Organization Details Last Updated DateTime 05/16/2023 172.72 cm Priyanka Ap [facility] Rank By Search [facility] 05/16/2023 09:37:31 Date Recorded Body height Body mass index (BMI) Body weight Heart rate Respiratory rate Oxygen saturation Oxygen saturation in Arterial blood by Pulse oximetry Provider Name and Address Organization Details Last Updated DateTime 4 172.72 cm 32.5 kg/m2 20504.7 7 g 89 /min 14 /min 98 % 98 % Claudia Corbett [address] Rank By Search [facility] 4 14:10:55 Date Recorded Body height Body mass index (BMI) Body weight Heart rate Respiratory rate Body temperature Provider Name and Address Organization Details Last Updated DateTime 4 172.72 cm 32.5 kg/m2 21697.7 7 g 72 /min 16 /min 98.6 [degF] Val Boswell MA [place] [facility] 4 10:32:02 Social History None recorded. Functional Status None recorded. Mental Status None recorded. Family History Relationship Description Onset Age of this Age Resolved Age Notes LastModified by Organization Details LastModified Time Sister Heart disease Not available 2022 10:26:03 Brother Heart disease [email or web address] Not available 2022 10:26:03 Father Family history of malignant neoplasm [email or web address] Not available 2022 10:26:24 Medical History Condition Response ARTHRITIS Y HEADACHES/MIGRAINES Y SEIZURES/EPILEPSY Y USE OF NSAIDS Y GOUT Y BOWEL PROBLEMS Y BACK / NECK PROBLEMS Y HYPERTENSION Y STROKE/TIA Y HIGH CHOLESTEROL / HYPERLIPIDEMIA Y Past Encounters Encounter ID Performer Location Encounter Start Date Encounter Closed Date Diagnosis/Indication Diagnosis SNOMED-CT Code Diagnosis ICD10 Code Diagnosis Note [id number] [facility] [place] [address] [place] [address] 08/06/2021 00:00:00 08/06/2021 10:55:00 [id number] [facility] [place] [address] [place] [address] 11/26/2021 00:00:00 11/27/2021 14:25:22 [id number] [facility] [place] [address] [place] [address] 04/04/2022 00:00:00 04/06/2022 20:13:08 [id number] Skip Dinh DPM [facility] [place] [address] [place] [address] 10/14/2022 12:10:46 10/15/2022 13:16:11 Dystrophia unguium 23861632 L60.3 Nails 1 through 10 were debrided with sharp mechanical debridemen t without incident. Nails were debrided and greater than 50% length and thickness where needed. Unable to cut own toenails 611430237 Z74.1 [id number] Skip Dinh DPM [facility] [place] [address] [place] [address] 01/20/2023 09:53:12 01/20/2023 10:11:21 Dystrophia unguium 33532055 L60.3 Nails 1 through 10 were debrided with sharp mechanical debridemen t without incident. Nails were debrided and greater than 50% length and thickness where needed. Unable to cut own toenails 888670809 Z74.1 [id number] Jonny Rainey MD [facility] [place] [address] [place] [address] 02/20/2023 10:05:11 02/24/2023 08:38:38 Pain in right hand 6940963045 14124 M79.641 Osteopenia 179450454 M85 .80 [id number] Jonny Rainey MD [facility] [place] [address] [place] [address] 02/28/2023 10:20:05 03/03/2023 14:27:59 Closed fracture of distal end of radius 43402766 S52.501D [id number] PATRICIA Plaza [facility] [place] [address] [place] [address] 04/02/2023 09:41:38 04/02/2023 11:28:56 Closed fracture of distal end of radius 78189275 S52.501D [id number] Skip Dinh DPM [facility] [place] [address] [place] [address] 04/21/2023 10:02:32 05/07/2023 14:06:15 Dystrophia unguium 40346506 L60.3 Nails 1 through 10 were debrided with sharp mechanical debridemen t without incident. Nails were debrided and greater than 50% length and thickness where needed.Fol low-up 3 months as needed Unable to cut own toenails 368256382 Z74.1 [id number] PATRICIA Plaza [facility] [place] [address] [place] [address] 05/16/2023 09:34:13 05/16/2023 10:50:05 Closed fracture of distal end of radius 79717829 S52.501D [id number] Skip Dinh DPM [facility] [place] [address] [place] [address] 09/01/2023 13:59:18 09/01/2023 14:33:04 Dystrophia unguium 27349103 L60.3 Nails 1 through 10 were debrided with sharp mechanical debridemen t without incident. Nails were debrided and greater than 50% length and thickness where needed.Fol low-up 3 months as needed Unable to cut own toenails 695067539 Z74.1 [id number] Skip Dinh DPM [facility] [place] [address] [place] [address] 02/09/2024 10:23:21 02/09/2024 11:58:19 Callus of heel 667441103 L84 recommend use of a pumice stone dailyRx urea new lineRx custom orthotics with deep heel cupcontinu e supportive shoe gearfollow -up 3 months Pain in both feet 814614 0929 4771784 M79.671 M79.672 as above Dystrophia unguium 43756 009 L60.3 Nails 1 through 10 were debrided with sharp mechanical debridemen t without incident. Nails were debrided and greater than 50% length and thickness where needed.Fol low-up 3 months as needed Health Concerns Section Related Observation LastModified by Organization Detai ls LastModified Time None Recorded Concern Status LastModified by Organization Details LastModified Time None Recorded Advance Directives Directive None Recorded Payers Encounter Date Sequence Insurance Name Policy Number Policy Pittman Covered Member ID Pittman Member ID Guarantor Name 04/02/2023 1 [place] Memo Tamez [id number] Memo Tamez 04/02/2023 2 [place] [facility] Memo Tamez [id number] Memo Tamez 04/21/2023 1 [place] Memo Tamez [id number] Memo Tamez 04/21/2023 2 [place] [facility] Memo Tamez [id number] Memo Tamez 05/16/2023 1 [place] Memo Tamez [id number] Memo Tamez 05/16/2023 2 [place] [facility] Memo Tamez [id number] Memo Tamez 09/01/2023 1 [place] Memo Tamez [id number] Memo T[employer]z 09/01/2023 2 [place] [facility] Memo Tamez [id number] Memo Tamez 02/09/2024 1 [place] Memo T[employer]z [id number] Memo [employer] 02/09/2024 2 [place] [facility] Memo Tamez [id number] [employer] Notes Date Note Type Note Provider Name and Address Organization Details Recorded Time 04/21/2023 text/html . Patient is a 78-year-old male who returns the office for routine foot care. Patient states overall he is doing well. Patient denies any wounds or infection of the foot. Patient denies any pain with weight-bearing. Patient states he needs his nails cut as he is unable to cut them. Patient has recently injured his right wrist to which he sustained a fracture in his in a splint and following up with orthopedic surgery. Patient denies any other complaints. Skip Dinh DPM [address] [place] [address], [address], [facility] [employer] 05/07/2023 13:38:49 09/01/2023 text/html . Patient is a 78-year-old male who returns the office for follow-up on routine foot care. Patient states he has no wounds or pain of the foot. Patient states his nails have become long he is unable to cut them. Patient denies any other complaints. Skip Dinh DPM [address], [address], [place], [address], [employer] Rank By Search [facility] 09/01/2023 14:32:17 02/09/2024 text/html . Patient is a 79-year-old male who returns the office for routine foot care. Patient states he continues have significant callusing of the heels he states that with walking and causes him mild pain he denies any open wounds or infection. Patient was recently discharged from a group home facility due to falls. Patient is currently using a walker with walking. Patient states his nails are also long like to have them cut. Patient denies any other complaints. Skip Dinh DPM [address], [address], [place], [address], [employer] 02/09/2024 11:39:38
--- OUTSIDE RECORDS SUMMARY | 2024-10-02 08:10 | XMS_ITS | Clinical Summary ---
Author Organization [facility] Address [address] [place] [address] Care Team Providers Care Electrical Maintenance Man Name Role Phone Monroe Jeffries MD Primary Care Provider [phone] Allergies No known active allergies Social History Tobacco Use Types Packs/Day Years Used Date Smoking Tobacco: Never Assessed Personal Safety Answer Date Recorded Getting School Help Needed Not on file 09/06 Sex and Gender Information Value Date Recorded Sex Assigned at Not on file Legal Sex Male 12:29 AM [employer] Gender Identity Not on file Sexual Orientation [...] 11/22/2015 3:31 AM CDT Plan of Treatment Health Maintenance Due Date Last Done Comments Depression Screening 1945 Fall Risk Assessment 1945 Hepatitis C Screening 1945 DTaP/Tdap/Td Vaccine (1 - Tdap) 1957 Hepatitis B Screening 02/07/1964 Pneumococcal vaccine 65+ (1 of 1 - PCV) 02/07/1996 Zoster Vaccine (1 of 2) 02/07/1996 Well Visit 65+ 2011 Covid-19 Vaccine (5 - 2023-2 5 season) 2024 05/07/2022, 11/14/2021, 09/29/2020, Additional history exists Influenza Vaccine (#1) 2024 05/07/2022 Insurance MEDICARE [facility] Care Teams Electrical Maintenance Man Relationship Specialty Start Date End Date Monroe Jfefries MD [address] [place] [address] PCP - General Internal Medicine 09/10/22
== END 2024-10-02 08:06 | disposition home or self-care (01) ==
PROVIDERS: PCP Internal Medicine; Visit Provider Internal Medicine
DX: S22.32XA Fracture of one rib, left side, initial encounter for closed fracture (principal)
CPT/HCPCS: 71100

== ENCOUNTER 2024-10-19 09:34 | Inpatient (IN) | payer MEDICARE, MEDICAID, SELFPAY ==
--- NOTE | ~2024-10-19 | US_ITS ---
EXAMINATION: US venous doppler [facility] DATE: 10/19/2024 21:17 INDICATION: Bilateral lower extremity edema TECHNIQUE: Grayscale ultrasound images without and with compression and Doppler ultrasound images of the bilateral lower extremity veins were obtained. COMPARISON: 06/18/2021. FINDINGS: The visualized portions of right common femoral vein, profunda (deep) femoral vein, femoral vein, pop liteal vein, peroneal veins, posterior tibial veins, and greater saphenous vein outflow are patent. The visualized portions of left common femoral vein, profunda femoral vein, femoral vein, popliteal v ein, peroneal veins, posterior tibial veins, and greater saphenous vein outflow are patent. IMPRESSION: 1. No deep venous thrombosis within the bilateral lower extremities, as detailed above. Reviewed, dictated and finalized at location A. IMPRESSION: 1. No deep venous thrombosis within the bilateral lower extremities, as detail ed above.
--- NOTE | ~2024-10-19 | XR_ITS ---
XR chest 2V 10/19/2024 13:09 Indication: Status post fall. Dyspnea. Procedure: 2 view chest Comparison: Comparison to multiple prior studies sequentially, with oldest reviewed study dated 04/13. Findings: Bibasilar airspace disease, compatible with pneumonia. Shallow inspiration. No significant effusion. No pneumothorax. Impression: 1: Bibasilar airspace disease, compatible with pneumonia. Reviewed, dictated and finalized at location A. Impression: 1: Bibasilar airspace disease, compatible with pneumonia.
--- NOTE | ~2024-10-19 | CT_ITS ---
Non-contrast Head CT History: Status post fall COMPARISON: 07/22/2024 Technique: Axial non-contrast imaging of the brain was performed. Dose reduction technique was used on this scan by utilizing automated exposure control and iterative reconstruction technique. The dose -length product (DLP) was 681.00 mGy-cm. Findings: There is no evidence of intracranial hemorrhage, mass lesion, or acute infarct. Stable per ipheral left cerebral hemisphere and cephalization with overlying craniectomy defect. The ventricles and subarachnoid spaces are mildly dilated diffusely. The visualized paranasal sinuses and mastoid a ir cells are clear. Impression: No acute abnormality seen. Chronic changes in the left cerebral hemisphere, as above. Reviewed, dictated and finalized at location . Impression: No acute abnormality seen. Chronic changes in the left cerebral hemisphere, as above.
--- NOTE | ~2024-10-19 | XR_ITS ---
XR ribs LT 2V Ordering provider: Cj Cardenas MD History: . fall . Comparison: None. FINDINGS: BONES: Fracture of the anterior and of the left ninth and 10th rib is noted. Clinical correlation adv ised. Possible fracture of the left fifth rib. LEFT LUNG: No effusions or infiltrates. No pneumothorax. SOFT TISSUES: Normal. IMPRESSION: Fracture of the left ninth and 10th ribs. Clinical correlation advised. Reviewed, dictated and finalized at location A.
[2024-10-19 09:36] VITALS: BP 150/79; PULSE 65; RESP 16; TEMP 36.4; O2SAT 99
--- OUTSIDE RECORDS SUMMARY | 2024-10-19 10:27 | XMS_ITS | CONTINUITY OF CARE DOCUMENT ---
Author Name danielito esteves Address Unknown Organization [facility] Address [address] [place] [address] [address] [place] [address] Phone [phone] Care Team Providers Care Police Commissioner Name Role Phone danielito esteves Unavailable Unavailable
--- OUTSIDE RECORDS SUMMARY | 2024-10-19 10:27 | XMS_ITS ---
Author Name Braulio Mayer Address [address] [place] [address] Phone [phone] Organization [facility] ice Address [address] [place] [address] Phone [phone] Care Team Providers Care Bench Scientist Name Role Phone Braulio Mayer Unavailable Jaime Cat Unavailable [phone] Functional Status Mental Status Allergies and Intolerances Medications Problems Reason for Referral Past Medical History
--- OUTSIDE RECORDS SUMMARY | 2024-10-19 10:27 | XMS_ITS | Clinical Summary ---
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
--- OUTSIDE RECORDS SUMMARY | 2024-10-19 10:27 | XMS_ITS | Data Portability ---
Author Organization [place] [facility], Main Office Address [address] [place] [address] Care Team Providers Care Center Medical Specialist Name Role Phone YOANA HOLDEN Primary Care Provider [phone] YOANA HOLDEN Referring Provider [phone] Assessment Encounter Date Assessment Date Assessment LastModified [...] with more than half of this in rqin-cs-zlnj conversation Not available 04/02/2023 11:11:51 04/21/2023 04/21/2023 This note is dictated and transcribed by [employer]. Clinical Nursing Coordinator variances may occur. Despite proofreading, typographical errors [...] very stiff especially with extension. He has nezo-uo-erxgshqi swelling in the fingers as well. Impression: Patient's right distal radius fracture looks to be well united on the x-rays. He has good range of motion of the wrist he just needs to continue to work fingers to get full motion and function back in the. He will stop using the brace coat padder. May use the hand for all activities at this point. He will continue with therapy as long as he feels he needs it. We will see him back as needed. 20 minutes was spent in treatment patient more than half of this in yllm-iq-zktp conversation Not available 05/16/2023 10:46:19 02/09/2024 02/09/2024 This note is dictated and transcribed by [employer]. Clinical Nursing Coordinator variances may occur. Despite proofreading, typographical errors may occur. Occasional wrong-word or 'iiiis-w-qngg' substitutions may have occurred due to the [...] XR, wrist 023 023 [email or web address] [facility] [place], [address], [place], [address], 3 10:50:06 XR, wrist 023 023 [email or web address] [facility] [place], [address], [place], [address], 3 11:28:56 Medication Orders urea 40 % topical cream 024 024 [facility] [address], [address], [place], [address], 4 11:08:59 Patient TargetsNo targets recorded. Patient InstructionsNo instructions recorded. Reason for Referral None Reported. Results Created Date Observation Date Name Description Value Unit Range Abnormal Flag Note LastModifiedBy Organization Detail LastModifiedTime 04/02/20 23 XR, wrist No observ ation record ed. [facility] [place] [address], [place], [address], 04/02/2023 11:09:29 05/16/20 23 XR, wrist No observ ation record ed. [facility] [place] [address], [place], [address], 05/16/2023 10:44:55 Result Notes None recorded. Problems Name Problem SNOMED Code Status Onset Date Resolution Date Notes Provider Name and Address Organization Details Recorded Time Hyperchole sterolemia 28551838 Active Not Available [facility] 3 13:13:45 Lesion of ulnar nerve 942488101 Active Not Available [facility] 3 13:13:45 Hypertensi ve disorder 83607933 Active Not Available [facility] 3 13:13:45 Ingrowing toenail 781971354 Active 2021 Not Available [facility] 3 13:13:45 Carpal tunnel syndrome 11854723 Active Not Available [facility] 3 13:13:45 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 2022 Skip Dinh DPM [address], [place], [address] , [facility] [employer] [facility] 3 14:39:01 Unable to cut own toenails 311445270 Active 2022 Skip Dinh DPM [address], [place], [address] , [facility] [employer] [facility] 3 10:09:32 Pain in right hand 8857606308242 09 Active 2022 ASHLEY Lopez, [facility] [employer] [facility] 3 10:27:54 Osteopenia 303936006 Active 2022 Cadence oden, [facility] [employer] [facility] 3 11:29:50 Closed fracture of distal end of radius 37923725 Active 2022 ASHLEY Lopez, [facility] [employer] [facility] 3 10:31:27 Callus of heel 217255255 Active 2023 Skip Dinh DPM [address], [place], [address] , [facility] [employer] [facility] 4 11:06:55 Pain in both feet 6702317772645 9102 Active 2023 Skip Dinh DPM [address], [address], [place], [address] , [facility] [employer] [facility] 4 11:08:00 Problem Notes None recorded. Procedures Surgical History Date Name Laterality Status Provider Name and Address Organization Details Recorded Time 4 Nail Debridement completed Skip Dinh DPM [address], [place], [address], [facility] [employer] [facility] 02/09/2024 11:09:07 4 Nail Debridement completed Skip Dinh DPM [address], [address], [place], [address], [facility] [employer] [facility] 09/01/2023 14:31:58 3 Nail Debridement completed Skip Dinh DPM [address], [address], [place], [address], [facility] [employer] [facility] 04/21/2023 11:55:25 3 Nail Debridement completed Skip Dinh DPM [address], [place], [address], [facility] [employer] [facility] 01/20/2023 10:09:11 3 Nail Debridement completed Skip Dinh DPM [address], [place], [address], [facility] [employer] [facility] 10/14/2022 14:38:45 Carpal tunnel surgery completed Priyanka De Souza [facility] [employer] [facility] 02/20/2023 10:26:45 procedure on brain completed Priyanka De Souza [facility] [employer] [facility] 02/20/2023 10:26:56 Hand completed Priyanka De Souza [facility] [employer] [facility] 02/20/2023 10:27:04 Imaging Results Imaging Date Name Status LastModified by Organiz ation Details LastModified Time 04/02/2023 XR, wrist completed [facility] [place] [address], [place], [address], 04/02/2023 11:09:29 05/16/2023 XR, wrist completed [facility] [place] [address], [place], [address], 05/16/2023 10:44:55 Procedure Notes None recorded. Medical [...] DateTime 04/02/2023 172.72 cm Priyanka Ap Sarath [facility] [employer] [facility] 04/02/2023 09:44:40 Date Recorded Body height Body mass index (BMI) Body weight Heart rate Respiratory rate Oxygen saturation Oxygen saturation in Arterial blood by Pulse oximetry Provider Name and Address Organization Details Last Updated DateTime 3 172.72 cm 32.5 kg/m2 43882.7 7 g 86 /min 16 /min 98 % 98 % Claudia Corbett [facility] [employer] [facility] 3 11:12:24 Date Recorded Body height Provider Name an d Address Organization Details Last Updated DateTime 05/16/2023 172.72 cm Priyanka Ap [facility] [employer] [facility] 05/16/2023 09:37:31 Date Recorded Body height Body mass index (BMI) Body weight Heart rate Respiratory rate Oxygen saturation Oxygen saturation in Arterial blood by Pulse oximetry Provider Name and Address Organization Details Last Updated DateTime 4 172.72 cm 32.5 kg/m2 91867.7 7 g 89 /min 14 /min 98 % 98 % Claudia Corbett [employer] [facility] [employer] [facility] 4 14:10:55 Date Recorded Body height Body mass index (BMI) Body weight Heart rate Respiratory rate Body temperature Provider Name and Address Organization Details Last Updated DateTime 4 172.72 cm 32.5 kg/m2 82276.7 7 g 72 /min 16 /min 98.6 [degF] Val Boswell MA [place] [facility] 4 10:32:02 Social History None recorded. Functional Status None recorded. Mental Status None recorded. Family History Relationship Description Onset Age of this Age Resolved Age Notes LastModified by Organization Details LastModified Time Sister Heart disease [email or web address] Not available 2022 10:26:03 Brother Heart disease [email or web address] Not available 2022 10:26:03 Father Family history of malignant neoplasm [email or web address] Not available 2022 10:26:24 Medical History Condition Response ARTHRITIS Y HEADACHES/MIGRAINES Y SEIZURES/EPILEPSY Y USE OF NSAIDS Y GOUT Y BOWEL PROBLEMS Y BACK / NECK PROBLEMS Y HYPERTENSION Y STROKE/TIA Y HIGH CHOLESTEROL / HYPERLIPIDEMIA Y Past Encounters Encounter ID Performer Location Encounter Start Date Encounter Closed Date Diagnosis/Indication Diagnosis SNOMED-CT Code Diagnosis ICD10 Code Diagnosis Note [id number] [facility] [place] [address] [place] [address] 08/06/2021 00:00:00 08/06/2021 10:55:00 [id number] [facility] [place] [address] [place] [address] 11/26/2021 00:00:00 11/27/2021 14:25:22 [id number] [facility] [place] [address] [place] [address] 04/04/2022 00:00:00 04/06/2022 20:13:08 [id number] Skip Dinh DPM [facility] [place] [address] [place] [address] 10/14/2022 12:10:46 10/15/2022 13:16:11 Dystrophia unguium 06707176 L60.3 Nails 1 through 10 were debrided with sharp mechanical debridemen t without incident. Nails were debrided and greater than 50% length and thickness where needed. Unable to cut own toenails 608698524 Z74.1 [id number] Skip Dinh DPM [facility] [place] [address] [place] [address] 01/20/2023 09:53:12 01/20/2023 10:11:21 Dystrophia unguium 95507814 L60.3 Nails 1 through 10 were debrided with sharp mechanical debridemen t without incident. Nails were debrided and greater than 50% length and thickness where needed. Unable to cut own toenails 263737102 Z74.1 [id number] Jonny Rainey MD [facility] [place] [address] [place] [address] 02/20/2023 10:05:11 02/24/2023 08:38:38 Pain in right hand 0322397497 37045 M79.641 Osteopenia 006136928 M85 .80 [id number] Jonny Rainey MD [facility] [place] [address] [place] [address] 02/28/2023 10:20:05 03/03/2023 14:27:59 Closed fracture of distal end of radius 74006671 S52.501D [id number] PATRICIA Plaza [facility] [place] [address] [place] [address] 04/02/2023 09:41:38 04/02/2023 11:28:56 Closed fracture of distal end of radius 78514136 S52.501D [id number] Skip Dinh DPM [facility] [place] [address] [place] [address] 04/21/2023 10:02:32 05/07/2023 14:06:15 Dystrophia unguium 71483861 L60.3 Nails 1 through 10 were debrided with sharp mechanical debridemen t without incident. Nails were debrided and greater than 50% length and thickness where needed.Fol low-up 3 months as needed Unable to cut own toenails 182393374 Z74.1 [id number] PATRICIA Plaza [facility] [place] [address] [place] [address] 05/16/2023 09:34:13 05/16/2023 10:50:05 Closed fracture of distal end of radius 58702517 S52.501D [id number] Skip Dinh DPM [facility] [place] [address] [place] [address] 09/01/2023 13:59:18 09/01/2023 14:33:04 Dystrophia unguium 14691241 L60.3 Nails 1 through 10 were debrided with sharp mechanical debridemen t without incident. Nails were debrided and greater than 50% length and thickness where needed.Fol low-up 3 months as needed Unable to cut own toenails 970623350 Z74.1 [id number] Skip Dinh DPM [facility] [place] [address] [place] [address] 02/09/2024 10:23:21 02/09/2024 11:58:19 Callus of heel 838221445 L84 recommend use of a pumice stone dailyRx urea new lineRx custom orthotics with deep heel cupcontinu e supportive shoe gearfollow -up 3 months Pain in both feet 538025 2909 8986553 M79.671 M79.672 as above Dystrophia unguium 25056 009 L60.3 Nails 1 through 10 were [...] [place] Member ID Guarantor Name 04/02/2023 1 [place] [employer] [id number] [employer] 04/02/2023 2 [place]ID-[place] [facility] [employer] [id number] [employer] 04/21/2023 1 [place] [employer] [id number] [employer] 04/21/2023 2 [place] [facility] [employer] [id number] [employer] 05/16/2023 1 [place] [employer] [id number] [employer] 05/16/2023 2 [place] [facility] [employer] [id number] [employer] 09/01/2023 1 [place] [employer] [id number] [employer] 09/01/2023 2 [place] [facility] [employer] [id number] [employer] 02/09/2024 1 [place] [employer] [id number] [employer] 02/09/2024 2 [place] [facility] [employer] [id number] [employer] Notes Date Note Type Note [...] denies any other complaints. Skip Dinh DPM [address] [place] [address], [address], [facility] [employer] 05/07/2023 13:38:49 09/01/2023 text/html . Patient is a 78-year-old male who returns the office for follow-up on routine foot care. Patient states he has no wounds or pain of the foot. Patient states his nails have become long he is unable to cut them. Patient denies any other complaints. Skip Dinh DPM [address], [place], [address], [employer] [facility] [employer] [facility] 09/01/2023 14:32:17 02/09/2024 text/html . Patient is a 79-year-old male who returns the office for routine foot care. Patient states he continues have significant callusing of the heels he states that with walking and causes him mild pain he denies any open wounds or infection. Patient was recently discharged from a fpc facility due to falls. Patient is currently using a walker with walking. Patient states his nails are also long like to have them cut. Patient denies any other complaints. Skip Dinh DPM [address], [place], [address], [employer] 02/09/2024 11:39:38
--- OUTSIDE RECORDS SUMMARY | 2024-10-19 10:27 | XMS_ITS | Clinical Summary ---
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
--- OUTSIDE RECORDS SUMMARY | 2024-10-19 10:27 | XMS_ITS | Referral Summary ---
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 [address] [place], [place] [address] PCP - General Internal Medicine 09/10/22
[2024-10-19 12:05] VITALS: BP 123/83; PULSE 57; RESP 15; O2SAT 98
[2024-10-19 12:51] LABS: Basophils Percent Auto 0.3 % (0.2-1.2); Eosinophils Absolute Auto 0.3 K/mm3 (0-0.3); Eosinophils Percent Auto 4.4 % (0-4.4); Immature Granulocyte Absolute 0.03 K/mm3 (0.00-0.031); Immature Granulocyte Percent A 0.4 % (0-0.5); Lymphocytes Absolute Auto 1.75 K/mm3 (0.9-3.2); Mean Corpuscular HGB Conc 32.5 g/dl (32-36); Mean Corpuscular Hemoglobin 33.2 pg (26-34); Mean Corpuscular Volume 102.3 fl (80-100); Monocytes Absolute Auto 0.9 K/mm3 (0.1-0.6); Monocytes Percent Auto 12.3 % (2.6-8.5); Neutrophils Percent Auto 57.6 % (45.5-73.1); Platelet Count Result 149 k/mm3 (150-375); Red Blood Count 3.91 M/mm3 (4.6-6.20); Red Cell Distribution Width 13.8 % (11.5-14.5)
[2024-10-19 13:14] LABS: Alanine Aminotransferase 20 U/L (6-50); Albumin Level 4.1 g/dL (3.5-5.1); Alkaline Phosphatase 155 U/L (38-126); Anion Gap 10 mmol/L (4-12); Aspartate Amino Transferase 28 U/L (17-59); Bilirubin,Total 0.3 mg/dL (0.2-1.3); Blood Urea Nitrogen 29 mg/dL (9-20); Calcium 8.9 mg/dL (8.4-10.2); Carbon Dioxide 26 mmol/L (22-30); Chloride 105 mmol/L (98-107); Estimated Glomerular Filt Rate > 60; Glucose 97 mg/dL (65-110); Potassium 3.6 mmol/L (3.4-5.0); Sodium 141 mmol/L (137-145)
[2024-10-19 13:18] LABS: Phenytoin Dilantin 12 ug/mL (10-20)
--- OUTSIDE RECORDS SUMMARY | 2024-10-19 13:25 | XMS_ITS | Clinical Summary ---
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
--- OUTSIDE RECORDS SUMMARY | 2024-10-19 13:25 | XMS_ITS | CONTINUITY OF CARE DOCUMENT ---
Author Name danielito esteves Address Unknown Organization [facility] Address [address] [place] [address] [address] [place] [address] Phone [phone] Care Team Providers Care Lock Tender Chief Operator Name Role Phone daneilito esteves Unavailable Unavailable
--- OUTSIDE RECORDS SUMMARY | 2024-10-19 13:25 | XMS_ITS | Clinical Summary ---
Author Organization 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
--- OUTSIDE RECORDS SUMMARY | 2024-10-19 13:25 | XMS_ITS | Referral Summary ---
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
--- OUTSIDE RECORDS SUMMARY | 2024-10-19 13:25 | XMS_ITS ---
Author Name Braulio [place] Address [address] [facility] [facility] [facility] [address] [place] [address] Phone [phone] Organization [facility] ice Address [address] [place] [address] Phone [phone] Care Team Providers Care Outside Sales Account Representative Name Role Phone Braulio [place] Unavailable [phone] Jaime Cat Unavailable Functional Status Mental Status Allergies and Intolerances Medications Problems Reason for Referral Past Medical History
[2024-10-19 13:55] LABS: Add Urine Microscopic? YES; Appearance Urine Clear (Clear); Bacteria Urine None Seen /hpf; Bilirubin Urine Negative (Negative); Blood Urine Negative (Negative); Color Urine Yellow (Yellow); Glucose Urine UA Negative (Negative); Ketones Urine Trace mg/dL (Negative); Leukocyte Esterase Ur 2+ LEU/UL (Negative); Nitrate Urine Negative (Negative); Non Pathogenic Casts 0-2; Protein Urine Negative (Negative); RBC Urine 0-2 /hpf (0-2); Specific Grav Ur 1.023 (1.001-1.035); Squamous Epithelial Cell Urine Occasional /hpf (Few); WBC Urine 21-50 /hpf (0-3)
[2024-10-19 15:10] VITALS: BP 101/65; PULSE 61; RESP 14
[2024-10-19 15:11] VITALS: BP 148/83; BP 151/72; PULSE 77; PULSE 83
--- NOTE | 2024-10-19 15:19 | ED_ITS ---
HPI - General Adult General Chief complaint: Fall Stated complaint: multiple falls, balance problems Time Seen by Provider: 10/19/24 12:05 History of Present Illness HPI narrative: Patient is a 79-year-old male who presents ER with multiple falls. Specially over last 2 nights. Has expressive aphasia. Has been having pain to left side of his chest due to the falls. History provided by his sister due to his expressive aphasia. He does report pain to his left side. Related Data Home Medications ?Medication ?Instructions ?Recorded ?Confirmed ?Last Taken ?Type folic acid 1 mg tablet 1 mg PO DAILY 04/13/20 10/19/24 10/19/24 History mecobalamin (vitamin B12) 1,000 1,000 mcg sublingual DAILY 04/13/20 10/19/24 10/19/24 History mcg disintegrating tablet,sublingual cholecalciferol (vitamin D3) 25 25 mcg PO DAILY 05/28/21 10/19/24 10/19/24 History mcg (1,000 unit) capsule (Vitamin D3) atorvastatin 20 mg tablet 20 mg PO DAILY 05/06/24 10/19/24 10/19/24 History gabapentin 300 mg capsule See Rx Instructions .Route .COMPLEX 05/06/24 10/19/24 10/19/24 History levothyroxine 200 mcg tablet 200 mcg PO DAILY 05/06/24 10/19/24 10/19/24 History sucralfate 1 gram tablet 2 g PO BID 05/06/24 10/19/24 10/19/24 History primidone 250 mg tablet 250 mg PO DAILY 07/22/24 10/19/24 10/19/24 History Allergies Allergy/AdvReac Type Severity Reaction Status Date / Time No Known Allergies Allergy Unknown Verified 10/19/24 12:01 Review of Systems 2 Review of Systems: ROS unobtainable: Yes unobtainable due to medical condition PMFSH Past Medical History Medical History (Updated 10/19/24 @ 22:53 by Cj Cardenas MD) Obstructive sleep apnea intolerant to CPAP Chronic anemia Normal cardiac stress test (2022) Colon polyps Gastroesophageal reflux disease Hypothyroidism Sandra encephalitis (1963) Degenerative joint disease Chronic cough Constipation Small bowel obstruction (11/2015) Restless legs Vitamin B12 deficiency Anxiety Seizure disorder Hyperlipidemia Benign essential hypertension Surgical History Surgical History History of exploratory laparotomy (11/2015) 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 History of cataract extraction with lens replacement History of arthroscopy of shoulder History of craniotomy (1963) History of colonoscopy with polypectomy Family History Family History Father HLD (hyperlipidemia) Chronic obstructive pulmonary disease Mother HLD (hyperlipidemia) Multiple myeloma Sibling Hypertension Other Diabetes mellitus Social History Social History Social History: Surrogate medical decision maker: Tamara Friend, sister. Code status: Full code. Smoking status: Never smoker Second hand tobacco smoke exposure: No Alcohol intake: never Substance use: never Substance use type: does not use Do You Feel Safe in your Home?: Yes Lack of Transportation: No Lack of Food: Never True Current Housing: I Have Housing Concerned About Future Housing: No Difficulty Paying Gas/Electric Bills: No Difficulty Paying for Meds: No Currently Unemployed: No Education: High School Diploma/GED Difficulty w/ Childcare or Family Care: No Living arrangements: alone Additional living arrangements comments: Patient lives alone. Sister Tamara Renteria is his [id number] and caregiver. Spiritual care concerns: No Exam 2 Narrative: GENERAL: Well-appearing, well-nourished, and in no acute distress. HEAD: Abnormal shape due to previous surgery., atraumatic. ENT: Mucous membranes moist. NECK: Supple. CHEST: Clear to auscultation. No respiratory distress. HEART: Regular rate and rhythm. Normal peripheral pulses. ABDOMEN: Soft, nontender, nondistended. EXTREMITIES: Normal range of motion. No edema. SKIN: Warm, dry, no rash. NEURO: Awake alert and at neurologic baseline. PSYCH: Normal mood and affect. Course Course Emergency Course: Admit to hospitalist service for IV antibiotics and further evaluation and pain control. Vital Signs Vital signs: Vital Signs Temperature 97.6 F 10/19/24 09:36 Pulse Rate 65 10/19/24 09:36 Respiratory Rate 16 10/19/24 09:36 Blood Pressure 150/79 H 10/19/24 09:36 Pulse Oximetry 99 10/19/24 09:36 Oxygen Delivery Room Air 10/19/24 09:36 Temperature 97 F L 10/19/24 21:32 Pulse Rate 60 10/19/24 21:32 Respiratory Rate 18 10/19/24 21:32 Blood Pressure 112/64 10/19/24 21:32 Pulse Oximetry 98 10/19/24 21:32 Oxygen Delivery Room Air 10/19/24 09:36 Medical Decision Making Vital Signs Vital Signs: Vital Signs Temperature 97.6 F 10/19/24 09:36 Pulse Rate 65 10/19/24 09:36 Respiratory Rate 16 10/19/24 09:36 Blood Pressure 150/79 H 10/19/24 09:36 Pulse Oximetry 99 10/19/24 09:36 Oxygen Delivery Room Air 10/19/24 09:36 Temperature 97 F L 10/19/24 21:32 Pulse Rate 60 10/19/24 21:32 Respiratory Rate 18 10/19/24 21:32 Blood Pressure 112/64 10/19/24 21:32 Pulse Oximetry 98 10/19/24 21:32 Oxygen Delivery Room Air 10/19/24 09:36 Lab Data 10/19/24 12:30 10/19/24 12:30 Labs: Lab Results 10/19/24 10/19/24 Range/Units 12:30 13:45 WBC 7.0 (4.5-10.0) K/mm3 RBC 3.91 L (4.6-6.20) M/mm3 Hgb 13.0 L (14.0-18.0) g/dL Hct 40.0 L (42.0-52.0) % MCV 102.3 H (80-100) fl MCH 33.2 (26-34) pg MCHC 32.5 (32-36) g/dl RDW 13.8 (11.5-14.5) % Plt Count 149 L (150-375) k/mm3 MPV 11.0 H (7.4-10.4) fl Immature Gran % (Auto) 0.4 (0-0.5) % Neut % (Auto) 57.6 (45.5-73.1) % Lymph % (Auto) 25.0 (18.3-44.2) % [place] % (Auto) 12.3 H (2.6-8.5) % Eos % (Auto) 4.4 (0-4.4) % Baso % (Auto) 0.3 (0.2-1.2) % Lymph # (Auto) 1.75 (0.9-3.2) K/mm3 [place] # (Auto) 0.9 H (0.1-0.6) K/mm3 Eos # (Auto) 0.3 (0-0.3) K/mm3 Baso # (Auto) 0.0 (0.0-0.1) K/mm3 Abs Immat Gran (auto) 0.03 (0.00-0.031) K/mm3 Absolute Neuts (auto) 4.0 (1.3-6.7) K/mm3 Absolute Nucleated RBC 0.000 (0.0-0.012) K/mm3 Nucleated RBC % 0.0 (0.0-0.2) % Sodium 141 (137-145) mmol/L Potassium 3.6 (3.4-5.0) mmol/L Chloride 105 (98-107) mmol/L Carbon Dioxide 26 (22-30) mmol/L Anion Gap 10 (4-12) mmol/L BUN 29 H (9-20) mg/dL Creatinine 0.84 (0.7-1.3) mg/dL Estim Creat Clear Calc Not Reportable Estimated GFR > 60 (59 - ) Glucose 97 (65-110) mg/dL Calcium 8.9 (8.4-10.2) mg/dL Total Bilirubin 0.3 (0.2-1.3) mg/dL AST 28 (17-59) U/L ALT 20 (6-50) U/L Alkaline Phosphatase 155 H (38-126) U/L Total Protein 7.0 (6.3-8.2) g/dL Albumin 4.1 (3.5-5.1) g/dL Urine Color Yellow (Yellow) Urine Appearance Clear (Clear) Urine pH 6.0 (5.0-9.0) Ur Specific [place] 1.023 (1.001-1.035) Urine Protein Negative (Negative) mg/dL Urine Glucose (UA) Negative (Negative) mg/dL Urine Ketones Trace H (Negative) mg/dL Ur Blood (Man) Negative (Negative) Urine Nitrate Negative (Negative) Urine Bilirubin Negative (Negative) Urine Urobilinogen 1.0 (<2.0) mg/dL Leukocyte Esterase Rfl 2+ H (Negative) KELLE/UL Urine RBC 0-2 (0-2) /hpf Urine WBC 21-50 H (0-3) /hpf Ur Squamous Epith Cells Occasional (Few) /hpf Urine Bacteria None seen /hpf Urine Casts 0-2 Phenytoin 12 (10-20) ug/mL Imaging Data Radiologist's impression: ITS Impressions Head CT 10/19/24 12:53 Impression: No acute abnormality seen. Chronic changes in the left cerebral hemisphere, as above. Chest X-Ray 10/19/24 13:15 Impression: 1: Bibasilar airspace disease, compatible with pneumonia. Ribs X-Ray 10/19/24 13:17 IMPRESSION: Fracture of the left ninth and 10th ribs. Clinical correlation advised. Discharge Plan Discharge Clinical Impression: Pneumonia Fracture, ribs Qualifiers: Encounter type: initial encounter Fracture type: closed Laterality: left Q ualified Code(s): S22.42XA - Multiple fractures of ribs, left side, initial encounter for closed fracture Patient Disposition: Still a Patient Condition: Stable
--- NOTE | 2024-10-19 15:35 | P.HP_ITS ---
H&P: HPI History of Present Illness Date/Time: 10/19/24 15:35 Chief Complaint: Weakness and a fall. 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 The patient lives in his own home and uses a cane, walker, or wheelchair depending how he is doing each day and it is my understanding that he has done rehab before for chronic balance problem. He admits that he is becoming progressively more weak and deconditioned over the past several months and it is to the point where he now has some difficulty going from a seated to standing position. Sometime yesterday evening he was ambulating with a walker when he felt that his legs gave out and he fell down to the ground. Since that time he has had pain over the left side of his rib. It took him an extended period of time to get himself up and his sister, Tamara Renteria, insisted that he come in today for evaluation (she sees the patient daily and helps him out as needed). He denies syncope, near syncope, head trauma, fever, recent cold and flu symptoms, chest pain, pleuritic pain, shortness of breath, cough, abdominal pain, nausea, vomiting, diarrhea, and dysuria. He also denies vertigo, visual changes, facial droop, difficulty spe aking and swallowing, focal weakness, and paresthesias. He has chronic lower extremity edema which he states is unchanged. In the ED: Vital signs were stable on arrival. Labs were significant for WBC count of 7.0, hemoglobin 13.0, platelet 149, BUN 29, creatinine 0.84. Urinalysis was positive for trace ketones, 2+ leukocyte esterase, and 21 to 50 WBC. Occasional squamous cells and no bacteria were seen on microscopy. Phenytoin level was within normal limits. Head CT showed no acute abnormality and chronic changes in the left cerebral hemisphere. Chest x-ray showed basilar airspace disease compatible with pneumonia. Rib x-ray showed fracture of the left 9th and 10th ribs. He was started on azithromycin and ceftriaxone for findings of pneumonia and he is being admitted in this setting for further treatment and PT/OT consultation. Review of Systems Review of Systems: 12 systems were reviewed and are negativ e except for as per HPI. [facility] Past Medical History Medical History (Updated 10/19/24 @ 21:17 by Joselyn Kirby PA-C) Obstructive sleep apnea intolerant to CPAP Chronic anemia Normal cardiac stress test (2022) Colon polyps Gastroesophageal reflux disease Hypothyroidism Sandra encephalitis (1963) Degenerative joint disease Chronic cough Constipation Small bowel obstruction (11/2015) Restless legs Vitamin B12 deficiency Anxiety Seizure disorder Hyperlipidemia Benign essential hypertension Surgical History Surgical History History of exploratory laparotomy (11/2015) 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 History of cataract extraction with lens replacement History of arthroscopy of shoulder History of craniotomy (1963) History of colonoscopy with polypectomy Family History Family History Father HLD (hyperlipidemia) Chronic obstructive pulmonary disease Mother HLD (hyperlipidemia) Multiple myeloma Sibling Hypertension Other Diabetes mellitus Social History Social History Social History: Surrogate medical decision maker: Tamara Friend, sister. Code status: Full code. Smoking status: Never smoker Second hand tobacco smoke exposure: No Alcohol intake: never Substance use: never Substance use type: does not use Do You Feel Safe in your Home?: Yes Lack of Transportation: No Lack of Food: Never True Current Housing: I Have Housing Concerned About Future Housing: No Difficulty Paying Gas/Electric Bills: No Difficulty Paying for Meds: No Currently Unemployed: No Education: High School Diploma/GED Difficulty w/ Childcare or Family Care: No Living arrangements: alone Additional living arrangements comments: Patient lives alone. Sister Tamara Renteria is his [id number] and caregiver. Spiritual care concerns: No Meds Home Medications and Allergies Home Medications ?Medication ?Instructions ?Recorded ?Confirmed ?Type folic acid 1 mg tablet 1 mg PO DAILY 04/13/20 10/19/24 History mecobalamin (vitamin B12) 1,000 1,000 mcg sublingual DAILY 04/13/20 10/19/24 History mcg disintegrating tablet,sublingual cholecalciferol (vitamin D3) 25 25 mcg PO DAILY 05/28/21 10/19/24 History mcg (1,000 unit) capsule (Vitamin D3) ibuprofen 600 mg tablet 600 mg PO Q6H PRN Pain Rated 1-3 06/25/21 10/19/24 Rx #20 tabs atorvastatin 20 mg tablet 20 mg PO DAILY 05/06/24 10/19/24 History gabapentin 300 mg capsule See Rx Instructions .Route .COMPLEX 05/06/24 10/19/24 History levothyroxine 200 mcg tablet 200 mcg PO DAILY 05/06/24 10/19/24 History sucralfate 1 gram tablet 2 g PO BID 05/06/24 10/19/24 History divalproex 500 mg tablet,delayed See Rx Instructions .Route 06/07/24 10/19/24 Rx release .COMPLEX #120 tabs phenytoin sodium extended 100 mg See Rx Instructions .Route 06/07/24 10/19/24 Rx capsule .COMPLEX #150 caps losartan 100 1 tablet PO DAILY #90 tabs 07/15/24 10/19/24 Rx mg-hydrochlorothiazide 25 mg tablet primidone 250 mg tablet 250 mg PO DAILY 07/22/24 10/19/24 History hydrocodone 5 mg-acetaminophen 325 1 tablet PO Q4H PRN Pain Rated 6 07/27/24 10/19/24 Rx mg tablet Or Greater #7 tabs fluticasone fur. 100 mcg-umeclid 1 inh inhalation DAILY #60 ea 09/13/24 10/19/24 Rx 62.5 mcg-vilant 25 mcg inhalat.powder (Trelegy Ellipta) Allergies Allergy/AdvReac Type Severity Reaction Status Date / Time No Known Allergies Allergy Unknown Verified 10/19/24 12:01 Vital Signs Vital Signs - 24 hr 10/19/24 09:36 10/19/24 12:05 10/19/24 15:10 Temperature 97.6 F Pulse Rate 65 57 L 61 Respiratory Rate 16 15 14 Blood Pressure 150/79 H 123/83 101/65 Pulse Oximetry 99 98 Oxygen Delivery Autopap 10/19/24 15:11 10/19/24 15:11 Temperature Pulse Rate 83 77 Respiratory Rate Blood Pressure 148/83 H 151/72 H Pulse Oximetry Oxygen Delivery Exam Narrative: General: Well-developed, nontoxic-appearing male sitting up in bed in no acute distress. Weight: 96.7 kg. BMI: 28.1. HEENT: Left-sided craniotomy defect. He is a bit hard of hearing. PERRL, EOMI. Changes of cataract surgery with lens implants. Sclera anicteric. Tacky mucous membranes. Neck: Supple. No obvious carotid bruits. Midline vertebral tenderness. Respiratory: Lungs are clear to auscultation bilaterally. Cardiovascular: Regular rate and rhythm with S1-S2. Gastrointestinal: Abdomen is soft, nontender, and nondistended with positive bowel sounds. Skin: Warm and dry. Extremities: No cyanosis or clubbing. 3+ bilateral lower extremity edema, left greater than right. No palpable knots or cords. Negative Kate sign bilaterally. Neurological: Alert and oriented. Cranial nerves 2-12 are grossly intact. Speech is clear. No facial asymmetry. No pronator drift. Normal [id number] and rapid alternating movements. Generally weak in upper and lower extremities without obvious focal deficits. Gait was not assessed. Psychiatric: Pleasant and cooperative with normal mood and affect. Seem slightly forgetful at times. H&P: Results Labs Labs: Short CBC 10/19/24 Range/Units 12:30 WBC 7.0 (4.5-10.0) K/mm3 Hgb 13.0 L (14.0-18.0) g/dL Hct 40.0 L (42.0-52.0) % Plt Count 149 L (150-375) k/mm3 BMP 10/19/24 12:30 Sodium 141 Potassium 3.6 Chloride 105 Carbon Dioxide 26 BUN 29 H Creatinine 0.84 Glucose 97 Calcium 8.9 Liver Function 10/19/24 Range/Units 12:30 Total Bilirubin 0.3 (0.2-1.3) mg/dL AST 28 (17-59) U/L ALT 20 (6-50) U/L Alkaline Phosphatase 155 H (38-126) U/L Albumin 4.1 (3.5-5.1) g/dL Urine 10/19/24 Range/Units 13:45 Urine Color Yellow (Yellow) Urine Appearance Clear (Clear) Urine pH 6.0 (5.0-9.0) Ur Specific [place] 1.023 (1.001-1.035) Urine Protein Negative (Negative) mg/dL Urine Glucose (UA) Negative (Negative) mg/dL Impressions Head CT 10/19/24 12:53 Impression: No acute abnormality seen. Chronic changes in the left cerebral hemisphere, as above. Chest X-Ray 10/19/24 13:15 Impression: 1: Bibasilar airspace disease, compatible with pneumonia. Ribs X-Ray 10/19/24 13:17 IMPRESSION: Fracture of the left ninth and 10th ribs. Clinical correlation advised. Assessment and Plan Assessment and plan (1) Pneumonia: Code(s): J18.9 - Pneumonia, unspecified organism Status: Acute (2) Left rib fracture: Code(s): S22.32XA - Fracture of one rib, left side, initial encounter for closed fracture Status: Acute (3) Generalized weakness: Code(s): R53.1 - Weakness Status: Acute (4) Benign essential hypertension: Code(s): I10 - Essential (primary) hypertension Status: Acute (5) Hypothyroidism: Code(s): E03.9 - Hypothyroidism, unspecified Status: Acute (6) Seizure disorder: Code(s): G40.909 - Epilepsy, unspecified, not intractable, without status epilepticus Status: Acute Plan The patient presented to the emergency department for evaluation of weakness in after a fall as detailed in HPI. Labs, imaging, EKG, and all reports were personally reviewed. He has chronic balance issues and has participated in rehab before with some improvement. Unfortunately he has become deconditioned progressively more weak over the last several months. He had a fall yesterday and his sister were encouraged him to come in for evaluation. Chest and rib x- ray showed fractures of the 9th and 10th rib as well as findings of pneumonia. He has been started on azithromycin and ceftriaxone. Sputum culture ordered. Analgesics are available as needed. Encourage incentive spirometry. Initiate fall precautions. He will need PT/OT once he is feeling better and may need to go to rehab before returning home. Vital signs have been stable. His labs are near baseline. He has not had any recent seizures and phenytoin level is within normal limits. Venous Doppler ultrasounds ordered to rule out DVTs as he has significant lower extremity edema however that may be dependent. His home medications will be reviewed and resumed as appropriate. Findings and treatment plan were discussed with the patient. Questions were solicited and answered to satisfaction. The patient's medical management will be taken over by the hospitalist team in a.m. Quality VTE Prophylaxis VTE prophylaxis: pharmacologic ordered Hospitalist [facility] Advance Care Plan I have confirmed that the patient's Advanced Care Plan is present, code status is documented, or surrogate decision maker is listed in patient medical record.: Yes Medication Reconciliation I have utilized all available resources to obtain, update and review the p atients current medications (includes all prescriptions, OTC, herbals, cannabis, and nutritional supplements).: Yes
[2024-10-19] MEDS: SODIUM CHLORIDE 0.9% IV 1,000 ML 125 ML IV CONT (16:06)
[2024-10-19 16:07] VITALS: BP 145/84; PULSE 62; RESP 18; O2SAT 100
[2024-10-19] MEDS: AZITHROMYCIN 500 MG/NS 250 ML 500 MG/250 ML BAG 250 MG IVPB (16:23)
[2024-10-19 18:12] VITALS: BMI 28.1
--- NOTE | 2024-10-19 18:12 | ADMGEN ---
This patient, Memo Tamez, was admitted to Medical Room 342-01. Patient/family oriented to hospital policies and general routines including ID bracelet, bed and alarms, visiting hours, pain management, procedures, bathroom and other care routines, personal items, smoking policy, room service/diet, and visiting hours. Information on how to activate the Rapid Response Team has been discussed. Patient/Family are encouraged to report perceived risks to care and to ask questions if they do not understand what they are told or what they should do.
[2024-10-19 21:32] VITALS: BP 112/64; PULSE 60; RESP 18; TEMP 36.1; O2SAT 98
[2024-10-19] MEDS: GABAPENTIN 300 MG CAPSULE BY MOUTH (22:27)
[2024-10-19] MEDS: DIVALPROEX SODIUM DR 250 MG TABEC 500 MG BY MOUTH (22:27)
[2024-10-19] MEDS: PHENYTOIN SODIUM 100 MG EXTENDED RELEASE CAP 200 MG BY MOUTH (22:27)
[2024-10-19 23:20] LABS: Influenza A QL RT-PCR Negative (Negative); Influenza B QL RT-PCR Negative (Negative); SARS-CoV-2 RNA PCR Negative (Negative)
[2024-10-19 23:55] LABS: MRSA (PCR) NOT DETECTED (NOT DETECTE)
[2024-10-20 05:14] VITALS: BP 140/80; PULSE 60; RESP 18; TEMP 36.4; O2SAT 97
[2024-10-20 05:31] LABS: Hemoglobin 12.2 g/dL (14.0-18.0); Mean Corpuscular Hemoglobin 33.4 pg (26-34); Mean Corpuscular Volume 101.4 fl (80-100); Mean Platelet Volume 10.8 fl (7.4-10.4); Platelet Count Result 144 k/mm3 (150-375); Red Blood Count 3.65 M/mm3 (4.6-6.20); Red Cell Distribution Width 13.6 % (11.5-14.5); White Blood Count 5.9 K/mm3 (4.5-10.0)
[2024-10-20 05:39] LABS: Anion Gap 8 mmol/L (4-12); Blood Urea Nitrogen 23 mg/dL (9-20); Calcium 8.3 mg/dL (8.4-10.2); Carbon Dioxide 27 mmol/L (22-30); Chloride 105 mmol/L (98-107); Estimated CRCL calculation 79 ml/min; Estimated Glomerular Filt Rate > 60; Glucose 83 mg/dL (65-110); Magnesium 1.8 mg/dL (1.6-2.3); Potassium 3.6 mmol/L (3.4-5.0); Sodium 140 mmol/L (137-145)
[2024-10-20] MEDS: LEVOTHYROXINE SODIUM 100 MCG TABLET 200 MCG PO (06:08)
[2024-10-20] MEDS: FLUTICASONE/UMECLIDIN/VILANTER 100-62.5-25 MCG ELLIPTA 1 PUFF INHALATION (08:09)
[2024-10-20 08:10] VITALS: O2SAT 98
--- NOTE | 2024-10-20 08:13 | PM.IMPN ---
Progress Note: A&P Assessment and Plan (1) Pneumonia: Code(s): J18.9 - Pneumonia, unspecified organism Status: Acute Assessment and Plan: CXR: - Risk Factors: none - Complicating Factors: none - started on CAP tx: azithromycin ceftriaxone on 10/19 - Viral PCR: negative for Flu/COVID/RSV - Legionella, mycoplasma and pneumococcal pending - no supplemental O2 requirement - trend labs Monitor vital signs, I&Os, neuro status and patient is a fall risk Follow WBC, serum electrolytes, temperature curves and cultures Send sputum cultures Oxygen via NC; wean as tolerated. Keep SpO2 greater than 88% Gentle IV fluid resuscitation Ceftriaxone 2 gram IV q24H and Azithromycin 500mg IV q24H (2) Left rib fracture: Code(s): S22.32XA - Fracture of one rib, left side, initial encounter for closed fracture Status: Acute Assessment and Plan: Chronic On 07/[address]:Acute fractures of left ninth and 10th ribs. 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 10/20/2024 Patient sitting comfortably in bed at time of examination. Denies any chest pain, shortness of breath, n/v or abdominal pain. Labs unremarkable and vitals stable. Plan to work with PT/OT today with hopeful discharge tomorrow. Review of Systems Review of Systems: 12 systems were reviewed and are negative except for as per HPI. Exam Narrative: General: Well-developed, nontoxic-appearing male sitting up in bed in no acute distress. Weight: 96.7 kg. BMI: 28.1. HEENT: Left-sided craniotomy defect. He is a bit hard of hearing. PERRL, EOMI. Changes of cataract surgery with lens implants. Sclera anicteric. Tacky mucous membranes. Neck: Supple. No obvious carotid bruits. Midline vertebral tenderness. Respiratory: Lungs are clear to auscultation bilaterally. Cardiovascular: Regular rate and rhythm with S1-S2. Gastrointestinal: Abdomen is soft, nontender, and nondistended with positive bowel sounds. Skin: Warm and dry. Extremities: No cyanosis or clubbing. 3+ bilateral lower extremity edema, left greater than right. No palpable knots or cords. Negative Kate sign bilaterally. Neurological: Alert and oriented. Cranial nerves 2-12 are grossly intact. Speech is clear. No facial asymmetry. No pronator drift. Normal [id number] and rapid alternating movements. Generally weak in upper and lower extremities without obvious focal deficits. Gait was not assessed. Psychiatric: Pleasant and cooperative with normal mood and affect. Seem slightly forgetful at times. Objective Data Vital Signs Vital Signs: Vital Signs - 24 hr 10/19/24 09:36 10/19/24 12:05 10/19/24 15:10 Temperature 97.6 F Pulse Rate 65 57 L 61 Respiratory Rate 16 15 14 Blood Pressure 150/79 H 123/83 101/65 Pulse Oximetry 99 98 Oxygen Delivery Room Air 10/19/24 15:11 10/19/24 15:11 10/19/24 16:07 Temperature Pulse Rate 83 77 62 Respiratory Rate 18 Blood Pressure 148/83 H 151/72 H 145/84 H Pulse Oximetry 100 Oxygen Delivery 10/19/24 21:32 10/20/24 05:14 10/20/24 08:10 Temperature 97 F L 97.6 F Pulse Rate 60 60 Respiratory Rate 18 18 Blood Pressure 112/64 140/80 Pulse Oximetry 98 97 98 Oxygen Delivery Room Air Intake/Output Intake/Output: Intake & Output 10/17/24 10/18/24 10/19/24 10/20/24 23:59 23:59 23:59 23:59 Intake Total 300 120 Output Total 200 Balance 300 -80 Meds/Results Medications: Active Medications Generic Name Dose Route Start Last Admin Trade Name Freq PRN Reason Stop Dose Admin Acetaminophen 650 mg 10/19/24 15:38 Acetaminophen 325 Mg Tablet PO Q4H PRN Mild Pain (1-3) or Fever Hydrocodone Bitart/Acetaminophen 1 tab 10/19/24 15:38 Hydrocodone/Acetaminophen (*Crx) 5-325 Mg Tablet PO Q4H PRN Pain Rated 4-6 Atorvastatin Calcium 20 mg 10/20/24 09:00 Atorvastatin 20 Mg Tablet PO DAILY [facility] Cyanocobalamin 1,000 mcg 10/20/24 09:00 Cyanocobalamin 1,000 Mcg Tablet PO DAILY [facility] Divalproex Sodium 500 mg 10/19/24 21:20 10/19/24 22:[address] 250 Mg Tabec BY MOUTH 500 mg QID [facility] Administration Enoxaparin Sodium 40 mg 10/20/24 09:00 Enoxaparin 40 Mg/0.4 Ml Syringe SUB-Q DAILY [facility] Fluticasone/Umeclidinium/Vilanterol 1 puff 10/20/24 08:00 10/20/24 08:09 Fluticasone/Umeclidin/Vilanter 100-62.5-25 Mcg Ellipta INHALATION 1 puff DAILYRT LAMBERT Administration Folic Acid 1 mg 10/20/24 09:00 Folic Acid 1 Mg Tablet PO DAILY LAMBERT Gabapentin 300 mg 10/19/24 21:20 10/19/24 22:27 Gabapentin 300 Mg Capsule BY MOUTH 300 mg 5 TIMES DAILY LAMBERT Administration Hydrochlorothiazide 25 mg 10/20/24 09:00 Hydrochlorothiazide 25 Mg Tablet PO QAM LAMBERT Ceftriaxone Sodium 1 gm in 50 mls @ 100 mls/hr 10/20/24 12:00 Rocephin 1 Gm/Ns 50 Ml IVPB Q24H LAMBERT Azithromycin 500 mg in 250 mls @ 250 mls/hr 10/20/24 12:00 Zithromax IVPB Q24H LAMBERT Levothyroxine Sodium 200 mcg 10/20/24 06:30 10/20/24 06:08 Levothyroxine Sodium 100 Mcg Tablet PO 200 mcg DAILY@0630 [facility] Administration Losartan Potassium 100 mg 10/20/24 09:00 Losartan Potassium 100 Mg Tablet PO DAILY [facility] Ondansetron HCl 4 mg 10/19/24 15:38 Ondansetron Inj 4 Mg/2 Ml Vial IV PUSH Q4H PRN Nausea Phenytoin Sodium 200 mg 10/19/24 21:20 10/19/24 22:27 Phenytoin Sodium 100 Mg Extended Release Cap BY MOUTH 200 mg QHS LAMBERT Administration Phenytoin Sodium 300 mg 10/20/24 09:00 Phenytoin Sodium 100 Mg Extended Release Cap BY MOUTH QAM [facility] Primidone 250 mg 10/20/24 09:00 Primidone 250 Mg Tablet PO DAILY [facility] Sucralfate 2 gm 10/20/24 09:00 Sucralfate 1 Gm Tablet PO Q12HR [facility] Vitamin D 1,000 units 10/20/24 09:00 Cholecalciferol 1,000 Units Tablet PO DAILY [facility] Radiology Results: ITS Impressions Head CT 10/19/24 12:53 Impression: No acute abnormality seen. Chronic changes in the left cerebral hemisphere, as above. Chest X-Ray 10/19/24 13:15 Impression: 1: Bibasilar airspace disease, compatible with pneumonia. Ribs X-Ray 10/19/24 13:17 IMPRESSION: Fracture of the left ninth and 10th ribs. Clinical correlation advised. Venous Doppler Study 10/19/24 21:51 IMPRESSION: 1. No deep venous thrombosis within the bilateral lower extremities, as detailed above. Labs Labs: Laboratory Results - last 24 hr 10/19/24 10/19/24 10/19/24 12:30 13:45 22:32 WBC 7.0 RBC 3.91 L Hgb 13.0 L Hct 40.0 L MCV 102.3 H MCH 33.2 MCHC 32.5 RDW 13.8 Plt Count 149 L MPV 11.0 H Immature Gran % (Auto) 0.4 Neut % (Auto) 57.6 Lymph % (Auto) 25.0 [place] % (Auto) 12.3 H Eos % (Auto) 4.4 Baso % (Auto) 0.3 Lymph # (Auto) 1.75 [place] # (Auto) 0.9 H Eos # (Auto) 0.3 Baso # (Auto) 0.0 Abs Immat Gran (auto) 0.03 Absolute Neuts (auto) 4.0 Absolute Nucleated RBC 0.000 Nucleated RBC % 0.0 Sodium 141 Potassium 3.6 Chloride 105 Carbon Dioxide 26 Anion Gap 10 BUN 29 H Creatinine 0.84 Estim Creat Clear Calc Not Reportable Estimated GFR > 60 Glucose 97 Calcium 8.9 Magnesium Total Bilirubin 0.3 AST 28 ALT 20 Alkaline Phosphatase 155 H Total Protein 7.0 Albumin 4.1 TSH (Reflex) Urine Color Yellow Urine Appearance Clear Urine pH 6.0 Ur Specific [place] 1.023 Urine Protein Negative Urine Glucose (UA) Negative Urine Ketones Trace H Ur Blood (Man) Negative Urine Nitrate Negative Urine Bilirubin Negative Urine Urobilinogen 1.0 Leukocyte Esterase Rfl 2+ H Urine RBC 0-2 Urine WBC 21-50 H Ur Squamous Epith Cells Occasional Urine Bacteria None seen Urine Casts 0-2 Nasal MRSA (PCR) Not detected Phenytoin 12 Influenza A (RT-PCR) Negative Influenza B (RT-PCR) Negative SARS-CoV-2 RNA (RT-PCR) Negative 10/20/24 04:57 WBC 5.9 RBC 3.65 L Hgb 12.2 L Hct 37.0 L MCV 101.4 H MCH 33.4 MCHC 33.0 RDW 13.6 Plt Count 144 L MPV 10.8 H Immature Gran % (Auto) Neut % (Auto) Lymph % (Auto) [place] % (Auto) Eos % (Auto) Baso % (Auto) Lymph # (Auto) [place] # (Auto) Eos # (Auto) Baso # (Auto) Abs Immat Gran (auto) Absolute Neuts (auto) Absolute Nucleated RBC Nucleated RBC % Sodium 140 Potassium 3.6 Chloride 105 Carbon Dioxide 27 Anion Gap 8 BUN 23 H Creatinine 0.76 Estim Creat Clear Calc 79 Estimated GFR > 60 Glucose 83 Calcium 8.3 L Magnesium 1.8 Total Bilirubin AST ALT Alkaline Phosphatase Total Protein Albumin TSH (Reflex) 2.920 Urine Color Urine Appearance Urine pH Ur Specific [place] Urine Protein Urine Glucose (UA) Urine Ketones Ur Blood (Man) Urine Nitrate Urine Bilirubin Urine Urobilinogen Leukocyte Esterase Rfl Urine RBC Urine WBC Ur Squamous Epith Cells Urine Bacteria Urine Casts Nasal MRSA (PCR) Phenytoin Influenza A (RT-PCR) Influenza B (RT-PCR) SARS-CoV-2 RNA (RT-PCR) Quality VTE Prophylaxis VTE prophylaxis: pharmacologic ordered
[2024-10-20] MEDS: ENOXAPARIN 40 MG/0.4 ML SYRINGE SUB-Q (08:25)
[2024-10-20] MEDS: hydroCHLOROthiazide 25 MG TABLET PO (08:26)
[2024-10-20] MEDS: GABAPENTIN 300 MG CAPSULE BY MOUTH ×5 (08:26→21:55)
[2024-10-20] MEDS: CYANOCOBALAMIN 1,000 MCG TABLET 1000 MCG PO (08:26)
[2024-10-20] MEDS: ATORVASTATIN 20 MG TABLET PO (08:26)
[2024-10-20] MEDS: CHOLECALCIFEROL 1,000 UNITS TABLET 1000 UNITS PO (08:26)
[2024-10-20] MEDS: FOLIC ACID 1 MG TABLET PO (08:26)
[2024-10-20] MEDS: DIVALPROEX SODIUM DR 250 MG TABEC 500 MG BY MOUTH ×4 (08:27→21:42)
[2024-10-20] MEDS: LOSARTAN POTASSIUM 100 MG TABLET PO (08:28)
[2024-10-20] MEDS: PHENYTOIN SODIUM 100 MG EXTENDED RELEASE CAP 300 MG BY MOUTH (08:28)
[2024-10-20] MEDS: PRIMIDONE 250 MG TABLET PO (08:29)
[2024-10-20] MEDS: SUCRALFATE 1 GM TABLET 2 GM PO ×2 (08:29→21:42)
[2024-10-20] MEDS: AZITHROMYCIN 500 MG/NS 250 ML 500 MG/250 ML BAG 250 MG IVPB (12:57)
[2024-10-20 14:00] VITALS: BP 135/84; PULSE 65; RESP 18; TEMP 36.4; O2SAT 98
[2024-10-20 21:41] VITALS: BP 129/73; PULSE 62; RESP 16; TEMP 36.4; O2SAT 99
[2024-10-20] MEDS: PHENYTOIN SODIUM 100 MG EXTENDED RELEASE CAP 200 MG BY MOUTH (21:43)
[2024-10-21 05:28] VITALS: BP 132/73; PULSE 64; RESP 18; TEMP 36.6; O2SAT 95
[2024-10-21] MEDS: LEVOTHYROXINE SODIUM 100 MCG TABLET 200 MCG PO (05:48)
[2024-10-21] MEDS: ENOXAPARIN 40 MG/0.4 ML SYRINGE SUB-Q (08:36)
[2024-10-21] MEDS: LOSARTAN POTASSIUM 100 MG TABLET PO (08:37)
[2024-10-21] MEDS: GABAPENTIN 300 MG CAPSULE BY MOUTH ×5 (08:37→20:00)
[2024-10-21] MEDS: PRIMIDONE 250 MG TABLET PO (08:37)
[2024-10-21] MEDS: FOLIC ACID 1 MG TABLET PO (08:37)
[2024-10-21] MEDS: CYANOCOBALAMIN 1,000 MCG TABLET 1000 MCG PO (08:37)
[2024-10-21] MEDS: DIVALPROEX SODIUM DR 250 MG TABEC 500 MG BY MOUTH ×4 (08:37→20:00)
[2024-10-21] MEDS: CHOLECALCIFEROL 1,000 UNITS TABLET 1000 UNITS PO (08:37)
[2024-10-21] MEDS: ATORVASTATIN 20 MG TABLET PO (08:37)
[2024-10-21] MEDS: PHENYTOIN SODIUM 100 MG EXTENDED RELEASE CAP 300 MG BY MOUTH (08:37)
[2024-10-21] MEDS: hydroCHLOROthiazide 25 MG TABLET PO (08:37)
[2024-10-21] MEDS: SUCRALFATE 1 GM TABLET 2 GM PO ×2 (08:38→20:00)
[2024-10-21] MEDS: FLUTICASONE/UMECLIDIN/VILANTER 100-62.5-25 MCG ELLIPTA 1 PUFF INHALATION (08:45)
[2024-10-21 08:47] VITALS: PULSE 54; RESP 20; O2SAT 99
--- NOTE | 2024-10-21 10:34 | PM.DS ---
DS: Admitting Diagnosis Discharge Date 10/21/2024 Admitting Diagnosis Pneumonia DS: Discharge Diagnosis Discharge Diagnosis (1) Pneumonia: Code(s): J18.9 - Pneumonia, unspecified organism Status: Acute (2) Left rib fracture: Code(s): S22.32XA - Fracture of one rib, left side, initial encounter for closed fracture Status: Acute (3) Generalized weakness: Code(s): R53.1 - Weakness Status: Acute (4) Benign essential hypertension: Code(s): I10 - Essential (primary) hypertension Status: Acute (5) Seizure disorder: Code(s): G40.909 - Epilepsy, unspecified, not intractable, without status epilepticus Status: Acute (6) Hypothyroidism: Code(s): E03.9 - Hypothyroidism, unspecified Status: Acute DS: Summary Hospital Course Reason for hospitalization: Weakness and a fall. 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 The patient lives in his own home and uses a cane, walker, or wheelchair depending how he is doing each day and it is my understanding that he has done rehab before for chronic balance problem. He admits that he is becoming progressively more weak and deconditioned over the past several months and it is to the point where he now has some difficulty going from a seated to standing position. Sometime yesterday evening he was ambulating with a walker when he felt that his legs gave out and he fell down to the ground. Since that time he has had pain over the left side of his rib. It took him an extended period of time to get himself up and his sister, Tamara Renteria, insisted that he come in today for evaluation (she sees the patient daily and helps him out as needed). He denies syncope, near syncope, head trauma, fever, recent cold and flu symptoms, chest pain, pleuritic pain, shortness of breath, cough, abdominal pain, nausea, vomiting, diarrhea, and dysuria. He also denies vertigo, visual changes, facial droop, difficulty speaking and swallowing, focal weakness, and paresthesias. He has chronic lower extremity edema which he states is unchanged. In the ED: Vital signs were stable on arrival. Labs were significant for WBC count of 7.0, hemoglobin 13.0, platelet 149, BUN 29, creatinine 0.84. Urinalysis was positive for trace ketones, 2+ leukocyte esterase, and 21 to 50 WBC. Occasional squamous cells and no bacteria were seen on microscopy. Phenytoin level was within normal limits. Head CT showed no acute abnormality and chronic changes in the left cerebral hemisphere. Chest x-ray showed basilar airspace disease compatible with pneumonia. Rib x-ray showed fracture of the left 9th and 10th ribs. He was started on azithromycin and ceftriaxone for findings of pneumonia and he is being admitted in this setting for further treatment and PT/OT consultation. Time Spent with Patient Time attestation: Total time spent providing and/or coordinating discharge services: 45 Exam Narrative: General: Well-developed, nontoxic-appearing male sitting up in bed in no acute distress. Weight: 96.7 kg. BMI: 28.1. HEENT: Left-sided craniotomy defect. He is a bit hard of hearing. PERRL, EOMI. Changes of cataract surgery with lens implants. Sclera anicteric. Tacky mucous membranes. Neck: Supple. No obvious carotid bruits. Midline vertebral tenderness. Respiratory: Lungs are clear to auscultation bilaterally. Cardiovascular: Regular rate and rhythm with S1-S2. Gastrointestinal: Abdomen is soft, nontender, and nondistended with positive bowel sounds. Skin: Warm and dry. Extremities: No cyanosis or clubbing. 2+ bilateral lower extremity edema. No palpable knots or cords. Negative Kate sign bilaterally. Neurological: Alert and oriented. Cranial nerves 2-12 are grossly intact. Speech is clear. No facial asymmetry. No pronator drift. Normal otihri-pq-gluf and rapid alternating movements. Generally weak in upper and lower extremities without obvious focal deficits. Gait was not assessed. Psychiatric: Pleasant and cooperative with normal mood and affect. Seem slightly forgetful at times. Discharge Plan Discharge Attending physician on discharge: Martinez Chavez Discharging Clinician: Martinez Chavez Anticipated Discharge Date/Time: 10/22/24 10:22 Patient Disposition: SNF Activity: as tolerated Diet: as tolerated Discharge Instructions: Discharge disposition: Stable Take medications as prescribed. You will be prescribed Amoxicillin/Clavulanate to be taken twice a day for 3 total day. Monitor blood pressures Avoid social areas, you wear a mask when in social settings Encouraged to continue with yearly vaccinations Return to the emergency department if he developed sudden shortness of breath, chest pain, nausea, vomiting, upset stomach or intractable diarrhea Return to the emergency department if you develop fever greater than 101.5 Follow-up with the primary care physician within 1-2 weeks Thank you for choosing [facility] for your healthcare needs Patient Language: Mozambican Stand Alone Forms: General Discharge Information Follow-up/Referrals: Monroe Jeffries MD [Primary Care Provider] - Discharge Medications: New amoxicillin-pot clavulanate 875-125 mg tablet 1 tablet PO Q12H Qty: 6 0RF Continued cholecalciferol (vitamin D3) [Vitamin D3] 25 mcg (1,000 unit) Capsule 25 mcg PO DAILY folic acid 1 mg tablet 1 mg PO DAILY mecobalamin (vitamin B12) 1,000 mcg tablet,disintegrating 1,000 mcg SUBLINGUAL DAILY Rx Instructions: place tablet under tongue and allow to dissolve for at least 30 seconds before swallowing atorvastatin 20 mg tablet 20 mg PO DAILY sucralfate 1 gram tablet 2 g PO BID gabapentin 300 mg capsule See Rx Instructions .ROUTE .COMPLEX Rx Instructions: 300 mg po five times per day levothyroxine 200 mcg tablet 200 mcg PO DAILY ibuprofen 600 mg Tablet 600 mg PO Q6H PRN (Reason: Pain Rated 1-3) Qty: 20 0RF primidone 250 mg tablet 250 mg PO DAILY hydrocodone-acetaminophen 5-325 mg Tablet 1 tablet PO Q4H PRN (Reason: Pain Rated 6 Or Greater) Qty: 7 0RF divalproex 500 mg tablet,delayed release (DR/EC) See Rx Instructions .ROUTE .COMPLEX Qty: 120 0RF Dose Instruction: Take 1 tablet by mouth 4 times daily Rx Instructions: Take 1 tablet by mouth 4 times daily phenytoin sodium extended 100 mg capsule See Rx Instructions .ROUTE .COMPLEX Qty: 150 0RF Dose Instruction: TAKE 3 CAPSULES BY MOUTH IN THE MORNING AND 2 IN THE EVENING Rx Instructions: TAKE 3 CAPSULES BY MOUTH IN THE MORNING AND 2 IN THE EVENING losartan-hydrochlorothiazide 100-25 mg tablet 1 tablet PO DAILY Qty: 90 1RF Trelegy Ellipta 100-62.5-25 mcg blister with device 1 inh inhalation DAILY Qty: 60 1RF Date of admission: 10/19/24 17:41 Primary Care Provider: Monroe Jeffries Admitting Provider: Fran Bardales Attending physician on admission: Martinez Chavez Condition: Stable Quality VTE Prophylaxis VTE prophylaxis: pharmacologic ordered
--- NOTE | 2024-10-21 10:48 | P.PNIM_ITS ---
Progress Note: A&P Assessment and Plan (1) Pneumonia: Code(s): J18.9 - Pneumonia, unspecified organism Status: Acute Assessment and Plan: CXR: - Risk Factors: none - Complicating Factors: none - started on CAP tx: azithromycin ceftriaxone on 10/19 - Viral PCR: negative for Flu/COVID/RSV - Legionella, mycoplasma and pneumococcal pending - no supplemental O2 requirement - trend labs Monitor vital signs, I&Os, neuro status and patient is a fall risk Follow WBC, serum electrolytes, temperature curves and cultures Send sputum cultures Oxygen via NC; wean as tolerated. Keep SpO2 greater than 88% Gentle IV fluid resuscitation Ceftriaxone 2 gram IV q24H and Azithromycin 500mg IV q24H (2) Left rib fracture: Code(s): S22.32XA - Fracture of one rib, left side, initial encounter for closed fracture Status: Acute Assessment and Plan: Chronic On 07/[address]:Acute fractures of left ninth and 10th ribs. (3) Generalized weakness: Code(s): R53.1 - Weakness Status: Acute Assessment and Plan: Chronic (4) Benign essential hypertension: Code(s): I10 - Essential (primary) hypertension Status: Acute Assessment and Plan: Chronic BP ranges from 101/65 - 151/72 Stable (5) Seizure disorder: Code(s): G40.909 - Epilepsy, unspecified, not intractable, without status epilepticus Status: Acute Assessment and Plan: Phenytoin: 12 Continue Divalproex (6) Hypothyroidism: Code(s): E03.9 - Hypothyroidism, unspecified Status: Acute Assessment and Plan: Levothyroxine 200mcg Time Spent With Patient Time: Subjective Date/time seen: 10/21/24 10:48 Interval history: 79-year-old male with 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 10/21/2024 Patient sitting comfortably in bed at time of examination. Denies any chest pain, shortness of breath, n/v or abdominal pain. Labs unremarkable and vitals stable. Plan to work with PT/OT today with hopeful discharge tomorrow. Review of Systems Review of Systems: 12 systems were reviewed and are negativ e except for as per HPI. Exam Narrative: General: Well-developed, nontoxic-appearing male sitting up in bed in no acute distress. Weight: 96.7 kg. BMI: 28.1. HEENT: Left-sided craniotomy defect. He is a bit hard of hearing. PERRL, EOMI. Changes of cataract surgery with lens implants. Sclera anicteric. Tacky mucous membranes. Neck: Supple. No obvious carotid bruits. Midline vertebral tenderness. Respiratory: Lungs are clear to auscultation bilaterally. Cardiovascular: Regular rate and rhythm with S1-S2. Gastrointestinal: Abdomen is soft, nontender, and nondistended with positive bowel sounds. Skin: Warm and dry. Extremities: No cyanosis or clubbing. 2+ bilateral lower extremity edema. No palpable knots or cords. Negative Kate sign bilaterally. Neurological: Alert and oriented. Cranial nerves 2-12 are grossly intact. Speech is clear. No facial asymmetry. No pronator drift. Normal avwdtt-[id number]-olft and rapid alternating movements. Generally weak in upper and lower extremities without obvious focal deficits. Gait was not assessed. Psychiatric: Pleasant and cooperative with normal mood and affect. Seem slightly forgetful at times. Objective Data Vital Signs Vital Signs: Vital Signs - 24 hr 10/20/24 14:00 10/20/24 20:00 10/20/24 21:41 Temperature 97.5 F L 97.5 F L Pulse Rate 65 62 Respiratory Rate 18 16 Blood Pressure 135/84 129/73 Pulse Oximetry 98 99 Oxygen Delivery Room Air 10/21/24 05:28 10/21/24 08:47 10/21/24 08:47 Temperature 97.9 F Pulse Rate 64 54 L Respiratory Rate 18 20 Blood Pressure 132/73 Pulse Oximetry 95 99 Oxygen Delivery Room Air 10/21/24 09:16 Temperature Pulse Rate Respiratory Rate Blood Pressure Pulse Oximetry Oxygen Delivery Room Air Intake/Output Intake/Output: Intake & Output 10/18/24 10/19/24 10/20/24 10/21/24 23:59 23:59 23:59 23:59 Intake Total 300 1307 910 Output Total 1450 350 Balance 300 -143 560 Meds/Results Medications: Active Medications Generic Name Dose Route Start Last Admin Trade Name Freq PRN Reason Stop Dose Admin Acetaminophen 650 mg 10/19/24 15:38 Acetaminophen 325 Mg Tablet PO Q4H PRN Mild Pain (1-3) or Fever Hydrocodone Bitart/Acetaminophen 1 tab 10/19/24 15:38 Hydrocodone/Acetaminophen (*Crx) 5-325 Mg Tablet PO Q4H PRN Pain Rated 4-6 Atorvastatin Calcium 20 mg 10/20/24 09:00 10/21/24 08:37 Atorvastatin 20 Mg Tablet PO 20 mg DAILY LAMBERT Administration Cyanocobalamin 1,000 mcg 10/20/24 09:00 10/21/24 08:37 Cyanocobalamin 1,000 Mcg Tablet PO 1,000 mcg DAILY LAMBERT Administration Divalproex Sodium 500 mg 10/19/24 21:20 10/21/24 08:[address] 250 Mg Tabec BY MOUTH 500 mg QID LAMBERT Administration Enoxaparin Sodium 40 mg 10/20/24 09:00 10/21/24 08:36 Enoxaparin 40 Mg/0.4 Ml Syringe SUB-Q 40 mg DAILY LAMBERT Administration Fluticasone/Umeclidinium/Vilanterol 1 puff 10/20/24 08:00 10/21/24 08:45 Fluticasone/Umeclidin/Vilanter 100-62.5-25 Mcg Ellipta INHALATION 1 puff DAILYRT LAMBERT Administration Folic Acid 1 mg 10/20/24 09:00 10/21/24 08:37 Folic Acid 1 Mg Tablet PO 1 mg DAILY LAMBERT Administration Gabapentin 300 mg 10/19/24 21:20 10/21/24 08:37 Gabapentin 300 Mg Capsule BY MOUTH 300 mg 5 TIMES DAILY LAMBERT Administration Hydrochlorothiazide 25 mg 10/20/24 09:00 10/21/24 08:37 Hydrochlorothiazide 25 Mg Tablet PO 25 mg QAM LAMBERT Administration Ceftriaxone Sodium 1 gm in 50 mls @ 100 mls/hr 10/20/24 12:00 10/20/24 12:36 Rocephin 1 Gm/Ns 50 Ml IVPB Infused Q24H LAMBERT Infusion Azithromycin 500 mg in 250 mls @ 250 mls/hr 10/20/24 12:00 10/20/24 12:57 Zithromax IVPB 250 mls/hr Q24H LAMBERT Administration Levothyroxine Sodium 200 mcg 10/20/24 06:30 10/21/24 05:48 Levothyroxine Sodium 100 Mcg Tablet PO 200 mcg DAILY@0630 LAMBERT Administration Losartan Potassium 100 mg 10/20/24 09:00 10/21/24 08:37 Losartan Potassium 100 Mg Tablet PO 100 mg DAILY LAMBERT Administration Ondansetron HCl 4 mg 10/19/24 15:38 Ondansetron Inj 4 Mg/2 Ml Vial IV PUSH Q4H PRN Nausea Phenytoin Sodium 200 mg 10/19/24 21:20 10/20/24 21:43 Phenytoin Sodium 100 Mg Extended Release Cap BY MOUTH 200 mg QHS LAMBERT Administration Phenytoin Sodium 300 mg 10/20/24 09:00 10/21/24 08:37 Phenytoin Sodium 100 Mg Extended Release Cap BY MOUTH 300 mg QAM LAMBERT Administration Primidone 250 mg 10/20/24 09:00 10/21/24 08:37 Primidone 250 Mg Tablet PO 250 mg DAILY LAMBERT Administration Sucralfate 2 gm 10/20/24 09:00 10/21/24 08:38 Sucralfate 1 Gm Tablet PO 2 gm Q12HR LAMBERT Administration Vitamin D 1,000 units 10/20/24 09:00 10/21/24 08:37 Cholecalciferol 1,000 Units Tablet PO 1,000 units DAILY LAMBERT Administration Radiology Results: ITS Impressions Head CT 10/19/24 12:53 Impression: No acute abnormality seen. Chronic changes in the left cerebral hemisphere, as above. Chest X-Ray 10/19/24 13:15 Impression: 1: Bibasilar airspace disease, compatible with pneumonia. Ribs X-Ray 10/19/24 13:17 IMPRESSION: Fracture of the left ninth and 10th ribs. Clinical correlation advised. Venous Doppler Study 10/19/24 21:51 IMPRESSION: 1. No deep venous thrombosis within the bilateral lower extremities, as detailed above. Quality VTE Prophylaxis VTE prophylaxis: pharmacologic ordered
[2024-10-21 14:00] VITALS: BP 134/68; PULSE 68; RESP 19; TEMP 36.8; O2SAT 97
[2024-10-21] MEDS: AZITHROMYCIN 500 MG/NS 250 ML 500 MG/250 ML BAG 250 MG IVPB (14:01)
--- NOTE | 2024-10-21 16:07 | PC.NURSE ---
On 10/21/24, the student, Ana Cheng, provided care and completed [facility] documentation on this patient. I have reviewed the student's documentation and agree with the findings.
[2024-10-21 19:49] VITALS: BP 110/60; PULSE 77; RESP 16; TEMP 36.9; O2SAT 95
[2024-10-21] MEDS: PHENYTOIN SODIUM 100 MG EXTENDED RELEASE CAP 200 MG BY MOUTH (20:01)
[2024-10-22 04:57] VITALS: BP 124/76; PULSE 70; RESP 18; TEMP 36.6; O2SAT 98
[2024-10-22] MEDS: LEVOTHYROXINE SODIUM 100 MCG TABLET 200 MCG PO (06:07)
[2024-10-22] MEDS: FLUTICASONE/UMECLIDIN/VILANTER 100-62.5-25 MCG ELLIPTA 1 PUFF INHALATION (07:50)
[2024-10-22 07:51] VITALS: PULSE 68; RESP 20; O2SAT 93
--- NOTE | 2024-10-22 08:57 | P.DS_ITS ---
DS: Admitting Diagnosis Discharge Date 10/22/2024 Admitting Diagnosis Pneumonia DS: Discharge Diagnosis Discharge Diagnosis (1) Pneumonia: Code(s): J18.9 - Pneumonia, unspecified organism Status: Acute (2) Left rib fracture: Code(s): S22.32XA - Fracture of one rib, left side, initial encounter for closed fracture Status: Acute (3) Generalized weakness: Code(s): R53.1 - Weakness Status: Acute (4) Benign essential hypertension: Code(s): I10 - Essential (primary) hypertension Status: Acute (5) Seizure disorder: Code(s): G40.909 - Epilepsy, unspecified, not intractable, without status epilepticus Status: Acute (6) Hypothyroidism: Code(s): E03.9 - Hypothyroidism, unspecified Status: Acute DS: Summary Hospital Course Reason for hospitalization: Weakness and a fall Hospital Course: This is a very pleasant 79-year-old male with 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 The patient lives in his own home and uses a cane, walker, or wheelchair depending how he is doing each day and it is my understanding that he has done rehab before for chronic balance problem. He admits that he is becoming progressively more weak and deconditioned over the past several months and it is to the point where he now has some difficulty going from a seated to standing position. Sometime yesterday evening he was ambulating with a walker when he felt that his legs gave out and he fell down to the ground. Since that time he has had pain over the left side of his rib. It took him an extended period of time to get himself up and his sister, Tamara Renteria, insisted that he come in today for evaluation (she sees the patient daily and helps him out as needed). He denies syncope, near syncope, head trauma, fever, recent cold and flu symptoms, chest pain, pleuritic pain, shortness of breath, cough, abdominal pain, nausea, vomiting, diarrhea, and dysuria. He also denies vertigo, visual changes, facial droop, difficulty speaking and swallowing, focal weakness, and paresthesias. He has chronic lower extremity edema which he states is unchanged. In the ED: Vital signs were stable on arrival. Labs were significant for WBC count of 7.0, hemoglobin 13.0, platelet 149, BUN 29, creatinine 0.84. Urinalysis was positive for trace ketones, 2+ leukocyte esterase, and 21 to 50 WBC. Occasional squamous cells and no bacteria were seen on microscopy. Phenytoin level was within normal limits. Head CT showed no acute abnormality and chronic changes in the left cerebral hemisphere. Chest x-ray showed basilar airspace disease compatible with pneumonia. Rib x-ray showed fracture of the left 9th and 10th ribs. This appears to be an old finding. He was started on azithromycin and ceftriaxone for findings of pneumonia and he is being admitted in this setting for further treatment and PT/OT consultation. He worked with physical therapy and occupational therapy while in the hospital. He remained on Azithromycin and Ceftriaxone IV until he was transitioned to PO Levofloxacin and was able to tolerate PO. Throughout his visit his symptoms continued to improve. By the A.m. of 10/22, he had repeated CBC/CMP that were within normal limits, had a benign physical exam, was afebrile and was able to work with PT/OT with minimal concerns. Home health was then set up by care coordination due to SNF placement requiring private pay. Pt otherwise stable for discharge with no other concerns at this time and will be set up for oral antibiotic management of his pneumonia. Time Spent with Patient Time attestation: Total time spent providing and/or coordinating discharge services: 45 Exam Narrative: General: Well-developed, nontoxic-appearing male sitting up in bed in no acute distress. Weight: 96.7 kg. BMI: 28.1. HEENT: Left-sided craniotomy defect. He is a bit hard of hearing. PERRL, EOMI. Changes of cataract surgery with lens implants. Sclera anicteric. Tacky mucous membranes. Neck: Supple. No obvious carotid bruits. Midline vertebral tenderness. Respiratory: Lungs are clear to auscultation bilaterally. Cardiovascular: Regular rate and rhythm with S1-S2. Gastrointestinal: Abdomen is soft, nontender, and nondistended with positive bowel sounds. Skin: Warm and dry. Extremities: No cyanosis or clubbing. 2+ bilateral lower extremity edema. No palpable knots or cords. Negative Kate sign bilaterally. Neurological: Alert and oriented. Cranial nerves 2-12 are grossly intact. Speech is clear. No facial asymmetry. No pronator drift. Normal [id number] and rapid alternating movements. Generally weak in upper and lower extremities without obvious focal deficits. Gait was not assessed. Psychiatric: Pleasant and cooperative with normal mood and affect. Seem slightly forgetful at times. Discharge Plan Discharge Attending physician on discharge: Martinez Chavez Discharging Clinician: Martinez Chavez Anticipated Discharge Date/Time: 10/22/24 08:53 Patient Disposition: Home with Home Health Service Activity: as tolerated Diet: as tolerated Discharge Instructions: Discharge disposition: Stable Take medications as prescribed. You will be prescribed Amoxicillin/Clavulanate to be taken twice a day for 3 total day. Monitor blood pressures Avoid social areas, you wear a mask when in social settings Encouraged to continue with yearly vaccinations Return to the emergency department if he developed sudden shortness of breath, chest pain, nausea, vomiting, upset stomach or intractable diarrhea Return to the emergency department if you develop fever greater than 101.5 Follow-up with the primary care physician within 1-2 weeks Thank you for choosing [facility] for your healthcare needs Per Care Coordination Patient was current with [facility] services prior to hospitalization, please resume home health services for RN, PT, OT. [phone] RN please fax completed discharge instructions to [phone] Per Care Coordination Please call Department of Aging to arrange an evaluation to see if could qualify for in-home services [phone] Patient Instructions: Antibiotic Form Patient Language: Belizean Stand Alone Forms: General Discharge Information Follow-up/Referrals: Monroe Jeffries MD [Primary Care Provider] - Discharge Medications: New amoxicillin-pot clavulanate 875-125 mg tablet 1 tablet PO Q12H Qty: 6 0RF Continued cholecalciferol (vitamin D3) [Vitamin D3] 25 mcg (1,000 unit) Capsule 25 mcg PO DAILY folic acid 1 mg tablet 1 mg PO DAILY mecobalamin (vitamin B12) 1,000 mcg tablet,disintegrating 1,000 mcg SUBLINGUAL DAILY Rx Instructions: place tablet under tongue and allow to dissolve for at least 30 seconds before swallowing atorvastatin 20 mg tablet 20 mg PO DAILY sucralfate 1 gram tablet 2 g PO BID gabapentin 300 mg capsule See Rx Instructions .ROUTE .COMPLEX Rx Instructions: 300 mg po five times per day levothyroxine 200 mcg tablet 200 mcg PO DAILY ibuprofen 600 mg Tablet 600 mg PO Q6H PRN (Reason: Pain Rated 1-3) Qty: 20 0RF primidone 250 mg tablet 250 mg PO DAILY hydrocodone-acetaminophen 5-325 mg Tablet 1 tablet PO Q4H PRN (Reason: Pain Rated 6 Or Greater) Qty: 7 0RF divalproex 500 mg tablet,delayed release (DR/EC) See Rx Instructions .ROUTE .COMPLEX Qty: 120 0RF Dose Instruction: Take 1 tablet by mouth 4 times daily Rx Instructions: Take 1 tablet by mouth 4 times daily phenytoin sodium extended 100 mg capsule See Rx Instructions .ROUTE .COMPLEX Qty: 150 0RF Dose Instruction: TAKE 3 CAPSULES BY MOUTH IN THE MORNING AND 2 IN THE EVENING Rx Instructions: TAKE 3 CAPSULES BY MOUTH IN THE MORNING AND 2 IN THE EVENING losartan-hydrochlorothiazide 100-25 mg tablet 1 tablet PO DAILY Qty: 90 1RF Trelegy Ellipta 100-62.5-25 mcg blister with device 1 inh inhalation DAILY Qty: 60 1RF Date of admission: 10/19/24 17:41 Primary Care Provider: Monroe Jeffries Admitting Provider: Fran Bardales Attending physician on admission: Martinez Chavez Condition: Stable Quality VTE Prophylaxis VTE prophylaxis: pharmacologic ordered Hospitalist MIPS Heart Failure (Exclusion) Patient has history of Heart Transplant or Left Ventricular Assistive Device?: No IF YES, STOP HERE Heart Failure (Qualifier) Patient has current or prior documentation of LVEF less than or equal to 40%, or mod/servere depressed LVSF?: No IF NO, STOP HERE
[2024-10-22] MEDS: PRIMIDONE 250 MG TABLET PO (09:04)
[2024-10-22] MEDS: ENOXAPARIN 40 MG/0.4 ML SYRINGE SUB-Q (09:04)
[2024-10-22] MEDS: GABAPENTIN 300 MG CAPSULE BY MOUTH (09:04)
[2024-10-22] MEDS: PHENYTOIN SODIUM 100 MG EXTENDED RELEASE CAP 300 MG BY MOUTH (09:05)
[2024-10-22] MEDS: SUCRALFATE 1 GM TABLET 2 GM PO (09:05)
[2024-10-22] MEDS: CYANOCOBALAMIN 1,000 MCG TABLET 1000 MCG PO (09:05)
[2024-10-22] MEDS: FOLIC ACID 1 MG TABLET PO (09:05)
[2024-10-22] MEDS: CHOLECALCIFEROL 1,000 UNITS TABLET 1000 UNITS PO (09:05)
[2024-10-22] MEDS: hydroCHLOROthiazide 25 MG TABLET PO (09:05)
[2024-10-22] MEDS: LOSARTAN POTASSIUM 100 MG TABLET PO (09:05)
[2024-10-22] MEDS: DIVALPROEX SODIUM DR 250 MG TABEC 500 MG BY MOUTH (09:06)
[2024-10-22] MEDS: ATORVASTATIN 20 MG TABLET PO (09:06)
[2024-10-22 15:02] LABS: Pneumococcal Antigen Urine NOT DETECTED
[2024-10-22 16:39] LABS: Mycoplasma IgM Antibody Titer 53 U/mL
[2024-10-22 19:29] LABS: Legionella pneumophila Ag Ur NOT DETECTED
== END 2024-10-22 12:40 | disposition home health service (06) | DRG 194 ==
LOC: ANHED 12:12 → ANH3MEDSUR 16:36 → ANH3MED 17:15
PROVIDERS: Physician Assistant; Admitting Provider Internal Medicine; Emergency Provider Emergency Medicine; PCP Internal Medicine; Visit Provider Physician Assistant
DX: J18.9 Pneumonia, unspecified organism (principal); S22.42XA Multiple fractures of ribs, left side, initial encounter for closed fracture; G40.909 Epilepsy, unspecified, not intractable, without status epilepticus; E78.5 Hyperlipidemia, unspecified; E03.9 Hypothyroidism, unspecified; F41.9 Anxiety disorder, unspecified; G47.33 Obstructive sleep apnea (adult) (pediatric); I10 Essential (primary) hypertension; K21.9 Gastro-esophageal reflux disease without esophagitis; W19.XXXA Unspecified fall, initial encounter; Z20.822 Contact with and (suspected) exposure to COVID-19
CPT/HCPCS: 36415; 70450; 71046; 71100; 80048; 80053; 80185; 81001; 83735; 84443; 85025; 85027; 86738; 87086; 87449; 87636; 87641; 87899; 93970; 94640; 96365; 96367; 96375; 97161; 97166; 97530; 97535; 99285; A9270; G0378; J0456; J0696; J1650; J7030

== ENCOUNTER 2025-03-23 02:02 | Emergency (ER) | payer MEDICARE, MEDICAID, SELFPAY ==
--- NOTE | ~2025-03-23 | CT_ITS ---
CT HEAD NON-CONTRAST Clinical History: Unwitnessed fall Comparison: 10/19/2024 Technique: Unenhanced axial images skull base to vertex Coronal, sagittal reformats CT images acquired with automatic exposure control for dose reduction DLP: 757 mGy-cm Findings: Large left craniotomy with mesh reconstruction as before. Regional streak artifact could obscure subtle abnormality. White matter changes from chronic microvascular ischemic disease Sulci, ventricles: Unremarkable. No intracerebral hemorrhage. No evidence acute territorial infarct. No mass effect, midline shift. Bony calvarium intact. Visualized paranasal sinuses: Clear. Mastoid air cells: Clear. IMPRESSION: 1. No acute intracranial findings. Reviewed, dictated and finalized at location R.
--- NOTE | ~2025-03-23 | XR_ITS ---
X-rays left hip with pelvis Indication: Fall, pain Comparison: None Technique: 2 views left hip, with AP pelvis Findings/Impression: 1. No fracture or dislocation left hip. 2. Mild degenerative changes left hip. 3. No pelvic or right hip fracture identified given single projection. Reviewed, dictated and finalized at location R.
--- NOTE | ~2025-03-23 | XR_ITS ---
Examination: XR chest 1V Clinical History: Unwitnessed fall Comparison: 10/19/2024 Technique: Portable AP Findings: Heart size normal. Mild bibasilar atelectasis. No acute bony abnormality. IMPRESSION: 1. No acute cardiopulmonary findings given portable technique. Reviewed, dictated and finalized at location R.
--- NOTE | ~2025-03-23 | CT_ITS ---
CT CERVICAL SPINE WITHOUT CONTRAST CLINICAL HISTORY: Unwitnessed fall Technique: Axial images thoracic inlet to skull base Sagittal and coronal reformats. No contrast CT images acquired with automatic exposure control for dose reduction DLP: 548 mGy-cm Comparison: None Findings: No acute fracture. Grade 1 retrolisthesis C2 on 3. Vertebral bodies normal height and alignment. Mild degenerative changes. Disc spaces maintained. Prevertebral soft tissues within normal limits. Visualized lung apices: 2 mm pleural-based nodule superior segment left lower lobe; no surveillance indicated. Visualized thyroid: Unremarkable. No enlarged cervical nodes. IMPRESSION: 1. No acute findings. Reviewed, dictated and finalized at location R. IMPRESSION: 1. No acute findings.
[2025-03-23 01:59] VITALS: BP 152/90; PULSE 78; RESP 13; TEMP 36.4; O2SAT 100
--- OUTSIDE RECORDS SUMMARY | 2025-03-23 02:33 | XMS_ITS | Clinical Summary ---
Author Organization [facility] Address [address] [place] [address] Care Team Providers Care Manager Philosophy Name Role Phone Monroe Jeffries MD Primary Care Provider [phone] Allergies No known active allergies Medications atorvastatin (LIPITOR) 20 MG tablet Take 1 tablet (20 mg total) by mouth daily with lunch. 4 Active divalproex EC (DEPAKOTE) 500 MG tablet Take 1 tablet (500 mg total) by mouth 4 (four) times daily. Takes at [phone] 4 Active TRELEGY ELLIPTA 100-62.5-25 MCG/ACT AEROSOL POWDER, BREATH ACTIVATED Inhale 1 puff into the lungs daily. 5 Active levothyroxine (SYNTHROID) 200 MCG tablet Take 1 tablet (200 mcg total) by mouth daily. Active losartan-hydro CHLOROthiazide (HYZAAR) 100-25 MG tablet Take 1 tablet by mouth daily. Active phenytoin ER (DILANTIN KAPSEALS) 100 MG capsule Take 2-3 capsules (200-300 mg total) by mouth see administration instructions. Takes 2 capsules (200 mg) in AM and 3 capsules (300 mg) in PM 4 Active sucralfate (CARAFATE) 1 G tablet Take 2 tablets (2 g total) by mouth 2 (two) times daily before meals. Active folic acid (FOLVITE) 1 MG tablet Take 1 tablet (1 mg total) by mouth every evening. Active vitamin D3 (CHOLECALCIFER OL) 25 mcg tablet Take 1 tablet (25 mcg total) by mouth every evening. Active vitamin C (ASCORBIC ACID) 500 MG tablet Take 1 tablet (500 mg total) by mouth every evening. Active thiamine 100 MG Tab Take 1 tablet (100 mg total) by mouth daily. 30 tablet Active gabapentin (NEURONTIN) 100 MG capsule Take 1 capsule (100 mg total) by mouth 2 (two) times daily. 60 capsule Active Active Problems Problem Noted Date Diagnosed Date Acute metabolic encephalopathy 11/05/2024 Hypotension 11/03/2024 Encounters Date Type Department Care Team Description 02/17/2025 2:41 PM CDT - 02/17/2025 11:59 PM CDT Hospital Encounter [facility] [place] [address] Jordyn Cuello NP Discharge Disposition: Home or Self Care (Routine Discharge) 02/17/2025 Orders Only [facility] [place] [address] Jordyn Cuello NP 02/10/2025 3:42 PM CDT - 02/10/2025 11:59 PM CDT Hospital Encounter [facility] [place] [address] Heriberto Cruz MD Discharge Disposition: Home or Self Care (Routine Discharge) 02/10/2025 Orders Only [facility] [place] [address] Heriberto Cruz MD from Last 3 Months Immunizations Immunization Administration Dates Next Due MODERNA COVID-19 (12+) MRNA, LNP-S, PF, 100 MCG/ 0.5 ML DOSE 09/29/2020,09/01/2020 Social History Tobacco Use Types Packs/Day Years Used Date Smoking Tobacco: Never Smokeless Tobacco: Never Tobacco Cessation:Counseling Given: Not Answered Alcohol Use Standard Drinks/Week Comments Not Currently 0 (1 standard drink = 0.6 oz pur e alcohol) [facility] Utilities Answer Date Recorded In the past 12 months has th e electric, gas, oil, or water company threatened to shut off services in your home? Patient unable to answer 11/04/2024 Humiliation, Afraid, Rape, a nd Kick questionnaire Answer Date Recorded Within the last year, have y ou been afraid of your partner or ex-partner? Patient unable to answer 11/04/2024 Within the last year, have y ou been humiliated or emotionally abused in other ways by your partner or ex-partner? Patient unable to answer 11/04/2024 Within the last year, have y ou been kicked, hit, slapped, or otherwise physically hurt by your partner or ex-partner? Patient unable to answer 11/04/2024 Within the last year, have y ou been raped or forced to have any kind of sexual activity by your partner or ex-partner? Patient unable to answer 11/04/2024 Overall Financial Resource Strain (CARDIA) Answe r Date Recorded How hard is it for you to pa y for the very basics like food, housing, medical care, and heating? Patient unable to answer 11/04/2024 Hunger Vital Sign Answer Date Recorded Within the past 12 months, y ou worried that your food would run out before you got the money to buy more. Patient unable to answer 11/04/2024 Within the past 12 months, t he food you bought just didn't last and you didn't have money to get more. Patient unable to answer 11/04/2024 PRAPARE - Transportation Answer Date Re corded In the past 12 months, has l ack of transportation kept you from medical appointments or from getting medications? Patient unable to answer 11/04/2024 In the past 12 months, has l ack of transportation kept you from meetings, work, or from getting things needed for daily living? Patient unable to answer 11/04/2024 Housing Stability Vital Sign Answer Patel e Recorded In the last 12 months, was t here a time when you were not able to pay the mortgage or rent on time? Patient unable to answer 11/04/2024 In the past 12 months, how m any times have you moved where you were living? 0 11/04/2024 At any time in the past 12 m [facility], were you homeless or living in a penitentiary (including now)? 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 Gender Identity Not on file Sexual Orientation Not on file Last Filed Vital Signs Vital Sign Reading Time Taken Comments Blood Pressure 116/67 11/11/2024 11:54 AM CDT Pulse 78 11/11/2024 11:54 AM CDT Temperature 36.9 C (98.4 F) 11/11/2024 11:54 AM CDT Respiratory Rate 16 11/11/2024 11:54 AM CDT Oxygen Saturation 99% 11/11/2024 11:54 AM CDT Inhaled Oxygen Concentration - - Weight 100.5 kg (221 lb 9 oz) 11/11/2024 3:37 AM CDT Height 182.9 cm (6') 11/03/2024 8:45 AM CDT Body Mass Index 30.05 11/03/2024 8:45 AM CDT Plan of Treatment Health Maintenance Due Date Last Done Comments Hepatitis C 02/07/1963 DTaP, Tdap and Td Vaccines ( 1 - Tdap) 1965 Pneumococcal Vaccine: 50+ Years (1 of 1 - PCV) 02/07/1996 Zoster Vaccines (1 of 2) 02/07/1996 Annual Medicare Wellness Visit 2011 RSV Immunization or 60+ Years (1 - 1-dose 75+ series) 2021 COVID-19 Vaccine (3 - 2024-2 6 season) 2025 09/29/2020, 09/01/2020 Meningococcal B Vaccine Aged Out No l onger eligible based on patient's age to complete this topic Meningococcal Vaccine Aged Out No missy marita eligible based on patient's age to complete this topic RSV Immunizations Under 20 Months Aged Out No longer eligible b ased on patient's age to complete this topic Goals Goal Patient Goal Type Associated Problems Recent Progress Patient-Stated? Author Family - family caregiver with be involved in care transitions and discharge planning Lifestyle No Mehdi Martinez parliamentary librarian Procedure Name Priority Date/Time Associated Diagnosis Comments BASIC METABOLIC PANEL Routine 02/17/2025 1:58 PM CDT Hypopotassemia CBC W/DIFF AUTOMATED Routine 02/10/2025 2:42 PM CDT Altered mental status COMPREHENSIVE METABOLIC PANEL Routine 02/10/2025 2:42 PM CDT Altered mental status from Last 3 Months Results * BASIC METABOLIC PANEL (02/17/2025 1:58 PM CDT) [facility] GLUCOSE 93 70 - 99 MG/DL 02/17/2025 3:05 PM CDT [facility] BUN 15 7 - 18 MG/DL 02/17/2025 3:05 PM CDT [facility] CREATININE S/P/B 0.70 0.7 - 1.3 MG/DL 02/17/2025 3:05 PM CDT [facility] SODIUM S/P/B 143 136 - 145 MMOL/L 02/17/2025 3:05 PM CDT [facility] POTASSIUM S/P/B 3.9 3.5 - 5.1 MMOL/L 02/17/2025 3:05 PM CDT [facility] CHLORIDE S/P/B 109 97 - 115 MMOL/L 02/17/2025 3:05 PM CDT [facility] CO2 28.0 21 - 32 MMOL/L 02/17/2025 3:05 PM CDT [facility] CALCIUM S/P/B 8.8 8.5 - 10.1 MG/DL 02/17/2025 3:05 PM CDT [facility] ANION GAP 6.0 2 - 10 MMOL/L 02/17/2025 3:05 PM CDT [facility] BUN CREATININE RATIO 21.4 6 - 26 02/17/2025 3:05 PM CDT [facility] GFR ESTIMATE >90 >90 ML/MIN/1.7 3 M2 02/17/2025 3:05 PM CDT [facility] Comment: NOTE: eGFR is not calculated for patients <18 years of age or gender unknown. This is an estimated GFR calculation using the new CKD EPI creatinine equation without race and so does not require a correction factor for race. This estimated GFR should not be used for calculating drug doses. 02/17/2025 1:58 PM CDT Jordyn Cuello [facility] Final Re sult [facility] [address] [place] [address], * (ABNORMAL) COMPREHENSIVE METABOLIC PANEL (02/10/2025 2:42 PM CDT) GLUCOSE 104(H) 70 - 99 MG/DL 02/10/2025 4:08 PM CDT [facility] BUN 15 7 - 18 MG/DL 02/10/2025 4:08 PM CDT [facility] CREATININE S/P/B 0.67(L) 0.7 - 1.3 MG/DL 02/10/2025 4:08 PM CDT [facility] SODIUM S/P/B 141 136 - 145 MMOL/L 02/10/2025 4:08 PM CDT [facility] POTASSIUM S/P/B 3.3(L) 3.5 - 5.1 MMOL/L 02/10/2025 4:08 PM CDT [facility] CHLORIDE S/P/B 105 97 - 115 MMOL/L 02/10/2025 4:08 PM CDT [facility] CO2 29.5 21 - 32 MMOL/L 02/10/2025 4:08 PM CDT [facility] CALCIUM S/P/B 9.1 8.5 - 10.1 MG/DL 02/10/2025 4:08 PM T [facility] BILIRUBIN TOTAL S/P/B 0.3 0.2 - 1.2 MG/DL 02/10/2025 4:08 PM [facility] Comment: THIS ASSAY IS NOT RECOMMENDED FOR PATIENTS UNDERGOING TREATMENT WITH ELTROMBOPAG DUE TO THE POTENTIAL FOR FALSELY ELEVATED RESULTS. TOTAL PROTEIN S/P/B 6.4 6.4 - 8.2 G/DL 02/10/2025 4:08 PM T [facility] ALBUMIN S/P/B 3.1(L) 3.4 - 5.0 G/DL 02/10/2025 4:08 PM [facility] AST 9(L) 15 - 37 U/L 02/10/2025 4:08 PM [facility] ALT 14(L) 16 - 60 U/L 02/10/2025 4:08 PM [facility] ALKALINE PHOSPHATASE S/P/B 112 50 - 136 U/L 02/10/2025 4:08 PM [facility] ANION GAP 6.5 2 - 10 MMOL/L 02/10/2025 4:08 PM [facility] BUN CREATININE RATIO 22.5 6 - 26 02/10/2025 4:08 PM [facility] A/G RATIO 0.9(L) 1.0 - 2.0 RATIO 02/10/2025 4:08 PM [facility] GFR ESTIMATE >90 >90 ML/MIN/1.7 3 M2 02/10/2025 4:08 PM [facility] Comment: NOTE: eGFR is not calculated for patients <18 years of age or gender unknown. This is an estimated GFR calculation using the new CKD EPI creatinine equation without race and so does not require a correction factor for race. This estimated GFR should not be used for calculating drug doses. 02/10/2025 2:42 PM CDT us Heriberto Cruz MD LABORATORY Final Resul t [facility] [address] [place] [address], * (ABNORMAL) CBC W/DIFF AUTOMATED (02/10/2025 2:42 PM CDT) Pathologist [facility] WBC 6.68 4.5 - 11.0 x10'3/uL 02/10/2025 4:08 PM CDT [facility] RBC 3.67(L) 4.70 - 6.10 x10'6/uL 02/10/2025 4:08 PM CDT [facility] HGB 11.9(L) 14.0 - 18.0 G/DL 02/10/2025 4:08 PM CDT [facility] HCT 36.1(L) 43.0 - 54.0 % 02/10/2025 4:08 PM CDT [facility] MCV 98.4(H) 80.0 - 94.0 FL 02/10/2025 4:08 PM CDT [facility] MCH 32.4(H) 27.0 - 31.0 PG 02/10/2025 4:08 PM CDT [facility] MCHC 33.0 32.0 - 36.0 G/DL 02/10/2025 4:08 PM CDT [facility] RDW 14.7(H) 11.5 - 14.5 % 02/10/2025 4:08 PM CDT [facility] PLT 143 130 - 400 x10'3/uL 02/10/2025 4:08 PM CDT [facility] MPV 10.2 9.3 - 12.2 FL 02/10/2025 4:08 PM CDT [facility] DIFFERENTIAL TYPE AUTOMATED DIFFERENTIAL 02/10/2025 4:08 PM CDT [facility] NEUTROPHILS % 54.4 % 02/10/2025 4:08 PM CDT [facility] LYMPHOCYTES % 29.5 % 02/10/2025 4:08 PM CDT [facility] MONOCYTES % 12.0 % 02/10/2025 4:08 PM CDT [facility] EOSINOPHILS 3.4 % 02/10/2025 4:08 PM CDT [facility] BASOPHILS 0.4 % 02/10/2025 4:08 PM CDT [facility] IMMATURE GRANS % 0.3 % 02/11/20 4:08 PM CDT [facility] ABS. NEUTROPHILS 3.63 1.80 - 7.70 x10'3/uL 02/10/2025 4:08 PM CDT [facility] ABS. LYMPHOCYTES 1.97 1.00 - 4.80 x10'3/uL 02/10/2025 4:08 PM CDT [facility] ABS. MONOCYTES 0.80 0.30 - 0.82 x10'3/uL 02/10/2025 4:08 PM CDT [facility] ABS. EOSINOPHILS 0.23 0.04 - 0.54 x10'3/uL 02/10/2025 4:08 PM CDT [facility] ABS. BASOPHILS 0.03 0.01 - 0.08 x10'3/uL 02/10/2025 4:08 PM CDT [facility] ABS. IMMATURE GRANULOCYTES 0.02 0.00 - 0.49 x10'3/uL 02/10/2025 4:08 PM CDT [facility] 02/10/2025 2:42 PM CDT us Heriberto Cruz MD LABORATORY Final Resul t [facility] [address] [place] [address], [place] [phone] from Last 3 Months Insurance MEDICAID MEDICARE Advance Directives Documents on File Type Date Recorded Patient Detective Expl anation Advance Directives and Living Will 11/12/2024 2:50 PM Power of Claim Adjuster 11/07/2024 9:[address] d in paper chart * POLST (Latest Code Status on File) Date Activated Date Inactivated Comments 11/07/2024 1:10 PM 11/11/2024 3:51 PM Question Answer Comments Cardiopulmonary Resuscitatio n (CPR) If patient has no pulse and is not breathing: DO NOT Attempt Resuscitation CPR Medical Interventions when N OT in Cardiopulmonary Arrest (If patient is found with a pulse and/or is breathing): Selective Treatment - Do NOT Intubate Documentation of discussion: Agent Under Health Care Power of Claim Adjuster * DNR Date Activated Date Inactivated Comments 11/05/2024 11:49 AM 11/07/2024 1:10 PM * Full Code Date Activated Date Inactivated Comments 11/03/2024 2:27 PM 11/05/2024 11:49 AM Care Teams Manager Philosophy Relationship Specialty Start Date End Date Monroe Jeffries MD [address] [place] [address] PCP - General INTERNAL MEDICINE 11/03/24
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
[2025-03-23 02:46] VITALS: BP 157/85; PULSE 76; RESP 17; O2SAT 98
[2025-03-23 03:31] VITALS: BP 138/94; PULSE 76; RESP 16; O2SAT 100
[2025-03-23 03:44] VITALS: BP 138/94; PULSE 75; RESP 14; O2SAT 100
== END 2025-03-23 03:51 ==
PROVIDERS: Emergency Provider Emergency Medicine; PCP Internal Medicine
DX: S79.912A Unspecified injury of left hip, initial encounter (principal); I10 Essential (primary) hypertension; G40.909 Epilepsy, unspecified, not intractable, without status epilepticus; G25.81 Restless legs syndrome; G47.33 Obstructive sleep apnea (adult) (pediatric); E78.5 Hyperlipidemia, unspecified; E53.8 Deficiency of other specified B group vitamins; D64.9 Anemia, unspecified; K21.9 Gastro-esophageal reflux disease without esophagitis; Z86.0100 Personal history of colon polyps, unspecified; Z96.1 Presence of intraocular lens; Z98.49 Cataract extraction status, unspecified eye; Z79.899 Other long term (current) drug therapy; W19.XXXA Unspecified fall, initial encounter
CPT/HCPCS: 70450; 71045; 72125; 73502; 99284

== ENCOUNTER 2025-03-28 09:20 | Emergency (ER) | payer MEDICARE, MEDICAID, SELFPAY ==
[2025-03-28] VITALS (8 sets, daily range): BP systolic 111–143; BP diastolic 65–80; PULSE 65–76; RESP 12–17; TEMP 36.4; O2SAT 98–100
--- NOTE | ~2025-03-28 | CT_ITS ---
EXAMINATION: CT brain brady knight, 03/28/2025 10:25 CDT HISTORY: ams COMPARISON: No comparisons available. Technique: Axial images obtained of the brain without contrast. One or more of the following dose reduction techniques were used: automated exposure control, adjustment of the mA and/or kV according to patient size, use of iterative reconstruction technique. Findings: No acute infarct or hemorrhage, there is encephalomalacia noted involving the left temporal and frontal lobes with associated craniotomy changes, artifact limits evaluation. There is no midline shift. No extra-axial fluid collections are identified. Mastoid air cells unremarkable. Sinuses and orbits unremarkable. No acute fracture. No significant facial or scalp soft tissue swelling evident. No radiopaque foreign body is seen. Impression: 1.No acute intracranial abnormality. Reviewed, dictated and finalized at location A. Impression: 1.No acute intracranial abnormality.
--- NOTE | 2025-03-28 09:36 | ECG_ITS ---
Test Date: 2025-03-28 09:50:01 Measurements Intervals Mcdade Rate: 67 P: 28 MO: 253 QRS: -18 QRSD: 94 T: 6 QT: 396 QTc: 420 Interpretive Statements SINUS RHYTHM WITH FIRST DEGREE AV BLOCK LOW QRS VOLTAGE IN PRECORDIAL LEADS [QRS DEFLECTION < 1.0 mV IN CHEST LEADS] ABNORMAL ECG Compared to ECG 07/24/2024 10:43:20 Myocardial infarct finding no longer present Electronically Signed On 03-28-2025 11:17:12 CDT by Gregory Dawn M.D.
[2025-03-28 09:52] LABS: Hematocrit 36.1 % (42.0-52.0); Hemoglobin 11.9 g/dL (14.0-18.0); Immature Granulocyte Percent A 0.3 % (0-0.5); Lymphocytes Absolute Auto 1.56 K/mm3 (0.9-3.2); Mean Corpuscular HGB Conc 33.0 g/dl (32-36); Mean Corpuscular Hemoglobin 32.7 pg (26-34); Mean Corpuscular Volume 99.2 fl (80-100); Nucleated Red Blood Cells Absolute Auto 0.000 K/mm3 (0.0-0.012); Nucleated Red Blood Cells Perc 0.0 % (0.0-0.2); Platelet Count Result 157 k/mm3 (150-375); Red Blood Count 3.64 M/mm3 (4.6-6.20); White Blood Count 5.8 K/mm3 (4.5-10.0)
[2025-03-28 10:04] LABS: INR 1.1; Prothrombin Time 14.3 Seconds (11.1-14.7)
[2025-03-28 10:05] LABS: Partial Thromboplastin Time 28.4 Seconds (22.3-36.8)
[2025-03-28 10:14] LABS: Add Urine Microscopic? YES; Appearance Urine Clear (Clear); Glucose Urine UA Negative (Negative); Leukocyte Esterase Ur Trace LEU/UL (Negative); Nitrate Urine Negative (Negative); Non Pathogenic Casts 0-2; Specific Grav Ur 1.019 (1.001-1.035)
[2025-03-28 10:23] LABS: Alanine Aminotransferase 17 U/L (6-50); Albumin Level 3.9 g/dL (3.5-5.1); Alkaline Phosphatase 120 U/L (38-126); Anion Gap 8 mmol/L (4-12); Aspartate Amino Transferase 23 U/L (17-59); Bilirubin,Total 0.2 mg/dL (0.2-1.3); Blood Urea Nitrogen 27 mg/dL (9-20); Calcium 8.6 mg/dL (8.4-10.2); Carbon Dioxide 27 mmol/L (22-30); Chloride 104 mmol/L (98-107); Estimated CRCL calculation 67 ml/min; Estimated Glomerular Filt Rate > 60; Glucose 87 mg/dL (65-110); Potassium 3.8 mmol/L (3.4-5.0); Sodium 139 mmol/L (137-145); Total Protein 6.6 g/dL (6.3-8.2)
--- OUTSIDE RECORDS SUMMARY | 2025-03-28 11:18 | XMS_ITS | Clinical Summary ---
Author Organization [facility] Address [address] [place] [id number] Care Team Providers Care Specification Manager Name Role Phone Monroe Jeffries MD Primary Care Provider [phone] Allergies No known active allergies Social History Tobacco Use Types Packs/Day Years Used Date Smoking Tobacco: Never Assessed Personal Safety Answer Date Recorded Getting School Help Needed Not on file 09/06 Sex and Gender Information Value Date Recorded Sex Assigned at Not on file Legal Sex Male 12:29 AM [employer] Gender Identity Not on file Sexual Orientation [...] 3:31 AM CDT Height 185.4 cm (6' 1) 11/22/2015 3:31 AM CDT Body Mass Index [...] Visit 65+ 2011 Covid-19 Vaccine (5 - 2024-2 6 season) 2025 05/07/2022, 11/14/2021, 09/29/2020, Additional history exists Influenza Vaccine (#1) 2025 05/07/2022 Insurance MEDICARE [facility] Care Teams Specification Manager Relationship Specialty Start Date End Date Monroe Jeffries MD [address] [place] [address] PCP - General Internal Medicine 09/10/22
--- NOTE | 2025-03-28 12:28 | ED.GENADULT ---
HPI - General Adult General Chief complaint: Altered Mental Status Stated complaint: hallucinations Time Seen by Provider: 03/28/25 10:02 History of Present Illness HPI narrative: Memo Tamez is a 80-year-old male who presents from a nursing facility for worsening hallucinations. His sister at the bedside states that she has cared for him for the past 20 years and recently he was put into a nursing facility for closer monitoring about 1 month ago. She states that he is complaining of these hallucinations for at least 2 months but has become more frequent in the last week or so. He states that he has seen people outside of his window, seeing kids come in to his room more so at night at bedtime that is keeping him up at night. Patient is otherwise oriented to self place he admits to seeing these things he feels that they are real though. He admits to not getting lot of sleep related to this. He denies having pain anywhere. Sister at bedside states that he is at his normal mental state. 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 He otherwise is able to ambulate and care for himself with assistance. Related Data Home Medications ?Medication ?Instructions ?Recorded ?Confirmed ?Last Taken ?Type folic acid 1 mg tablet 1 mg PO DAILY 04/13/20 10/19/24 10/19/24 History mecobalamin (vitamin B12) 1,000 1,000 mcg sublingual DAILY 04/13/20 10/19/24 10/19/24 History mcg disintegrating tablet,sublingual cholecalciferol (vitamin D3) 25 25 mcg PO DAILY 05/28/21 10/19/24 10/19/24 History mcg (1,000 unit) capsule (Vitamin D3) atorvastatin 20 mg tablet 20 mg PO DAILY 05/06/24 10/19/24 10/19/24 History gabapentin 300 mg capsule See Rx Instructions .Route .COMPLEX 05/06/24 10/19/24 10/19/24 History levothyroxine 200 mcg tablet 200 mcg PO DAILY 05/06/24 10/19/24 10/19/24 History sucralfate 1 gram tablet 2 g PO BID 05/06/24 10/19/24 10/19/24 History Allergies Allergy/AdvReac Type Severity Reaction Status Date / Time No Known Allergies Allergy Unknown Verified 03/23/25 02:13 Review of Systems Review of Systems: All systems reviewed & are unremarkable except as noted in HPI and below PMFSH Past Medical History Medical History Obstructive sleep apnea intolerant to CPAP Chronic anemia Normal cardiac stress test (2022) Colon polyps Gastroesophageal reflux disease Hypothyroidism Sandra encephalitis (1963) Degenerative joint disease Chronic cough Constipation Small bowel obstruction (11/2015) Restless legs Vitamin B12 deficiency Anxiety Seizure disorder Hyperlipidemia Benign essential hypertension Surgical History Surgical History History of exploratory laparotomy (11/2015) 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 History of cataract extraction with lens replacement History of arthroscopy of shoulder History of craniotomy (1963) History of colonoscopy with polypectomy Family History Family History Father HLD (hyperlipidemia) Chronic obstructive pulmonary disease Mother HLD (hyperlipidemia) Multiple myeloma Sibling Hypertension Other Diabetes mellitus Social History Social History Social History: Surrogate medical decision maker: Tamara Friend, sister. Code status: Full code. Smoking status: Never smoker Second hand tobacco smoke exposure: No Alcohol intake: never Substance use: never Substance use type: does not use Do You Feel Safe in your Home?: Yes Lack of Transportation: No Lack of Food: Never True Current Housing: I Have Housing Concerned About Future Housing: No Difficulty Paying Gas/Electric Bills: No Difficulty Paying for Meds: No Currently Unemployed: No Education: High School Diploma/GED Difficulty w/ Childcare or Family Care: No Living arrangements: alone Additional living arrangements comments: Patient lives alone. Sister Tamara Renteria is his vhoyk-[id number] and caregiver. Spiritual care concerns: No Exam Narrative: GENERAL: Well-appearing, well-nourished, and in no acute distress. HEAD: Normocephalic, atraumatic. EYES: PERRLA and EOMI. ENT: Nares clear, no rhinorrhea or epistaxis. Mucous membranes moist. Oropharynx without tonsillar hypertrophy exudate or other lesions. Bilateral TMs pearly merritt nonbulging NECK: Supple. No adenopathy or masses. No carotid bruits or JVD CHEST: Clear to auscultation. No respiratory distress. No wheezes rales or rhonchi HEART: Regular rate and rhythm. No murmur heard. Normal peripheral pulses. ABDOMEN: Soft, nontender, nondistended, normal active bowel sounds. EXTREMITIES: Normal range of motion. No edema. SKIN: Warm, dry, no rash. NEURO: No focal deficits. Alert and oriented x3. PSYCH: Normal mood and affect. Course Vital Signs Vital signs: Vital Signs Temperature 36.4 C L 03/28/25 09:19 Pulse Rate 73 03/28/25 09:19 Respiratory Rate 14 03/28/25 09:19 Blood Pressure 118/74 03/28/25 09:19 Pulse Oximetry 100 03/28/25 09:19 Oxygen Delivery Room Air 03/28/25 09:19 Temperature 36.4 C L 03/28/25 09:19 Pulse Rate 67 03/28/25 11:30 Respiratory Rate 12 03/28/25 11:30 Blood Pressure 132/76 03/28/25 11:30 Pulse Oximetry 100 03/28/25 11:30 Oxygen Delivery Room Air 03/28/25 09:35 Medical Decision Making MDM Narrative Medical decision making narrative: 80-year-old male with continuing hallucinations and seemed to be getting worse over the past week or to, sister confirms that this has been going on for the past 2 months but the halfway was concerned that he would need a formal evaluation to make sure there was not anything else going on that could be causing his symptoms. His workup here is quite benign. Patient is alert and oriented to himself place he admits to having these hallucinations he explains that he has seen people outside he says that he sees children coming to his room at bedtime it does seem to keep him up at night he otherwise denies any recent falls any your chest pain, denies shortness of breath, denies fevers chills reports he is eating and drinking okay. CBC is unremarkable with no leukocytosis, he is hemodynamically stable, CMP is BUN is a little bit elevated at 27 otherwise unremarkable urine is unremarkable head CT is negative EKG is stable Discussed with sister patient that without having any acute findings on his workup here today this is something that he should follow up with his primary care doctor at the nursing facility to trial medications to help his hallucinations and course if he develops any worsening or new symptoms he can come back to the emergency department. He and his sister are comfortable with him being discharged back to the facility for continued monitoring, care and primary care follow-up. Medical Records Medical records reviewed: Yes I reviewed the external patient's medical records. Vital Signs Vital Signs: Vital Signs Temperature 36.4 C L 03/28/25 09:19 Pulse Rate 73 03/28/25 09:19 Respiratory Rate 14 03/28/25 09:19 Blood Pressure 118/74 03/28/25 09:19 Pulse Oximetry 100 03/28/25 09:19 Oxygen Delivery Room Air 03/28/25 09:19 Temperature 36.4 C L 03/28/25 09:19 Pulse Rate 67 03/28/25 11:30 Respiratory Rate 12 03/28/25 11:30 Blood Pressure 132/76 03/28/25 11:30 Pulse Oximetry 100 03/28/25 11:30 Oxygen Delivery Room Air 03/28/25 09:35 Vitals reviewed by me Lab Data Lab results reviewed: Yes I reviewed the patient's lab results. 03/28/25 09:46 03/28/25 09:46 Labs: Lab Results 03/28/25 03/28/25 Range/Units 09:46 09:58 WBC 5.8 (4.5-10.0) K/mm3 RBC 3.64 L (4.6-6.20) M/mm3 Hgb 11.9 L (14.0-18.0) g/dL Hct 36.1 L (42.0-52.0) % MCV 99.2 (80-100) fl MCH 32.7 (26-34) pg MCHC 33.0 (32-36) g/dl RDW 14.0 (11.5-14.5) % Plt Count 157 (150-375) k/mm3 MPV 10.4 (7.4-10.4) fl Immature Gran % (Auto) 0.3 (0-0.5) % Neut % (Auto) 56.8 (45.5-73.1) % Lymph % (Auto) 27.0 (18.3-44.2) % [place] % (Auto) 11.4 H (2.6-8.5) % Eos % (Auto) 4.2 (0-4.4) % Baso % (Auto) 0.3 (0.2-1.2) % Lymph # (Auto) 1.56 (0.9-3.2) K/mm3 [place] # (Auto) 0.7 H (0.1-0.6) K/mm3 Eos # (Auto) 0.2 (0-0.3) K/mm3 Baso # (Auto) 0.0 (0.0-0.1) K/mm3 Abs Immat Gran (auto) 0.02 (0.00-0.031) K/mm3 Absolute Neuts (auto) 3.3 (1.3-6.7) K/mm3 Absolute Nucleated RBC 0.000 (0.0-0.012) K/mm3 Nucleated RBC % 0.0 (0.0-0.2) % PT 14.3 (11.1-14.7) Seconds INR 1.1 APTT 28.4 (22.3-36.8) Seconds Sodium 139 (137-145) mmol/L Potassium 3.8 (3.4-5.0) mmol/L Chloride 104 (98-107) mmol/L Carbon Dioxide 27 (22-30) mmol/L Anion Gap 8 (4-12) mmol/L BUN 27 H (9-20) mg/dL Creatinine 0.88 (0.7-1.3) mg/dL Estim Creat Clear Calc 67 ml/min Estimated GFR > 60 (59 - ) Glucose 87 (65-110) mg/dL Calcium 8.6 (8.4-10.2) mg/dL Total Bilirubin 0.2 (0.2-1.3) mg/dL AST 23 (17-59) U/L ALT 17 (6-50) U/L Alkaline Phosphatase 120 (38-126) U/L Total Protein 6.6 (6.3-8.2) g/dL Albumin 3.9 (3.5-5.1) g/dL Urine Color Yellow (Yellow) Urine Appearance Clear (Clear) Urine pH 6.5 (5.0-9.0) Ur Specific [place] 1.019 (1.001-1.035) Urine Protein Negative (Negative) mg/dL Urine Glucose (UA) Negative (Negative) mg/dL Urine Ketones Negative (Negative) mg/dL Ur Blood (Man) Negative (Negative) Urine Nitrate Negative (Negative) Urine Bilirubin Negative (Negative) Urine Urobilinogen 0.2 (<2.0) mg/dL Leukocyte Esterase Rfl Trace H (Negative) KELLE/UL Urine RBC 0-2 (0-2) /hpf Urine WBC 0-5 (0-3) /hpf Ur Squamous Epith Cells None seen (Few) /hpf Urine Bacteria None seen /hpf Urine Casts 0-2 Imaging Data Radiologist's impression: Impressions Head CT 03/28/25 10:40 Impression: 1.No acute intracranial abnormality. Discharge Plan Discharge Clinical Impression: Hallucination Patient Disposition: [place] Half-Way/Asst Living Condition: Stable Instructions: Antibiotic Form Additional Instructions: Continue your home medication patient using and drinking 3 males a day staying hydrated. Make sure your getting plenty of rest at bedtime please follow-up with your primary care doctor regarding hallucinations to see if there is a medication that they would suggest to start him on to see if this helps. She a course of anything changes or gets worse then return to the emergency department. Patient Language: Hebrew Prescriptions: No Action cholecalciferol (vitamin D3) [Vitamin D3] 25 mcg (1,000 unit) Capsule 25 mcg PO DAILY folic acid 1 mg tablet 1 mg PO DAILY mecobalamin (vitamin B12) 1,000 mcg tablet,disintegrating 1,000 mcg SUBLINGUAL DAILY Rx Instructions: place tablet under tongue and allow to dissolve for at least 30 seconds before swallowing atorvastatin 20 mg tablet 20 mg PO DAILY sucralfate 1 gram tablet 2 g PO BID gabapentin 300 mg capsule See Rx Instructions .ROUTE .COMPLEX Rx Instructions: 300 mg po five times per day levothyroxine 200 mcg tablet 200 mcg PO DAILY ibuprofen 600 mg Tablet 600 mg PO Q6H PRN (Reason: Pain Rated 1-3) Qty: 20 0RF hydrocodone-acetaminophen 5-325 mg Tablet 1 tablet PO Q4H PRN (Reason: Pain Rated 6 Or Greater) Qty: 7 0RF amoxicillin-pot clavulanate 875-125 mg tablet 1 tablet PO Q12H Qty: 6 0RF losartan-hydrochlorothiazide 100-25 mg tablet 1 tablet PO DAILY Qty: 90 1RF Trelegy Ellipta 100-62.5-25 mcg blister with device 1 inh inhalation DAILY Qty: 60 1RF divalproex 500 mg tablet,delayed release (DR/EC) See Rx Instructions .ROUTE .COMPLEX Qty: 120 0RF Dose Instruction: Take 1 tablet by mouth 4 times daily Rx Instructions: Take 1 tablet by mouth 4 times daily phenytoin sodium extended 100 mg capsule See Rx Instructions .ROUTE .COMPLEX Qty: 150 0RF Dose Instruction: TAKE 3 CAPSULES BY MOUTH IN THE MORNING AND 2 IN THE EVENING Rx Instructions: TAKE 3 CAPSULES BY MOUTH IN THE MORNING AND 2 IN THE EVENING primidone 250 mg tablet 250 mg PO DAILY Qty: 60 0RF Follow-up/Referrals: Monroe Jeffries MD [Primary Care Provider, Internal Medicine] Stand Alone Forms: Fdc Discharge Time of Disposition: 13:11
== END 2025-03-28 15:56 ==
PROVIDERS: Student in an Organized Health Care Education/Training Program; Emergency Provider Nurse Practitioner Family; PCP Internal Medicine
DX: R44.3 Hallucinations, unspecified (principal); E78.5 Hyperlipidemia, unspecified; I10 Essential (primary) hypertension
CPT/HCPCS: 36415; 70450; 80053; 81001; 85025; 85610; 85730; 93005; 99284